=== PATIENT | female | born 1965 | race Caucasian/White ===

== ENCOUNTER 2016-09-30 00:15 | Emergency (ER) | payer MEDICAID ==
[2016-09-30 00:15] VITALS: BMI 32.9
[2016-09-30 00:33] VITALS: BP 134/108; PULSE 109; RESP 20; TEMP 99.2; O2SAT 98
--- NOTE | 2016-09-30 00:39 | C.PDOC ---
History Of Present Illness Patient presents to the emergency room requesting narcotics for abdominal pain. Patient also notes vomiting. Patient has a long history of Narcotic abuse. Patient does not want any blood work and only wants something for pain. Patient denies any headaches, dizziness, chest pain, or shortness of breath. Time Seen by Provider: 09/30/16 00:39 Chief Complaint (Nursing): Abdominal Pain History Per: Patient History/Exam Limitations: no limitations Onset/Duration Of Symptoms: Hrs Current Symptoms Are (Timing): Still Present Severity: Mild Pain Scale Rating Of: 4 Location Of Pain/Discomfort: Diffuse Radiation Of Pain To:: None Quality Of Discomfort: "Pain" Associated Symptoms: Vomiting Exacerbating Factors: None Alleviating Factors: None Recent travel outside of the [place]: No Past Medical History Reviewed: Historical Data, Nursing Documentation, Vital Signs Vital Signs: Last Vital Signs Temp 99.2 F 09/30/16 00:29 Pulse 109 H 09/30/16 00:29 Resp 20 09/30/16 00:29 BP 134/108 H 09/30/16 00:29 Pulse Ox 98 09/30/16 01:32 - Medical History PMH: Anemia, Anxiety, Arthritis, Asthma, Back Problems (herniated discs), Bronchitis, Depression, Diverticulitis, Gastritis, Gastrointestinal Ulcer, HTN, Hypercholesterolemia, Pancreatitis Denies: Dementia, Hyperthyroidism, Hypothyroidism, Kidney Stones, Chronic Kidney Disease, Sexually Transmitted Disease, TIA Surgical History: Appendectomy, Cholecystectomy, Endoscopy, Hernia Repair ( ventral x3, last 10/27/15) - [facility] Procedures CENTRAL VENOUS CATHETER PLACEMENT WITH GUIDANCE (06/13/14) CLOSED ENDOSCOPIC BIOPSY OF LARGE INTESTINE (05/19/14) DILATION OF RIGHT AXILLARY ARTERY, PERCUTANEOUS APPROACH (11/03/15) ESOPHAGOGASTRODUODENOSCOPY [EGD] W/CLOSED BIOPSY (10/22/14) EXCISION OF DESCENDING COLON, ENDO, DIAGN (05/31/16) EXCISION OF SIGMOID COLON, ENDO, DIAGN (12/05/15) EXCISION OF SMALL INTESTINE, ENDO, DIAGN (06/10/16) EXCISION OF STOMACH, ENDO, DIAGN (10/21/15) FLUOROSCOPY OF SUPERIOR VENA CAVA, GUIDANCE (12/05/15) INFLUENZA VACCINATION (05/08/14) INJECT/INFUSE NEC (06/25/14) INSERTION OF INFUSION DEV INTO L BRACH VEIN, PERC APPROACH (11/08/15) INSERTION OF INFUSION DEV INTO SUP VENA CAVA, PERC APPROACH (05/31/16) INSPECTION OF GASTROINTESTINAL TRACT, PERC ENDO APPROACH (10/26/15) MRI OF OTHER AND UNSPECIFIED SITES (04/25/14) RELEASE CECUM, OPEN APPROACH (10/26/15) ULTRASONOGRAPHY OF LEFT UPPER EXTREMITY VEINS, GUIDANCE (11/08/15) ULTRASONOGRAPHY OF SUPERIOR VENA CAVA, GUIDANCE (10/26/15) VENOUS CATHETERIZATION NEC (02/14/14) Family History: States: Unknown Family Hx - Social History Hx Tobacco Use: No Hx Alcohol Use: No Hx Substance Use: No - Immunization History Hx Tetanus Toxoid Vaccination: Yes Hx Influenza Vaccination: Yes (2015) Hx Pneumococcal Vaccination: Yes (2014) Review Of Systems Cardiovascular: Negative for: Chest Pain Respiratory: Negative for: Shortness of Breath Gastrointestinal: Positive for: Vomiting, Abdominal Pain Skin: Negative for: Rash Neurological: Negative for: Dizziness Psych: Negative for: Anxiety Physical Exam - Physical Exam Appears: Non-toxic (pt refuses to be fully examined, other than abdomen) Gastrointestinal/Abdominal: Soft, No Tenderness, Distention, No Guarding, No Rebound, Other (Tympanic to percussion) Extremity: Normal ROM, No Tenderness Neurological/Psych: Oriented x3 Gait: Steady ED Course And Treatment O2 Sat by Pulse Oximetry: 98 Pulse Ox Interpretation: Normal Progress Note: [place] per [place], patient has had 47 prescriptions from 37 different prescribers filled for numerous narcotics over the last year. spoke with the pt at length about the need for pain menagement , and that I will try to control her discomfort without narcotics. pt wanted im zofran. went to reexamine the pt , but had eloped Disposition Counseled Patient/Family Regarding: Studies Performed, Diagnosis, Need For Followup - Disposition Disposition: ELOPEMENT - ER ONLY Disposition Time: 00:39 Condition: FAIR - Clinical Impression Clinical Impression: Nausea - Scribe Statement The provider has reviewed the documentation as recorded by the Scribe Camron Adler All medical record entries made by the Justinaibe were at my direction and personally dictated by me. I have reviewed the chart and agree that the record accurately reflects my personal performance of the history, physical exam, medical decision making, and the department course for this patient. I have also personally directed, reviewed, and agree with the discharge instructions and disposition.
== END 2016-09-30 01:29 | disposition left against medical advice (07) ==
LOC: C.ER 00:15
DX: R11.2 Nausea with vomiting, unspecified (principal)

== ENCOUNTER 2017-04-04 18:59 | Inpatient (IN) | payer MEDICAID ==
[2017-04-04 19:02] VITALS: BMI 38.7
--- NOTE | 2017-04-04 19:56 | C.PDOC ---
History Of Present Illness The patient presents to the ED for evaluation of severe abdominal pain which began a couple days ago. Patient has history of multiple abdominal surgeries in the past. Patient denies fever, chills, back pain, nausea, vomiting. Time Seen by Provider: 04/04/17 19:56 Chief Complaint (Nursing): Abdominal Pain History Per: Patient History/Exam Limitations: no limitations Onset/Duration Of Symptoms: Days Current Symptoms Are (Timing): Still Present Severity: Severe Pain Scale Rating Of: 8 Location Of Pain/Discomfort: Diffuse Radiation Of Pain To:: None Quality Of Discomfort: "Pain" Associated Symptoms: denies: Fever, Chills, Nausea, Vomiting Exacerbating Factors: None Alleviating Factors: None Last Bowel Movement: Today Recent travel outside of the [place]: No Additional History Per: Patient Abnormal Vaginal Bleeding: No Past Medical History Reviewed: Historical Data, Nursing Documentation, Vital Signs Vital Signs: Last Vital Signs Temp 99.3 F 04/04/17 19:02 Pulse 102 H 04/04/17 19:02 Resp 18 04/04/17 19:02 BP 188/118 H 04/04/17 19:02 Pulse Ox 100 04/04/17 21:31 - Medical History PMH: Anemia, Anxiety, Arthritis, Asthma, Back Problems (herniated discs), Bronchitis, Depression, Diverticulitis, Gastritis, Gastrointestinal Ulcer, HTN, Hypercholesterolemia, Pancreatitis Surgical History: Appendectomy, Cholecystectomy, Endoscopy, Hernia Repair ( ventral x3, last 10/27/15) - [facility] Procedures CENTRAL VENOUS CATHETER PLACEMENT WITH GUIDANCE (06/13/14) CLOSED ENDOSCOPIC BIOPSY OF LARGE INTESTINE (05/19/14) DILATION OF RIGHT AXILLARY ARTERY, PERCUTANEOUS APPROACH (11/03/15) ESOPHAGOGASTRODUODENOSCOPY [EGD] W/CLOSED BIOPSY (10/22/14) EXCISION OF DESCENDING COLON, ENDO, DIAGN (05/31/16) EXCISION OF SIGMOID COLON, ENDO, DIAGN (12/05/15) EXCISION OF SMALL INTESTINE, ENDO, DIAGN (06/10/16) EXCISION OF STOMACH, ENDO, DIAGN (10/21/15) FLUOROSCOPY OF SUPERIOR VENA CAVA, GUIDANCE (12/05/15) INFLUENZA VACCINATION (05/08/14) INJECT/INFUSE NEC (06/25/14) INSERTION OF INFUSION DEV INTO L BRACH VEIN, PERC APPROACH (11/08/15) INSERTION OF INFUSION DEV INTO SUP VENA CAVA, PERC APPROACH (05/31/16) INSPECTION OF GASTROINTESTINAL TRACT, PERC ENDO APPROACH (10/26/15) MRI OF OTHER AND UNSPECIFIED SITES (04/25/14) RELEASE CECUM, OPEN APPROACH (10/26/15) ULTRASONOGRAPHY OF LEFT UPPER EXTREMITY VEINS, GUIDANCE (11/08/15) ULTRASONOGRAPHY OF SUPERIOR VENA CAVA, GUIDANCE (10/26/15) VENOUS CATHETERIZATION NEC (02/14/14) Family History: States: No Known Family Hx - Social History Hx Tobacco Use: No Hx Alcohol Use: No Hx Substance Use: No - Immunization History Hx Tetanus Toxoid Vaccination: Yes Hx Influenza Vaccination: Yes (2015) Hx Pneumococcal Vaccination: Yes (2014) Review Of Systems Constitutional: Negative for: Fever, Chills Cardiovascular: Negative for: Chest Pain Respiratory: Negative for: Shortness of Breath Gastrointestinal: Positive for: Abdominal Pain (diffuse ). Negative for: Nausea , Vomiting, Diarrhea, Constipation Genitourinary: Negative for: Dysuria, Hematuria Musculoskeletal: Negative for: Back Pain Skin: Negative for: Rash Neurological: Negative for: Weakness, Numbness Psych: Positive for: Anxiety Physical Exam - Physical Exam Appears: Non-toxic, No Acute Distress, Other (patient is screaming and demanding pain medication ) Skin: Warm, Dry Head: Normacephalic Eye(s): bilateral: Normal Inspection Oral Mucosa: Moist Neck: Supple Chest: Symmetrical, No Deformity, No Tenderness Cardiovascular: Rhythm Regular, No Murmur Respiratory: No Rales, No Rhonchi, No Wheezing Gastrointestinal/Abdominal: Bowel Sounds (hypoactive ), Soft, Tenderness ( diffuse), Distention, No Guarding, No Rebound Back: No CVA Tenderness Extremity: Normal ROM, Capillary Refill (less than 2 seconds ) Extremity: Bilateral: Atraumatic Pulses: Left Dorsalis Pedis: Normal, Right Dorsalis Pedis: Normal Neurological/Psych: Oriented x3, Normal Speech, Normal Cognition Gait: Steady ED Course And Treatment - Laboratory Results Result Diagrams: 04/04/17 20:57 04/04/17 20:57 O2 Sat by Pulse Oximetry: 100 (on RA) Pulse Ox Interpretation: Normal Progress Note: [place]. Patient has around 50 prescriptions for narcotic pain medications from multiple prescribers. Attempted to perform external jugular vein IV access unsuccessfully. Patient has scarring from numerous previous attempts at IV access. Right Femoral venous puncture performed successfully. labs ordered and reviewed. Patient received Dulaudid IM, and zofran odt Disposition Discussed With .: Oleg Ellison Comment: accepted the pt on his service and took over the care at 9:28 PM Counseled Patient/Family Regarding: Studies Performed, Diagnosis - Disposition Disposition: HOSPITALIZED Disposition Time: 19:56 Condition: GUARDED - Clinical Impression Clinical Impression: Abdominal pain, chronic, generalized, Nausea, Vomiting - Scribe Statement The provider has reviewed the documentation as recorded by the Scribe (Lilliana Ley) Provider Attestation: All medical record entries made by the Scribe were at my direction and personally dictated by me. I have reviewed the chart and agree that the record accurately reflects my personal performance of the history, physical exam, medical decision making, and the department course for this patient. I have also personally directed, reviewed, and agree with the discharge instructions and disposition. Decision To Admit - Pt Status Changed To: Hospital Disposition Of: Inpatient - Admit Certification Admit to Inpatient:: After my assessment, the patient will require hospitalization for at least two midnights. This is because of the severity of symptoms shown, intensity of services needed, and/or the medical risk in this patient being treated as an outpatient. - InPatient: Physician Admission Certification:: After my assessment, the patient will require hospitalization for at least two midnights. This is because of the severity of symptoms shown, intensity of services needed, and/or the medical risk in this patient being treated as an outpatient. - . Bed Request Type: Regular Admitting Physician: Oleg Ellison Patient Diagnosis: Abdominal pain, chronic, generalized, Nausea, Vomiting
[2017-04-04] MEDS ORDERED: Sodium Chloride 0.9% 1,000 ML IV ONE (19:59)
[2017-04-04 21:04] LABS: BASO % 0.3 % (0.0-2.0); EOS # 0.2 K/uL (0.0-0.7); EOS % 1.3 % (0.0-4.0); LYMPH % 7.2 % (20.0-40.0); MEAN CELL VOLUME 89.4 fL (81.0-99.0); MEAN CORPUSCULAR HEMOGLOBIN 29.3 pg (27.0-31.0); MEAN CORPUSCULAR HGB CONC 32.8 g/dL (33.0-37.0); MEAN PLATELET VOLUME 8.1 fL (7.2-11.7); MONO # 0.5 K/uL (0.0-0.8); MONO % 3.4 % (0.0-10.0); NRBC % 0.1 % (0.0-2.0); PLATELET COUNT 336 K/uL (130-400); RED CELL DISTRIBUTION WIDTH 12.6 % (11.5-14.5); WHITE BLOOD COUNT 14.2 K/uL (4.8-10.8)
[2017-04-04 21:09] LABS: CHLORIDE 101 mmol/L (98-107)
[2017-04-04 21:10] LABS: SODIUM 140 mmol/L (132-148)
[2017-04-04 21:11] LABS: GFR AFRICAN-AMERICAN > 60
[2017-04-04 21:12] LABS: ALB/GLOB RATIO 1.2 (1.0-2.1); ALKALINE PHOSPHATASE 139 U/L (38-126); ALT/SGPT 38 U/L (9-52); AST/SGOT 25 U/L (14-36); BILIRUBIN,TOTAL 0.5 mg/dL (0.2-1.3); BLOOD UREA NITROGEN 15 mg/dL (7-17); CALCIUM 9.3 mg/dl (8.6-10.4); CARBON DIOXIDE 29 mmol/L (22-30); GLUCOSE,RANDOM 126 mg/dL (65-105); TOTAL PROTEIN 7.9 g/dL (6.3-8.3)
[2017-04-04 21:35] LABS: INR 1.1
[2017-04-04 22:14] LABS: RBC URINE 30 /hpf (0-3); URINE BACTERIA RARE (<OCC); URINE BILIRUBIN NEGATIVE (NEGATIVE); URINE BLOOD 2+ (NEGATIVE); URINE COLOR Yellow (YELLOW); URINE GLUCOSE (UA) NORMAL (Normal); URINE KETONE NEGATIVE (NEGATIVE); URINE LEUKOCYTE ESTERASE NEG Leu/uL (Negative); URINE PROTEIN NEGATIVE (NEGATIVE); URINE UROBILINOGEN NORMAL mg/dL (0.2-1.0); WBC URINE 1 /hpf (0-5)
--- NOTE | 2017-04-04 22:40 | CT ---
EXAM: CT Abdomen and Pelvis Without Intravenous Contrast CLINICAL HISTORY: 52 years old, female; Pain; Abdominal pain; Generalized; Additional info: Abd pain, numerous abd surgeries TECHNIQUE: Axial computed tomography images of the abdomen and pelvis without intravenous contrast. All CT scans at this facility use one or more dose reduction techniques, viz.: automated exposure control; ma/kV adjustment per patient size (including targeted exams where dose is matched to indication; i.e. head); or iterative reconstruction technique. The Coronal and sagittal reformatted images were created and reviewed. COMPARISON: CT - ABD PELVIS PO CONTRAST ONLY 05/28/2016 8:53:29 AM FINDINGS: Lower thorax: The bilateral lung bases are clear. ABDOMEN: Liver: No acute findings Gallbladder and bile ducts: The gallbladder is surgically absent. No intra-extrahepatic biliary ductal dilation. Pancreas: Limited evaluation secondary to the lack of intravenous contrast. Spleen: No acute findings. Adrenals: No acute findings. Kidneys and ureters: No obstructing stones. No hydronephrosis. PELVIS: Bladder: Decompressed, limiting its evaluation. Reproductive: No acute findings. Appendix: The appendix is not definitively visualized, however no pericecal inflammatory change is identified to suggest the presence of acute appendicitis. ABDOMEN and PELVIS: Stomach and bowel: Hazy infiltration of the small bowel mesentery, increased from 05/28/2016. Trace free fluid within the pelvis, an interval change from previous examination. Diverticulosis of the sigmoid colon, without adjacent inflammation. Post ventral hernia repair. Peritoneum: As above. Lymph nodes: Limited evaluation without intravenous contrast. Vasculature: No aortic aneurysm. Bones: No acute fracture. IMPRESSION: Hazy infiltration of the small bowel mesentery, increased from previous examination with trace free fluid in the pelvis - findings are suggestive of a small bowel enteritis, for which clinical correlation is needed.
--- NOTE | 2017-04-04 22:48 | CP.PCM.CON ---
History of Present Illness - History of Present Illness History of Present Illness: General Surgery Dr. Cagle 52 y/o F w/ PMHx of HTN, HLD, ventral wall hernia repair x2, SBO, and narcotic abuse presents to the ED c/o abd pain x1day. Pt reports feeling mild pain associated w/ nausea and vomiting yesterday. Pain has worsened prompting pt to come in for evaluation. Pain is diffuse and constant w/ waves of worsened intensity. Pt reports bilious, green vomitus but denies hematemesis. Pt reports last BM yesterday and admits to daily BM normally. Pt denies F/C, CP, SOB, D/C. Pt was recently discharged from [facility] after admission for mechanical SBO requiring laparoscopic CHINMAY. PHMx: HLD, HTN, Asthma, anemia, herniated discs, PUD, diverticulitis, pancreatitis, anxiety, depression, substance abuse Meds: reviewed in chart Allergies: Iodine, toradol, morphine, PCN PSHx: ventral hernia repair w/ mesh, ex-lap w/ CHINMAY, laparoscopic CHINMAY, appy, darshan, EGD, colonoscopy SHx: denies tobacco, EtOH, drug use FHx: noncontributory Review of Systems - Review of Systems All systems: reviewed and no additional remarkable complaints except (see HPI) Past Patient History - Infectious Disease Hx of Infectious Diseases: None - Tetanus Immunizations Tetanus Immunization: Unknown - Past Medical History & Family History Past Medical History?: Yes - Past Social History Smoking Status: Never Smoked - CARDIAC Hx Hypercholesterolemia: Yes Hx Hypertension: Yes - PULMONARY Hx Asthma: Yes Hx Bronchitis: Yes - NEUROLOGICAL Hx Dementia: No Hx Transient Ischemic Attacks (TIA): No - HEENT Hx HEENT Problems: No - RENAL Hx Chronic Kidney Disease: No - ENDOCRINE/METABOLIC Hx Hyperthyroidism: No Hx Hypothyroidism: No - HEMATOLOGICAL/ONCOLOGICAL Hx Anemia: Yes - INTEGUMENTARY Hx Dermatological Problems: No Hx Basil Cell: No Hx Sahu: No Hx Cellulitis: No Hx Eczema: No Hx Melanoma: No Hx Psoriasis: No Hx Squamous Cell: No - MUSCULOSKELETAL/RHEUMATOLOGICAL Hx Arthritis: Yes - GASTROINTESTINAL Hx Diverticulitis: Yes Hx Gastritis: Yes Hx Pancreatitis: Yes - GENITOURINARY/GYNECOLOGICAL Hx Sexually Transmitted Disorders: No - PSYCHIATRIC Hx Anxiety: Yes Hx Depression: Yes Hx Substance Use: No - SURGICAL HISTORY Hx Appendectomy: Yes Hx Cholecystectomy: Yes - ANESTHESIA Hx Anesthesia: Yes Hx Anesthesia Reactions: No Hx Malignant Hyperthermia: No Meds Allergies/Adverse Reactions: Allergies Allergy/AdvReac Type Severity Reaction Status Date / Time iodine Allergy Severe ANAPHYLAXIS Verified 04/04/17 19:01 Iodine and Iodide Containing Allergy Severe ANAPHYLAXIS Verified 04/04/17 19:01 Produc ketorolac tromethamine Allergy Intermediate NAUSEA Verified 04/04/17 19:01 [From Toradol] morphine Allergy Intermediate URTICARIA Verified 04/04/17 19:01 Penicillins Allergy ITCHING Verified 04/04/17 19:01 seafood Allergy Severe ANAPHYLAXIS Uncoded 07/04/16 09:20 iv contrast Allergy ITCHING Uncoded 07/04/16 09:20 - Medications Medications: Current Medications Amlodipine Besylate (Norvasc) 10 mg PO DAILY [facility] Hydromorphone HCl (Dilaudid) 2 mg IM Q4 PRN PRN Reason: Pain, severe (8-10) Last Admin: 04/04/17 21:33 Dose: 2 mg Ondansetron HCl (Zofran Odt) 8 mg PO Q6 PRN PRN Reason: Nausea/Vomiting Pantoprazole Sodium (Protonix Ec Tab) 40 mg PO DAILY [facility] Fluticasone/Salmeterol (Advair Diskus 250/50) 2 puff IH BID G[facility] Physical Exam - Constitutional Appears: Non-toxic, No Acute Distress - Head Exam Head Exam: NORMAL INSPECTION - Eye Exam Eye Exam: Normal appearance - ENT Exam ENT Exam: Mucous Membranes Moist - Respiratory Exam Respiratory Exam: NORMAL BREATHING PATTERN. absent: Accessory Muscle Use, Respiratory Distress - Cardiovascular Exam Cardiovascular Exam: absent: Bradycardia, Tachycardia - GI/Abdominal Exam GI & Abdominal Exam: Soft, Tenderness (diffuse TTP). absent: Distended, Guarding (voluntary), Rebound Additional comments: multiple surgical scars present - Extremities Exam Extremities exam: Negative for: pedal edema, tenderness Additional comments: R elbow surgical scar - Neurological Exam Neurological exam: Alert, Oriented x3 - Psychiatric Exam Psychiatric exam: Normal Affect, Normal Mood - Skin Skin Exam: Dry, Intact, Normal Color, Warm Results - Vital Signs Recent Vital Signs: Last Vital Signs Temp 99.3 F 04/04/17 19:02 Pulse 102 H 04/04/17 19:02 Resp 18 04/04/17 19:02 BP 188/118 H 04/04/17 19:02 Pulse Ox 100 04/04/17 21:52 - Labs Result Diagrams: 04/04/17 20:57 04/04/17 20:57 Labs: Laboratory Results - last 24 hr 04/04/17 04/04/17 04/04/17 20:57 20:57 20:57 WBC 14.2 H D RBC 3.81 Hgb 11.2 Hct 34.0 MCV 89.4 MCH 29.3 MCHC 32.8 L RDW 12.6 Plt Count 336 MPV 8.1 Neut % (Auto) 87.8 H Lymph % (Auto) 7.2 L [place] % (Auto) 3.4 Eos % (Auto) 1.3 Baso % (Auto) 0.3 Neut # 12.4 H Lymph # 1.0 [place] # 0.5 Eos # 0.2 Baso # 0.0 PT 11.9 INR 1.1 APTT 28 Sodium 140 Potassium 4.0 Chloride 101 Carbon Dioxide 29 Anion Gap 15 BUN 15 Creatinine 0.7 Est GFR ( Amer) > 60 Est GFR (Non-Af Amer) > 60 Random Glucose 126 H Calcium 9.3 Total Bilirubin 0.5 AST 25 ALT 38 Alkaline Phosphatase 139 H Total Protein 7.9 Albumin 4.4 Globulin 3.5 Albumin/Globulin Ratio 1.2 Lipase 180 Urine Color Urine Clarity Urine pH Ur Specific [place] Urine Protein Urine Glucose (UA) Urine Ketones Urine Blood Urine Nitrate Urine Bilirubin Urine Urobilinogen Ur Leukocyte Esterase Urine WBC (Auto) Urine RBC (Auto) Ur Squamous Epith Cells Urine Bacteria Urine HCG, Qual 04/04/17 21:50 WBC RBC Hgb Hct MCV MCH MCHC RDW Plt Count MPV Neut % (Auto) Lymph % (Auto) [place] % (Auto) Eos % (Auto) Baso % (Auto) Neut # Lymph # [place] # Eos # Baso # PT INR APTT Sodium Potassium Chloride Carbon Dioxide Anion Gap BUN Creatinine Est GFR ( Amer) Est GFR (Non-Af Amer) Random Glucose Calcium Total Bilirubin AST ALT Alkaline Phosphatase Total Protein Albumin Globulin Albumin/Globulin Ratio Lipase Urine Color Yellow Urine Clarity Clear Urine pH 7.0 Ur Specific [place] 1.018 Urine Protein Negative Urine Glucose (UA) Normal Urine Ketones Negative Urine Blood 2+ H Urine Nitrate Negative Urine Bilirubin Negative Urine Urobilinogen Normal Ur Leukocyte Esterase Neg Urine WBC (Auto) 1 Urine RBC (Auto) 30 H Ur Squamous Epith Cells 2 Urine Bacteria Rare Urine HCG, Qual Negative - Imaging and Cardiology CT scan - abdomen Status: Image reviewed by me, Report reviewed by me Assessment & Plan - Assessment and Plan (Free Text) Assessment: 52 y/o F w/ abd pain s/p multiple abd surgeries CT w/ no signs of obstruction, though possible enteritis - NPO, IVF - pain management - anti-emetics PRN - NGT if vomiting - serial abd exams - continue medical management Further recs per Dr. Gurjit Sandoval DO PGY2
[2017-04-04 23:02] LABS: EOSINOPHIL 2 % (0-4); NEUTROPHIL 85 % (50-75); SMUDGE CELLS PRESENT; TOTAL CELLS COUNTED 100
[2017-04-04 23:03] LABS: LARGE PLATELETS PRESENT
[2017-04-05] MEDS ORDERED: HYDROmorphone 1 mg/ml ISec IM STA (00:46)
--- NOTE | 2017-04-05 07:29 | CP.PCM.PN ---
Subjective - Date & Time of Evaluation Date of Evaluation: 04/05/17 Time of Evaluation: 07:29 - Subjective Subjective: General Surgery Progress Note for Dr. Cagle Patient seen and examined at bedside. No acute event overnight. Patient complaining of some abd pain still. Patient denies n/v/d and constipation. Patient states that she had a BM yesterday. Patient ambulating and moving without difficulty. Patient has no other complaints at this time. Objective - Vital Signs/Intake and Output Vital Signs (last 24 hours): Temp Pulse Resp BP Pulse Ox 98.7 F 97 H 16 105/67 99 04/05/17 04:01 04/05/17 04:01 04/05/17 04:01 04/05/17 04:01 04/05/17 04:01 - Medications Medications: Current Medications Amlodipine Besylate (Norvasc) 10 mg PO DAILY [facility] Hydromorphone HCl (Dilaudid) 2 mg IM Q4 PRN PRN Reason: Pain, severe (8-10) Last Admin: 04/05/17 05:34 Dose: 2 mg Ondansetron HCl (Zofran Odt) 8 mg PO Q6 PRN PRN Reason: Nausea/Vomiting Last Admin: 04/05/17 03:05 Dose: 8 mg Pantoprazole Sodium (Protonix Ec Tab) 40 mg PO DAILY [facility] Fluticasone/Salmeterol (Advair Diskus 250/50) 2 puff IH BID G[facility] - Labs Labs: 04/04/17 20:57 04/04/17 20:57 PT 11.9 SECONDS (9.7-12.2) 04/04/17 20:57 INR 1.1 04/04/17 20:57 APTT 28 SECONDS (21-34) 04/04/17 20:57 - Constitutional Appears: No Acute Distress - Head Exam Head Exam: ATRAUMATIC, NORMOCEPHALIC - Eye Exam Eye Exam: Normal appearance - ENT Exam ENT Exam: Mucous Membranes Moist - Respiratory Exam Respiratory Exam: NORMAL BREATHING PATTERN - Cardiovascular Exam Cardiovascular Exam: REGULAR RHYTHM - GI/Abdominal Exam GI & Abdominal Exam: Soft, Tenderness (mild to palpation in umbilical region). absent: Distended, Firm, Guarding, Rigid, Rebound - Extremities Exam Extremities Exam: Normal Capillary Refill - Neurological Exam Neurological Exam: Alert, Awake, CN II-XII Intact, Normal Gait, Oriented x3 - Psychiatric Exam Psychiatric exam: Normal Affect, Normal Mood - Skin Skin Exam: Dry, Intact, Normal Color, Warm Assessment and Plan - Assessment and Plan (Free Text) Plan: 52 F with abd pain, history of multiple abd surgeries -CT shows no signs of obstruction, possible enteritis -anti-emetics/analgesics PRN -continue medical management -No surgical intervention at this time -Will PJ Harrison PGY1
--- NOTE | 2017-04-05 09:23 | CP.PCM.PN ---
Subjective - Date & Time of Evaluation Date of Evaluation: 04/05/17 Time of Evaluation: 09:18 - Subjective Subjective: PGY2 medical progress note for Dr. Ellison: Patient is a 52 year old female with history of HLD, HTN, ventral hernia repair , SBO with recent hospitalization at [facility] for laparoscopic surgery with lysis of adhesions. Patient presents to the hospital with complaint of sharp abdominal pain that she states is periumbilical and denies radiation. Patient states the pain has been going on for the past few days but has worsened. Patient admits to multiple episodes of bilious non- bloody emesis. Patient reports small bowel movement yesterday and today. Patient reports frequent belching but denies flatus. Patient reports elevated temperature of 100.2 at home but denies chills. PMHx: Gastritis, Prepyloric clean-based ulcer 12/04/15, [place] Grade B esophagitis 2015, hiatal hernia, chronic abdominal pain, Diverticulosis, normocytic anemia, SBO s/p lysis of adhesions 10/2015 PSHx: ventral hernia repair x2, lysis of adhesions 10/2015, appendectomy, cholecystectomy Objective - Vital Signs/Intake and Output Vital Signs (last 24 hours): Temp Pulse Resp BP Pulse Ox 98.5 F 90 18 145/96 H 95 04/05/17 07:38 04/05/17 07:38 04/05/17 07:38 04/05/17 07:38 04/05/17 07:38 - Medications Medications: Current Medications Amlodipine Besylate (Norvasc) 10 mg PO DAILY [facility] Hydromorphone HCl (Dilaudid) 2 mg IM Q4 PRN PRN Reason: Pain, severe (8-10) Last Admin: 04/05/17 05:34 Dose: 2 mg Ondansetron HCl (Zofran Odt) 8 mg PO Q6 PRN PRN Reason: Nausea/Vomiting Last Admin: 04/05/17 09:02 Dose: 8 mg Pantoprazole Sodium (Protonix Ec Tab) 40 mg PO DAILY [facility] Fluticasone/Salmeterol (Advair Diskus 250/50) 1 puff INH RQ12 [facility] - Labs Labs: 04/04/17 20:57 04/04/17 20:57 PT 11.9 SECONDS (9.7-12.2) 04/04/17 20:57 INR 1.1 04/04/17 20:57 APTT 28 SECONDS (21-34) 04/04/17 20:57 - Constitutional Appears: Non-toxic, No Acute Distress - Head Exam Head Exam: ATRAUMATIC, NORMOCEPHALIC - Eye Exam Eye Exam: EOMI - ENT Exam ENT Exam: Mucous Membranes Moist - Respiratory Exam Respiratory Exam: Clear to Ausculation Bilateral, NORMAL BREATHING PATTERN. absent: Respiratory Distress - Cardiovascular Exam Cardiovascular Exam: +S1, +S2 - GI/Abdominal Exam GI & Abdominal Exam: Distended, Soft, Tenderness (diffuse), Hypoactive Bowel Sounds. absent: Firm, Guarding - Extremities Exam Extremities Exam: Normal Inspection. absent: Pedal Edema - Neurological Exam Neurological Exam: Alert, Awake - Psychiatric Exam Psychiatric exam: Normal Affect - Skin Skin Exam: Dry, Warm Assessment and Plan - Assessment and Plan (Free Text) Assessment: Abdominal Pain CT abdomen/ pelvis: hazy infiltration small bowl mesentery, increased from prior , trace free fluid in pelvis suggestive for enteritis of the small bowel zofran 8mg PO q6prn protonix 40mg PO daily dilaudid 2mg IM q4prn GI, Dr. Walls, consulted- help appreciated General Surgery, Dr. Cagle, consulted- help appreciated keep pt NPO, IVF, pain management if patient still vomiting, place NGT no obstruction IV access difficult to obtain. Patient currently receiving PO and IM medications as cannot give IV. Will give patient trial of CLD. If patient cannot tolerate, patient will need PICC line for vascular access. If patient can tolerate some PO intake- PICC order to be canceled. If patient continues to vomit, may place NGT. HTN Norvasc 10mg PO daily Asthma advair 250/50 2 puff BID Prophylactic measure SCDs All medical management as per Dr. Ellison
[2017-04-05] MEDS ORDERED: Fluticasone-Salmeterol 250-50mcg Diskus IH SCH (10:00)
[2017-04-05] MEDS: Pantoprazole 40 mg EC Tab PO SCH (10:12)
[2017-04-05] MEDS: Fluticasone-Salmeterol 250-50mcg Diskus INH SCH ×2 (10:25→20:33)
[2017-04-05] MEDS: metroNIDAZOLE IV 500 mg/100 ml 500 MG/100 ML BAG IVPB SCH ×2 (14:42→22:48)
[2017-04-05] MEDS: Sucralfate 1 gm/10 ml Oral Susp UD PO SCH ×2 (15:13→17:52)
[2017-04-05] MEDS: Sodium Chloride 0.9% 1,000 ML IV SCH ×2 (16:00→20:00)
--- NOTE | 2017-04-05 16:12 | PN ---
DATE: LOCATION: Room 657, bed B. SUBJECTIVE: This is a 52-year-old female seen and examined for GI consultation on 04/04/2017, reexamined again today in the emergency room with the nursing staff in the emergency room, with persistent abdominal pain with nausea and intermittent vomiting again with dyspepsia. No bowel movement. LABORATORY DATA: The latest blood work up showed white blood cells of 14.2, with elevated glucose 126, alkaline phosphatase is 139. Entire chart is reviewed including but not limited to the most recent lab and radiology study results, current and previous medication list, current and previous medical events. CAT scan of the abdomen and pelvis reviewed again. PHYSICAL EXAMINATION GENERAL: A 52-year-old female awake, alert and oriented. VITAL SIGNS: Afebrile with pulse of 92, respiratory 20-22 and blood pressure 130/66. HEENT: Dry oral mucous membrane. Nonicteric sclerae. LUNGS: Clear, Breathing sounds are present bilaterally. HEART: Positive S1 and S2. ABDOMEN: Soft with slight generalized tenderness and slight distension. No mass or organomegaly. No rebound tenderness or guarding. RECTAL: The patient refused. EXTREMITIES: With slight lower extremity edematous changes. No clubbing or cyanosis. NEUROLOGIC: No reported new neurological deficit, sensory, focal or motor. IMPRESSION: 1. Re-exacerbation of peptic ulcer disease, rule out gastric versus duodenal ulcer. 2. Multiple past medical history including multiple abdominal surgery including status post cholecystectomy, appendectomy, ventral abdominal hernia repair x3 last surgery was one week ago. 3. Known history of but not limited to bronchial asthma, bronchitis, depression, hypertension, hyperlipidemia, severe anxiety syndrome with diverticulosis and periods of diverticulitis in the past with gastric ulcer. SUGGESTION: 1. Continue current management. 2. Add Flagyl IV. 3. Reglan IV. 4. The patient for upper endoscopy at a.m. Hector Belcher MD cc: Office and The Patient's Chart.
[2017-04-05] MEDS: DiphenhydrAMINE 50 mg/ml Inj IVP PRN (19:02)
--- NOTE | 2017-04-05 21:27 | CON ---
DATE: 04/04/2017 LOCATION: The patient is seen in the ER. This is from Dr. Hector Belcher to Dr. Oleg Ellison. I was called for GI consultation by the admitting medical team. The patient is seen and fully examined on 04/04/2017 as requested by the admitting medical staff. The entire chart is reviewed including but not limited to most recent lab and radiology study results, current and previous medication list, current and previous medical events, allergy to medication list as well as also available current and previous medical records. Case was discussed with the ER staff at length. HISTORY OF PRESENT ILLNESS: This is a 52- year-old female with multiple abdominal surgeries before and was admitted through the emergency room due to complaint of severe abdominal pain, postprandial abdominal distension, constipation, and nausea with dyspepsia. No reported chest pain, active bleeding, shortness of breath or palpitation. No chills or fever reported, but dyspepsia. PAST MEDICAL HISTORY: Including, but not limited to: 1. Severe anxiety syndrome. 2. Bronchial asthma with bronchitis. 3. Depression. 4. Diverticulosis with periods of diverticulitis. 5. Gastric ulcer with recurrent gastritis. 6. History of hypertension with hyperlipidemia. 7. Reported history of pancreatitis, believed to be secondary to drug abuse. 8. History of status post cholecystectomy, appendectomy, and ventral hernia repair x3, the last done on 10/26/2016. 9. Upper and lower endoscopy done last year as per the record. ALLERGIES TO MEDICATIONS: UNCLEAR. CURRENT MEDICATIONS: Medication list was reviewed. FAMILY HISTORY: Unknown. RECENT SOCIAL HISTORY: The patient denied any recent history of cigarette smoking or alcohol intake; however, it was reported that the patient might have substance abuse. The patient's pain is diffuse with greenish vomitus, but now reported hematemesis or hemoptysis and the last bowel movement was reported a day before her admission. The patient had also history of mechanically small bowel obstruction, required laparoscopic surgery, recently. CAT scan post admission through the emergency room is seen. The report and the films were evaluated and indicative of possible small bowel enteritis. Lab results at the time of admission showed white blood cells of 14.2 with normal hemoglobin and hematocrit. The blood glucose level was 126 and alkaline phosphatase 139 with red blood cells in the urine. PHYSICAL EXAMINATION: GENERAL: A 52 years old female, awake, alert, complaining of severe abdominal pain. VITAL SIGNS: Afebrile with pulse of 84, respiratory 20-22, blood pressure is 120/64. HEENT: Showed pale and dry oral mucous membrane. Non-icteric sclerae. LUNGS: Few scattered mild crepitation. Breathing sounds are present bilaterally. HEART: Positive S1 and S2. ABDOMEN: Soft with slight distention and diffuse tenderness. No mass or organomegaly. No rebound tenderness or guarding. RECTAL: The patient refused. EXTREMITIES: Significant clubbing, cyanosis or edema. IMPRESSION: 1. Acute enteritis diagnosed by radiology study results. 2. Re-exacerbation of peptic ulcer disease with nausea and vomiting. 3. Multiple abdominal surgeries with possible recent adhesion. 4. Past medical history including, but not limited to gastric ulcer, to rule out recurrent gastric ulceration. 5. Severe anxiety syndrome. 6. Bronchial asthma, bronchitis as well as depression with recurrent pancreatitis. 7. Known history of hypertension with hyperlipidemia as well as status post cholecystectomy and appendectomy. SUGGESTIONS: 1. Continue current management. 2. Flagyl IV. 3. Rehydration. 4. Proton pump inhibitors. 5. Reglan IV. 6. Endoscopic evaluation of the upper GI tract if the patient's symptom still persists. 7. Further recommendation to follow. Hector Belcher MD
[2017-04-05 21:33] LABS: BASO % 0.6 % (0.0-2.0); EOS # 0.4 K/uL (0.0-0.7); EOS % 4.7 % (0.0-4.0); HEMATOCRIT 28.5 % (34.0-47.0); LYMPH # 1.3 K/uL (1.0-4.3); LYMPH % 16.5 % (20.0-40.0); MEAN CELL VOLUME 89.4 fL (81.0-99.0); MEAN CORPUSCULAR HEMOGLOBIN 29.4 pg (27.0-31.0); MEAN CORPUSCULAR HGB CONC 32.8 g/dL (33.0-37.0); MEAN PLATELET VOLUME 7.7 fL (7.2-11.7); MONO # 0.7 K/uL (0.0-0.8); RED CELL DISTRIBUTION WIDTH 13.1 % (11.5-14.5); WHITE BLOOD COUNT 7.7 K/uL (4.8-10.8)
[2017-04-05 21:40] LABS: CHLORIDE 101 mmol/L (98-107); SODIUM 138 mmol/L (132-148)
[2017-04-05 21:41] LABS: POTASSIUM 3.9 mmol/L (3.6-5.2)
[2017-04-05 21:42] LABS: INR 1.1
[2017-04-05 21:43] LABS: ALB/GLOB RATIO 1.2 (1.0-2.1); ALKALINE PHOSPHATASE 223 U/L (38-126); ALT/SGPT 215 U/L (9-52); AST/SGOT 293 U/L (14-36); BILIRUBIN,TOTAL 0.4 mg/dL (0.2-1.3); BLOOD UREA NITROGEN 16 mg/dL (7-17); CARBON DIOXIDE 28 mmol/L (22-30); GFR AFRICAN-AMERICAN > 60; TOTAL PROTEIN 6.8 g/dL (6.3-8.3)
[2017-04-05 21:44] LABS: CALCIUM 8.5 mg/dl (8.6-10.4); GLUCOSE,RANDOM 100 mg/dL (65-105)
[2017-04-05 22:15] LABS: CARCINOEMBRYONIC ANTIGEN 1.9 ng/mL (0-3.0)
[2017-04-05 22:19] LABS: CA 19-9 < 1.4 U/mL (0-37)
[2017-04-06] MEDS: DiphenhydrAMINE 50 mg/ml Inj IVP PRN ×4 (01:09→19:03)
[2017-04-06] MEDS: Sodium Chloride 0.9% 1,000 ML IV SCH ×3 (03:09→16:15)
[2017-04-06] MEDS: metroNIDAZOLE IV 500 mg/100 ml 500 MG/100 ML BAG IVPB SCH ×3 (05:15→22:07)
[2017-04-06 07:23] LABS: BASO % 0.5 % (0.0-2.0); EOS # 0.3 K/uL (0.0-0.7); EOS % 4.8 % (0.0-4.0); HEMATOCRIT 27.9 % (34.0-47.0); LYMPH # 1.1 K/uL (1.0-4.3); LYMPH % 15.7 % (20.0-40.0); MEAN CELL VOLUME 90.2 fL (81.0-99.0); MEAN CORPUSCULAR HGB CONC 33.3 g/dL (33.0-37.0); MEAN PLATELET VOLUME 8.2 fL (7.2-11.7); MONO # 0.5 K/uL (0.0-0.8); RED CELL DISTRIBUTION WIDTH 13.1 % (11.5-14.5); WHITE BLOOD COUNT 6.7 K/uL (4.8-10.8)
[2017-04-06 07:31] LABS: CHLORIDE 103 mmol/L (98-107)
[2017-04-06 07:32] LABS: POTASSIUM 3.7 mmol/L (3.6-5.2); SODIUM 141 mmol/L (132-148)
[2017-04-06 07:34] LABS: AST/SGOT 157 U/L (14-36); BILIRUBIN,TOTAL 0.5 mg/dL (0.2-1.3); GFR AFRICAN-AMERICAN > 60
[2017-04-06 07:35] LABS: ALB/GLOB RATIO 1.3 (1.0-2.1); ALKALINE PHOSPHATASE 213 U/L (38-126); ALT/SGPT 185 U/L (9-52); BLOOD UREA NITROGEN 11 mg/dL (7-17); CALCIUM 8.4 mg/dl (8.6-10.4); CARBON DIOXIDE 26 mmol/L (22-30); GLUCOSE,RANDOM 93 mg/dL (65-105); TOTAL PROTEIN 6.4 g/dL (6.3-8.3)
[2017-04-06] MEDS: Fluticasone-Salmeterol 250-50mcg Diskus INH SCH ×2 (07:56→19:28)
--- NOTE | 2017-04-06 08:58 | RAD ---
PROCEDURE: Intraoperative Fluoroscopy. HISTORY: FOR IV ACCESS FINDINGS: Fluoroscopic assistance was provided for right PICC line placement.
--- NOTE | 2017-04-06 09:17 | CP.PCM.PN ---
Subjective - Date & Time of Evaluation Date of Evaluation: 04/06/17 Time of Evaluation: 09:15 - Subjective Subjective: PGY2 medicine note for Dr. Ellison Patient seen and examined. Patient NPO for EGD today with Dr. Walls. Patient still with complaint of periumbilical abdominal pain. Patient denies vomiting but admits to nausea. Patient reports small bowel movement yesterday, denies flatus. Patient tried small sip of juice yesterday but had nausea afterward and states no desire for food at this time. Objective - Vital Signs/Intake and Output Vital Signs (last 24 hours): Temp Pulse Resp BP Pulse Ox 98.5 F 82 20 126/81 95 04/06/17 07:00 04/06/17 07:00 04/06/17 07:00 04/06/17 07:00 04/06/17 07:00 Intake and Output: 04/06/17 04/06/17 06:59 18:59 Intake Total 1650 Balance 1650 - Medications Medications: Current Medications Amlodipine Besylate (Norvasc) 10 mg PO DAILY [facility] Last Admin: 04/05/17 10:12 Dose: 10 mg Diphenhydramine HCl (Benadryl) 25 mg IVP Q6 PRN PRN Reason: Itching / Pruritus Last Admin: 04/06/17 06:59 Dose: 25 mg Docusate Sodium (Colace) 100 mg PO DAILY [facility] Last Admin: 04/05/17 11:38 Dose: 100 mg Heparin Sodium (Porcine) (Heparin) 5,000 units SC Q8 [facility] Last Admin: 04/06/17 05:14 Dose: Not Given Hydromorphone HCl (Dilaudid) 2 mg IVP Q4H PRN PRN Reason: Pain, severe (8-10) Last Admin: 04/06/17 07:01 Dose: 2 mg Sodium Chloride (Sodium Chloride 0.9%) 1,000 mls @ 100 mls/hr IV .Q10H [facility] Last Admin: 04/06/17 05:30 Dose: Not Given Metronidazole (Flagyl) 500 mg in 100 mls @ 100 mls/hr IVPB Q8 [facility] Last Admin: 04/06/17 05:15 Dose: 100 mls/hr Metoclopramide HCl (Reglan) 5 mg IVP Q6 [facility] Last Admin: 04/06/17 05:17 Dose: 5 mg Ondansetron HCl (Zofran Odt) 8 mg PO Q6 PRN PRN Reason: Nausea/Vomiting Last Admin: 04/05/17 09:02 Dose: 8 mg Pantoprazole Sodium (Protonix Ec Tab) 40 mg PO DAILY [facility] Last Admin: 04/05/17 10:12 Dose: 40 mg Fluticasone/Salmeterol (Advair Diskus 250/50) 1 puff INH RQ12 [facility] Last Admin: 04/06/17 07:56 Dose: 1 puff Sucralfate (Carafate Oral Susp) 1 gm PO TID [facility] Last Admin: 04/05/17 17:52 Dose: 1 gm - Labs Labs: 04/06/17 07:10 04/06/17 07:10 PT 12.3 SECONDS (9.7-12.2) H 04/05/17 21:28 INR 1.1 04/05/17 21:28 APTT 27 SECONDS (21-34) 04/05/17 21:28 - Constitutional Appears: Non-toxic, No Acute Distress - Head Exam Head Exam: ATRAUMATIC, NORMOCEPHALIC - Eye Exam Eye Exam: EOMI - ENT Exam ENT Exam: Mucous Membranes Moist - Respiratory Exam Respiratory Exam: Clear to Ausculation Bilateral, NORMAL BREATHING PATTERN. absent: Respiratory Distress - Cardiovascular Exam Cardiovascular Exam: +S1, +S2 - GI/Abdominal Exam GI & Abdominal Exam: Soft, Tenderness, Hernia (ventral hernia palpable upon patient standing, reduces with patient laying down), Hypoactive Bowel Sounds. absent: Distended, Firm, Guarding, Rigid - Extremities Exam Extremities Exam: Normal Inspection. absent: Pedal Edema Additional comments: right arm PICC line - Neurological Exam Neurological Exam: Alert, Awake - Skin Skin Exam: Warm Assessment and Plan - Assessment and Plan (Free Text) Assessment: Abdominal Pain/ Enteritis WBC count trending down CT abdomen/ pelvis: hazy infiltration small bowl mesentery, increased from prior , trace free fluid in pelvis suggestive for enteritis of the small bowel continue: zofran 8mg PO q6prn dilaudid 2mg IVP q4h prn GI, Dr. Walls, consulted- help appreciated Added Flagyl IV q8 Reglan IV started carafate 1gm PO TID for EGD today General Surgery, Dr. Cagle, consulted- help appreciated keep pt NPO, IVF, pain management if patient still vomiting, place NGT no obstruction Hx Peptic ulcer disease Patient to have EGD with Dr. Walls today Elevated LFTs downtrending today will stop protonix and start pepcid in case of medication side effect will continue to monitor Constipation added colace 100mg PO daily HTN Norvasc 10mg PO daily Asthma advair 250/50 2 puff BID Prophylactic measure SCDs heparin sc q8h pepcid 20mg PO BID All medical management as per Dr. Ellison
[2017-04-06] MEDS: Sucralfate 1 gm/10 ml Oral Susp UD PO SCH ×4 (10:38→18:14)
[2017-04-06] MEDS: Pantoprazole 40 mg EC Tab PO SCH (10:38)
[2017-04-06] MEDS ORDERED: Lactated Ringer's 1,000 ML IV ONE (11:40)
[2017-04-06] MEDS ORDERED: Propofol 10 mg/ml Inj (20 ML) ONE (11:44)
[2017-04-06] MEDS ORDERED: Lidocaine Hydrochloride 5 ML INJ ONE (11:44)
[2017-04-06 15:50] VITALS: RESP 20
[2017-04-06] MEDS: Vancomycin 125 MG/5 ML SOLN (ORAL/RECTAL) PO SCH ×2 (18:11→22:09)
[2017-04-07] MEDS: DiphenhydrAMINE 50 mg/ml Inj IVP PRN ×3 (01:14→14:31)
[2017-04-07] MEDS: metroNIDAZOLE IV 500 mg/100 ml 500 MG/100 ML BAG IVPB SCH ×2 (05:14→13:11)
[2017-04-07] MEDS: Sodium Chloride 0.9% 1,000 ML IV SCH (05:25)
[2017-04-07] MEDS: Fluticasone-Salmeterol 250-50mcg Diskus INH SCH (07:20)
[2017-04-07 08:14] LABS: BASO % 0.5 % (0.0-2.0); EOS # 0.4 K/uL (0.0-0.7); EOS % 7.3 % (0.0-4.0); HEMATOCRIT 28.7 % (34.0-47.0); LYMPH # 1.3 K/uL (1.0-4.3); LYMPH % 22.7 % (20.0-40.0); MEAN CELL VOLUME 90.2 fL (81.0-99.0); MEAN CORPUSCULAR HEMOGLOBIN 29.4 pg (27.0-31.0); MEAN CORPUSCULAR HGB CONC 32.6 g/dL (33.0-37.0); MEAN PLATELET VOLUME 8.6 fL (7.2-11.7); MONO # 0.5 K/uL (0.0-0.8); MONO % 9.7 % (0.0-10.0); WHITE BLOOD COUNT 5.7 K/uL (4.8-10.8)
[2017-04-07 08:24] LABS: CHLORIDE 104 mmol/L (98-107); POTASSIUM 3.9 mmol/L (3.6-5.2); SODIUM 140 mmol/L (132-148)
[2017-04-07 08:26] LABS: ALB/GLOB RATIO 1.2 (1.0-2.1); AST/SGOT 69 U/L (14-36); BILIRUBIN,TOTAL 0.4 mg/dL (0.2-1.3); CARBON DIOXIDE 26 mmol/L (22-30); GFR AFRICAN-AMERICAN > 60; TOTAL PROTEIN 6.7 g/dL (6.3-8.3)
[2017-04-07 08:27] LABS: ALKALINE PHOSPHATASE 189 U/L (38-126); ALT/SGPT 136 U/L (9-52); BLOOD UREA NITROGEN 7 mg/dL (7-17); CALCIUM 8.8 mg/dl (8.6-10.4); GLUCOSE,RANDOM 75 mg/dL (65-105); MAGNESIUM 1.7 mg/dL (1.6-2.3); PHOSPHOROUS 4.2 mg/dL (2.5-4.5)
[2017-04-07 08:32] VITALS: BP 100/57; PULSE 79; TEMP 97.6; O2SAT 98
[2017-04-07] MEDS: Sucralfate 1 gm/10 ml Oral Susp UD PO SCH ×2 (09:21→13:12)
--- NOTE | 2017-04-07 13:47 | CP.PCM.PN ---
Subjective - Date & Time of Evaluation Date of Evaluation: 04/07/17 Time of Evaluation: 07:35 - Subjective Subjective: PGY2 medicine progress note for Dr. Ellison Patient seen and examined. Patient states she is feeling better. Patient tolerated oatmeal and jello but states she does not want to try more food than that. Patient denies vomiting. Objective - Vital Signs/Intake and Output Vital Signs (last 24 hours): Temp Pulse Resp BP Pulse Ox 97.6 F 79 20 100/57 L 98 04/07/17 07:15 04/07/17 07:15 04/07/17 07:15 04/07/17 07:15 04/07/17 07:15 Intake and Output: 04/07/17 04/07/17 06:59 18:59 Intake Total 2580 Balance 2580 - Medications Medications: Current Medications Amlodipine Besylate (Norvasc) 10 mg PO DAILY [facility] Last Admin: 04/07/17 09:22 Dose: Not Given Diphenhydramine HCl (Benadryl) 25 mg IVP Q6 PRN PRN Reason: Itching / Pruritus Last Admin: 04/07/17 09:18 Dose: 25 mg Docusate Sodium (Colace) 100 mg PO DAILY [facility] Last Admin: 04/07/17 09:21 Dose: 100 mg Famotidine (Pepcid) 20 mg PO BID [facility] Last Admin: 04/07/17 09:21 Dose: 20 mg Heparin Sodium (Porcine) (Heparin) 5,000 units SC Q8 [facility] Last Admin: 04/07/17 13:12 Dose: 5,000 units Hydromorphone HCl (Dilaudid) 2 mg IVP Q4H PRN PRN Reason: Pain, severe (8-10) Last Admin: 04/07/17 13:17 Dose: 2 mg Sodium Chloride (Sodium Chloride 0.9%) 1,000 mls @ 100 mls/hr IV .Q10H [facility] Last Admin: 04/07/17 05:25 Dose: 100 mls/hr Metronidazole (Flagyl) 500 mg in 100 mls @ 100 mls/hr IVPB Q8 [facility] Last Admin: 04/07/17 13:11 Dose: 100 mls/hr Metoclopramide HCl (Reglan) 5 mg IVP Q6 [facility] Last Admin: 09/22/17 12:49 Dose: 5 mg Ondansetron HCl (Zofran Odt) 8 mg PO Q6 PRN PRN Reason: Nausea/Vomiting Last Admin: 04/05/17 09:02 Dose: 8 mg Fluticasone/Salmeterol (Advair Diskus 250/50) 1 puff INH RQ12 [facility] Last Admin: 04/07/17 07:20 Dose: 1 puff Sucralfate (Carafate Oral Susp) 1 gm PO TID [facility] Last Admin: 04/07/17 13:12 Dose: 1 gm Vancomycin HCl (Vancocin (Oral Or Rectal Use)) 500 mg PO QID [facility] Last Admin: 04/06/17 22:09 Dose: 500 mg - Labs Labs: 04/07/17 08:00 04/07/17 08:00 PT 12.3 SECONDS (9.7-12.2) H 04/05/17 21:28 INR 1.1 04/05/17 21:28 APTT 27 SECONDS (21-34) 04/05/17 21:28 - Constitutional Appears: Non-toxic, No Acute Distress - Head Exam Head Exam: ATRAUMATIC, NORMOCEPHALIC - Eye Exam Eye Exam: EOMI - ENT Exam ENT Exam: Mucous Membranes Moist - Respiratory Exam Respiratory Exam: Clear to Ausculation Bilateral, NORMAL BREATHING PATTERN - Cardiovascular Exam Cardiovascular Exam: +S1, +S2 - GI/Abdominal Exam GI & Abdominal Exam: Soft, Tenderness (mild diffuse), Normal Bowel Sounds. absent: Distended, Firm, Guarding, Rigid - Extremities Exam Extremities Exam: Normal Inspection. absent: Pedal Edema - Neurological Exam Neurological Exam: Alert, Awake - Psychiatric Exam Psychiatric exam: Normal Affect - Skin Skin Exam: Dry, Warm Assessment and Plan - Assessment and Plan (Free Text) Assessment: Abdominal Pain/ Enteritis WBC count trending down CT abdomen/ pelvis: hazy infiltration small bowl mesentery, increased from prior , trace free fluid in pelvis suggestive for enteritis of the small bowel GI, Dr. Walls, consulted- help appreciated Added Flagyl IV q8 Reglan IV started carafate 1gm PO TID s/p EGD 04/06 General Surgery, Dr. Cagle, consulted- help appreciated keep pt NPO, IVF, pain management if patient still vomiting, place NGT no obstruction Hx Peptic ulcer disease Pt had EGD with Dr. Walls on 04/06 that showed reflux esophagitis Elevated LFTs downtrending today pt to discontinue protonix on discharge and continue pepcid in its place Constipation added colace 100mg PO daily HTN Norvasc 10mg PO daily Asthma advair 250/50 2 puff BID Prophylactic measure SCDs heparin sc q8h pepcid 20mg PO BID All medical management as per Dr. Ellison Patient is stable for discharge home per Dr. Ellison. Patient is to follow up with Dr. Ellison within the next week. Patient will need to follow up with Dr. Ellison for results of endoscopy biopsy. Patient is being given the following new medications on discharge: carafate 1g by mouth three times daily, flagyl 500mg by mouth every 8 hours for seven days, pepcid 20mg by mouth twice a day, and miralax one capful daily dissolved into 4-8 ounces water. Patient should stop taking protonix. Patient should start a bland diet at home, including oatmeal and jello. Patient should advance diet slowly, as tolerated. Patient should return to ED if symptoms worsen or reoccur. This was explained to the patient who understands and agrees.
--- NOTE | 2017-04-07 14:07 | PN ---
DATE: LOCATION: [facility], bed B SUBJECTIVE: This is a 52-year-old female seen and examined in the rounds with intermittent period of abdominal pain, less than before during oral intake. The entire chart is reviewed including but not limited to the most recent labs and radiology study result, current and the previous medication list, current and previous medical events. Case discussed with the staff at length. The most recent lab results showed hemoglobin low at 9.4 with hematocrit 28.7, but normal white blood cells and normal platelet count with elevated AST of 69 less than before, elevated ALT to 186, less than before with decreased alkaline phosphatase to 189. Hepatitis profile was reported to be negative. PHYSICAL EXAMINATION GENERAL: A 52-year-old female, awake, alert, oriented with a complaint of abdominal pain on and off, but no reported active bleeding. VITAL SIGNS: The patient is afebrile with a pulse of 76, respiratory 20/22, blood pressure 110/60. HEENT: Showed pale dry oral mucous membranes. Nonicteric sclerae. LUNGS: Scattered crepitation with decrease air entry at bases. HEART: Positive S1 and S2. ABDOMEN: Soft, bowel sounds are present. No masses or organomegaly. No rebound tenderness or guarding. RECTAL: The patient refused. EXTREMITIES: Without significant clubbing, cyanosis, or edema. NEUROLOGIC: No neurological deficits, sensory or motor. The patient apparently having period of severe anxiety syndrome. IMPRESSION: 1. Exacerbation of peptic ulcer disease. 2. Multiple past medical history including mainly, but not limited to abdominal surgery, status post cholecystectomy, appendectomy, and ventral hernia. 3. Known history of bronchial asthma with bronchitis, depression, hypertension, hyperlipidemia. 4. Known history of severe anxiety syndrome and diverticulosis period of diverticulitis. 5. Anemia most likely secondary to above. SUGGESTION: 1. Continue current management. 2. Guaiac of the stool x3. 3. If there is abnormal liver function test, abdominal ultrasound . 4. Continue current IV antibiotic. 5. Further recommendation to follow. Hector Belcher MD cc: Hector Belcher MD
== END 2017-04-07 15:15 | disposition home or self-care (01) | DRG 183 ==
LOC: C.ER 18:59 → C.9E 21:15 → C.6T 04-05 12:07
PROVIDERS: ADMIT Internal Medicine Pulmonary Disease; ATTEND Internal Medicine Pulmonary Disease
PROC: 02HV33Z Insertion of Infusion Device into Superior Vena Cava, Percutaneous Approach (ICD-10-PCS; 2017-04-05)
PROC: B5181ZA Fluoroscopy of Superior Vena Cava using Low Osmolar Contrast, Guidance (ICD-10-PCS; 2017-04-05)
PROC: 0DB68ZX Excision of Stomach, Via Natural or Artificial Opening Endoscopic, Diagnostic (ICD-10-PCS; principal; 2017-04-06 11:40)
DX: K29.00 Acute gastritis without bleeding (principal); K86.1 Other chronic pancreatitis; K27.9 Peptic ulcer, site unspecified, unspecified as acute or chronic, without hemorrhage or perforation; K52.9 Noninfective gastroenteritis and colitis, unspecified; I10 Essential (primary) hypertension; G89.29 Other chronic pain; F32.9 Major depressive disorder, single episode, unspecified; F41.9 Anxiety disorder, unspecified; J45.909 Unspecified asthma, uncomplicated; K57.90 Diverticulosis of intestine, part unspecified, without perforation or abscess without bleeding; Z87.11 Personal history of peptic ulcer disease; E78.5 Hyperlipidemia, unspecified; K66.0 Peritoneal adhesions (postprocedural) (postinfection); J40 Bronchitis, not specified as acute or chronic; K21.0 Gastro-esophageal reflux disease with esophagitis; K44.9 Diaphragmatic hernia without obstruction or gangrene

== ENCOUNTER 2017-04-09 20:59 | Inpatient (IN) | payer MEDICAID ==
[2017-04-09 20:59] VITALS: BMI 38.7
--- NOTE | 2017-04-09 21:56 | C.PDOC ---
History Of Present Illness Aicha is a 52 y/o female who was recently evaluated in hospital and discharged 2 days ago for enteritis. She was discharged home on Flagyl, Pepcid, Carafate, and Miralax. She reports since coming home, shes had multiple episodes of vomiting, called her PMD Dr. Ellison and came in to the ED. Reports constipation but is passing flatus. Of note, patient has had multiple visits for chronic abdominal pain PMD: Oleg Ellison Time Seen by Provider: 04/09/17 21:34 Chief Complaint (Nursing): Abdominal Pain History Per: Patient History/Exam Limitations: no limitations Onset/Duration Of Symptoms: Days (x 2) Current Symptoms Are (Timing): Better Associated Symptoms: Vomiting, Constipation Past Medical History Reviewed: Historical Data, Nursing Documentation, Vital Signs Vital Signs: Last Vital Signs Temp 98.3 F 04/09/17 21:03 Pulse 101 H 04/09/17 21:03 Resp 20 04/09/17 21:03 BP 133/74 04/09/17 21:03 Pulse Ox 99 04/09/17 22:49 - Medical History PMH: Anemia, Anxiety, Arthritis, Asthma, Back Problems (herniated discs), Bronchitis, Depression, Diverticulitis, Gastritis, Gastrointestinal Ulcer, HTN, Hypercholesterolemia, Pancreatitis Denies: Dementia, Hyperthyroidism, Hypothyroidism, Kidney Stones, Chronic Kidney Disease, Sexually Transmitted Disease, TIA Other PMH: Enteritis Surgical History: Appendectomy, Cholecystectomy, Endoscopy, Hernia Repair ( ventral x3, last 10/27/15) - [facility] Procedures CENTRAL VENOUS CATHETER PLACEMENT WITH GUIDANCE (06/13/14) CLOSED ENDOSCOPIC BIOPSY OF LARGE INTESTINE (05/19/14) DILATION OF RIGHT AXILLARY ARTERY, PERCUTANEOUS APPROACH (11/03/15) ESOPHAGOGASTRODUODENOSCOPY [EGD] W/CLOSED BIOPSY (10/22/14) EXCISION OF DESCENDING COLON, ENDO, DIAGN (05/31/16) EXCISION OF SIGMOID COLON, ENDO, DIAGN (12/05/15) EXCISION OF SMALL INTESTINE, ENDO, DIAGN (06/10/16) EXCISION OF STOMACH, ENDO, DIAGN (10/21/15) FLUOROSCOPY OF SUPERIOR VENA CAVA, GUIDANCE (12/05/15) INFLUENZA VACCINATION (05/08/14) INJECT/INFUSE NEC (06/25/14) INSERTION OF INFUSION DEV INTO L BRACH VEIN, PERC APPROACH (11/08/15) INSERTION OF INFUSION DEV INTO SUP VENA CAVA, PERC APPROACH (05/31/16) INSPECTION OF GASTROINTESTINAL TRACT, PERC ENDO APPROACH (10/26/15) MRI OF OTHER AND UNSPECIFIED SITES (04/25/14) RELEASE CECUM, OPEN APPROACH (10/26/15) ULTRASONOGRAPHY OF LEFT UPPER EXTREMITY VEINS, GUIDANCE (11/08/15) ULTRASONOGRAPHY OF SUPERIOR VENA CAVA, GUIDANCE (10/26/15) VENOUS CATHETERIZATION NEC (02/14/14) Family History: States: Unknown Family Hx - Social History Hx Tobacco Use: No Hx Alcohol Use: No Hx Substance Use: No - Immunization History Hx Tetanus Toxoid Vaccination: Yes Hx Influenza Vaccination: Yes (2015) Hx Pneumococcal Vaccination: Yes (2014) Review Of Systems Except As Marked, All Systems Reviewed And Found Negative. Constitutional: Negative for: Fever Cardiovascular: Negative for: Chest Pain Respiratory: Negative for: Shortness of Breath Gastrointestinal: Positive for: Vomiting, Abdominal Pain, Constipation Genitourinary: Negative for: Dysuria, Frequency Skin: Negative for: Rash Neurological: Negative for: Weakness, Numbness Physical Exam - Physical Exam Appears: Well (Not actively vomiting, requesting IM pain medication), Non-toxic , No Acute Distress Skin: Normal Color, Warm, Dry Head: Atraumatic, Normacephalic Eye(s): bilateral: Normal Inspection, PERRL, EOMI Nose: Normal Oral Mucosa: Moist (mucus membranes) Throat: Normal Neck: Normal, Supple Chest: Symmetrical Cardiovascular: Rhythm Regular, No Murmur Respiratory: Normal Breath Sounds, No Accessory Muscle Use Gastrointestinal/Abdominal: Normal Exam, Soft, Tenderness (mild generalized) Back: Normal Inspection, No CVA Tenderness, No Vertebral Tenderness Extremity: Normal ROM, No Pedal Edema, No Deformity Neurological/Psych: Oriented x3, Normal Speech, Normal Cranial Nerves Gait: Steady ED Course And Treatment O2 Sat by Pulse Oximetry: 99 (RA) Pulse Ox Interpretation: Normal Medical Decision Making Medical Decision Making: Patient requesting IM injection for pain. I discussed non-narcotic alternatives , and explained that I believe more narcotics will worsen her constipation and overall presentation. Time: 21:44 Initial Plan: --Ordered labs --Patient will be offered IV Zofran and non-narcotic medications initially --CT Abd/Pelvis w/o contrast to r/o obstruction --Pending reevaluation Patient called MIL Paredes, who spoke to nurse. Patient to be transferred to [facility] Dr. Ellison to place further orders. Dr. Ellison aware that we have no IV access or labs results. CT shows "No definitive signs of obstruction. Only a small segment of small bowel in the jejunum shows mild fluid distention of 2.7 cm. This is nonspecific but could be associated with physiologic fluid or gastroenteritis. Nonspecific fluid-filled large bowel loops without a clear transition, possibly related to physiologic changes versus diarrheal-type illness. Please correlate clinically. Previous surgeries as described. Diverticulosis of the sigmoid. No obstructive uropathy. " Disposition - Disposition Disposition: HOSPITALIZED Disposition Time: 22:16 Condition: FAIR - Clinical Impression Clinical Impression: Intractable abdominal pain - Scribe Statement The provider has reviewed the documentation as recorded by the Isabella Michele All medical record entries made by the Justinaibtiarra were at my direction and personally dictated by me. I have reviewed the chart and agree that the record accurately reflects my personal performance of the history, physical exam, medical decision making, and the department course for this patient. I have also personally directed, reviewed, and agree with the discharge instructions and disposition.
[2017-04-10 00:45] LABS: RBC URINE 75 /hpf (0-3); URINE BILIRUBIN NEGATIVE (NEGATIVE); URINE BLOOD 2+ (NEGATIVE); URINE COLOR Yellow (YELLOW); URINE GLUCOSE (UA) NORMAL (Normal); URINE KETONE TRACE mg/dL (NEGATIVE); URINE LEUKOCYTE ESTERASE TRACE Leu/uL (Negative); URINE PROTEIN 2+ mg/dL (NEGATIVE); URINE UROBILINOGEN NORMAL mg/dL (0.2-1.0); WBC URINE 9 /hpf (0-5)
--- NOTE | 2017-04-10 08:39 | CT ---
PROCEDURE: CT Abdomen and Pelvis without intravenous contrast HISTORY: abdominal pain, vomiting COMPARISON: 04/04/2017 TECHNIQUE: Without contrast.. Contrast Dose: 0 Radiation dose: Total exam DLP = 1137.67 mGy-cm. This CT exam was performed using one or more of the following dose reduction techniques: Automated exposure control, adjustment of the mA and/or kV according to patient size, and/or use of iterative reconstruction technique. FINDINGS: LOWER THORAX: Unremarkable. LIVER: Unremarkable. No gross lesion or ductal dilatation. GALLBLADDER AND BILE DUCTS: Status post cholecystectomy. Mild dilatation of the common bile duct consistent with prior cholecystectomy. PANCREAS: Unremarkable. No gross lesion or ductal dilatation. SPLEEN: Unremarkable. ADRENALS: Unremarkable. No mass. KIDNEYS AND URETERS: Unremarkable. No hydronephrosis. No solid mass. VASCULATURE: Unremarkable. No aortic aneurysm. BOWEL: Mild diverticulosis of the distal descending and sigmoid colon without evidence of diverticulitis. Previously identified hazy infiltration of the small bowel mesenteric is entirely unchanged in its appearance in extent suggesting that this may represent a chronic process. No associated mural thickening or evidence of bowel obstruction. APPENDIX: Status post appendectomy. PERITONEUM: Ventral mesh hernia repair. No change from prior examination. LYMPH NODES: Unremarkable. No enlarged lymph nodes. BLADDER: Unremarkable. REPRODUCTIVE: Unremarkable postmenopausal uterus. BONES: No acute fracture. OTHER FINDINGS: None. IMPRESSION: Hazy infiltration of a portion of the small bowel mesenteric unchanged in appearance from prior CT examination. Significance uncertain. No associated mural thickening or evidence of bowel obstruction. Otherwise unremarkable examination. Preliminary interpretation of this examination was reported by [employer] at 10:56 p.m. on 04/09/2017. There is concurrence of this report with the preliminary interpretation.
--- NOTE | 2017-04-10 09:38 | CP.PCM.PN ---
Subjective - Date & Time of Evaluation Date of Evaluation: 04/10/17 Time of Evaluation: 09:35 - Subjective Subjective: patient seen and examined at bedside this AM; denies any new problems; still states she is nauseus and cannot keep any real food down and she feels very frustrated over this and just wants to feel better. Denies Fevers/chills, CHEW, CP , SOb, diarrhea, lower extremity swelling/pain. Objective - Vital Signs/Intake and Output Vital Signs (last 24 hours): Temp Pulse Resp BP Pulse Ox 97.4 F L 77 18 138/85 99 04/10/17 07:05 04/10/17 07:05 04/10/17 07:05 04/10/17 07:05 04/10/17 07:05 - Medications Medications: Current Medications Enoxaparin Sodium (Lovenox) 40 mg SC DAILY GERRY Hydromorphone HCl (Dilaudid) 2 mg IM Q4H PRN PRN Reason: severe pain Last Admin: 04/10/17 08:04 Dose: 2 mg Ondansetron HCl (Zofran Odt) 8 mg PO Q6H PRN PRN Reason: Nausea/Vomiting - Constitutional Appears: Non-toxic - Head Exam Head Exam: NORMAL INSPECTION Additional comments: tearful and frusttrated - ENT Exam ENT Exam: Mucous Membranes Moist - Neck Exam Neck Exam: Full ROM - Respiratory Exam Respiratory Exam: Clear to Ausculation Bilateral, NORMAL BREATHING PATTERN. absent: Rales, Rhonchi, Wheezes - Cardiovascular Exam Cardiovascular Exam: REGULAR RHYTHM, +S1 - GI/Abdominal Exam GI & Abdominal Exam: Soft, Normal Bowel Sounds. absent: Organomegaly - Extremities Exam Extremities Exam: absent: Calf Tenderness, Full ROM - Back Exam Back Exam: absent: CVA tenderness (L), CVA tenderness (R) - Neurological Exam Neurological Exam: Alert, Awake, Oriented x3 - Psychiatric Exam Psychiatric exam: Normal Affect - Skin Skin Exam: Warm Assessment and Plan - Assessment and Plan (Free Text) Assessment: 52yo F admitted for intractable abdominal pain and vomiting Intractable abdominal pain/vomiting CT abdomen/ pelvis: hazy infiltration small bowl mesentery, same from prior, trace free fluid in pelvis suggestive for enteritis of the small bowel PICC line placed GI, Dr. Walls, consulted- help appreciated from last admission had added: Flagyl IV q8 Reglan IV started carafate 1gm PO TID s/p EGD 04/06 which showed LA Grade B mucosal breaks, diffuse gastritis and a large hiatal hernia -patient is for colonoscopy tomorrow 04/11 as per GI Hx Peptic ulcer disease Pt had EGD with Dr. Walls on 04/06 that showed reflux esophagitis Elevated LFTs downtrending today pt to discontinue protonix on discharge and continue pepcid in its place Difficult IV acesss Picc line order placed; awaiting placement Constipation dulcolax CT HTN Norvasc 10mg PO daily Asthma advair 250/50 2 puff BID Prophylactic measure SCDs Lovenox SC pepcid 20mg PO BID Protonix 40mg IV BID Zolpidem HS sleep All medical management as per Dr. Ellison
[2017-04-10] MEDS: Fluticasone-Salmeterol 500-50mcg Diskus IH SCH ×2 (10:24→19:02)
[2017-04-10] MEDS: Sucralfate 1 gm/10 ml Oral Susp UD PO SCH ×2 (11:55→18:18)
[2017-04-10] MEDS: Enoxaparin 40 mg Syringe SC SCH (11:56)
--- NOTE | 2017-04-10 11:58 | RAD ---
Chest x-ray single frontal view History: PICC line placement. Comparison: 06/10/2016 Findings: Right PICC line with tip extending to the cavoatrial junction. No evidence of pneumothorax. Moderate venous congestion. Heart size within normal limits. Degenerative changes in the spine with paravertebral osteophytes. Surgical clips in the right upper abdomen. Impression: Right PICC line with tip extending to the cavoatrial junction. No evidence of pneumothorax. Moderate venous congestion.
[2017-04-10] MEDS ORDERED: Peg-Electrolyte Oral Soln 4L (Golytely) PO ONE (13:00)
[2017-04-10 14:15] LABS: BASO # 0.1 K/uL (0.0-0.2); BASO % 0.8 % (0.0-2.0); EOS # 0.1 K/uL (0.0-0.7); EOS % 0.9 % (0.0-4.0); HEMATOCRIT 34.6 % (34.0-47.0); LYMPH # 1.9 K/uL (1.0-4.3); LYMPH % 16.9 % (20.0-40.0); MEAN CELL VOLUME 89.3 fL (81.0-99.0); MEAN CORPUSCULAR HEMOGLOBIN 29.4 pg (27.0-31.0); MEAN CORPUSCULAR HGB CONC 32.9 g/dL (33.0-37.0); MEAN PLATELET VOLUME 8.2 fL (7.2-11.7); MONO # 1.3 K/uL (0.0-0.8); MONO % 11.2 % (0.0-10.0); NRBC % 0.1 % (0.0-2.0)
[2017-04-10 14:18] LABS: WHITE BLOOD COUNT 11.2 K/uL (4.8-10.8)
[2017-04-10 14:20] LABS: INR 1.1
[2017-04-10 14:24] LABS: POTASSIUM 3.3 mmol/L (3.6-5.2)
[2017-04-10 14:26] LABS: ALB/GLOB RATIO 1.2 (1.0-2.1); BILIRUBIN,TOTAL 0.7 mg/dL (0.2-1.3); TOTAL PROTEIN 7.9 g/dL (6.3-8.3)
[2017-04-10 14:27] LABS: CALCIUM 9.4 mg/dl (8.6-10.4)
[2017-04-10 15:01] LABS: CARCINOEMBRYONIC ANTIGEN 2.2 ng/mL (0-3.0)
[2017-04-10 15:05] LABS: CA 19-9 < 1.4 U/mL (0-37)
--- NOTE | 2017-04-10 15:18 | PN ---
DATE: LOCATION: [facility] bed B. SUBJECTIVE: This is a 52 years old female, seen for GI consultation on 04/09/2017, reexamined again today with main complaint of severe crampy abdominal pain. Recent change in bowel movement. Having recurrent episodes again of nausea and vomiting with dyspepsia, generalized weakness and malaise. Patient still has episodes of change of bowel movement of unclear etiology. The entire chart is reviewed including but not limited to the most recent lab and radiology study results, current and the previous medication lists, current and the previous medical events, allergy to medication list. Case discussed at length with the admitting MD, Dr. Ellison. CAT scan of the abdomen and pelvis at the time of the admission report and are seen. PHYSICAL EXAMINATION: GENERAL: A 52 years old female. VITAL SIGNS: Afebrile with pulse of 72, respiratory of 20-22 with blood pressure of 120/82. HEENT: Pale, dry oral mucous membrane. Nonicteric sclerae. LUNGS: Few scattered crepitation. Decreased air entry at bases HEART: Positive S1 and S2. ABDOMEN: Soft. Bowel sounds are present but hypoactive with generalized tenderness and mild distension. No mass or organomegaly. No rebound tenderness or guarding. EXTREMITIES: Slight lower extremity edematous changes. No clubbing or cyanosis. NEUROLOGICAL: No neurological deficits, sensory or motor. LABORATORY DATA: Most recent lab results done on 04/07/2017 showed low hemoglobin of 9.4 with hematocrit 28.7, but normal platelet count. Patient also had mildly elevated PT but normal SMA-18 except increased blood glucose level of 126 with low iron saturation done on 04/07/2017. AST and ALT mildly elevated as well as elevated lipids profile. IMPRESSION: 1. Re-exacerbation of peptic ulcer disease with recurrent episodes of nausea and vomiting 2. Change of bowel movement habit of unclear etiology. 3. Anemia by history. 4. Multiple past medical history including but not limited to osteoarthritis, bronchial asthma, depression, hypertension. 5. Hyperlipidemia with recurrent pancreatitis in the past. 6. Status post appendectomy and cholecystectomy 7. Status post ventral hernia repair x3. SUGGESTION: 1. Agree with your plan. 2. Cancer markers 3. Colonoscopy to be scheduled for a.m. due to the patient's persistent abdominal pain and the recent change of bowel movement as well as her persistent anemia with subsequent drop of hemoglobin and hematocrit. Hector Belcher MD cc: Hector Belcher MD [facility] # [id number]
[2017-04-10] MEDS: HYDROmorphone 0.5 mg/0.5 ml ISec IM PRN ×2 (16:34→21:18)
[2017-04-10] MEDS: DiphenhydrAMINE 50 mg/ml Inj IVP PRN ×2 (16:34→21:17)
[2017-04-10] MEDS ORDERED: Bisacodyl 5mg EC Tab PO ONE (17:00)
[2017-04-10] MEDS ORDERED: POTASSIUM CH IV SCH (17:30)
[2017-04-10] MEDS ORDERED: D5W IV SCH (17:30)
[2017-04-10] MEDS ORDERED: Potassium Chloride 20 mEq ER Tab PO ONE (17:30)
--- NOTE | 2017-04-10 20:08 | CON ---
DATE OF CONSULTATION: 04/09/2017 LOCATION: Room #651, bed B, from Dr. Belcher to Dr. Ellison. REASON FOR CONSULTATION: I was called for GI consultation by her private M.D. as well as admitting medical staff. The patient is seen and fully examined on 04/09/2017 as requested by the admitting medical team. The entire chart is reviewed including but not limited to most recent lab and radiology study results, current and previous medication list, current and previous medical events, allergy to medication list as well as all the available current and previous medical records. Case was discussed at length with the admitting MD, Dr. Ellison. HISTORY OF PRESENT ILLNESS: This is a 52-year-old female, admitted to the hospital through the emergency room with main complaints of severe crampy abdominal pain, recurrent nausea and vomiting, dyspepsia, very poor oral intake with recent change of bowel movement habit including mainly constipation with some mucoid bowel movement. The patient had been in the hospital recently and upper endoscopy was done indicative of gastritis mainly. After being admitted to the hospital, the patient had a CAT scan of the abdomen and pelvis, reports and films are seen, discussed with the radiologist. PAST MEDICAL HISTORY: Including but not limited to: 1. Severe anxiety syndrome. 2. Bronchitis. 3. Depression. 4. Peptic ulcer disease with reported gastric ulcer in the past. 5. Known history of hypertension and hyperlipidemia. 6. Recurrent pancreatitis. 7. Status post abdominal ventral hernia repair x3. 8. Status post appendectomy with cholecystectomy. CURRENT MEDICATIONS: Medication list was reviewed. FAMILY HISTORY: Unknown. SOCIAL HISTORY: The patient denies any known history of cigarette smoking or alcohol intake. ALLERGIES TO MEDICATIONS: INCLUDING MAINLY IODINE AND CONTRAST. PHYSICAL EXAMINATION: GENERAL: A 52-year-old female, appears to be awake, alert, oriented, complaining of severe crampy abdominal pain with mucoid bowel movement and constipation recently. VITAL SIGNS: Afebrile with heart rate of 98, respiratory rate 20 to 22, blood pressure 136/68. HEENT: Showed pale dry oral mucoid membranes, anicteric sclerae. LUNGS: Scattered crepitation, decreased air entry at bases. HEART: Positive S1 and S2 with increased rate. ABDOMEN: Soft with [id number] distention and diffuse severe tenderness. Bowel sounds are hypoactive. No masses or organomegaly. No rebound tenderness or guarding. RECTAL: The patient refused. EXTREMITIES: Without significant clubbing, cyanosis, or edema. NEUROLOGIC: No reported new neurological deficits, sensory or motor. LABORATORY DATA: As we mentioned that no blood test done recently; however, 2 days ago prior to admission, blood workup showed low hemoglobin and hematocrit was increased, lipid profile. IMPRESSION: 1. Re-exacerbation of peptic ulcer disease. 2. Change of bowel movement of unclear etiology with mucoid exudate, acute phase of diverticulosis and diverticulitis versus colitis. 3. Anemia, rule occult lower gastrointestinal malignancy. 4. Multiple past medical history including but not limited to bronchial asthma, hypertension, hyperlipidemia, chronic lower back pain syndrome, depression as well as pancreatitis. 5. Known history of but not limited to status post appendectomy, abdominal ventral hernia repair x3 as well as status post cholecystectomy. SUGGESTIONS: 1. Agree with your plan. 2. Reglan IV. Proton pump inhibitors. 3. Repeat cancer markers including CA19-9 and CEA. 4. The patient may need endoscopic evaluation of lower GI tract after adequate preparation and when she is more stable clinically. 5. Further recommendations to follow. Thank you for letting me to participate in your patient's case management. Hector Belcher MD
[2017-04-11] MEDS: DiphenhydrAMINE 50 mg/ml Inj IVP PRN ×5 (01:16→21:09)
[2017-04-11] MEDS: HYDROmorphone 0.5 mg/0.5 ml ISec IM PRN ×3 (01:16→11:54)
[2017-04-11] MEDS: Sucralfate 1 gm/10 ml Oral Susp UD PO SCH ×3 (02:22→17:51)
--- NOTE | 2017-04-11 07:24 | HP ---
HISTORY OF PRESENT ILLNESS: Ms. Aicha Modi is a 52-year-old female, admitted to the hospital with nausea, vomiting, abdominal pain. The patient has a history of obstruction status post multiple procedures for such complaint. The patient continued to have intractable vomiting and was admitted to the hospital. PHYSICAL EXAMINATION: GENERAL: The patient is awake, alert and oriented. VITAL SIGNS: Temperature 98, pulse 90. HEENT: Within normal limits. NECK: Supple. CHEST: Symmetrical. HEART: Regular. ABDOMEN: Soft. EXTREMITIES: No edema. IMPRESSION: The patient has intractable vomiting , bedrest, supportive care. Oleg Ellison MD
[2017-04-11] MEDS: Fluticasone-Salmeterol 500-50mcg Diskus IH SCH ×2 (07:33→19:25)
[2017-04-11] MEDS ORDERED: Propofol 10 mg/ml Inj (20 ML) ONE ×2 (10:27→10:34)
[2017-04-11] MEDS: Enoxaparin 40 mg Syringe SC SCH (10:43)
--- NOTE | 2017-04-11 15:21 | CP.PCM.PN ---
Subjective - Date & Time of Evaluation Date of Evaluation: 04/11/17 Time of Evaluation: 10:00 - Subjective Subjective: Dr. Ellison progress note: Patient is seen in room. She says the reason she came to the hospital was due to abdominal pain which she says was severe 04/25 and also because of diarrhea. She denies fever, chills, nausea, vomiting, or difficulty breathing. Objective - Vital Signs/Intake and Output Vital Signs (last 24 hours): Temp Pulse Resp BP Pulse Ox 98.2 F 88 20 112/76 95 04/11/17 11:50 04/11/17 11:50 04/11/17 11:50 04/11/17 11:50 04/11/17 11:50 Intake and Output: 04/11/17 04/11/17 06:59 18:59 Intake Total 240 300 Balance 240 300 - Medications Medications: Current Medications Amlodipine Besylate (Norvasc) 10 mg PO DAILY [facility] Last Admin: 04/11/17 11:54 Dose: 10 mg Diphenhydramine HCl (Benadryl) 25 mg IVP Q4H PRN PRN Reason: itchiness Last Admin: 04/11/17 11:54 Dose: 25 mg Enoxaparin Sodium (Lovenox) 40 mg SC DAILY [facility] Last Admin: 04/11/17 10:43 Dose: Not Given Famotidine (Pepcid) 20 mg IVP Q12 [facility] Last Admin: 04/11/17 10:43 Dose: Not Given Hydromorphone HCl (Dilaudid) 2 mg IVP Q6H GERRY Metoclopramide HCl (Reglan) 10 mg IVP Q6 [facility] Last Admin: 04/11/17 14:01 Dose: Not Given Ondansetron HCl (Zofran Odt) 8 mg PO Q6H PRN PRN Reason: Nausea/Vomiting Fluticasone/Salmeterol (Advair Diskus 500/50) 1 puff IH RQ12 [facility] Last Admin: 04/11/17 07:33 Dose: 1 puff Sucralfate (Carafate Oral Susp) 1 gm PO Q8H [facility] Last Admin: 04/11/17 10:42 Dose: Not Given Zolpidem Tartrate (Ambien) 5 mg PO HS [facility] Last Admin: 04/10/17 21:17 Dose: 5 mg - Labs Labs: 04/10/17 13:51 04/10/17 13:51 PT 12.6 SECONDS (9.7-12.2) H 04/10/17 13:51 INR 1.1 04/10/17 13:51 APTT 27 SECONDS (21-34) 04/10/17 13:51 - Constitutional Appears: Non-toxic, No Acute Distress - Eye Exam Eye Exam: Normal appearance - Respiratory Exam Respiratory Exam: Clear to Ausculation Bilateral. absent: Rales, Rhonchi, Wheezes - Cardiovascular Exam Cardiovascular Exam: REGULAR RHYTHM, RRR - GI/Abdominal Exam GI & Abdominal Exam: Soft, Tenderness, Normal Bowel Sounds. absent: Firm, Guarding - Back Exam Back Exam: NORMAL INSPECTION - Psychiatric Exam Psychiatric exam: Normal Affect, Normal Mood - Skin Skin Exam: Normal Color Assessment and Plan - Assessment and Plan (Free Text) Assessment: Abdominal Pain 04/11: Colonoscopy today follow up on results, patient is on full liquid diet. Follow up on reccs by Dr. Walls GI consult Diluaded 2mg q6H prn for pain. Hx Peptic ulcer disease 04/11 pepcid 20mg bid Elevated LFTs 04/11: hepatitis panel Difficult IV acesss 04/11: picc line in place Constipation dulcolax PRN HTN Norvasc 10mg PO daily Asthma advair 250/50 2 puff BID Prophylactic measure SCDs Lovenox SC pepcid 20mg PO BID Protonix 40mg IV BID Zolpidem HS sleep
[2017-04-11] MEDS ORDERED: HYDROmorphone 0.5 mg/0.5 ml ISec IVP PRN (16:15)
[2017-04-11] MEDS: HYDROmorphone 0.5 mg/0.5 ml ISec IVP PRN (21:10)
[2017-04-12] MEDS: DiphenhydrAMINE 50 mg/ml Inj IVP PRN ×4 (01:26→14:08)
[2017-04-12] MEDS: HYDROmorphone 0.5 mg/0.5 ml ISec IVP PRN ×4 (01:28→14:08)
[2017-04-12] MEDS: Sucralfate 1 gm/10 ml Oral Susp UD PO SCH ×3 (01:32→17:56)
[2017-04-12 06:43] LABS: ALB/GLOB RATIO 1.4 (1.0-2.1); ALKALINE PHOSPHATASE 153 U/L (38-126); ALT/SGPT 58 U/L (9-52); AST/SGOT 26 U/L (14-36); BILIRUBIN,TOTAL 0.4 mg/dL (0.2-1.3); BLOOD UREA NITROGEN 14 mg/dL (7-17); CALCIUM 8.9 mg/dl (8.6-10.4); CARBON DIOXIDE 29 mmol/L (22-30); CHLORIDE 95 mmol/L (98-107); GFR AFRICAN-AMERICAN > 60; GLUCOSE,RANDOM 90 mg/dL (65-105); POTASSIUM 3.4 mmol/L (3.6-5.2); SODIUM 135 mmol/L (132-148); TOTAL PROTEIN 6.4 g/dL (6.3-8.3)
[2017-04-12] MEDS: Fluticasone-Salmeterol 500-50mcg Diskus IH SCH (08:52)
[2017-04-12] MEDS ORDERED: Potassium Chloride 20 mEq ER Tab PO ONE (09:30)
[2017-04-12] MEDS: Enoxaparin 40 mg Syringe SC SCH (09:49)
[2017-04-12 14:20] LABS: BASO % 0.4 % (0.0-2.0); EOS # 1.2 K/uL (0.0-0.7); EOS % 13.1 % (0.0-4.0); HEMATOCRIT 31.2 % (34.0-47.0); LYMPH # 1.3 K/uL (1.0-4.3); MEAN CELL VOLUME 89.5 fL (81.0-99.0); MEAN CORPUSCULAR HEMOGLOBIN 29.6 pg (27.0-31.0); MEAN CORPUSCULAR HGB CONC 33.1 g/dL (33.0-37.0); MEAN PLATELET VOLUME 8.5 fL (7.2-11.7); MONO # 0.6 K/uL (0.0-0.8); MONO % 6.9 % (0.0-10.0); NRBC % 0.1 % (0.0-2.0); RED CELL DISTRIBUTION WIDTH 13.1 % (11.5-14.5); WHITE BLOOD COUNT 9.3 K/uL (4.8-10.8)
[2017-04-12 15:54] VITALS: BP 128/81; PULSE 83; RESP 18; TEMP 98.2; O2SAT 95
--- NOTE | 2017-04-12 18:12 | CP.PCM.PN ---
Subjective - Date & Time of Evaluation Date of Evaluation: 04/12/17 Time of Evaluation: 09:00 - Subjective Subjective: Dr. Ellison progress note: Patient is seen and examined in room. She is still complaining of some abdominal pain with nausea however she is still able to tolerate liquid and soft diet meals. She is asking for pain medication before discharge. She denies fever, chills, chest pain, shortness of breath, or cough. Objective - Vital Signs/Intake and Output Vital Signs (last 24 hours): Temp Pulse Resp BP Pulse Ox 98.2 F 83 18 128/81 95 04/12/17 15:50 04/12/17 15:50 04/12/17 15:50 04/12/17 15:50 04/12/17 15:50 Intake and Output: 04/12/17 04/12/17 06:59 18:59 Intake Total 500 800 Balance 500 800 - Medications Medications: Current Medications Amlodipine Besylate (Norvasc) 10 mg PO DAILY [facility] Last Admin: 04/12/17 09:49 Dose: 10 mg Diphenhydramine HCl (Benadryl) 25 mg IVP Q4H PRN PRN Reason: itchiness Last Admin: 04/12/17 14:08 Dose: 25 mg Enoxaparin Sodium (Lovenox) 40 mg SC DAILY [facility] Last Admin: 04/12/17 09:49 Dose: 40 mg Famotidine (Pepcid) 20 mg IVP Q12 [facility] Last Admin: 04/12/17 09:49 Dose: 20 mg Hydromorphone HCl (Dilaudid) 2 mg IVP Q4H PRN PRN Reason: Pain, severe (8-10) Last Admin: 04/12/17 14:08 Dose: 2 mg Metoclopramide HCl (Reglan) 10 mg IVP Q6 [facility] Last Admin: 04/12/17 12:00 Dose: 10 mg Ondansetron HCl (Zofran Odt) 8 mg PO Q6H PRN PRN Reason: Nausea/Vomiting Fluticasone/Salmeterol (Advair Diskus 500/50) 1 puff IH RQ12 [facility] Last Admin: 04/12/17 08:52 Dose: 1 puff Sucralfate (Carafate Oral Susp) 1 gm PO Q8H [facility] Last Admin: 04/12/17 17:56 Dose: 1 gm Zolpidem Tartrate (Ambien) 5 mg PO HS [facility] Last Admin: 04/11/17 22:09 Dose: 5 mg - Labs Labs: 04/12/17 14:02 04/12/17 06:12 PT 12.6 SECONDS (9.7-12.2) H 04/10/17 13:51 INR 1.1 04/10/17 13:51 APTT 27 SECONDS (21-34) 04/10/17 13:51 - Constitutional Appears: Non-toxic, No Acute Distress - Eye Exam Eye Exam: Normal appearance - ENT Exam ENT Exam: Normal Exam - Respiratory Exam Respiratory Exam: Clear to Ausculation Bilateral. absent: Rales, Rhonchi, Wheezes - Cardiovascular Exam Cardiovascular Exam: REGULAR RHYTHM, RRR, +S1, +S2. absent: Gallop, Rubs - GI/Abdominal Exam GI & Abdominal Exam: Soft, Normal Bowel Sounds. absent: Tenderness - Extremities Exam Extremities Exam: Normal Inspection. absent: Pedal Edema - Back Exam Back Exam: NORMAL INSPECTION - Psychiatric Exam Psychiatric exam: Normal Affect, Normal Mood - Skin Skin Exam: Normal Color Assessment and Plan - Assessment and Plan (Free Text) Assessment: Abdominal Pain 04/12: patient was discharged home today per Dr. Ellison medical attending. Colonoscopy showed mucosal congestion and internal and external hemorrhoids. Patient to follow up with Dr. Ellison in his office next week. 04/11: Colonoscopy today follow up on results, patient is on full liquid diet. Follow up on reccs by Dr. Walls GI consult Diluaded 2mg q6H prn for pain. Hx Peptic ulcer disease 04/11 pepcid 20mg bid Elevated LFTs 04/12: hepatits panel negative 04/11: hepatitis panel Difficult IV acesss 04/11: picc line in place Constipation dulcolax PRN HTN Norvasc 10mg PO daily Asthma advair 250/50 2 puff BID Prophylactic measure SCDs Lovenox SC pepcid 20mg PO BID Protonix 40mg IV BID Zolpidem HS sleep
--- NOTE | 2017-04-13 07:57 | PN ---
DATE: LOCATION: [address] [place] [address] B. SUBJECTIVE: This is a 52 years old female post upper endoscopy seen and examined, colonoscopy seen and examined in rounds without significant clinical changes or reported active bleeding, but intermittent period of abdominal pain. The entire chart is reviewed including, but not limited to the most recent lab and radiology study results, current and previous medication list, and current and previous medical records. The most recent lab results showed leukocytosis with normal hemoglobin and hematocrit, but low potassium and low chloride with increased ALT 58 and alkaline phosphatase 153, but normal cancer markers with normal hepatitis profile. PHYSICAL EXAMINATION: GENERAL: A 52 year old female. VITAL SIGNS: Afebrile with pulse of 76, respiratory rate 20 to 22, and blood pressure 118/72. HEENT: Showed pale, dry oral mucous membrane. Nonicteric sclerae. LUNGS: Few scattered crepitation. Decreased air entry at bases. HEART: Positive S1 and S2. ABDOMEN: Soft. Bowel sounds are present with mild generalized tenderness. No mass or organomegaly. No rebound tenderness or guarding. Abdominal distention noted. EXTREMITIES: Without edema, clubbing, or cyanosis. NEUROLOGICAL: No reported new neurological deficits, sensory or motor. IMPRESSION: 1. Peptic ulcer disease. 2. Known history of bronchial asthma, depression, hypertension with osteoarthritis and hyperlipidemia. 3. Pancreatitis by history. 4. Status post cholecystectomy and appendectomy. 5. Status post ventral hernia repair x3. 6. left-sided colitis by history, by recent colonoscopy. SUGGESTIONS: 1. Continue current management. 2. Adjust oral intake. 3. Bentyl. 4. Further recommendation to follow. Hector Belcher MD cc: Hector Belcher MD
== END 2017-04-12 18:25 | disposition home or self-care (01) | DRG 189 ==
LOC: C.ER 20:59 → C.9E 22:16 → OBSVTOIN 22:32 → C.6T 23:54
PROVIDERS: ADMIT Internal Medicine Pulmonary Disease; ATTEND Internal Medicine Pulmonary Disease
PROC: 0DBM8ZX Excision of Descending Colon, Via Natural or Artificial Opening Endoscopic, Diagnostic (ICD-10-PCS; principal; 2017-04-11 10:28)
DX: K63.89 Other specified diseases of intestine (principal); K27.9 Peptic ulcer, site unspecified, unspecified as acute or chronic, without hemorrhage or perforation; K58.9 Irritable bowel syndrome, unspecified; K64.8 Other hemorrhoids; K86.1 Other chronic pancreatitis; K64.4 Residual hemorrhoidal skin tags; D64.9 Anemia, unspecified; K51.50 Left sided colitis without complications; I10 Essential (primary) hypertension; E78.5 Hyperlipidemia, unspecified; E78.00 Pure hypercholesterolemia, unspecified; J45.909 Unspecified asthma, uncomplicated; K21.0 Gastro-esophageal reflux disease with esophagitis; K29.70 Gastritis, unspecified, without bleeding; K44.9 Diaphragmatic hernia without obstruction or gangrene; K59.00 Constipation, unspecified; Z87.11 Personal history of peptic ulcer disease; Z90.49 Acquired absence of other specified parts of digestive tract

== ENCOUNTER 2017-05-22 15:32 | Inpatient (IN) | payer MEDICAID ==
[2017-05-22 15:32] VITALS: BMI 38.7
--- NOTE | 2017-05-22 15:50 | C.PDOC ---
History Of Present Illness 52 year old female presents to the ER with complaints of diffuse abdominal pain , nausea, and approximately 10 episodes of bilious vomiting since last night. Patient has a Hx of prior bowel obstruction, s/p surgery done by Dr. Cagle. Patient was seen several times in March for the same complaints, had two CT scans done with showed enteritis and no evidence for bowel obstruction. Patient denies fever, chest pain, SOB, diarrhea, dysuria. Time Seen by Provider: 05/22/17 15:37 Chief Complaint (Nursing): Abdominal Pain History Per: Patient History/Exam Limitations: no limitations Onset/Duration Of Symptoms: Hrs Current Symptoms Are (Timing): Still Present Severity: Moderate Location Of Pain/Discomfort: Epigastric, LUQ Radiation Of Pain To:: None Quality Of Discomfort: "Pain" Associated Symptoms: Nausea, Vomiting. denies: Fever, Chills, Diarrhea Exacerbating Factors: None Alleviating Factors: None Past Medical History Reviewed: Historical Data, Nursing Documentation, Vital Signs Vital Signs: Last Vital Signs Temp 97.5 F L 05/26/17 07:42 Pulse 77 05/26/17 07:42 Resp 20 05/26/17 07:42 BP 136/84 05/26/17 07:42 Pulse Ox 100 05/26/17 07:42 - Medical History PMH: Anemia, Anxiety, Arthritis, Asthma, Back Problems (herniated discs), Bronchitis, Depression, Diverticulitis, Gastritis, Gastrointestinal Ulcer, HTN, Hypercholesterolemia, Pancreatitis Surgical History: Appendectomy, Cholecystectomy, Endoscopy, Hernia Repair ( ventral x3, last 10/27/15) - [facility] Procedures CENTRAL VENOUS CATHETER PLACEMENT WITH GUIDANCE (06/13/14) CLOSED ENDOSCOPIC BIOPSY OF LARGE INTESTINE (05/19/14) DILATION OF RIGHT AXILLARY ARTERY, PERCUTANEOUS APPROACH (11/03/15) ESOPHAGOGASTRODUODENOSCOPY [EGD] W/CLOSED BIOPSY (10/22/14) EXCISION OF DESCENDING COLON, ENDO, DIAGN (04/09/17) EXCISION OF SIGMOID COLON, ENDO, DIAGN (12/05/15) EXCISION OF SMALL INTESTINE, ENDO, DIAGN (06/10/16) EXCISION OF STOMACH, ENDO, DIAGN (04/04/17) FLUOROSCOPY OF SUP VENA CAVA USING L OSM CONTRAST, GUIDANCE (04/04/17) FLUOROSCOPY OF SUPERIOR VENA CAVA, GUIDANCE (12/05/15) INFLUENZA VACCINATION (05/08/14) INJECT/INFUSE NEC (06/25/14) INSERTION OF INFUSION DEV INTO L BRACH VEIN, PERC APPROACH (11/08/15) INSERTION OF INFUSION DEV INTO SUP VENA CAVA, PERC APPROACH (04/04/17) INSPECTION OF GASTROINTESTINAL TRACT, PERC ENDO APPROACH (10/26/15) MRI OF OTHER AND UNSPECIFIED SITES (04/25/14) RELEASE CECUM, OPEN APPROACH (10/26/15) ULTRASONOGRAPHY OF LEFT UPPER EXTREMITY VEINS, GUIDANCE (11/08/15) ULTRASONOGRAPHY OF SUPERIOR VENA CAVA, GUIDANCE (10/26/15) VENOUS CATHETERIZATION NEC (02/14/14) Family History: States: No Known Family Hx - Social History Hx Tobacco Use: No Hx Alcohol Use: No Hx Substance Use: No - Immunization History Hx Tetanus Toxoid Vaccination: Yes Hx Influenza Vaccination: Yes (2015) Hx Pneumococcal Vaccination: Yes (2014) Review Of Systems Except As Marked, All Systems Reviewed And Found Negative. Constitutional: Negative for: Fever, Chills Cardiovascular: Negative for: Chest Pain, Palpitations Respiratory: Negative for: Cough, Shortness of Breath Gastrointestinal: Positive for: Nausea, Vomiting, Abdominal Pain. Negative for : Diarrhea Genitourinary: Negative for: Dysuria, Hematuria Skin: Negative for: Rash Physical Exam - Physical Exam Appears: Well, Non-toxic, Other (in moderate pain, moaning, vomiting (bilious)) Skin: Normal Color, Warm, Dry Head: Normacephalic Eye(s): bilateral: Normal Inspection Oral Mucosa: Moist Cardiovascular: Rhythm Regular (Tachycardic) Respiratory: Normal Breath Sounds, No Rales, No Rhonchi, No Wheezing Gastrointestinal/Abdominal: Bowel Sounds, Soft, Tenderness (Diffuse TTP greatest at epigastric and LUQ areas), No Guarding, No Rebound, Other (Large midline surgical scar) Extremity: Normal ROM DTR: Ankle (R): 0 Neurological/Psych: Oriented x3 ED Course And Treatment - Laboratory Results Result Diagrams: 05/26/17 06:31 05/26/17 06:31 O2 Sat by Pulse Oximetry: 100 (RA) Pulse Ox Interpretation: Normal Progress Note: Blood work and obstructive series x-ray ordered and reviewed. Will not repeat CT scan of abdomen in light of multiple recent scans that were done. Patient given PO zofran ODT and IM dilaudid. Nurse unable to get peripheral access, patient states she is a tough stick and that she typically gets PICC once admitted. - Physician Consult Information Physician Contacted: Oleg Ellison Outcome Of Conversation: Discussed patient with Dr. Ellison, who agrees with admission for intractable andominal pain, bilious vomiting - with Dr. Cagle for surgery consult. Medical Decision Making Medical Decision Making: differential diagnoses considered: SBO, gastroenteritis, pancreatitis, colitis , appendicitis, cholecystitis, ischemic bowel, pyelonephritis, malingerin/drug seeking, opiate dependence/withdrawal [place] RX REVIEWED: CARLO GARCIATIZ 1965 [address] [facility] [id number] RENE CELESTE 1965 [address] [facility] [id number] CARLO CELESTE 1965 [address] [facility] [id number] Report Criteria First Name: carlo, Last Name: chidi, : 1965, ZIP Code: , City: , State: , Phone: , SSN: , DL: Summary Prescriptions:47 Prescribers:14 Pharmacies:8 Private Pay:0 Active Daily MME:60.0 Prescriptions Filled ID Written Drug QTY Days Prescriber Rx # Pharmacy* Refills MME/D Pymt Type [employer] 05/09/2017 3 05/08/2017 OXYCODONE-ACETAMINOPHEN 10-325 60.0 15 [facility] [id number] [facility] (8068) 0 60.0 Comm Ins MD 05/01/2017 3 05/01/2017 ZOLPIDEM TARTRATE 10 MG TABLET 30.0 30 [facility] [id number] [facility] (8068) 0 Comm Ins MD 04/26/2017 3 04/24/2017 OXYCODONE-ACETAMINOPHEN 10-325 60.0 15 MA SAE [id number] [facility] (8068) 0 60.0 Comm Ins MD 04/13/2017 3 04/13/2017 OXYCODONE-ACETAMINOPHEN 10-325 60.0 15 MA [facility] [id number] [facility] (8068) 0 60.0 Comm Ins MD 03/31/2017 3 03/31/2017 OXYCODONE-ACETAMINOPHEN 5-325 20.0 4 EM [facility] [id number] [facility] (5974) 0 37.5 Comm Ins MD 03/28/2017 3 03/23/2017 OXYCODONE-ACETAMINOPHEN 10-325 60.0 15 MA SAE [id number] [facility] (8068) 0 60.0 Comm Ins MD 03/15/2017 3 03/13/2017 OXYCODONE-ACETAMINOPHEN 10-325 60.0 15 MA [facility]E [id number] [facility] (8068) 0 60.0 Comm Ins MD 03/14/2017 3 12/09/2016 ZOLPIDEM TARTRATE 10 MG TABLET 30.0 30 MA SAE [id number] [facility] (8068) 3 Comm Ins MD 03/06/2017 3 02/28/2017 ALPRAZOLAM 0.5 MG TABLET 30.0 30 [facility] [id number] [facility] ( 8068) 0 Comm Ins MD 03/02/2017 3 02/28/2017 ENDOCET 10-325 MG TABLET 60.0 15 MA SAE [id number] [facility] ( 8068) 0 60.0 Comm Ins MD 02/17/2017 3 02/17/2017 OXYCODONE-ACETAMINOPHEN 10-325 60.0 15 MA SAE [id number] [facility] (8068) 0 60.0 Comm Ins MD 02/16/2017 3 12/09/2016 ZOLPIDEM TARTRATE 10 MG TABLET 30.0 30 MA SAE [id number] [facility] (8068) 2 Comm Ins MD 02/14/2017 3 02/07/2017 OXYCODONE-ACETAMINOPHEN 10-325 60.0 15 MA SAE [id number] [facility] (8068) 0 60.0 Comm Ins MD 02/08/2017 3 02/08/2017 ALPRAZOLAM 0.5 MG TABLET 60.0 30 MA SAE [id number] [facility] ( 8068) 0 Comm Ins MD 02/01/2017 3 01/27/2017 OXYCODONE-ACETAMINOPHEN 10-325 60.0 15 MA SAE [id number] [facility] (8068) 0 60.0 Comm Ins MD 01/21/2017 3 12/09/2016 ZOLPIDEM TARTRATE 10 MG TABLET 30.0 30 MA SAE [id number] [facility] (8068) 1 Comm Ins MD 01/19/2017 3 01/16/2017 OXYCODONE-ACETAMINOPHEN 10-325 60.0 15 AI MEC [id number] [facility] (8068) 0 60.0 Comm Ins MD 01/06/2017 3 01/02/2017 OXYCODONE-ACETAMINOPHEN 10-325 60.0 15 MA SAE [id number] [facility] (8068) 0 60.0 Comm Ins MD 12/09/2016 3 12/09/2016 ALPRAZOLAM 0.25 MG TABLET 30.0 30 MA SAE [id number] [facility] ( 8068) 0 Comm Ins MD 11/28/2016 3 11/28/2016 ZOLPIDEM TARTRATE 10 MG TABLET 30.0 30 MA SAE [id number] [facility] (8068) 0 Comm Ins MD 11/28/2016 3 11/27/2016 OXYCODONE-ACETAMINOPHEN 10-325 60.0 30 MA SAE [id number] [facility] (8068) 0 30.0 Comm Ins MD 11/15/2016 3 11/15/2016 OXYCODONE-ACETAMINOPHEN 10-325 60.0 15 MA SAE [id number] [facility] (5699) 0 60.0 Comm Ins MD 11/01/2016 3 11/01/2016 OXYCODONE-ACETAMINOPHEN 10-325 60.0 15 MA SAE [id number] [facility] (5699) 0 60.0 Comm Ins MD 11/01/2016 3 11/01/2016 ZOLPIDEM TARTRATE 10 MG TABLET 30.0 30 MA SAE [id number] [facility] (5699) 0 Comm Ins MD 10/19/2016 3 10/19/2016 OXYCODONE-ACETAMINOPHEN 10-325 60.0 15 MA SAE [id number] [facility] (5699) 0 60.0 Comm Ins MD 10/06/2016 3 10/06/2016 OXYCODONE-ACETAMINOPHEN 10-325 60.0 15 MA SAE [id number] [facility] (5699) 0 60.0 Comm Ins MD 09/25/2016 3 08/24/2016 ZOLPIDEM TARTRATE 10 MG TABLET 30.0 30 MA SAE [id number] [facility] (5699) 1 Comm Ins MD 09/25/2016 3 09/20/2016 OXYCODONE-ACETAMINOPHEN 10-325 30.0 3 TI IRWIN [id number] [facility] (5699) 0 150.0 Comm Ins MD 09/12/2016 3 09/12/2016 OXYCODONE-ACETAMINOPHEN 10-325 60.0 15 MA SAE [id number] [facility] (5699) 0 60.0 Comm Ins MD 09/06/2016 3 09/06/2016 OXYCODONE-ACETAMINOPHEN 5-325 20.0 4 MA FUC [id number] [facility] (8068) 0 37.5 Comm Ins MD 08/30/2016 3 08/30/2016 OXYCODONE-ACETAMINOPHEN 5-325 40.0 4 IG KOF [id number] [facility] (2676) 0 75.0 Comm Ins MD 08/24/2016 3 08/24/2016 ZOLPIDEM TARTRATE 10 MG TABLET 30.0 30 MA SAE [id number] [facility] (5699) 0 Comm Ins MD 08/17/2016 3 08/17/2016 OXYCODONE-ACETAMINOPHEN 10-325 60.0 15 MA SAE [id number] [facility] (5699) 0 60.0 Comm Ins MD 08/05/2016 3 08/05/2016 OXYCODONE-ACETAMINOPHEN 5-325 60.0 10 MA SAE [id number] [facility] (8068) 0 45.0 Comm Ins MD 07/28/2016 3 06/23/2016 ZOLPIDEM TARTRATE 10 MG TABLET 30.0 30 MA SAE [id number] [facility] (5699) 1 Comm Ins MD 07/23/2016 3 07/21/2016 OXYCODONE-ACETAMINOPHEN 5-325 60.0 15 MA SAE [id number] [facility] (8068) 0 30.0 Comm Ins MD 07/21/2016 3 07/21/2016 OXYCODONE-ACETAMINOPHEN 5-325 12.0 3 BE TAP [id number] [facility] (8068) 0 30.0 Comm [facility] Disposition - Disposition Disposition: HOSPITALIZED Disposition Time: 17:43 Condition: STABLE - Clinical Impression Clinical Impression: Bilious vomiting, Intractable abdominal pain - Scribe Statement The provider has reviewed the documentation as recorded by the Scribe Deniz Cha All medical record entries made by the Scribe were at my direction and personally dictated by me. I have reviewed the chart and agree that the record accurately reflects my personal performance of the history, physical exam, medical decision making, and the department course for this patient. I have also personally directed, reviewed, and agree with the discharge instructions and disposition. Decision To Admit - Pt Status Changed To: Hospital Disposition Of: Inpatient - Admit Certification Admit to Inpatient:: After my assessment, the patient will require hospitalization for at least two midnights. This is because of the severity of symptoms shown, intensity of services needed, and/or the medical risk in this patient being treated as an outpatient. - InPatient: Physician Admission Certification:: see notes - . Bed Request Type: Regular Admitting Physician: Oleg Ellison Patient Diagnosis: Bilious vomiting, Intractable abdominal pain
[2017-05-22] MEDS ORDERED: HYDROmorphone 1 mg/ml ISec IM STA ×2 (15:58→17:44)
[2017-05-22 17:49] LABS: BASO % 0.4 % (0.0-2.0); EOS % 0.2 % (0.0-4.0); HEMATOCRIT 38.2 % (34.0-47.0); LYMPH % 8.1 % (20.0-40.0); MEAN CELL VOLUME 89.2 fL (81.0-99.0); MEAN CORPUSCULAR HEMOGLOBIN 28.7 pg (27.0-31.0); MEAN CORPUSCULAR HGB CONC 32.1 g/dL (33.0-37.0); MEAN PLATELET VOLUME 7.9 fL (7.2-11.7); MONO # 0.3 K/uL (0.0-0.8); MONO % 2.3 % (0.0-10.0); PLATELET COUNT 299 K/uL (130-400); RED CELL DISTRIBUTION WIDTH 13.9 % (11.5-14.5); WHITE BLOOD COUNT 11.8 K/uL (4.8-10.8)
[2017-05-22 17:56] LABS: CHLORIDE 101 mmol/L (98-107); POTASSIUM 4.2 mmol/L (3.6-5.2); SODIUM 135 mmol/L (132-148)
[2017-05-22 17:58] LABS: BILIRUBIN,TOTAL 0.8 mg/dL (0.2-1.3); GFR AFRICAN-AMERICAN > 60
[2017-05-22 17:59] LABS: ALB/GLOB RATIO 1.4 (1.0-2.1); ALKALINE PHOSPHATASE 161 U/L (38-126); ALT/SGPT 32 U/L (9-52); AST/SGOT 21 U/L (14-36); BLOOD UREA NITROGEN 21 mg/dL (7-17); CALCIUM 8.8 mg/dl (8.6-10.4); CARBON DIOXIDE 23 mmol/L (22-30); GLUCOSE,RANDOM 102 mg/dL (65-105); TOTAL PROTEIN 8.3 g/dL (6.3-8.3)
[2017-05-22] MEDS ORDERED: HYDROmorphone 1 mg/ml ISec ONE (18:31)
[2017-05-22 19:33] LABS: NEUTROPHIL 88 % (50-75); TOTAL CELLS COUNTED 100
--- NOTE | 2017-05-22 20:06 | CP.PCM.CON ---
History of Present Illness - History of Present Illness History of Present Illness: General Surgery: Dr Cagle Pt is a 52F, well known to surgical service as she has an extensive history if intra-abdominal procedures complicated by multiple admissions for N/V type symptoms. Most recent surgery was a ventral hernia repair at [facility] with Dr Ar Ghotra. Pt now presents to ED with ~24 hours of diffuse abdominal pain accompanied by what she states has been 8-10 episodes of bilious vomiting. This emesis persisted in the ED and was witnessed by ED physician. Pt states pain was a 10/10, mainly in the midline near her recurrent ventral hernia, but it radiates "everywhere". She states she has been unable to tolerate any PO intake, but at the time of examination pt is currently drinking liquids. Currently, her pain has resolved, and she is only tender during physical exam. She no longer feels nauseous and has not vomited for a few hours. Abd X-ray in ED shows no evidence of SBO. Pt reports associated fevers and chills. Last BM was yesterday and normal in nature. Review of Systems - Review of Systems All systems: reviewed and no additional remarkable complaints except (as per hpi ) Past Patient History - Infectious Disease Hx of Infectious Diseases: None - Tetanus Immunizations Tetanus Immunization: Unknown - Past Medical History & Family History Past Medical History?: Yes - Past Social History Smoking Status: Never Smoked - CARDIAC Hx Hypercholesterolemia: Yes Hx Hypertension: Yes - PULMONARY Hx Asthma: Yes Hx Bronchitis: Yes - HEENT Hx HEENT Problems: No - RENAL Hx Chronic Kidney Disease: No Hx Kidney Stones: No - ENDOCRINE/METABOLIC Hx Hyperthyroidism: No Hx Hypothyroidism: No - HEMATOLOGICAL/ONCOLOGICAL Hx Anemia: Yes - INTEGUMENTARY Hx Dermatological Problems: No Hx Basil Cell: No Hx Sahu: No Hx Cellulitis: No Hx Eczema: No Hx Melanoma: No Hx Psoriasis: No Hx Squamous Cell: No - MUSCULOSKELETAL/RHEUMATOLOGICAL Hx Arthritis: Yes - GASTROINTESTINAL Hx Diverticulitis: Yes Hx Gastritis: Yes Hx Pancreatitis: Yes - GENITOURINARY/GYNECOLOGICAL Hx Sexually Transmitted Disorders: No - PSYCHIATRIC Hx Anxiety: Yes Hx Depression: Yes Hx Substance Use: No - SURGICAL HISTORY Hx Appendectomy: Yes Hx Cholecystectomy: Yes - ANESTHESIA Hx Anesthesia: Yes Hx Anesthesia Reactions: No Hx Malignant Hyperthermia: No Meds Allergies/Adverse Reactions: Allergies Allergy/AdvReac Type Severity Reaction Status Date / Time iodine Allergy Severe ANAPHYLAXIS Verified 11/06/17 15:50 Iodine and Iodide Containing Allergy Severe ANAPHYLAXIS Verified 05/22/17 15:50 Produc ketorolac tromethamine Allergy Intermediate NAUSEA Verified 05/22/17 15:50 [From Toradol] morphine Allergy Intermediate URTICARIA Verified 05/22/17 15:50 Penicillins Allergy ITCHING Verified 05/22/17 15:50 seafood Allergy Severe ANAPHYLAXIS Uncoded 05/22/17 15:50 iv contrast Allergy ITCHING Uncoded 05/22/17 15:50 Physical Exam - Constitutional Appears: Non-toxic, No Acute Distress - Head Exam Head Exam: NORMOCEPHALIC - Eye Exam Eye Exam: absent: Scleral icterus - ENT Exam ENT Exam: Mucous Membranes Moist - Respiratory Exam Respiratory Exam: absent: Accessory Muscle Use, Respiratory Distress - Cardiovascular Exam Cardiovascular Exam: REGULAR RHYTHM. absent: Tachycardia - GI/Abdominal Exam GI & Abdominal Exam: Hernia (ventral, slightly left of midline), Normal Bowel Sounds, Soft, Tenderness (minimal on deep palpation). absent: Distended, Firm, Guarding, Rebound, Rigid - Extremities Exam Extremities exam: Negative for: pedal edema - Neurological Exam Neurological exam: Alert, Oriented x3 - Psychiatric Exam Psychiatric exam: Normal Affect, Normal Mood Results - Vital Signs Recent Vital Signs: Last Vital Signs Temp 98.2 F 05/22/17 18:11 Pulse 104 H 05/22/17 18:11 Resp 20 05/22/17 18:11 BP 159/35 H 05/22/17 18:11 Pulse Ox 94 L 05/22/17 18:11 - Labs Result Diagrams: 05/22/17 17:45 05/22/17 17:45 Labs: Laboratory Results - last 24 hr 05/22/17 05/22/17 17:45 17:45 WBC 11.8 H RBC 4.28 Hgb 12.3 D Hct 38.2 MCV 89.2 MCH 28.7 MCHC 32.1 L RDW 13.9 Plt Count 299 MPV 7.9 Neut % (Auto) 89.0 H Lymph % (Auto) 8.1 L [place] % (Auto) 2.3 Eos % (Auto) 0.2 Baso % (Auto) 0.4 Neut # 10.5 H Lymph # 1.0 Redwood # 0.3 Eos # 0.0 Baso # 0.0 Neutrophils % (Manual) 88 H Lymphocytes % (Manual) 11 L Monocytes % (Manual) 1 Platelet Estimate Normal Sodium 135 Potassium 4.2 Chloride 101 Carbon Dioxide 23 Anion Gap 16 BUN 21 H Creatinine 0.6 L Est GFR ( Amer) > 60 Est GFR (Non-Af Amer) > 60 Random Glucose 102 Calcium 8.8 Total Bilirubin 0.8 AST 21 ALT 32 Alkaline Phosphatase 161 H Total Protein 8.3 Albumin 4.8 Globulin 3.5 Albumin/Globulin Ratio 1.4 Lipase 227 Assessment & Plan - Assessment and Plan (Free Text) Assessment: 52F with abdominal pain accompanied by N/V Plan: symptoms likely 2/2 to enteritis, similar to previous presentation no evidence of bowel obstruction pt hernia is reducible and not the cause of her symptoms OK to adv diet as tolerated will continue IVF at this time pain management per primary d/w Dr Gurjit Lorenz, PGY3
[2017-05-22 20:29] VITALS: RESP 20
[2017-05-22] MEDS: Sodium Chloride 0.9% 1,000 ML IV SCH (22:24)
[2017-05-23] MEDS ORDERED: DiphenhydrAMINE 50 mg/ml Inj IVP STA ×2 (00:39→09:01)
[2017-05-23] MEDS: Sodium Chloride 0.9% 1,000 ML IV SCH ×2 (06:27→18:32)
--- NOTE | 2017-05-23 09:10 | CP.PCM.PN ---
Subjective - Date & Time of Evaluation Date of Evaluation: 05/23/17 Time of Evaluation: 09:08 - Subjective Subjective: Surgery: Dr. Cagle Pt seen and examined. Resting comfortably in bed. Pain is improved. She had one episode of emesis this morning. No flatus/BM since monday. Objective - Vital Signs/Intake and Output Vital Signs (last 24 hours): Temp Pulse Resp BP Pulse Ox 98.1 F 85 20 115/82 98 05/23/17 08:30 05/23/17 08:30 05/23/17 08:30 05/23/17 08:30 05/23/17 08:30 Intake and Output: 05/23/17 05/23/17 06:59 18:59 Intake Total 800 Balance 800 - Medications Medications: Current Medications Hydromorphone HCl (Dilaudid) 2 mg IVP Q4H PRN PRN Reason: Pain, moderate (4-7) Last Admin: 05/23/17 06:19 Dose: 2 mg Sodium Chloride (Sodium Chloride 0.9%) 1,000 mls @ 100 mls/hr IV .Q10H G[facility] Last Admin: 05/23/17 06:27 Dose: 100 mls/hr Ondansetron HCl (Zofran Inj) 4 mg IVP Q6H PRN PRN Reason: Nausea/Vomiting Last Admin: 05/23/17 08:40 Dose: 4 mg Pantoprazole Sodium (Protonix Inj) 40 mg IVP DAILY GERR[facility] Fluticasone/Salmeterol (Advair Diskus 250/50) 1 puff INH RQ12 [facility] Zolpidem Tartrate (Ambien) 5 mg PO HS PRN PRN Reason: Insomnia - Labs Labs: 05/22/17 17:45 05/22/17 17:45 - Constitutional Appears: Non-toxic, No Acute Distress - Head Exam Head Exam: ATRAUMATIC, NORMOCEPHALIC - Eye Exam Eye Exam: EOMI - ENT Exam ENT Exam: Mucous Membranes Moist - Neck Exam Neck Exam: Full ROM - Respiratory Exam Respiratory Exam: NORMAL BREATHING PATTERN. absent: Accessory Muscle Use, Respiratory Distress - GI/Abdominal Exam GI & Abdominal Exam: Soft, Tenderness (mild), Hernia (ventral). absent: Distended, Firm, Guarding, Rigid, Rebound - Extremities Exam Extremities Exam: absent: Calf Tenderness, Pedal Edema - Neurological Exam Neurological Exam: Alert, Awake, Oriented x3 - Psychiatric Exam Psychiatric exam: Normal Affect, Normal Mood Assessment and Plan - Assessment and Plan (Free Text) Assessment: 52F w. recurrent ventral hernia presenting w. abd pain N/V -Obstructive series: no evidence of SBO -c/w pain management -IVF -serial abd exams -monitor bowel fxn -advance diet as tolerated -d/w attending Zeihsanitis PGY3
--- NOTE | 2017-05-23 10:13 | CP.PCM.PN ---
Subjective - Date & Time of Evaluation Date of Evaluation: 05/23/17 Time of Evaluation: 10:00 - Subjective Subjective: Medicine Progress Note- Dr Ellison's service Patient seen and examined. The patient is complaining of abdominal pain in her upper abdomen associated with one episode of vomiting this morning. The patient states that she has not had a bowel movement in 2 days. Patient is tearful and states that she is frustrated that she is having these episodes. She is tolerating liquid diet at this time. Denies fever, chills, chest pain, and palpitations. Objective - Vital Signs/Intake and Output Vital Signs (last 24 hours): Temp Pulse Resp BP Pulse Ox 98.1 F 85 20 115/82 98 05/23/17 08:30 05/23/17 08:30 05/23/17 08:30 05/23/17 08:30 05/23/17 08:30 Intake and Output: 05/23/17 05/23/17 06:59 18:59 Intake Total 800 Balance 800 - Medications Medications: Current Medications Hydromorphone HCl (Dilaudid) 2 mg IVP Q4H PRN PRN Reason: Pain, moderate (4-7) Last Admin: 05/23/17 06:19 Dose: 2 mg Sodium Chloride (Sodium Chloride 0.9%) 1,000 mls @ 100 mls/hr IV .Q10H [facility] Last Admin: 05/23/17 06:27 Dose: 100 mls/hr Ondansetron HCl (Zofran Inj) 4 mg IVP Q6H PRN PRN Reason: Nausea/Vomiting Last Admin: 05/23/17 08:40 Dose: 4 mg Pantoprazole Sodium (Protonix Inj) 40 mg IVP DAILY [facility] Last Admin: 05/23/17 09:27 Dose: 40 mg Fluticasone/Salmeterol (Advair Diskus 250/50) 1 puff INH RQ12 [facility] Zolpidem Tartrate (Ambien) 5 mg PO HS PRN PRN Reason: Insomnia - Labs Labs: 05/22/17 17:45 05/22/17 17:45 - Constitutional Appears: Non-toxic, No Acute Distress - Head Exam Head Exam: ATRAUMATIC, NORMOCEPHALIC - Eye Exam Eye Exam: EOMI, Normal appearance Pupil Exam: NORMAL ACCOMODATION - ENT Exam ENT Exam: Mucous Membranes Moist, Normal Exam - Neck Exam Neck Exam: Normal Inspection - Respiratory Exam Respiratory Exam: Clear to Ausculation Bilateral, NORMAL BREATHING PATTERN. absent: Rales, Rhonchi, Wheezes, Respiratory Distress - Cardiovascular Exam Cardiovascular Exam: REGULAR RHYTHM, +S1, +S2 - GI/Abdominal Exam GI & Abdominal Exam: Soft, Tenderness (tenderness over entire abdomen ), Normal Bowel Sounds. absent: Firm, Guarding, Mass Additional comments: central obesity Midline incision scar from previous surgery - Extremities Exam Extremities Exam: Normal Inspection. absent: Pedal Edema - Neurological Exam Neurological Exam: Alert, Awake, CN II-XII Intact, Normal Gait, Oriented x3 - Psychiatric Exam Psychiatric exam: Anxious, Normal Mood - Skin Skin Exam: Dry, Intact, Normal Color, Warm Assessment and Plan - Assessment and Plan (Free Text) Assessment: 1. Abdominal pain Patient with recurrent abdominal pain and vomiting, likely secondary to enteritis Consulted surgery Dr Cagle- help appreciated Per surgery, no acute intervention at this time Abdominal series shows no SBO Patient had colonoscopy/EGD 03/2017: Colonoscopy shows non-bleeding hemorrhoids , moderate colonic spasm, repeat colonoscopy in 10 years. EGD showed reflux esophagitis. Zofran 4mg IV q6h prn nausea Protonix 40mg IV daily IVF NS @100cc/hr Advanced to liquid diet, advance as tolerated Dilaudid 2mg IV q4h prn pain 2. Prophylactic measures Protonix 40mg IV daily SCDs ambulatory Management per Dr Ellison
[2017-05-23] MEDS: Fluticasone-Salmeterol 250-50mcg Diskus INH SCH ×2 (11:12→19:59)
[2017-05-23 11:53] LABS: BASO % 0.3 % (0.0-2.0); EOS # 0.2 K/uL (0.0-0.7); EOS % 2.2 % (0.0-4.0); HEMATOCRIT 32.6 % (34.0-47.0); LYMPH # 1.4 K/uL (1.0-4.3); LYMPH % 16.5 % (20.0-40.0); MEAN CELL VOLUME 90.3 fL (81.0-99.0); MEAN CORPUSCULAR HEMOGLOBIN 29.4 pg (27.0-31.0); MEAN CORPUSCULAR HGB CONC 32.6 g/dL (33.0-37.0); MEAN PLATELET VOLUME 9.1 fL (7.2-11.7); MONO # 0.7 K/uL (0.0-0.8); WHITE BLOOD COUNT 8.5 K/uL (4.8-10.8)
[2017-05-23 12:13] LABS: CHLORIDE 102 mmol/L (98-107); SODIUM 134 mmol/L (132-148)
[2017-05-23 12:14] LABS: POTASSIUM 3.8 mmol/L (3.6-5.2)
[2017-05-23 12:16] LABS: GFR AFRICAN-AMERICAN > 60
[2017-05-23 12:17] LABS: ALB/GLOB RATIO 1.5 (1.0-2.1); ALKALINE PHOSPHATASE 126 U/L (38-126); ALT/SGPT 36 U/L (9-52); AST/SGOT 23 U/L (14-36); BILIRUBIN,TOTAL 0.7 mg/dL (0.2-1.3); BLOOD UREA NITROGEN 24 mg/dL (7-17); CALCIUM 8.3 mg/dl (8.6-10.4); CARBON DIOXIDE 23 mmol/L (22-30); GLUCOSE,RANDOM 90 mg/dL (65-105); TOTAL PROTEIN 6.8 g/dL (6.3-8.3)
--- NOTE | 2017-05-23 12:49 | RAD ---
PROCEDURE: Radiographs of the chest and abdomen (obstructive series) HISTORY: nausea/vomiting, r/o air fluid level COMPARISON: Chest x-ray performed 04/10/17 CT abdomen and pelvis without contrast performed 04/09/17 TECHNIQUE: AP radiograph of the chest, with upright and supine radiographs of the abdomen. FINDINGS: Examination limited by habitus. CHEST: Heart size appears within normal limits. No focal consolidation, significant pleural effusion, or definite pneumothorax identified.Please note that chest x-ray has limited sensitivity for the detection of pulmonary masses. ABDOMEN AND PELVIS: Nonspecific bowel gas pattern. No definite free air. Right upper quadrant surgical clips. Mild constipation. Evidence of prior hernia repair the right abdomen with evidence of mesh. No acute osseous abnormality is detected. IMPRESSION: No acute findings identified. See above.
[2017-05-23] MEDS: DiphenhydrAMINE 50 mg/ml Inj IVP PRN (21:37)
[2017-05-24] MEDS: Sodium Chloride 0.9% 1,000 ML IV SCH ×3 (02:30→18:31)
[2017-05-24 06:56] LABS: BASO % 0.6 % (0.0-2.0); EOS # 0.3 K/uL (0.0-0.7); EOS % 4.9 % (0.0-4.0); HEMATOCRIT 32.8 % (34.0-47.0); LYMPH # 1.5 K/uL (1.0-4.3); LYMPH % 27.4 % (20.0-40.0); MEAN CELL VOLUME 90.3 fL (81.0-99.0); MEAN CORPUSCULAR HEMOGLOBIN 29.5 pg (27.0-31.0); MEAN CORPUSCULAR HGB CONC 32.6 g/dL (33.0-37.0); MEAN PLATELET VOLUME 9.5 fL (7.2-11.7); MONO # 0.5 K/uL (0.0-0.8); NRBC % 0.1 % (0.0-2.0); RED CELL DISTRIBUTION WIDTH 13.9 % (11.5-14.5); WHITE BLOOD COUNT 5.5 K/uL (4.8-10.8)
[2017-05-24 07:27] LABS: CHLORIDE 103 mmol/L (98-107)
[2017-05-24 07:28] LABS: POTASSIUM 3.9 mmol/L (3.6-5.2); SODIUM 135 mmol/L (132-148)
[2017-05-24 07:30] LABS: ALB/GLOB RATIO 1.5 (1.0-2.1); ALKALINE PHOSPHATASE 139 U/L (38-126); ALT/SGPT 33 U/L (9-52); AST/SGOT 20 U/L (14-36); BILIRUBIN,TOTAL 0.5 mg/dL (0.2-1.3); BLOOD UREA NITROGEN 18 mg/dL (7-17); CALCIUM 8.3 mg/dl (8.6-10.4); CARBON DIOXIDE 22 mmol/L (22-30); GFR AFRICAN-AMERICAN > 60; GLUCOSE,RANDOM 88 mg/dL (65-105); TOTAL PROTEIN 6.7 g/dL (6.3-8.3)
--- NOTE | 2017-05-24 08:10 | HP ---
HISTORY OF PRESENT ILLNESS: A 52-year-old female chief complaint abdominal pain, weakness, fatigue. The patient came to the ER, advised admission. The patient has a history of adhesions, abdominal hernia, intestinal obstruction. PHYSICAL EXAMINATION: GENERAL: The patient is awake, alert and oriented. VITAL SIGNS: Temperature 98, pulse 90. HEENT: Within normal limits. NECK: Supple. CHEST: Symmetrical. HEART: Regular. ABDOMEN: Soft. EXTREMITIES: No edema. The patient has intestinal obstruction. The patient needs bed rest, IV fluid. Surgical consult. Oleg Ellison MD
[2017-05-24] MEDS: DiphenhydrAMINE 50 mg/ml Inj IVP PRN ×2 (10:07→22:35)
[2017-05-24] MEDS: Fluticasone-Salmeterol 250-50mcg Diskus INH SCH ×2 (11:00→20:14)
--- NOTE | 2017-05-24 11:40 | CP.PCM.PN ---
Subjective - Date & Time of Evaluation Date of Evaluation: 05/24/17 Time of Evaluation: 11:39 - Subjective Subjective: Surgery: Dr. Cagle Pt seen and examined. She states that her abd pain has slightly improved. Nausea persists. She had 3 episodes of emesis this morning. Still no BM since monday. Objective - Vital Signs/Intake and Output Vital Signs (last 24 hours): Temp Pulse Resp BP Pulse Ox 98.1 F 72 20 127/85 99 05/24/17 08:08 05/24/17 08:08 05/24/17 08:08 05/24/17 08:08 05/24/17 08:08 Intake and Output: 05/24/17 05/24/17 06:59 18:59 Intake Total 2400 Balance 2400 - Medications Medications: Current Medications Bisacodyl (Dulcolax) 10 mg SC ONCE ONE Stop: 05/24/17 11:39 Diphenhydramine HCl (Benadryl) 25 mg IVP Q12H PRN PRN Reason: Itching / Pruritus Last Admin: 05/24/17 10:07 Dose: 25 mg Docusate Sodium (Colace) 100 mg PO BID [facility] Hydromorphone HCl (Dilaudid) 2 mg IVP Q4H PRN PRN Reason: Pain, moderate (4-7) Last Admin: 05/24/17 10:35 Dose: 2 mg Sodium Chloride (Sodium Chloride 0.9%) 1,000 mls @ 100 mls/hr IV .Q10H [facility] Last Admin: 05/24/17 02:30 Dose: 100 mls/hr Ondansetron HCl (Zofran Inj) 4 mg IVP Q6H PRN PRN Reason: Nausea/Vomiting Last Admin: 05/24/17 10:35 Dose: 4 mg Pantoprazole Sodium (Protonix Inj) 40 mg IVP DAILY [facility] Last Admin: 05/24/17 10:36 Dose: 40 mg Fluticasone/Salmeterol (Advair Diskus 250/50) 1 puff INH RQ12 [facility] Last Admin: 05/24/17 11:00 Dose: Not Given Zolpidem Tartrate (Ambien) 5 mg PO HS PRN PRN Reason: Insomnia - Labs Labs: 05/24/17 06:48 05/24/17 06:48 - Constitutional Appears: Non-toxic, No Acute Distress - Head Exam Head Exam: ATRAUMATIC, NORMOCEPHALIC - Eye Exam Eye Exam: EOMI - ENT Exam ENT Exam: Mucous Membranes Moist - Neck Exam Neck Exam: Full ROM - Respiratory Exam Respiratory Exam: NORMAL BREATHING PATTERN. absent: Accessory Muscle Use, Respiratory Distress - GI/Abdominal Exam GI & Abdominal Exam: Soft, Tenderness (mild at hernia), Hernia (ventral). absent: Distended, Firm, Guarding, Rigid - Extremities Exam Extremities Exam: absent: Calf Tenderness, Pedal Edema - Neurological Exam Neurological Exam: Alert, Awake, Oriented x3 - Psychiatric Exam Psychiatric exam: Normal Affect, Normal Mood - Skin Skin Exam: Dry, Warm Assessment and Plan - Assessment and Plan (Free Text) Assessment: 52F w. recurrent ventral hernia presenting w. abd pain N/V -Obstructive series from 05/22: No signs of obstruction -c/w IVF and anti-emetics -c/w clear liquid diet for now, advance when nausea resolves -monitor bowel fxn -will start colace and give dulcolax suppository -serial abd exams -d/w attending Balbinaitis PGY3
--- NOTE | 2017-05-24 11:51 | CP.PCM.PN ---
Subjective - Date & Time of Evaluation Date of Evaluation: 05/24/17 Time of Evaluation: 11:49 - Subjective Subjective: Medicine Progress Note- Dr Ellison's service Patient seen and examined. Patient states that her abdominal pain has improved but that she still has not had a bowel movement in 3 days. The patient ate her liquid breakfast this morning and then vomited afterwards. Patient is out of bed and ambulating. Denies fever, chills, chest pain, and palpitations. Objective - Vital Signs/Intake and Output Vital Signs (last 24 hours): Temp Pulse Resp BP Pulse Ox 98.1 F 72 20 127/85 99 05/24/17 08:08 05/24/17 08:08 05/24/17 08:08 05/24/17 08:08 05/24/17 08:08 Intake and Output: 05/24/17 05/24/17 06:59 18:59 Intake Total 2400 Balance 2400 - Medications Medications: Current Medications Diphenhydramine HCl (Benadryl) 25 mg IVP Q12H PRN PRN Reason: Itching / Pruritus Last Admin: 05/24/17 10:07 Dose: 25 mg Docusate Sodium (Colace) 100 mg PO BID [facility] Hydromorphone HCl (Dilaudid) 2 mg IVP Q4H PRN PRN Reason: Pain, moderate (4-7) Last Admin: 05/24/17 10:35 Dose: 2 mg Sodium Chloride (Sodium Chloride 0.9%) 1,000 mls @ 100 mls/hr IV .Q10H [facility] Last Admin: 05/24/17 02:30 Dose: 100 mls/hr Ondansetron HCl (Zofran Inj) 4 mg IVP Q6H PRN PRN Reason: Nausea/Vomiting Last Admin: 05/24/17 10:35 Dose: 4 mg Pantoprazole Sodium (Protonix Inj) 40 mg IVP DAILY [facility] Last Admin: 05/24/17 10:36 Dose: 40 mg Fluticasone/Salmeterol (Advair Diskus 250/50) 1 puff INH RQ12 [facility] Last Admin: 05/24/17 11:00 Dose: Not Given Zolpidem Tartrate (Ambien) 5 mg PO HS PRN PRN Reason: Insomnia - Labs Labs: 05/24/17 06:48 05/24/17 06:48 - Additional Findings Additional findings: - Constitutional Appears: Non-toxic, No Acute Distress - Head Exam Head Exam: ATRAUMATIC, NORMOCEPHALIC - Eye Exam Eye Exam: EOMI, Normal appearance Pupil Exam: NORMAL ACCOMODATION - ENT Exam ENT Exam: Mucous Membranes Moist, Normal Exam - Neck Exam Neck Exam: Normal Inspection - Respiratory Exam Respiratory Exam: Clear to Ausculation Bilateral, NORMAL BREATHING PATTERN. absent: Rales, Rhonchi, Wheezes, Respiratory Distress - Cardiovascular Exam Cardiovascular Exam: REGULAR RHYTHM, +S1, +S2 - GI/Abdominal Exam GI & Abdominal Exam: Soft, Tenderness (tenderness over entire abdomen ), Decreased Bowel Sounds. absent: Firm, Guarding, Mass Additional comments: central obesity Midline incision scar from previous surgery - Extremities Exam Extremities Exam: Normal Inspection. absent: Pedal Edema - Neurological Exam Neurological Exam: Alert, Awake, CN II-XII Intact, Normal Gait, Oriented x3 - Psychiatric Exam Psychiatric exam: Anxious, Normal Mood - Skin Skin Exam: Dry, Intact, Normal Color, Warm Assessment and Plan - Assessment and Plan (Free Text) Assessment: 1. Abdominal pain Patient with recurrent abdominal pain and vomiting, likely secondary to enteritis Continue on liquid diet, advance as tolerated. Will administer colace today. Consulted surgery Dr Cagle- help appreciated Per surgery, no acute intervention at this time Abdominal series shows no SBO Patient had colonoscopy/EGD 03/2017: Colonoscopy shows non-bleeding hemorrhoids , moderate colonic spasm, repeat colonoscopy in 10 years. EGD showed reflux esophagitis. Patient had gastric emptying study done several months ago with GI Dr Walls which was normal. Zofran 4mg IV q6h prn nausea Protonix 40mg IV daily IVF NS @100cc/hr Dilaudid 2mg IV q4h prn pain 2. Prophylactic measures Protonix 40mg IV daily SCDs ambulatory Management per Dr Ellison
[2017-05-25] MEDS: Fluticasone-Salmeterol 250-50mcg Diskus INH SCH ×2 (08:00→19:45)
[2017-05-25 08:14] LABS: BASO % 0.2 % (0.0-2.0); EOS # 0.3 K/uL (0.0-0.7); EOS % 4.9 % (0.0-4.0); HEMATOCRIT 32.3 % (34.0-47.0); LYMPH # 1.6 K/uL (1.0-4.3); LYMPH % 23.4 % (20.0-40.0); MEAN CELL VOLUME 90.7 fL (81.0-99.0); MEAN CORPUSCULAR HEMOGLOBIN 29.2 pg (27.0-31.0); MEAN CORPUSCULAR HGB CONC 32.2 g/dL (33.0-37.0); MEAN PLATELET VOLUME 9.9 fL (7.2-11.7); MONO # 0.5 K/uL (0.0-0.8); MONO % 7.8 % (0.0-10.0); NRBC % 0.5 % (0.0-2.0); RED CELL DISTRIBUTION WIDTH 13.7 % (11.5-14.5); WHITE BLOOD COUNT 6.8 K/uL (4.8-10.8)
[2017-05-25 08:33] LABS: CHLORIDE 102 mmol/L (98-107); SODIUM 134 mmol/L (132-148)
[2017-05-25 08:34] LABS: POTASSIUM 4.1 mmol/L (3.6-5.2)
[2017-05-25 08:36] LABS: ALB/GLOB RATIO 1.4 (1.0-2.1); ALKALINE PHOSPHATASE 145 U/L (38-126); ALT/SGPT 32 U/L (9-52); AST/SGOT 20 U/L (14-36); BILIRUBIN,TOTAL 0.5 mg/dL (0.2-1.3); BLOOD UREA NITROGEN 15 mg/dL (7-17); CALCIUM 8.2 mg/dl (8.6-10.4); CARBON DIOXIDE 22 mmol/L (22-30); GFR AFRICAN-AMERICAN > 60; GLUCOSE,RANDOM 89 mg/dL (65-105); TOTAL PROTEIN 6.5 g/dL (6.3-8.3)
[2017-05-25] MEDS: Sodium Chloride 0.9% 1,000 ML IV SCH ×3 (09:15→18:15)
--- NOTE | 2017-05-25 09:29 | CP.PCM.PN ---
Subjective - Date & Time of Evaluation Date of Evaluation: 05/25/17 Time of Evaluation: 09:26 - Subjective Subjective: Surgery: Dr. Cagle Pt seen and examined. Resting comfortably in bed. Pain controlled. No N/V. Pt is passing flatus and BM. Objective - Vital Signs/Intake and Output Vital Signs (last 24 hours): Temp Pulse Resp BP Pulse Ox 98.4 F 69 20 125/83 97 05/25/17 07:59 05/25/17 07:59 05/25/17 07:59 05/25/17 07:59 05/25/17 07:59 Intake and Output: 05/25/17 05/25/17 06:59 18:59 Intake Total 1280 Balance 1280 - Medications Medications: Current Medications Diphenhydramine HCl (Benadryl) 25 mg IVP Q12H PRN PRN Reason: Itching / Pruritus Last Admin: 05/24/17 22:35 Dose: 25 mg Docusate Sodium (Colace) 100 mg PO BID [facility] Last Admin: 05/24/17 17:47 Dose: 100 mg Hydromorphone HCl (Dilaudid) 2 mg IVP Q4H PRN PRN Reason: Pain, moderate (4-7) Last Admin: 05/25/17 06:30 Dose: 2 mg Sodium Chloride (Sodium Chloride 0.9%) 1,000 mls @ 100 mls/hr IV .Q10H [facility] Last Admin: 05/24/17 18:31 Dose: 100 mls/hr Ondansetron HCl (Zofran Inj) 4 mg IVP Q6H PRN PRN Reason: Nausea/Vomiting Last Admin: 05/24/17 10:35 Dose: 4 mg Pantoprazole Sodium (Protonix Inj) 40 mg IVP DAILY [facility] Last Admin: 05/24/17 10:36 Dose: 40 mg Fluticasone/Salmeterol (Advair Diskus 250/50) 1 puff INH RQ12 [facility] Last Admin: 05/24/17 20:14 Dose: Not Given Zolpidem Tartrate (Ambien) 5 mg PO HS PRN PRN Reason: Insomnia - Labs Labs: 05/25/17 07:43 05/25/17 07:43 - Constitutional Appears: Non-toxic, No Acute Distress - Head Exam Head Exam: ATRAUMATIC, NORMOCEPHALIC - Eye Exam Eye Exam: EOMI - ENT Exam ENT Exam: Mucous Membranes Moist - Neck Exam Neck Exam: Full ROM - Respiratory Exam Respiratory Exam: NORMAL BREATHING PATTERN. absent: Accessory Muscle Use, Respiratory Distress - GI/Abdominal Exam GI & Abdominal Exam: Soft, Hernia (Reducible ). absent: Distended, Firm, Guarding, Rigid, Tenderness, Rebound - Extremities Exam Extremities Exam: absent: Calf Tenderness, Pedal Edema - Neurological Exam Neurological Exam: Alert, Awake, Oriented x3 - Psychiatric Exam Psychiatric exam: Normal Affect, Normal Mood - Skin Skin Exam: Dry, Warm Assessment and Plan - Assessment and Plan (Free Text) Assessment: 52F w. recurrent ventral hernia presenting w. abd pain N/V, currently resolved -will advance diet to regular -If diet is tolerated pt is clear for D/C from surgical standpoint -d/w attending Zemaitis PGY3
[2017-05-25] MEDS ORDERED: Acetaminophen-Codeine 300/30 mg Tab PO PRN (09:38)
[2017-05-25] MEDS ORDERED: Influenza Vaccine 60 mcg/0.5 mL SYR (4YR UP) IM ONE (10:00)
--- NOTE | 2017-05-25 10:34 | CP.PCM.PN ---
Subjective - Date & Time of Evaluation Date of Evaluation: 05/25/17 Time of Evaluation: 10:30 - Subjective Subjective: PROGRESS NOTE. Attending: DR. TURCIOS Pt seen and examined at bedside. Patient has been throwing up, non bloody. Diet was advanced this morning to regular but will change back to clear liquid. No fevers, chills. Positive nausea and vomiting. No chest pain, shortness of breath. Objective - Vital Signs/Intake and Output Vital Signs (last 24 hours): Temp Pulse Resp BP Pulse Ox 98.4 F 69 20 125/83 97 05/25/17 07:59 05/25/17 07:59 05/25/17 07:59 05/25/17 07:59 05/25/17 07:59 Intake and Output: 05/25/17 05/25/17 06:59 18:59 Intake Total 1280 Balance 1280 - Medications Medications: Current Medications Acetaminophen/Codeine Phosphate (Tylenol/Codeine 300 Mg/30 Mg) 2 ea PO Q6 PRN PRN Reason: Pain, moderate (4-7) Diphenhydramine HCl (Benadryl) 25 mg IVP Q12H PRN PRN Reason: Itching / Pruritus Last Admin: 05/24/17 22:35 Dose: 25 mg Docusate Sodium (Colace) 100 mg PO BID [facility] Last Admin: 05/25/17 09:51 Dose: 100 mg Sodium Chloride (Sodium Chloride 0.9%) 1,000 mls @ 100 mls/hr IV .Q10H [facility] Last Admin: 05/25/17 09:15 Dose: Not Given Ondansetron HCl (Zofran Inj) 4 mg IVP Q6H PRN PRN Reason: Nausea/Vomiting Last Admin: 05/25/17 09:51 Dose: 4 mg Pantoprazole Sodium (Protonix Inj) 40 mg IVP DAILY [facility] Last Admin: 05/25/17 09:51 Dose: 40 mg Fluticasone/Salmeterol (Advair Diskus 250/50) 1 puff INH RQ12 [facility] Last Admin: 05/24/17 20:14 Dose: Not Given Zolpidem Tartrate (Ambien) 5 mg PO HS PRN PRN Reason: Insomnia - Labs Labs: 05/25/17 07:43 05/25/17 07:43 - Constitutional Appears: Non-toxic - Head Exam Head Exam: ATRAUMATIC, NORMAL INSPECTION, NORMOCEPHALIC - Eye Exam Eye Exam: EOMI - ENT Exam ENT Exam: Mucous Membranes Moist - Neck Exam Neck Exam: Full ROM, Normal Inspection - Respiratory Exam Respiratory Exam: NORMAL BREATHING PATTERN. absent: Respiratory Distress - Cardiovascular Exam Cardiovascular Exam: +S1, +S2 - GI/Abdominal Exam GI & Abdominal Exam: Soft, Hernia, Normal Bowel Sounds. absent: Tenderness - Extremities Exam Extremities Exam: Full ROM, Normal Inspection - Neurological Exam Neurological Exam: Alert, Awake, Oriented x3 - Psychiatric Exam Psychiatric exam: Anxious - Skin Skin Exam: Dry, Intact, Normal Color, Warm Assessment and Plan - Assessment and Plan (Free Text) Assessment: This is a 52 year old female with 1. Abdominal pain -Patient has recurrent abdominal pain and vomiting, likely secondary to enteritis -was switched to regular this morning. will switch back to clear liquid as patient was still vomiting -Consulted surgery Dr Cagle- help appreciated -Per surgery, no acute intervention at this time -Abdominal series shows no small bowel obstruction -Patient had colonoscopy/EGD 03/2017: Colonoscopy shows non-bleeding hemorrhoids , moderate colonic spasm, repeat colonoscopy in 10 years. EGD showed reflux esophagitis. -Patient had gastric emptying study done several months ago with GI Dr Walls which was normal. -Zofran 4mg IV q6h prn nausea -Protonix 40mg IV daily -IVF NS @100cc/hr -Dilaudid 2mg IV q4h prn pain 2. Insomnia -continue zolpidem 5 mg PO HS 3. GI/DVT ppx -Protonix 40mg IV daily -SCDs -pt is ambulatory Discussed with DR. Turcios
[2017-05-25] MEDS: DiphenhydrAMINE 50 mg/ml Inj IVP PRN (11:01)
[2017-05-26] MEDS: DiphenhydrAMINE 50 mg/ml Inj IVP PRN ×2 (00:03→12:07)
[2017-05-26 06:59] LABS: ALKALINE PHOSPHATASE 137 U/L (38-126); ALT/SGPT 38 U/L (9-52); AST/SGOT 24 U/L (14-36); BILIRUBIN,TOTAL 0.3 mg/dL (0.2-1.3); BLOOD UREA NITROGEN 13 mg/dL (7-17); CALCIUM 8.3 mg/dl (8.6-10.4); CARBON DIOXIDE 27 mmol/L (22-30); CHLORIDE 101 mmol/L (98-107); GFR AFRICAN-AMERICAN > 60; GLUCOSE,RANDOM 85 mg/dL (65-105); MAGNESIUM 1.7 mg/dL (1.6-2.3); PHOSPHOROUS 4.2 mg/dL (2.5-4.5); SODIUM 139 mmol/L (132-148); TOTAL PROTEIN 7.3 g/dL (6.3-8.3)
[2017-05-26 07:26] LABS: BASO % 0.3 % (0.0-2.0); EOS # 0.3 K/uL (0.0-0.7); EOS % 4.4 % (0.0-4.0); HEMATOCRIT 30.8 % (34.0-47.0); LYMPH # 1.2 K/uL (1.0-4.3); LYMPH % 20.9 % (20.0-40.0); MEAN CELL VOLUME 89.8 fL (81.0-99.0); MEAN CORPUSCULAR HEMOGLOBIN 29.6 pg (27.0-31.0); MEAN CORPUSCULAR HGB CONC 32.9 g/dL (33.0-37.0); MEAN PLATELET VOLUME 8.5 fL (7.2-11.7); MONO # 0.5 K/uL (0.0-0.8); MONO % 8.4 % (0.0-10.0); NRBC % 0.1 % (0.0-2.0); RED CELL DISTRIBUTION WIDTH 13.9 % (11.5-14.5); WHITE BLOOD COUNT 5.7 K/uL (4.8-10.8)
[2017-05-26] MEDS: Fluticasone-Salmeterol 250-50mcg Diskus INH SCH ×2 (08:47→19:23)
[2017-05-26] MEDS: Pantoprazole 40 mg EC Tab PO SCH (09:48)
--- NOTE | 2017-05-26 10:30 | CP.PCM.PN ---
Subjective - Date & Time of Evaluation Date of Evaluation: 05/26/17 Time of Evaluation: 10:27 - Subjective Subjective: Surgery: Dr. Cagle Pt seen and examined. Pt states that she had nausea and vomiting after diet was advanced to regular yesterday. Nursing was unable to confirm that vomiting occurred. Pt states she has worse abd pain and that it is tender to palpation. However, when Listening to bowel sounds with stethoscope, very firm palpation can be applied to abd without any complaints from the pt. Objective - Vital Signs/Intake and Output Vital Signs (last 24 hours): Temp Pulse Resp BP Pulse Ox 97.5 F L 77 20 136/84 100 05/26/17 07:42 05/26/17 07:42 05/26/17 07:42 05/26/17 07:42 05/26/17 09:48 Intake and Output: 05/26/17 05/26/17 06:59 18:59 Intake Total 2150 Balance 2150 - Medications Medications: Current Medications Diphenhydramine HCl (Benadryl) 25 mg IVP Q12H PRN PRN Reason: Itching / Pruritus Last Admin: 05/26/17 00:03 Dose: 25 mg Docusate Sodium (Colace) 100 mg PO BID [facility] Last Admin: 05/26/17 09:48 Dose: 100 mg Hydromorphone HCl (Dilaudid) 2 mg IVP Q6 PRN PRN Reason: Pain, severe (8-10) Ondansetron HCl (Zofran Inj) 4 mg IVP Q6H PRN PRN Reason: Nausea/Vomiting Last Admin: 05/25/17 09:51 Dose: 4 mg Pantoprazole Sodium (Protonix Ec Tab) 40 mg PO DAILY [facility] Last Admin: 05/26/17 09:48 Dose: 40 mg Fluticasone/Salmeterol (Advair Diskus 250/50) 1 puff INH RQ12 [facility] Last Admin: 05/26/17 08:47 Dose: 1 puff Zolpidem Tartrate (Ambien) 5 mg PO HS PRN PRN Reason: Insomnia - Labs Labs: 05/26/17 06:31 05/26/17 06:31 - Constitutional Appears: Non-toxic, No Acute Distress - Head Exam Head Exam: ATRAUMATIC, NORMOCEPHALIC - Eye Exam Eye Exam: EOMI - ENT Exam ENT Exam: Mucous Membranes Moist - Neck Exam Neck Exam: Full ROM - Respiratory Exam Respiratory Exam: NORMAL BREATHING PATTERN. absent: Accessory Muscle Use, Respiratory Distress - GI/Abdominal Exam GI & Abdominal Exam: Soft, Hernia (reducible). absent: Distended, Firm, Guarding, Rigid, Tenderness, Rebound Additional comments: Normal bowel sounds - Extremities Exam Extremities Exam: absent: Calf Tenderness, Pedal Edema Assessment and Plan - Assessment and Plan (Free Text) Assessment: 52F w. recurrent ventral hernia presenting w. abd pain N/V -continue w. regular diet -pt clear for d/c from surgical standpoint if diet is tolerated -no plans for surgery at this time -will continue to follow -d/w attending Myra PGY3
--- NOTE | 2017-05-26 13:12 | CP.PCM.PN ---
Subjective - Date & Time of Evaluation Date of Evaluation: 05/26/17 Time of Evaluation: 13:10 - Subjective Subjective: Medicine Progress Note- Dr Ellison's service Patient seen and examined. Patient is still complaining of generalized abdominal pain. She was unable to tolerate a regular diet yesterday. She wishes to try again today. Denies vomiting today. Patient is requesting suppository. Denies chest pain, palpitations, and shortness of breath. Objective - Vital Signs/Intake and Output Vital Signs (last 24 hours): Temp Pulse Resp BP Pulse Ox 97.5 F L 77 20 136/84 100 05/26/17 07:42 05/26/17 07:42 05/26/17 07:42 05/26/17 07:42 05/26/17 09:48 Intake and Output: 05/26/17 05/26/17 06:59 18:59 Intake Total 2150 Balance 2150 - Medications Medications: Current Medications Diphenhydramine HCl (Benadryl) 25 mg IVP Q12H PRN PRN Reason: Itching / Pruritus Last Admin: 05/26/17 12:07 Dose: 25 mg Docusate Sodium (Colace) 100 mg PO BID [facility] Last Admin: 05/26/17 09:48 Dose: 100 mg Hydromorphone HCl (Dilaudid) 2 mg IVP Q6 PRN PRN Reason: Pain, severe (8-10) Last Admin: 05/26/17 10:33 Dose: 2 mg Ondansetron HCl (Zofran Inj) 4 mg IVP Q6H PRN PRN Reason: Nausea/Vomiting Last Admin: 05/26/17 12:07 Dose: 4 mg Pantoprazole Sodium (Protonix Ec Tab) 40 mg PO DAILY [facility] Last Admin: 05/26/17 09:48 Dose: 40 mg Fluticasone/Salmeterol (Advair Diskus 250/50) 1 puff INH RQ12 [facility] Last Admin: 05/26/17 08:47 Dose: 1 puff Zolpidem Tartrate (Ambien) 5 mg PO HS PRN PRN Reason: Insomnia - Labs Labs: 05/26/17 06:31 05/26/17 06:31 - Additional Findings Additional findings: - Constitutional Appears: Non-toxic, No Acute Distress - Head Exam Head Exam: ATRAUMATIC, NORMOCEPHALIC - Eye Exam Eye Exam: EOMI, Normal appearance Pupil Exam: NORMAL ACCOMODATION - ENT Exam ENT Exam: Mucous Membranes Moist, Normal Exam - Neck Exam Neck Exam: Normal Inspection - Respiratory Exam Respiratory Exam: Clear to Ausculation Bilateral, NORMAL BREATHING PATTERN. absent: Rales, Rhonchi, Wheezes, Respiratory Distress - Cardiovascular Exam Cardiovascular Exam: REGULAR RHYTHM, +S1, +S2 - GI/Abdominal Exam GI & Abdominal Exam: Soft, Tenderness (tenderness over entire abdomen ), Decreased Bowel Sounds. absent: Firm, Guarding, Mass Additional comments: central obesity Midline incision scar from previous surgery - Extremities Exam Extremities Exam: Normal Inspection. absent: Pedal Edema - Neurological Exam Neurological Exam: Alert, Awake, CN II-XII Intact, Normal Gait, Oriented x3 - Psychiatric Exam Psychiatric exam: Anxious, Normal Mood - Skin Skin Exam: Dry, Intact, Normal Color, Warm Assessment and Plan - Assessment and Plan (Free Text) Assessment: 1. Abdominal pain -Patient has recurrent abdominal pain and vomiting -Advance to regular diet today to see if patient can tolerate it. Ordered dulcolax suppository per patient request. -Consulted surgery Dr Cagle- help appreciated -Per surgery, no acute intervention at this time -Abdominal series shows no small bowel obstruction -Patient had colonoscopy/EGD 03/2017: Colonoscopy shows non-bleeding hemorrhoids , moderate colonic spasm, repeat colonoscopy in 10 years. EGD showed reflux esophagitis. -Patient had gastric emptying study done several months ago with GI Dr Walls which was normal. -Zofran 4mg IV q6h prn nausea -Protonix 40mg IV daily -IVF NS @100cc/hr -Dilaudid 2mg IV q6h prn pain 2. Insomnia -continue zolpidem 5 mg PO HS 3. GI/DVT ppx -Protonix 40mg IV daily -SCDs -pt is ambulatory Discussed with DR. Ellison. Plan for DC tomorrow if symptoms improve.
[2017-05-27] MEDS: DiphenhydrAMINE 50 mg/ml Inj IVP PRN ×2 (00:28→12:09)
[2017-05-27 08:00] VITALS: BP 134/82; PULSE 64; TEMP 97.9; O2SAT 99
[2017-05-27 08:30] LABS: CHLORIDE 100 mmol/L (98-107); POTASSIUM 3.9 mmol/L (3.6-5.2); SODIUM 137 mmol/L (132-148)
[2017-05-27 08:32] LABS: BILIRUBIN,TOTAL 0.3 mg/dL (0.2-1.3); CARBON DIOXIDE 27 mmol/L (22-30); GFR AFRICAN-AMERICAN > 60
[2017-05-27 08:33] LABS: ALKALINE PHOSPHATASE 134 U/L (38-126); ALT/SGPT 52 U/L (9-52); AST/SGOT 32 U/L (14-36); BLOOD UREA NITROGEN 18 mg/dL (7-17); CALCIUM 8.7 mg/dl (8.6-10.4); GLUCOSE,RANDOM 87 mg/dL (65-105); TOTAL PROTEIN 7.6 g/dL (6.3-8.3)
--- NOTE | 2017-05-27 08:37 | CP.PCM.PN ---
Subjective - Date & Time of Evaluation Date of Evaluation: 05/27/17 Time of Evaluation: 08:37 - Subjective Subjective: Gen Sx: Dr Cagle Pt S&E. LAURI. Pt resting comfortably and sleeping at time of examination. Reports abdominal pain is better but still present. Having intermittent nausea , and states she has vomited but this has not been witnessed. Pt claims difficulty tolerating PO intake but has been eating food brought from home. Having regular bowel movements. Objective - Vital Signs/Intake and Output Vital Signs (last 24 hours): Temp Pulse Resp BP Pulse Ox 97.9 F 64 20 134/82 99 05/27/17 07:59 05/27/17 07:59 05/27/17 07:59 05/27/17 07:59 05/27/17 07:59 Intake and Output: 05/27/17 05/27/17 06:59 18:59 Intake Total 800 Balance 800 - Medications Medications: Current Medications Diphenhydramine HCl (Benadryl) 25 mg IVP Q12H PRN PRN Reason: Itching / Pruritus Last Admin: 05/27/17 00:28 Dose: 25 mg Docusate Sodium (Colace) 100 mg PO BID [facility] Last Admin: 05/26/17 17:23 Dose: 100 mg Hydromorphone HCl (Dilaudid) 2 mg IVP Q6 PRN PRN Reason: Pain, severe (8-10) Last Admin: 05/27/17 04:28 Dose: 2 mg Ondansetron HCl (Zofran Inj) 4 mg IVP Q6H PRN PRN Reason: Nausea/Vomiting Last Admin: 05/26/17 12:07 Dose: 4 mg Pantoprazole Sodium (Protonix Ec Tab) 40 mg PO DAILY [facility] Last Admin: 05/26/17 09:48 Dose: 40 mg Fluticasone/Salmeterol (Advair Diskus 250/50) 1 puff INH RQ12 [facility] Last Admin: 05/26/17 19:23 Dose: 1 puff Zolpidem Tartrate (Ambien) 5 mg PO HS PRN PRN Reason: Insomnia Last Admin: 05/26/17 22:26 Dose: 5 mg - Labs Labs: 05/26/17 06:31 05/27/17 08:07 - Constitutional Appears: Non-toxic, No Acute Distress - Respiratory Exam Respiratory Exam: absent: Accessory Muscle Use, Respiratory Distress - Cardiovascular Exam Cardiovascular Exam: REGULAR RHYTHM. absent: Tachycardia - GI/Abdominal Exam GI & Abdominal Exam: Soft, Hernia (ventral). absent: Distended, Firm, Guarding , Tenderness Assessment and Plan - Assessment and Plan (Free Text) Assessment: 52F with recurrent abdominal pain, no identifiable source with extensive work-up Plan: recommend pain mgmt opiod dependence counseling pt should follow up with Dr Ghotra - surgeon of record for ventral hernia tolerating PO intake, having BMs, no surgical intervention needed pt can be discharged from a surgical perspective will d/w Dr Gurjit Lorenz, PGY3
[2017-05-27] MEDS ORDERED: HYDROmorphone 1 mg/ml ISec IVP PRN (08:39)
[2017-05-27] MEDS: Fluticasone-Salmeterol 250-50mcg Diskus INH SCH ×2 (10:13→19:29)
--- NOTE | 2017-05-27 10:41 | CP.PCM.PN ---
Subjective - Date & Time of Evaluation Date of Evaluation: 05/27/17 Time of Evaluation: 10:41 - Subjective Subjective: Alert, oriented, out of bed, no distress. Objective - Vital Signs/Intake and Output Vital Signs (last 24 hours): Temp Pulse Resp BP Pulse Ox 97.9 F 64 20 134/82 99 05/27/17 07:59 05/27/17 07:59 05/27/17 07:59 05/27/17 07:59 05/27/17 07:59 Intake and Output: 05/27/17 05/27/17 06:59 18:59 Intake Total 800 Balance 800 - Medications Medications: Current Medications Diphenhydramine HCl (Benadryl) 25 mg IVP Q12H PRN PRN Reason: Itching / Pruritus Last Admin: 05/27/17 00:28 Dose: 25 mg Docusate Sodium (Colace) 100 mg PO BID [facility] Last Admin: 05/26/17 17:23 Dose: 100 mg Hydromorphone HCl (Dilaudid) 1 mg IVP Q6 PRN PRN Reason: Pain, severe (8-10) Ondansetron HCl (Zofran Inj) 4 mg IVP Q6H PRN PRN Reason: Nausea/Vomiting Last Admin: 05/26/17 12:07 Dose: 4 mg Pantoprazole Sodium (Protonix Ec Tab) 40 mg PO DAILY [facility] Last Admin: 05/26/17 09:48 Dose: 40 mg Fluticasone/Salmeterol (Advair Diskus 250/50) 1 puff INH RQ12 [facility] Last Admin: 05/27/17 10:13 Dose: 1 puff Zolpidem Tartrate (Ambien) 5 mg PO HS PRN PRN Reason: Insomnia Last Admin: 05/26/17 22:26 Dose: 5 mg - Labs Labs: 05/26/17 06:31 05/27/17 08:07 Assessment and Plan - Assessment and Plan (Free Text) Assessment: Patient is seen and examined. Alert and orientedx3, denies sob or chest pains or abdominal pain. Tolerating diet, no vomiting today. D/W DR Ellison, plan to discharge home and advance diet slowly. Advised to follow up in the office in 1 week.
[2017-05-27] MEDS: Pantoprazole 40 mg EC Tab PO SCH (10:42)
--- NOTE | 2017-05-31 10:21 | DS ---
HOSPITAL COURSE: The patient was admitted to the hospital with abdominal pain, weakness, tiredness. The patient came to the hospital and advised admission. The patient has a history of intestinal obstruction, abdominal hernia, multiple admissions for the same. PHYSICAL EXAMINATION: GENERAL: The patient is awake, alert and oriented. VITAL SIGNS: Temperature 98, pulse 90. HEENT: Within normal limits. NECK: Supple. CHEST: Symmetrical. HEART: Regular. ABDOMEN: Distended. EXTREMITIES: No edema. IMPRESSION AND PLAN: The patient has history of intestinal obstruction. The patient was put on bed rest, IV fluid, GI consult . The patient noted improvement with diet and the patient discharged to be followed as an outpatient. Oleg Ellison MD
== END 2017-05-27 15:00 | disposition home or self-care (01) | DRG 814 ==
LOC: C.ER 15:32 → C.9E 17:43 → C.3T 19:06
PROVIDERS: ADMIT Internal Medicine Pulmonary Disease; ATTEND Internal Medicine Pulmonary Disease
DX: R10.84 Generalized abdominal pain (principal); I10 Essential (primary) hypertension; K43.2 Incisional hernia without obstruction or gangrene; K52.9 Noninfective gastroenteritis and colitis, unspecified; K21.0 Gastro-esophageal reflux disease with esophagitis; J45.909 Unspecified asthma, uncomplicated; E78.00 Pure hypercholesterolemia, unspecified; G47.00 Insomnia, unspecified; Z87.11 Personal history of peptic ulcer disease; Z90.49 Acquired absence of other specified parts of digestive tract

== ENCOUNTER 2017-07-02 12:10 | Emergency (ER) | payer MEDICAID ==
[2017-07-02 12:10] VITALS: BMI 38.7
[2017-07-02 13:50] VITALS: O2SAT 100
--- NOTE | 2017-07-02 14:15 | CT ---
PROCEDURE: CT HEAD WITHOUT CONTRAST. HISTORY: HEAD INJURY COMPARISON: None available. TECHNIQUE: Axial computed tomography images were obtained through the head/brain without intravenous contrast. Radiation dose: Total exam DLP = 868 mGy-cm. This CT exam was performed using one or more of the following dose reduction techniques: Automated exposure control, adjustment of the mA and/or kV according to patient size, and/or use of iterative reconstruction technique. FINDINGS: HEMORRHAGE: No intracranial hemorrhage. BRAIN: No mass effect or edema. No atrophy or chronic microvascular ischemic changes. Small calcified focus measuring 2-3 millimeters seen within the high posterior left frontal region on series 2, image 19. Mild bifrontal extra-axial prominence. Punctate left basal ganglia lacunar infarct. VENTRICLES: Unremarkable. No hydrocephalus. CALVARIUM: Unremarkable. PARANASAL SINUSES: Unremarkable as visualized. No significant inflammatory changes. MASTOID AIR CELLS: Unremarkable as visualized. No inflammatory changes. OTHER FINDINGS: Soft tissue swelling overlying the posterior right parieto-occipital cranium. IMPRESSION: No acute intracranial abnormality. Soft tissue swelling overlying the posterior right parieto-occipital cranium. Additional findings as above. If symptoms persists, consider MRI.
[2017-07-02] MEDS ORDERED: HYDROmorphone 1 mg/ml ISec IM STA (14:25)
--- NOTE | 2017-07-02 14:44 | C.PDOC ---
History Of Present Illness 52-year-old female, presents to the emergency department with complaints of fall. Patient states on 06/26 she fell outside and hit the back of her head on ground, and since then she had felt light headed with associated nausea and non- bloody/non-bilious vomiting. Patient denies numbness/weakness, visual changes, facial droop, sensory changes, facial droop, abdominal pain. - HPI Time Seen by Provider: 07/02/17 12:32 Chief Complaint (Nursing): Trauma History Per: Patient History/Exam Limitations: no limitations Onset/Duration Of Symptoms: Days Severity: Moderate Past Medical History Reviewed: Historical Data, Nursing Documentation, Vital Signs Vital Signs: Last Vital Signs Temp 98.2 F 07/02/17 14:49 Pulse 78 07/02/17 14:49 Resp 20 07/02/17 14:49 BP 125/75 07/02/17 14:49 Pulse Ox 100 07/02/17 14:53 - Medical History PMH: Anemia, Anxiety, Arthritis, Asthma, Back Problems (herniated discs), Bronchitis, Depression, Diverticulitis, Gastritis, Gastrointestinal Ulcer, HTN, Hypercholesterolemia, Pancreatitis Surgical History: Appendectomy, Cholecystectomy, Endoscopy, Hernia Repair ( ventral x3, last 10/27/15) - [facility] Procedures CENTRAL VENOUS CATHETER PLACEMENT WITH GUIDANCE (06/13/14) CLOSED ENDOSCOPIC BIOPSY OF LARGE INTESTINE (05/19/14) COLONOSCOPY (01/23/14) DILATION OF RIGHT AXILLARY ARTERY, PERCUTANEOUS APPROACH (11/03/15) ESOPHAGOGASTRODUODENOSCOPY [EGD] W/CLOSED BIOPSY (10/22/14) EXCISION OF DESCENDING COLON, ENDO, DIAGN (04/09/17) EXCISION OF SIGMOID COLON, ENDO, DIAGN (12/05/15) EXCISION OF SMALL INTESTINE, ENDO, DIAGN (06/10/16) EXCISION OF STOMACH, ENDO, DIAGN (04/04/17) FLUOROSCOPY OF SUP VENA CAVA USING L OSM CONTRAST, GUIDANCE (04/04/17) FLUOROSCOPY OF SUPERIOR VENA CAVA, GUIDANCE (12/05/15) INFLUENZA VACCINATION (05/08/14) INJECT/INFUSE NEC (08/22/14) INSERTION OF INFUSION DEV INTO L BRACH VEIN, PERC APPROACH (05/22/17) INSERTION OF INFUSION DEV INTO SUP VENA CAVA, PERC APPROACH (04/04/17) INSPECTION OF GASTROINTESTINAL TRACT, PERC ENDO APPROACH (10/26/15) MRI OF OTHER AND UNSPECIFIED SITES (04/25/14) NEBULIZER THERAPY (11/30/13) RELEASE CECUM, OPEN APPROACH (10/26/15) ULTRASONOGRAPHY OF LEFT UPPER EXTREMITY VEINS, GUIDANCE (05/22/17) ULTRASONOGRAPHY OF SUPERIOR VENA CAVA, GUIDANCE (10/26/15) VENOUS CATHETERIZATION NEC (02/14/14) Family History: States: No Known Family Hx - Social History Hx Tobacco Use: No Hx Alcohol Use: No Hx Substance Use: No - Immunization History Hx Tetanus Toxoid Vaccination: Yes Hx Influenza Vaccination: Yes (2016) Hx Pneumococcal Vaccination: Yes (2014) Review Of Systems Except As Marked, All Systems Reviewed And Found Negative. Constitutional: Negative for: Fever Cardiovascular: Negative for: Chest Pain, Palpitations Respiratory: Negative for: Cough, Shortness of Breath Gastrointestinal: Positive for: Nausea, Vomiting. Negative for: Abdominal Pain , Diarrhea Musculoskeletal: Negative for: Neck Pain, Back Pain Skin: Negative for: Rash Neurological: Positive for: Headache, Dizziness. Negative for: Weakness, Numbness, Incoordination, Change in Speech, Confusion, Seizures Physical Exam - Physical Exam Appears: Well, Non-toxic, In Acute Distress (in moderate discomfort) Skin: Normal Color, Warm, Dry, No Rash Head: Normacephalic, No Laceration, Other (R occipital contusion.) Eye(s): bilateral: PERRL, EOMI, left: Normal Inspection ((-) racoon eyes) Ear(s): Bilateral: Normal ((-) Butler sign) Nose: Normal, No Epistaxis, No Deformity, No Tenderness Oral Mucosa: Moist Lips: Normal Appearing Neck: Normal, Normal ROM, No Midline Cervical Tenderness, No Paracervical Tenderness, Supple Cardiovascular: Rhythm Regular Respiratory: Normal Breath Sounds, No Rales, No Rhonchi, No Wheezing Gastrointestinal/Abdominal: Normal Exam, Bowel Sounds, Soft, No Tenderness Extremity: Normal ROM, No Tenderness, No Calf Tenderness, No Deformity Extremity: Bilateral: Atraumatic, Normal Color And Temperature, Normal ROM Neurological/Psych: Oriented x3, Normal Speech, Normal Cognition, Normal Cranial Nerves, No Cerebellar Signs, Normal Motor, Normal Sensation ED Course And Treatment O2 Sat by Pulse Oximetry: 100 (on RA) Pulse Ox Interpretation: Normal Progress Note: CT head ordered and reviewed. Patient given PO tylenol and zofran. She continues to c/o headache, IM Dilaudid given. Reevaluation Time: 14:45 Reassessment Condition: Improved (Patient reassessed, is resting comfortably and states she feels better. CT head (-) for bleed or other acute intracranial findings. Patient has nausea and pain medication at home, was instructed to follow up with PMD in 1-2 days. She understands she should return to ED if symptoms worsen.) Disposition Counseled Patient/Family Regarding: Studies Performed, Diagnosis, Need For Followup - Disposition Referrals: Oleg Turcios MD [Staff Provider] - Disposition: HOME/ ROUTINE Disposition Time: 14:45 Condition: STABLE Additional Instructions: FOLLOW UP WITH DR TURCIOS ON MONDAY SCHEDULED USE YOUR PAIN AND NAUSEA MEDICATIONS NEEDED RETURN TO ER IF SYMPTOMS WORSEN Instructions: Concussion (ED), Head Injury (ED) Forms: [employer] (Namibian) Print Language: SLOVENIAN - Clinical Impression Clinical Impression: Closed head injury, Concussion - Scribe Statement The provider has reviewed the documentation as recorded by the Scribe (Timothy Mabry) All medical record entries made by the Scribe were at my direction and personally dictated by me. I have reviewed the chart and agree that the record accurately reflects my personal performance of the history, physical exam, medical decision making, and the department course for this patient. I have also personally directed, reviewed, and agree with the discharge instructions and disposition.
[2017-07-02 14:50] VITALS: BP 125/75; PULSE 78; RESP 20; TEMP 98.2
== END 2017-07-02 14:52 | disposition home or self-care (01) ==
LOC: MERGE 12:10 → C.ER 12:10
DX: S06.0X0A Concussion without loss of consciousness, initial encounter (principal); W18.30XA Fall on same level, unspecified, initial encounter
CPT/HCPCS: 70450; 96372; 99285; J1170

== ENCOUNTER 2017-07-05 09:30 | Inpatient (IN) | payer MEDICAID ==
[2017-07-05 10:03] VITALS: BMI 32.5
--- NOTE | 2017-07-05 11:33 | C.PDOC ---
History Of Present Illness 52 y/o female with PMHx of HTN presents to ED with complaints of nausea and vomiting with associated left sided abdominal pain since earlier today. Patient denies fever, chills, diarrhea, back pain or any other complaints at this time. Time Seen by Provider: 07/05/17 09:53 Chief Complaint (Nursing): GI Problem History Per: Patient History/Exam Limitations: no limitations Onset/Duration Of Symptoms: Hrs Current Symptoms Are (Timing): Still Present Location Of Pain/Discomfort: LUQ, LLQ Radiation Of Pain To:: None Past Medical History Reviewed: Historical Data, Nursing Documentation, Vital Signs Vital Signs: Last Vital Signs Temp 99.5 F 07/08/17 07:43 Pulse 90 07/08/17 07:43 Resp 20 07/08/17 07:43 BP 135/79 07/08/17 07:43 Pulse Ox 97 07/08/17 07:43 - Medical History PMH: Anemia, Anxiety, Arthritis, Asthma, Back Problems (herniated discs), Bronchitis, COPD, Diverticulitis, Gastritis, Gastrointestinal Ulcer, HTN, Hypercholesterolemia, Pancreatitis Surgical History: Appendectomy (22 years ago.), Cholecystectomy (2 years ago.), Endoscopy, Hernia Repair (ventral x3, last 10/27/15) - [facility] Procedures CENTRAL VENOUS CATHETER PLACEMENT WITH GUIDANCE (06/13/14) CLOSED ENDOSCOPIC BIOPSY OF LARGE INTESTINE (05/19/14) COLONOSCOPY (01/23/14) DILATION OF RIGHT AXILLARY ARTERY, PERCUTANEOUS APPROACH (11/03/15) ESOPHAGOGASTRODUODENOSCOPY [EGD] W/CLOSED BIOPSY (10/22/14) EXCISION OF DESCENDING COLON, ENDO, DIAGN (04/09/17) EXCISION OF SIGMOID COLON, ENDO, DIAGN (12/05/15) EXCISION OF SMALL INTESTINE, ENDO, DIAGN (06/10/16) EXCISION OF STOMACH, ENDO, DIAGN (04/04/17) FLUOROSCOPY OF SUP VENA CAVA USING L OSM CONTRAST, GUIDANCE (04/04/17) FLUOROSCOPY OF SUPERIOR VENA CAVA, GUIDANCE (12/05/15) INFLUENZA VACCINATION (05/08/14) INJECT/INFUSE NEC (08/22/14) INSERTION OF INFUSION DEV INTO L BRACH VEIN, PERC APPROACH (05/22/17) INSERTION OF INFUSION DEV INTO SUP VENA CAVA, PERC APPROACH (04/04/17) INSPECTION OF GASTROINTESTINAL TRACT, PERC ENDO APPROACH (10/26/15) MRI OF OTHER AND UNSPECIFIED SITES (04/25/14) NEBULIZER THERAPY (11/30/13) RELEASE CECUM, OPEN APPROACH (10/26/15) ULTRASONOGRAPHY OF LEFT UPPER EXTREMITY VEINS, GUIDANCE (05/22/17) ULTRASONOGRAPHY OF SUPERIOR VENA CAVA, GUIDANCE (10/26/15) VENOUS CATHETERIZATION NEC (02/14/14) Family History: States: No Known Family Hx - Social History Hx Tobacco Use: No Hx Alcohol Use: No Hx Substance Use: No - Immunization History Hx Tetanus Toxoid Vaccination: Yes Hx Influenza Vaccination: Yes (2016) Hx Pneumococcal Vaccination: Yes (2014) Review Of Systems Constitutional: Negative for: Fever, Chills Gastrointestinal: Positive for: Nausea, Vomiting, Abdominal Pain. Negative for : Diarrhea Genitourinary: Negative for: Dysuria, Hematuria Musculoskeletal: Negative for: Back Pain Skin: Negative for: Rash Physical Exam - Physical Exam Additional Physical Exam Comments: Constitutional:Uncomfortable. Overweight appearing Head: Normocephalic. Atraumatic. Eyes: PERRL. EOMI. ENT: Moist mucous membranes. Neck: Supple. Cardiovascular: Regular rate and rhythm. Chest: No tenderness. Respiratory: Clear to auscultation bilaterally. GI: Tenderness and Firmess to left side of transverse vertical scar. No rebound. No guarding Back: No CVA and no mid-line tenderness. Musculoskeletal: No tenderness or swelling of extremities. Skin: No rash. Neurologic: Alert, no focal deficit. ED Course And Treatment - Laboratory Results Result Diagrams: 07/08/17 07:15 07/08/17 07:15 O2 Sat by Pulse Oximetry: 100 (RA) Pulse Ox Interpretation: Normal Medical Decision Making Medical Decision Making: Patient initially hypertensive at Triage, repeated bp was 162/[address] Mcguire, will admit to Dr Ellison, discussed with him, Disposition Discussed With .: Oleg Ellison Doctor Will See Patient In The: Hospital - Disposition Disposition: HOSPITALIZED Disposition Time: 11:49 Condition: STABLE - Clinical Impression Clinical Impression: Incarcerated incisional hernia - PA / [employer] TEAM LEADER / Resident Statement MD/DO has reviewed & agrees with the documentation as recorded. - Scribe Statement The provider has reviewed the documentation as recorded by the Justinaibtiarra Hope All medical record entries made by the Justinaibtiarra were at my direction and personally dictated by me. I have reviewed the chart and agree that the record accurately reflects my personal performance of the history, physical exam, medical decision making, and the department course for this patient. I have also personally directed, reviewed, and agree with the discharge instructions and disposition. Decision To Admit - Pt Status Changed To: Hospital Disposition Of: Inpatient - Admit Certification Admit to Inpatient:: After my assessment, the patient will require hospitalization for at least two midnights. This is because of the severity of symptoms shown, intensity of services needed, and/or the medical risk in this patient being treated as an outpatient. - InPatient: Physician Admission Certification:: for portacath accesss and hernia - . Bed Request Type: Regular Admitting Physician: Oleg Ellison Patient Diagnosis: Incarcerated incisional hernia
[2017-07-05] MEDS ORDERED: HYDROmorphone 1 mg/ml ISec IVP STA (11:46)
[2017-07-05] MEDS ORDERED: Sodium Chloride 0.9% 1,000 ML IV ONE (12:30)
[2017-07-05] MEDS ORDERED: Sodium Chloride 0.9% 250 ML IV ONE (13:00)
[2017-07-05 13:02] LABS: BASO % 0.4 % (0.0-2.0); EOS # 0.2 K/uL (0.0-0.7); EOS % 3.4 % (0.0-4.0); HEMATOCRIT 34.7 % (34.0-47.0); LYMPH # 1.3 K/uL (1.0-4.3); LYMPH % 18.8 % (20.0-40.0); MEAN CELL VOLUME 89.8 fL (81.0-99.0); MEAN CORPUSCULAR HEMOGLOBIN 30.3 pg (27.0-31.0); MEAN CORPUSCULAR HGB CONC 33.7 g/dL (33.0-37.0); MEAN PLATELET VOLUME 8.4 fL (7.2-11.7); MONO # 0.7 K/uL (0.0-0.8); MONO % 10.9 % (0.0-10.0); NRBC % 0.1 % (0.0-2.0); RED CELL DISTRIBUTION WIDTH 14.2 % (11.5-14.5); WHITE BLOOD COUNT 6.7 K/uL (4.8-10.8)
--- NOTE | 2017-07-05 13:06 | CP.PCM.PN ---
Subjective - Date & Time of Evaluation Date of Evaluation: 07/05/17 Time of Evaluation: 13:02 - Subjective Subjective: PGY2 medical progress note for Dr. Ellison: Patient is a 52 year old female with history of HLD, HTN, ventral hernia repair , SBO, who presents to the hospital with complaint of abdominal pain, nausea, and vomiting. She states the pain is periumbilical and denies radiation. Patient admits to multiple episodes of bilious non- bloody emesis. Patient reports bowel movement yesterday and today. Patient states she saw Dr. Mcguire in his office yesterday for evaluation of her ventral hernia and was sent to the ER today for admission. Patient is due to have port placed today for vascular access and ventral hernia repair 07/06/17. Patient also reports mild headache following fall on 06/26/17. She was evaluated in the ER on 07/02/[address] which showed soft tissue swelling overlying posterior right parieto-occipital cranium. Patient followed up with Dr. Ellison in the office on 07/03/17. PMHx: Gastritis, Prepyloric clean-based ulcer 12/04/15, LA Grade B esophagitis 2015, hiatal hernia, chronic abdominal pain, Diverticulosis, normocytic anemia, SBO s/p lysis of adhesions 10/2015 PSHx: ventral hernia repair, lysis of adhesions 10/2015, appendectomy, cholecystectomy Objective - Vital Signs/Intake and Output Vital Signs (last 24 hours): Temp Pulse Resp BP Pulse Ox 98.5 F 87 20 128/85 99 07/05/17 12:26 07/05/17 12:26 07/05/17 12:26 07/05/17 12:26 07/05/17 12:26 - Medications Medications: Current Medications Home Med (Zolpidem Tartrate [Ambien]) 1 tab PO HS [facility] Hydromorphone HCl (Dilaudid) 1 mg IVP Q6 PRN PRN Reason: Pain, severe (8-10) Sodium Chloride (Sodium Chloride 0.9%) 1,000 mls @ 100 mls/hr IV .Q10H ONE Stop: 07/05/17 22:29 Last Admin: 07/05/17 12:52 Dose: 100 mls/hr Ondansetron HCl (Zofran Inj) 4 mg IVP Q6 PRN PRN Reason: Nausea/Vomiting Pantoprazole Sodium (Protonix Inj) 40 mg IVP DAILY [facility] - Constitutional Appears: No Acute Distress - Head Exam Head Exam: ATRAUMATIC, NORMOCEPHALIC - Eye Exam Eye Exam: EOMI - ENT Exam ENT Exam: Mucous Membranes Moist - Respiratory Exam Respiratory Exam: Clear to Ausculation Bilateral, NORMAL BREATHING PATTERN - Cardiovascular Exam Cardiovascular Exam: +S1, +S2 - GI/Abdominal Exam GI & Abdominal Exam: Soft, Tenderness, Normal Bowel Sounds Additional comments: ventral hernia present left side of mid-line scar -when patient coughs - Extremities Exam Extremities Exam: Normal Inspection - Neurological Exam Neurological Exam: Alert, Awake - Psychiatric Exam Psychiatric exam: Normal Affect - Skin Skin Exam: Warm Assessment and Plan - Assessment and Plan (Free Text) Assessment: 52 year old female with multiple abdominal surgeries, admitted for nausea/ vomiting, ventral hernia repair planned for 07/06/17 Ventral hernia Patient to go to OR tomorrow 07/06/[address] Mcguire pre-op labs, CXR, EKG ordered dilaudid prn for pain control zofran prn for nausea pt NPO for port placement today Poor vascular access Patient to have port placed today, 07/05/[address] Mcguire Prophylaxis SCDs heparin held for surgery protonix 40mg IV daily Management as per Dr. Ellison
[2017-07-05 13:14] LABS: RBC URINE 8 /hpf (0-3); URINE BILIRUBIN NEGATIVE (NEGATIVE); URINE BLOOD 2+ (NEGATIVE); URINE COLOR Straw (YELLOW); URINE GLUCOSE (UA) NORMAL (Normal); URINE KETONE NEGATIVE (NEGATIVE); URINE LEUKOCYTE ESTERASE NEG Leu/uL (Negative); URINE PROTEIN NEGATIVE (NEGATIVE); URINE UROBILINOGEN NORMAL mg/dL (0.2-1.0); WBC URINE < 1 /hpf (0-5)
[2017-07-05 13:25] LABS: ALKALINE PHOSPHATASE 197 U/L (38-126); ALT/SGPT 82 U/L (9-52); AST/SGOT 47 U/L (14-36); BILIRUBIN,TOTAL 0.4 mg/dL (0.2-1.3); BLOOD UREA NITROGEN 23 mg/dL (7-17); CALCIUM 8.7 mg/dl (8.6-10.4); CARBON DIOXIDE 27 mmol/L (22-30); CHLORIDE 100 mmol/L (98-107); GFR AFRICAN-AMERICAN > 60; GLUCOSE,RANDOM 91 mg/dL (65-105); POTASSIUM 4.2 mmol/L (3.6-5.2); SODIUM 135 mmol/L (132-148)
[2017-07-05] MEDS ORDERED: Propofol 10 mg/ml Inj (20 ML) ONE (15:14)
[2017-07-05] MEDS ORDERED: Midazolam 2 MG/2 ML VIAL ONE (15:19)
--- NOTE | 2017-07-05 15:52 | RAD ---
HISTORY: pre-op COMPARISON: Chest x-ray performed 04/10/17 TECHNIQUE: Chest, one view. FINDINGS: Examination limited by habitus. LUNGS: Subtle linear atelectasis, right lung base. Please note that chest x-ray has limited sensitivity for the detection of pulmonary masses. PLEURA: No significant pleural effusion identified. No definite pneumothorax . CARDIOVASCULAR: Heart size appears within normal limits. OSSEOUS STRUCTURES: Degenerative changes of the spine. VISUALIZED UPPER ABDOMEN: Unremarkable. OTHER FINDINGS: None. IMPRESSION: Subtle linear atelectasis, right lung base.
[2017-07-05] MEDS ORDERED: Bupivacaine HCl 0.5% PF (10 ml) Inj ONE ×2 (16:05→16:06)
[2017-07-05] MEDS ORDERED: HEPARIN-NS 5,000 UNITS/500 ML 5,000 UNIT/500 ML BAG IV ONE (16:06)
[2017-07-05] MEDS ORDERED: Lactated Ringer's 1,000 ML IV ONE ×2 (16:34)
[2017-07-05] MEDS: ceFAZolin IV 2 gm in Dextrose 2 GM/50 ML BAG IVPB ONE ×2 (16:34→17:20)
[2017-07-05] MEDS: Lidocaine 1% Inj (20ml) ONE ×2 (16:53→17:03)
[2017-07-05] MEDS ORDERED: HYDROmorphone 0.5 mg/0.5 ml ISec IVP PRN (17:31)
[2017-07-05] MEDS ORDERED: Labetalol 5 mg/ml Inj 20ML IV STA (17:40)
[2017-07-05] MEDS ORDERED: DiphenhydrAMINE 50 mg/ml Inj IVP PRN (17:59)
--- NOTE | 2017-07-05 18:08 | RAD ---
HISTORY: Confirmation of Port Placement COMPARISON: Chest x-ray performed 07/05/17 TECHNIQUE: Chest, one view. FINDINGS: Right-sided MediPort extends to the SVC. LUNGS: No focal consolidation. Please note that chest x-ray has limited sensitivity for the detection of pulmonary masses. PLEURA: No significant pleural effusion identified. No definite pneumothorax . CARDIOVASCULAR: Heart size appears within normal limits. OSSEOUS STRUCTURES: Degenerative changes of the spine. VISUALIZED UPPER ABDOMEN: Unremarkable. OTHER FINDINGS: None. IMPRESSION: Right-sided MediPort extends expected location of the SVC.
[2017-07-05] MEDS ORDERED: Pneumococcal 23-Valent Vaccine IM ONE (21:12)
[2017-07-05] MEDS ORDERED: Influenza Vaccine 60 mcg/0.5 mL SYR (4YR UP) IM ONE (21:16)
[2017-07-05] MEDS: Potassium Chl 10 mEq in D5-1/2 1,000 ML IV SCH (22:29)
[2017-07-06] MEDS: DiphenhydrAMINE 50 mg/ml Inj IVP PRN ×3 (02:46→21:25)
--- NOTE | 2017-07-06 04:07 | OP ---
PROCEDURE DATE: 07/05/2017 PREOPERATIVE DIAGNOSIS: Poor intravenous access. POSTOPERATIVE DIAGNOSIS: Poor intravenous access. PROCEDURE: Port-A-Cath insertion. SURGEON: Adelso Mcguire MD TYPE OF ANESTHESIA: General. ESTIMATED BLOOD LOSS: 20 mL POSTOPERATIVE CONDITION: Stable. INDICATION FOR SURGERY: This is a 52-year-old female, admitted to the emergency room today with a diagnosis of incarcerated hernia. She had planned to have a Port-A-Cath placed today and will be placed followed by a bowel prep and then repair of a hernia in a day or two. DESCRIPTION OF PROCEDURE: The patient was taken to the operating room. IV sedation was administered and the right neck and chest wall were prepped and draped. Local anesthesia was infiltrated and the right internal jugular vein was easily cannulated and guidewire was inserted. Subcutaneous pocket was created on the chest wall by raising tissue flaps superiorly and inferiorly and catheter into the neck. The catheter was then inserted over an introducer. Bleeding from the tissue flaps was noted and the intercostal blood vessel was repaired. The wound was irrigated with saline. The catheter was connected after which withdrawn to the level of vena cava. This was confirmed fluoroscopically. Catheter was placed beneath the tissue flaps and tissue flap closure was performed using Monocryl and glue. The patient tolerated the procedure well, returned to the recovery room in stable condition. Adelso Mcguire MD
[2017-07-06] MEDS: Potassium Chl 10 mEq in D5-1/2 1,000 ML IV SCH ×5 (05:34→22:44)
[2017-07-06 08:03] LABS: BASO % 0.4 % (0.0-2.0); EOS # 0.2 K/uL (0.0-0.7); EOS % 3.4 % (0.0-4.0); HEMATOCRIT 31.4 % (34.0-47.0); LYMPH # 1.1 K/uL (1.0-4.3); LYMPH % 18.2 % (20.0-40.0); MEAN CELL VOLUME 89.3 fL (81.0-99.0); MEAN CORPUSCULAR HEMOGLOBIN 30.6 pg (27.0-31.0); MEAN CORPUSCULAR HGB CONC 34.3 g/dL (33.0-37.0); MEAN PLATELET VOLUME 8.2 fL (7.2-11.7); MONO # 0.6 K/uL (0.0-0.8); NRBC % 0.1 % (0.0-2.0); RED CELL DISTRIBUTION WIDTH 14.2 % (11.5-14.5); WHITE BLOOD COUNT 6.1 K/uL (4.8-10.8)
[2017-07-06 08:24] LABS: ALKALINE PHOSPHATASE 171 U/L (38-126); ALT/SGPT 133 U/L (9-52); AST/SGOT 122 U/L (14-36); BILIRUBIN,TOTAL 0.4 mg/dL (0.2-1.3); BLOOD UREA NITROGEN 14 mg/dL (7-17); CALCIUM 8.7 mg/dl (8.6-10.4); CARBON DIOXIDE 31 mmol/L (22-30); CHLORIDE 99 mmol/L (98-107); GFR AFRICAN-AMERICAN > 60; GLUCOSE,RANDOM 103 mg/dL (65-105); MAGNESIUM 1.9 mg/dL (1.6-2.3); PHOSPHOROUS 4.4 mg/dL (2.5-4.5); POTASSIUM 4.2 mmol/L (3.6-5.2); SODIUM 134 mmol/L (132-148); TOTAL PROTEIN 7.7 g/dL (6.3-8.3)
[2017-07-06] MEDS: Peg-Electrolyte Oral Soln 4L (Golytely) PO ONE ×2 (10:00→11:00)
--- NOTE | 2017-07-06 13:53 | RAD ---
PROCEDURE: HISTORY: Fluoroscopy for Port-A-Cath insertion COMPARISON: None TECHNIQUE: Total fluoroscopic time utilized during the procedure: 3 point seconds. Total dose 0.06440 mGy cm squared FINDINGS: Submitted images from the current procedure: 1 Please refer to the physician's notes performing the procedure. IMPRESSION: Less than 1 hour fluoroscopic time utilized during performance of the procedure
--- NOTE | 2017-07-06 16:31 | CP.PCM.PN ---
Subjective - Date & Time of Evaluation Date of Evaluation: 07/06/17 Time of Evaluation: 10:10 - Subjective Subjective: PGY-[address] Ellison Patient seen and examined at bedside. Overnight patient complained of severe abdominal pain, requesting for more pain medication. Patient is aware of her procedure with Dr. Mcguire tomorrow. Objective - Vital Signs/Intake and Output Vital Signs (last 24 hours): Temp Pulse Resp BP Pulse Ox 98.5 F 82 20 135/82 95 07/06/17 16:00 07/06/17 16:00 07/06/17 16:00 07/06/17 16:00 07/06/17 16:00 Intake and Output: 07/06/17 07/06/17 06:59 18:59 Intake Total 400 3050 Output Total 400 Balance 0 3050 - Medications Medications: Current Medications Diphenhydramine HCl (Benadryl) 25 mg IVP Q6H PRN PRN Reason: itchiness Last Admin: 07/06/17 08:50 Dose: 25 mg Hydromorphone HCl (Dilaudid) 2 mg IVP Q4H PRN PRN Reason: pain Last Admin: 07/06/17 13:09 Dose: 2 mg Potassium Chloride/Dextrose/Sod Cl (Potassium Chl 10 Meq In D5-1/2ns) 1,000 mls @ 125 mls/hr IV .Q8H [facility] Last Admin: 07/06/17 14:29 Dose: 125 mls/hr Metronidazole (Flagyl) 500 mg PO TID [facility] Last Admin: 07/06/17 14:29 Dose: 500 mg Neomycin Sulfate (Neomycin Tab) 500 mg PO Q8 [facility] Last Admin: 07/06/17 14:29 Dose: 500 mg Ondansetron HCl (Zofran Inj) 4 mg IVP Q6 PRN PRN Reason: Nausea/Vomiting Pantoprazole Sodium (Protonix Inj) 40 mg IVP DAILY [facility] Last Admin: 07/06/17 09:00 Dose: 40 mg Zolpidem Tartrate (Ambien) 5 mg PO HS [facility] Last Admin: 07/05/17 22:09 Dose: 5 mg - Labs Labs: 07/06/17 07:53 07/06/17 07:53 PT 11.2 SECONDS (9.7-12.2) 07/06/17 07:53 INR 1.0 07/06/17 07:53 APTT 29 SECONDS (21-34) 07/06/17 07:53 - Constitutional Appears: Non-toxic, No Acute Distress - Head Exam Head Exam: ATRAUMATIC, NORMOCEPHALIC - Eye Exam Eye Exam: Normal appearance - ENT Exam ENT Exam: Mucous Membranes Moist - Neck Exam Neck Exam: Full ROM, Normal Inspection. absent: Lymphadenopathy - Respiratory Exam Respiratory Exam: Clear to Ausculation Bilateral, NORMAL BREATHING PATTERN. absent: Respiratory Distress - Cardiovascular Exam Cardiovascular Exam: REGULAR RHYTHM, +S1, +S2 - GI/Abdominal Exam GI & Abdominal Exam: Soft, Tenderness, Normal Bowel Sounds Additional comments: ventral hernia present left side of mid-line scar - Extremities Exam Extremities Exam: Normal Inspection - Neurological Exam Neurological Exam: Alert, Awake, Oriented x3 - Psychiatric Exam Psychiatric exam: Normal Affect, Normal Mood - Skin Skin Exam: Normal Color, Warm Assessment and Plan - Assessment and Plan (Free Text) Assessment: Ventral hernia Schedule for OR on 07/07/[address] Mcguire NPO after midnight pre-op labs, CXR, EKG done Increased dilaudid to Q4H prn for pain control zofran prn for nausea Poor vascular access S/p port-A-cath placement POD#1 Prophylaxis SCDs heparin held for surgery protonix 40mg IV daily Management as per Dr. Ellison
[2017-07-07] MEDS: Potassium Chl 10 mEq in D5-1/2 1,000 ML IV SCH ×3 (05:25→20:00)
[2017-07-07] MEDS: DiphenhydrAMINE 50 mg/ml Inj IVP PRN ×3 (05:25→19:58)
[2017-07-07 07:25] LABS: BASO % 0.3 % (0.0-2.0); EOS # 0.3 K/uL (0.0-0.7); EOS % 5.7 % (0.0-4.0); HEMATOCRIT 29.1 % (34.0-47.0); LYMPH # 1.1 K/uL (1.0-4.3); LYMPH % 19.2 % (20.0-40.0); MEAN CELL VOLUME 89.3 fL (81.0-99.0); MEAN CORPUSCULAR HEMOGLOBIN 30.5 pg (27.0-31.0); MEAN CORPUSCULAR HGB CONC 34.1 g/dL (33.0-37.0); MEAN PLATELET VOLUME 8.4 fL (7.2-11.7); MONO # 0.6 K/uL (0.0-0.8); MONO % 10.5 % (0.0-10.0); RED CELL DISTRIBUTION WIDTH 14.3 % (11.5-14.5); WHITE BLOOD COUNT 5.6 K/uL (4.8-10.8)
[2017-07-07 08:56] LABS: ALB/GLOB RATIO 0.9 (1.0-2.1); ALKALINE PHOSPHATASE 199 U/L (38-126); ALT/SGPT 105 U/L (9-52); AST/SGOT 64 U/L (14-36); BILIRUBIN,TOTAL 0.3 mg/dL (0.2-1.3); BLOOD UREA NITROGEN 17 mg/dL (7-17); CALCIUM 8.4 mg/dl (8.6-10.4); CARBON DIOXIDE 29 mmol/L (22-30); CHLORIDE 99 mmol/L (98-107); GFR AFRICAN-AMERICAN > 60; GLUCOSE,RANDOM 114 mg/dL (65-105); POTASSIUM 3.8 mmol/L (3.6-5.2); SODIUM 133 mmol/L (132-148); TOTAL PROTEIN 7.1 g/dL (6.3-8.3)
--- NOTE | 2017-07-07 10:07 | CP.PCM.PN ---
Subjective - Date & Time of Evaluation Date of Evaluation: 07/07/17 Time of Evaluation: 09:20 - Subjective Subjective: PGY-[address] Ellison Patient seen and examined at bedside. Patient still complains of abdominal pain but is controlled with pain medication. Patient is anxious about the surgery because she does not know the surgeon well. Emotional support provided. Objective - Vital Signs/Intake and Output Vital Signs (last 24 hours): Temp Pulse Resp BP Pulse Ox 98.1 F 69 20 119/83 99 07/07/17 07:59 07/07/17 07:59 07/07/17 07:59 07/07/17 07:59 07/07/17 07:59 Intake and Output: 07/07/17 07/07/17 06:59 18:59 Intake Total 1000 1000 Balance 1000 1000 - Medications Medications: Current Medications Diphenhydramine HCl (Benadryl) 25 mg IVP Q6H PRN PRN Reason: itchiness Last Admin: 07/07/17 05:25 Dose: 25 mg Hydromorphone HCl (Dilaudid) 2 mg IVP Q4H PRN PRN Reason: pain Last Admin: 07/07/17 09:29 Dose: 2 mg Potassium Chloride/Dextrose/Sod Cl (Potassium Chl 10 Meq In D5-1/2ns) 1,000 mls @ 125 mls/hr IV .Q8H [facility] Last Admin: 07/07/17 05:25 Dose: 125 mls/hr Metronidazole (Flagyl) 500 mg PO TID [facility] Last Admin: 07/07/17 09:30 Dose: 500 mg Neomycin Sulfate (Neomycin Tab) 500 mg PO Q8 [facility] Last Admin: 07/07/17 05:31 Dose: 500 mg Ondansetron HCl (Zofran Inj) 4 mg IVP Q6 PRN PRN Reason: Nausea/Vomiting Pantoprazole Sodium (Protonix Inj) 40 mg IVP DAILY [facility] Last Admin: 07/06/17 09:00 Dose: 40 mg Zolpidem Tartrate (Ambien) 5 mg PO HS [facility] Last Admin: 07/06/17 21:18 Dose: 5 mg - Labs Labs: 07/07/17 07:05 07/07/17 07:05 PT 11.2 SECONDS (9.7-12.2) 07/06/17 07:53 INR 1.0 07/06/17 07:53 APTT 29 SECONDS (21-34) 07/06/17 07:53 - Constitutional Appears: Non-toxic, No Acute Distress - Head Exam Head Exam: ATRAUMATIC, NORMOCEPHALIC - Eye Exam Eye Exam: Normal appearance - ENT Exam ENT Exam: Mucous Membranes Moist - Neck Exam Neck Exam: Normal Inspection - Respiratory Exam Respiratory Exam: Clear to Ausculation Bilateral, NORMAL BREATHING PATTERN. absent: Respiratory Distress Additional comments: Right chest port-a-cath in place - Cardiovascular Exam Cardiovascular Exam: REGULAR RHYTHM, +S1, +S2 - GI/Abdominal Exam GI & Abdominal Exam: Soft, Tenderness Additional comments: ventral hernia present left side of mid-line scar - Extremities Exam Extremities Exam: Normal Inspection - Neurological Exam Neurological Exam: Alert, Awake, Oriented x3 - Psychiatric Exam Psychiatric exam: Normal Affect, Normal Mood - Skin Skin Exam: Normal Color, Warm Assessment and Plan - Assessment and Plan (Free Text) Assessment: Ventral hernia Schedule for OR this afternoon for ventral hernia repair with mesh Golitely and NPO last night pre-op labs, CXR, EKG done Dilaudid to Q4H prn for pain control zofran prn for nausea Poor vascular access S/p port-A-cath placement POD#2 Prophylaxis SCDs heparin held for surgery protonix 40mg IV daily Management as per Dr. Ellison
[2017-07-07] MEDS ORDERED: metroNIDAZOLE IV 500 mg/100 ml 500 MG/100 ML BAG ONE (14:30)
[2017-07-07] MEDS ORDERED: ceFAZolin IV 1 gm in Dextrose 0 GM/0 ML BAG IVPB ONE (14:30)
[2017-07-07] MEDS ORDERED: Ciprofloxacin 400mg/200ml D5W 400 MG/200 ML BAG IVPB ONE (14:37)
[2017-07-07] MEDS ORDERED: Midazolam 2 MG/2 ML VIAL ONE (14:39)
[2017-07-07] MEDS ORDERED: Propofol 10 mg/ml Inj (20 ML) ONE (14:39)
[2017-07-07] MEDS ORDERED: Oxycodone/Acetaminophen 5/325 mg Tab PO PRN (15:59)
[2017-07-07] MEDS: HYDROmorphone 0.5 mg/0.5 ml ISec IVP PRN ×2 (16:22→16:45)
--- NOTE | 2017-07-07 23:25 | OP ---
PROCEDURE DATE: PREOPERATIVE DIAGNOSIS: Ventral hernia. POSTOPERATIVE DIAGNOSIS: Ventral hernia. PROCEDURE PERFORMED: Ventral hernia repair with lysis of adhesions. SURGEON: Adelso Mcguire MD. ANESTHESIA: General. ESTIMATED BLOOD LOSS: 30 mL. POSTOPERATIVE CONDITION: Stable. INDICATIONS FOR SURGERY: This 52-year-old female who has had multiple abdominal surgeries including 2 incisional hernia repairs and a laparotomy for small bowel obstruction. She presents with a tender mass and suspected hernia in her abdomen and is taken to the OR now for repair. GROSS FINDINGS: The mass in the abdomen turned out to be mesh, which was somewhat dilated; however, there was only a small ventral hernia noted lateral to this. So, the larger mass, which had been causing her pain, was actually just a dilated mesh. The smaller hernia repair was repaired primarily. The mesh was opened just to be on the safe side and very dense small bowel adhesions were found and some serosal tears had to be repaired. For this reason, along with the ventral hernia repair, the mesh was just imbricated in order to alleviate the patient's symptoms somewhat. DESCRIPTION OF PROCEDURE: The patient was taken to the operating room. The abdomen was prepped and draped . A left paramedian incision was made over the mass and carried down. What appeared to be a hernia sac was found. However, later, it was found to be just a dilated mesh. A small hernia lateral to this was found, dissected free and repaired primarily with Prolene. The mesh was opened in order to try and imbricate it was not so dilated; however, dense small bowel adhesions were encountered along with colonic adhesions. Some serosal tears were repaired with silk. Mesenteric blood vessel was also repaired. The mesh was then closed with Prolene. The wound was irrigated with saline. It was closed in layers with subcuticular Vicryl and skin clips. The patient tolerated the procedure well, returned to recovery room in stable condition. Adelso Mcguire MD
[2017-07-08 00:47] VITALS: RESP 20
[2017-07-08] MEDS: Potassium Chl 10 mEq in D5-1/2 1,000 ML IV SCH ×4 (02:54→19:03)
[2017-07-08] MEDS: DiphenhydrAMINE 50 mg/ml Inj IVP PRN ×4 (02:57→23:00)
[2017-07-08 07:36] LABS: BASO % 0.2 % (0.0-2.0); EOS # 0.3 K/uL (0.0-0.7); EOS % 3.5 % (0.0-4.0); LYMPH # 0.9 K/uL (1.0-4.3); LYMPH % 11.3 % (20.0-40.0); MEAN CELL VOLUME 88.3 fL (81.0-99.0); MEAN PLATELET VOLUME 8.2 fL (7.2-11.7); MONO # 0.6 K/uL (0.0-0.8); MONO % 7.8 % (0.0-10.0); RED CELL DISTRIBUTION WIDTH 13.8 % (11.5-14.5)
[2017-07-08 08:34] LABS: ALB/GLOB RATIO 1.3 (1.0-2.1); ALKALINE PHOSPHATASE 152 U/L (38-126); ALT/SGPT 142 U/L (9-52); AST/SGOT 114 U/L (14-36); BILIRUBIN,TOTAL 0.5 mg/dL (0.2-1.3); BLOOD UREA NITROGEN 11 mg/dL (7-17); CALCIUM 8.5 mg/dl (8.6-10.4); CARBON DIOXIDE 28 mmol/L (22-30); CHLORIDE 99 mmol/L (98-107); GFR AFRICAN-AMERICAN > 60; GLUCOSE,RANDOM 102 mg/dL (65-105); SODIUM 132 mmol/L (132-148); TOTAL PROTEIN 6.2 g/dL (6.3-8.3)
[2017-07-09] MEDS: DiphenhydrAMINE 50 mg/ml Inj IVP PRN ×3 (07:00→22:59)
[2017-07-09] MEDS: Benzocaine/Menthol (Cepacol) Lozenge MT PRN ×2 (15:01→21:28)
[2017-07-10] MEDS: DiphenhydrAMINE 50 mg/ml Inj IVP PRN (07:00)
[2017-07-10 08:45] VITALS: BP 115/73; PULSE 79; TEMP 98.1; O2SAT 97
--- NOTE | 2017-07-10 09:22 | CP.PCM.PN ---
Subjective - Date & Time of Evaluation Date of Evaluation: 07/10/17 Time of Evaluation: 09:00 - Subjective Subjective: Hospitalist Progress Note Covering for Dr. Loren Ellison Patient was seen and examined at 9 AM 07/10/17 368 B She is S/P Ventral Hernia Repair and Port-A-Cath Right Chest Placement (this was placed due to lack of/difficulty of venous access). Currently upon FULL ROS: She had a small bowel movement last night She is passing Flatus Midabdominal pain is controlled and is a more of a soreness Some nausea but NO vomiting She is tolerating her diet NO chest pain NO SOB/Coughing/Wheezing NO burning/pain with urination NO new changes in vision/eye pain NO new changes in hearing/ear pain NO CHEW NO edema NO paresthesias Exam: HEENT: NCA, EOMI, PERRLA, NO cervical lympadenopathy, NO thyromegaly, NO pharyngeal erythema/exudate, Moist mucous membranes Cardio: NS1 and NS2, NO M/R/G Resp: CTA B/L, NO R/R/W GI: BSx4, Soft, Central Obesity, Liver and Spleen palpation not attempted, Soreness to palpation around central surgical site that reveals intact davon/ NO wound dehiscence/NO signs of cellulitis Ext: Pulses are strong and equal, Capillary Refill is 2 seconds, NO edema Neuro: CN II through XII are grossly intact I spoke with Dr. Mcguire via Text and patient stable for discharge from his standpoint and he would like for her to follow up in 2 weeks. I confirmed with patient that she had enough of her home medications. She also understands to follow up with her PMD Dr. Ellison in 7 days. The following instructions were explained to patient and a copy will be provided to her upon discharge: 1). Follow up with Dr. Mcguire in 2 weeks at his office. 2). Follow up with Dr. Loren Ellison in 7 days. 3). Please continue your home medications of Protonix, Advair, Norvasc, Carafate , Pravastatin, Miralax, Percocet, and Ambien all of which you stated you had enough of. 4). The following prescription will need to be filled at your pharmacy: Zofran 4 mg, 1 tablet by mouth every 6 hours ONLY as needed for Nausea, Dispense #30, NO refills 5). Please keep the abdominal surgical site clean and dry. 6). Please advance your diet as tolerated and remain well hydrated. 7). Please take care and be well. Alejo Ley D.O. Objective - Vital Signs/Intake and Output Vital Signs (last 24 hours): Temp Pulse Resp BP Pulse Ox 98.1 F 79 20 115/73 97 07/10/17 08:44 07/10/17 08:44 07/10/17 08:44 07/10/17 08:44 07/10/17 08:44 Intake and Output: 07/10/17 07/10/17 06:59 18:59 Intake Total 240 Balance 240 - Medications Medications: Current Medications Benzocaine/Menthol (Cepacol Sore Throat) 1 jay MT Q4 PRN PRN Reason: Sore Throat Last Admin: 07/09/17 21:28 Dose: 1 jay Diphenhydramine HCl (Benadryl) 25 mg IVP Q6H PRN PRN Reason: itchiness Last Admin: 07/10/17 07:00 Dose: 25 mg Hydromorphone HCl (Dilaudid) 2 mg IVP Q4H PRN PRN Reason: pain Last Admin: 07/09/17 11:00 Dose: 2 mg Hydromorphone HCl (Dilaudid) 2 mg IVP Q4H PRN PRN Reason: Pain, moderate (4-7) Last Admin: 07/10/17 07:00 Dose: 2 mg Metronidazole (Flagyl) 500 mg PO TID [facility] Last Admin: 07/09/17 17:10 Dose: 500 mg Neomycin Sulfate (Neomycin Tab) 500 mg PO Q8 [facility] Last Admin: 07/10/17 06:03 Dose: 500 mg Ondansetron HCl (Zofran Inj) 4 mg IVP Q6 PRN PRN Reason: Nausea/Vomiting Last Admin: 07/09/17 12:39 Dose: 4 mg Pantoprazole Sodium (Protonix Inj) 40 mg IVP DAILY [facility] Last Admin: 07/09/17 09:14 Dose: 40 mg Zolpidem Tartrate (Ambien) 5 mg PO HS [facility] Last Admin: 07/09/17 21:24 Dose: 5 mg - Labs Labs: 07/08/17 07:15 07/08/17 07:15 PT 11.2 SECONDS (9.7-12.2) 07/06/17 07:53 INR 1.0 07/06/17 07:53 APTT 29 SECONDS (21-34) 07/06/17 07:53
--- NOTE | 2017-07-10 17:48 | CP.PCM.DIS ---
<Keenan Keita - Last Filed: 07/10/17 17:31> Provider - Provider Date of Admission: 07/05/17 11:50 Attending physician: Oleg Ellison MD Primary care physician: Jose Alejandro Ghotra MD Consults: General Surgery - [facility] Time Spent in preparation of Discharge (in minutes): 45 Hospital Course - Lab Results Lab Results: Most Recent Lab Values WBC 8.0 K/uL (4.8-10.8) 07/08/17 07:15 RBC 3.40 Mil/uL (3.80-5.20) L 07/08/17 07:15 Hgb 10.2 g/dL (11.0-16.0) L 07/08/17 07:15 Hct 30.0 % (34.0-47.0) L 07/08/17 07:15 MCV 88.3 fL (81.0-99.0) 07/08/17 07:15 MCH 30.0 pg (27.0-31.0) 07/08/17 07:15 MCHC 34.0 g/dL (33.0-37.0) 07/08/17 07:15 RDW 13.8 % (11.5-14.5) 07/08/17 07:15 Plt Count 222 K/uL (130-400) 07/08/17 07:15 MPV 8.2 fL (7.2-11.7) 07/08/17 07:15 Neut % (Auto) 77.2 % (50.0-75.0) H 07/08/17 07:15 Lymph % (Auto) 11.3 % (20.0-40.0) L 07/08/17 07:15 [place] % (Auto) 7.8 % (0.0-10.0) 07/08/17 07:15 Eos % (Auto) 3.5 % (0.0-4.0) 07/08/17 07:15 Baso % (Auto) 0.2 % (0.0-2.0) 07/08/17 07:15 Neut # 6.1 K/uL (1.8-7.0) 07/08/17 07:15 Lymph # 0.9 K/uL (1.0-4.3) L 07/08/17 07:15 [place] # 0.6 K/uL (0.0-0.8) 07/08/17 07:15 Eos # 0.3 K/uL (0.0-0.7) 07/08/17 07:15 Baso # 0.0 K/uL (0.0-0.2) 07/08/17 07:15 PT 11.2 SECONDS (9.7-12.2) 07/06/17 07:53 INR 1.0 07/06/17 07:53 APTT 29 SECONDS (21-34) 07/06/17 07:53 Sodium 132 mmol/L (132-148) 07/08/17 07:15 Potassium 4.0 mmol/L (3.6-5.2) 07/08/17 07:15 Chloride 99 mmol/L (98-107) 07/08/17 07:15 Carbon Dioxide 28 mmol/L (22-30) 07/08/17 07:15 Anion Gap 9 (10-20) L 07/08/17 07:15 BUN 11 mg/dL (7-17) 07/08/17 07:15 Creatinine 0.7 mg/dL (0.7-1.2) 07/08/17 07:15 Est GFR ( Amer) > 60 07/08/17 07:15 Est GFR (Non-Af Amer) > 60 07/08/17 07:15 Random Glucose 102 mg/dL (65-105) 07/08/17 07:15 Calcium 8.5 mg/dl (8.6-10.4) L 07/08/17 07:15 Phosphorus 4.4 mg/dL (2.5-4.5) 07/06/17 07:53 Magnesium 1.9 mg/dL (1.6-2.3) 07/06/17 07:53 Total Bilirubin 0.5 mg/dL (0.2-1.3) 07/08/17 07:15 AST 114 U/L (14-36) H D 07/08/17 07:15 ALT 142 U/L (9-52) H D 07/08/17 07:15 Alkaline Phosphatase 152 U/L (38-126) H D 07/08/17 07:15 Total Protein 6.2 g/dL (6.3-8.3) L 07/08/17 07:15 Albumin 3.5 g/dL (3.5-5.0) 07/08/17 07:15 Globulin 2.7 gm/dL (2.2-3.9) 07/08/17 07:15 Albumin/Globulin Ratio 1.3 (1.0-2.1) 07/08/17 07:15 Urine Color Straw (YELLOW) 07/05/17 12:56 Urine Clarity Clear (Clear) 07/05/17 12:56 Urine pH 7.0 (5.0-8.0) 07/05/17 12:56 Ur Specific [place] 1.015 (1.003-1.030) 07/05/17 12:56 Urine Protein Negative mg/dL (NEGATIVE) 07/05/17 12:56 Urine Glucose (UA) Normal mg/dL (Normal) 07/05/17 12:56 Urine Ketones Negative mg/dL (NEGATIVE) 07/05/17 12:56 Urine Blood 2+ (NEGATIVE) H 07/05/17 12:56 Urine Nitrate Negative (NEGATIVE) 07/05/17 12:56 Urine Bilirubin Negative (NEGATIVE) 07/05/17 12:56 Urine Urobilinogen Normal mg/dL (0.2-1.0) 07/05/17 12:56 Ur Leukocyte Esterase Neg Christine/uL (Negative) 07/05/17 12:56 Urine WBC (Auto) < 1 /hpf (0-5) 07/05/17 12:56 Urine RBC (Auto) 8 /hpf (0-3) H 07/05/17 12:56 Ur Squamous Epith Cells < 1 /hpf (0-5) 07/05/17 12:56 Blood Type B POSITIVE 07/07/17 07:05 Antibody Screen Negative 07/07/17 07:05 - Hospital Course Hospital Course: As per admission documentation Patient is a 52 year old female with history of HLD, HTN, ventral hernia repair , SBO, who presents to the hospital with complaint of abdominal pain, nausea, and vomiting. She states the pain is periumbilical and denies radiation. Patient admits to multiple episodes of bilious non- bloody emesis. Patient reports bowel movement yesterday and today. Patient states she saw Dr. Mcguire in his office yesterday for evaluation of her ventral hernia and was sent to the ER today for admission. Patient is due to have port placed today for vascular access and ventral hernia repair 07/06/17. Patient also reports mild headache following fall on 06/26/17. She was evaluated in the ER on 07/02/[address] which showed soft tissue swelling overlying posterior right parieto-occipital cranium. Patient followed up with Dr. Ellison in the office on 07/03/17. Hospital Course: Patient admitted for ventral hernia repair with Dr. Mcguire which took place on 07/07/17. Patient had Right Port-A-Cath placed due to lack of/difficulty of venous access. Patient did experience any complications throughout her hospital course. Patient was to be discharged on 07/09 but refused to leave. She attempted to stay on 07/10 while requesting more pain medications. Once she was informed that she was not going to receive any more pain medications, patient stated that she wanted to be discharged immediately and left promptly. Patient requested a script for more pain medications, which was denied due to patient recently filling a pain medication script. Discharge instructions. Patient is to be discharged home per Dr. Bernardo Ley. Patient is to follow up with Dr. Loren Ellison within 7 days of being discharged. Patient is to follow up with Dr. Mcguire in 2 weeks at his office after being discharged. Please continue your home medications of Protonix, Advair, Norvasc, Carafate, Pravastatin, Miralax, Percocet, and Ambien all of which you stated you had enough of. The following prescription will need to be filled at your pharmacy. Please keep the abdominal surgical site clean and dry. Please advance your diet as tolerated and remain well hydrated. Please take care and be well. Prescriptions given Zofran 4 mg, 1 tablet by mouth every 6 hours ONLY as needed for Nausea, Dispense #30, NO refills. Discharge Exam - Head Exam Head Exam: ATRAUMATIC, NORMOCEPHALIC - Eye Exam Eye Exam: EOMI, Normal appearance - ENT Exam ENT Exam: Mucous Membranes Moist - Neck Exam Neck exam: Full Rom, Normal Inspection - Respiratory Exam Respiratory Exam: Clear to PA & Lateral, NORMAL BREATHING PATTERN, UNREMARKABLE. absent: Accessory Muscle Use, Rales, Rhonchi, Wheezes, Respiratory Distress - Cardiovascular Exam Cardiovascular Exam: REGULAR RHYTHM, +S1, +S2 - GI/Abdominal Exam GI & Abdominal Exam: Normal Bowel Sounds, Soft, Tenderness (soreness 2/2 to recent surgery). absent: Distended, Firm, Guarding, Hernia Additional comments: davon intact. no wound dehiscence. no signs of cellulitis - Extremities Exam Extremities exam: normal inspection - Neurological Exam Neurological exam: Alert, CN II-XII Intact, Oriented x3 - Psychiatric Exam Psychiatric exam: Agitated (upset when denied pain medications. Patient attempted to bargain by asking for lower dose.) - Skin Skin Exam: Dry, Warm Discharge Plan - Follow Up Plan Condition: STABLE Disposition: HOME/ ROUTINE Instructions: Oxycodone/Acetaminophen (By mouth), Ondansetron (By mouth), Incisional Hernia (DC) Additional Instructions: Patient is to be discharged home per Dr. Bernardo Ley. Patient is to follow up with Dr. Loren Ellison within 7 days of being discharged. Patient is to follow up with Dr. Mcguire in 2 weeks at his office after being discharged. 3). Please continue your home medications of Protonix, Advair, Norvasc, Carafate, Pravastatin, Miralax, Percocet, and Ambien all of which you stated you had enough of. The following prescription will need to be filled at your pharmacy. Please keep the abdominal surgical site clean and dry. Please advance your diet as tolerated and remain well hydrated. Please take care and be well. Referrals: Oleg Ellison MD [Staff Provider] - Adelso Mcguire MD [Staff Provider] - <Alejo Ley - Last Filed: 07/10/17 19:23> Provider - Provider Date of Admission: 07/05/17 11:50 Attending physician: Oleg Ellison MD Primary care physician: Jose Alejandro Ghotra MD Hospital Course - Lab Results Lab Results: Most Recent Lab Values WBC 8.0 K/uL (4.8-10.8) 07/08/17 07:15 RBC 3.40 Mil/uL (3.80-5.20) L 07/08/17 07:15 Hgb 10.2 g/dL (11.0-16.0) L 07/08/17 07:15 Hct 30.0 % (34.0-47.0) L 07/08/17 07:15 MCV 88.3 fL (81.0-99.0) 07/08/17 07:15 MCH 30.0 pg (27.0-31.0) 07/08/17 07:15 MCHC 34.0 g/dL (33.0-37.0) 07/08/17 07:15 RDW 13.8 % (11.5-14.5) 07/08/17 07:15 Plt Count 222 K/uL (130-400) 07/08/17 07:15 MPV 8.2 fL (7.2-11.7) 07/08/17 07:15 Neut % (Auto) 77.2 % (50.0-75.0) H 07/08/17 07:15 Lymph % (Auto) 11.3 % (20.0-40.0) L 07/08/17 07:15 [place] % (Auto) 7.8 % (0.0-10.0) 07/08/17 07:15 Eos % (Auto) 3.5 % (0.0-4.0) 07/08/17 07:15 Baso % (Auto) 0.2 % (0.0-2.0) 07/08/17 07:15 Neut # 6.1 K/uL (1.8-7.0) 07/08/17 07:15 Lymph # 0.9 K/uL (1.0-4.3) L 07/08/17 07:15 [place] # 0.6 K/uL (0.0-0.8) 07/08/17 07:15 Eos # 0.3 K/uL (0.0-0.7) 07/08/17 07:15 Baso # 0.0 K/uL (0.0-0.2) 07/08/17 07:15 PT 11.2 SECONDS (9.7-12.2) 07/06/17 07:53 INR 1.0 07/06/17 07:53 APTT 29 SECONDS (21-34) 07/06/17 07:53 Sodium 132 mmol/L (132-148) 07/08/17 07:15 Potassium 4.0 mmol/L (3.6-5.2) 07/08/17 07:15 Chloride 99 mmol/L (98-107) 07/08/17 07:15 Carbon Dioxide 28 mmol/L (22-30) 07/08/17 07:15 Anion Gap 9 (10-20) L 07/08/17 07:15 BUN 11 mg/dL (7-17) 07/08/17 07:15 Creatinine 0.7 mg/dL (0.7-1.2) 07/08/17 07:15 Est GFR ( Amer) > 60 07/08/17 07:15 Est GFR (Non-Af Amer) > 60 07/08/17 07:15 Random Glucose 102 mg/dL (65-105) 07/08/17 07:15 Calcium 8.5 mg/dl (8.6-10.4) L 07/08/17 07:15 Phosphorus 4.4 mg/dL (2.5-4.5) 07/06/17 07:53 Magnesium 1.9 mg/dL (1.6-2.3) 07/06/17 07:53 Total Bilirubin 0.5 mg/dL (0.2-1.3) 07/08/17 07:15 AST 114 U/L (14-36) H D 07/08/17 07:15 ALT 142 U/L (9-52) H D 07/08/17 07:15 Alkaline Phosphatase 152 U/L (38-126) H D 07/08/17 07:15 Total Protein 6.2 g/dL (6.3-8.3) L 07/08/17 07:15 Albumin 3.5 g/dL (3.5-5.0) 07/08/17 07:15 Globulin 2.7 gm/dL (2.2-3.9) 07/08/17 07:15 Albumin/Globulin Ratio 1.3 (1.0-2.1) 07/08/17 07:15 Urine Color Straw (YELLOW) 07/05/17 12:56 Urine Clarity Clear (Clear) 07/05/17 12:56 Urine pH 7.0 (5.0-8.0) 07/05/17 12:56 Ur Specific [place] 1.015 (1.003-1.030) 07/05/17 12:56 Urine Protein Negative mg/dL (NEGATIVE) 07/05/17 12:56 Urine Glucose (UA) Normal mg/dL (Normal) 07/05/17 12:56 Urine Ketones Negative mg/dL (NEGATIVE) 07/05/17 12:56 Urine Blood 2+ (NEGATIVE) H 07/05/17 12:56 Urine Nitrate Negative (NEGATIVE) 07/05/17 12:56 Urine Bilirubin Negative (NEGATIVE) 07/05/17 12:56 Urine Urobilinogen Normal mg/dL (0.2-1.0) 07/05/17 12:56 Ur Leukocyte Esterase Neg [place]/uL (Negative) 07/05/17 12:56 Urine WBC (Auto) < 1 /hpf (0-5) 07/05/17 12:56 Urine RBC (Auto) 8 /hpf (0-3) H 07/05/17 12:56 Ur Squamous Epith Cells < 1 /hpf (0-5) 07/05/17 12:56 Blood Type B POSITIVE 07/07/17 07:05 Antibody Screen Negative 07/07/17 07:05 Attending/Attestation - Attestation I have personally seen and examined this patient.: Yes I have fully participated in the care of the patient.: Yes I have reviewed all pertinent clinical information, including history, physical exam and plan: Yes Notes (Text): 07/10/17 19:22 Discharge instructions were thoroughly gone over with the resident. Please also see my note 07/10/17. Alejo Ley D.O.
--- NOTE | 2017-07-11 22:23 | CARD ---
APPROVED REPORT EKG Measurement Heart [id number] <Conclusion> Normal sinus rhythm Nonspecific ST abnormality Abnormal ECG
== END 2017-07-10 13:15 | disposition home or self-care (01) | DRG 159 ==
LOC: MERGE 09:30 → C.ER 09:30 → C.9E 11:50 → C.3T 19:50
PROVIDERS: ADMIT Internal Medicine Pulmonary Disease; ATTEND Internal Medicine Pulmonary Disease
PROC: 0JH60XZ Insertion of Tunneled Vascular Access Device into Chest Subcutaneous Tissue and Fascia, Open Approach (ICD-10-PCS; 2017-07-05)
PROC: 02HV33Z Insertion of Infusion Device into Superior Vena Cava, Percutaneous Approach (ICD-10-PCS; 2017-07-05)
PROC: B5181ZA Fluoroscopy of Superior Vena Cava using Low Osmolar Contrast, Guidance (ICD-10-PCS; 2017-07-05)
PROC: 0WQF0ZZ Repair Abdominal Wall, Open Approach (ICD-10-PCS; principal; 2017-07-07 14:00)
DX: K43.0 Incisional hernia with obstruction, without gangrene (principal); J44.9 Chronic obstructive pulmonary disease, unspecified; D64.9 Anemia, unspecified; E78.00 Pure hypercholesterolemia, unspecified; K66.0 Peritoneal adhesions (postprocedural) (postinfection); I10 Essential (primary) hypertension; F41.9 Anxiety disorder, unspecified; M19.90 Unspecified osteoarthritis, unspecified site

== ENCOUNTER 2017-07-13 11:01 | Emergency (ER) | payer MEDICAID ==
[2017-07-13 11:02] VITALS: BMI 32.5
[2017-07-13 11:12] VITALS: BP 145/86; PULSE 102; RESP 20; TEMP 97.5; O2SAT 100
[2017-07-13] MEDS ORDERED: Lactated Ringer's 1,000 ML IV STA (11:54)
[2017-07-13] MEDS ORDERED: Iohexol 240 (50 ml) PO STA (11:54)
[2017-07-13] MEDS ORDERED: HYDROmorphone 1 mg/ml ISec IVP STA ×2 (11:55→14:37)
[2017-07-13] MEDS ORDERED: Iohexol 240 (50 ml) ONE (12:08)
[2017-07-13] MEDS ORDERED: Lactated Ringer's 1,000 ML ONE (12:09)
[2017-07-13 12:38] LABS: BASO % 0.6 % (0.0-2.0); EOS # 0.8 K/uL (0.0-0.7); HEMATOCRIT 34.2 % (34.0-47.0); LYMPH # 1.3 K/uL (1.0-4.3); LYMPH % 16.6 % (20.0-40.0); MEAN CELL VOLUME 88.3 fL (81.0-99.0); MEAN CORPUSCULAR HEMOGLOBIN 29.8 pg (27.0-31.0); MEAN CORPUSCULAR HGB CONC 33.7 g/dL (33.0-37.0); MEAN PLATELET VOLUME 8.2 fL (7.2-11.7); MONO # 0.7 K/uL (0.0-0.8); MONO % 9.1 % (0.0-10.0); RED CELL DISTRIBUTION WIDTH 13.9 % (11.5-14.5); WHITE BLOOD COUNT 7.6 K/uL (4.8-10.8)
--- NOTE | 2017-07-13 12:58 | C.PDOC ---
History Of Present Illness 52 y/o female s/p hernia repair one week by Dr. Mcguire and discharged 07-10-17 , presents to the ED c/o abdominal pain and multiple episodes of vomiting which started this morning. The patient states that the vomit has not been bloody or bilious. The patient notes having her last meal last night at 5pm. The patient denies fever, dizziness, headaches, and dizziness, and diarrhea . Time Seen by Provider: 07/13/17 11:30 Chief Complaint (Nursing): Abdominal Pain History Per: Patient History/Exam Limitations: no limitations Onset/Duration Of Symptoms: Days Current Symptoms Are (Timing): Still Present Associated Symptoms: Vomiting. denies: Fever, Chills, Diarrhea Exacerbating Factors: Food (last meal last night at 5pm) Past Medical History Reviewed: Historical Data, Nursing Documentation, Vital Signs Vital Signs: Last Vital Signs Temp 97.5 F L 07/13/17 11:09 Pulse 102 H 07/13/17 11:09 Resp 20 07/13/17 11:09 BP 145/86 07/13/17 11:09 Pulse Ox 100 07/13/17 14:04 - Medical History PMH: Anemia, Anxiety, Arthritis, Asthma, Back Problems (herniated discs), Bronchitis, COPD, Diverticulitis, Gastritis, Gastrointestinal Ulcer, HTN, Hypercholesterolemia, Pancreatitis Denies: Dementia, Depression, Hyperthyroidism, Hypothyroidism, Kidney Stones , Chronic Kidney Disease, Sexually Transmitted Disease, TIA Surgical History: Appendectomy, Cholecystectomy, Endoscopy, Hernia Repair ( ventral x3, last 10/27/15) - [facility] Procedures CENTRAL VENOUS CATHETER PLACEMENT WITH GUIDANCE (06/13/14) CLOSED ENDOSCOPIC BIOPSY OF LARGE INTESTINE (05/19/14) COLONOSCOPY (01/23/14) DILATION OF RIGHT AXILLARY ARTERY, PERCUTANEOUS APPROACH (11/03/15) ESOPHAGOGASTRODUODENOSCOPY [EGD] W/CLOSED BIOPSY (10/22/14) EXCISION OF DESCENDING COLON, ENDO, DIAGN (04/09/17) EXCISION OF SIGMOID COLON, ENDO, DIAGN (12/05/15) EXCISION OF SMALL INTESTINE, ENDO, DIAGN (06/10/16) EXCISION OF STOMACH, ENDO, DIAGN (04/04/17) FLUOROSCOPY OF SUP VENA CAVA USING L OSM CONTRAST, GUIDANCE (07/05/17) FLUOROSCOPY OF SUPERIOR VENA CAVA, GUIDANCE (12/05/15) INFLUENZA VACCINATION (05/08/14) INJECT/INFUSE NEC (08/22/14) INSERTION OF INFUSION DEV INTO L BRACH VEIN, PERC APPROACH (05/22/17) INSERTION OF INFUSION DEV INTO SUP VENA CAVA, PERC APPROACH (07/05/17) INSERTION OF VAD INTO CHEST SUBCU/FASCIA, OPEN APPROACH (07/05/17) INSPECTION OF GASTROINTESTINAL TRACT, PERC ENDO APPROACH (10/26/15) MRI OF OTHER AND UNSPECIFIED SITES (04/25/14) NEBULIZER THERAPY (11/30/13) RELEASE CECUM, OPEN APPROACH (10/26/15) REPAIR ABDOMINAL WALL, OPEN APPROACH (07/05/17) ULTRASONOGRAPHY OF LEFT UPPER EXTREMITY VEINS, GUIDANCE (05/22/17) ULTRASONOGRAPHY OF SUPERIOR VENA CAVA, GUIDANCE (10/26/15) VENOUS CATHETERIZATION NEC (02/14/14) Family History: States: No Known Family Hx - Social History Hx Tobacco Use: No Hx Alcohol Use: No Hx Substance Use: No - Immunization History Hx Tetanus Toxoid Vaccination: Yes Hx Influenza Vaccination: Yes (2016) Hx Pneumococcal Vaccination: Yes (2014) Review Of Systems Except As Marked, All Systems Reviewed And Found Negative. Constitutional: Negative for: Fever, Chills Cardiovascular: Negative for: Chest Pain Respiratory: Negative for: Cough, Shortness of Breath Gastrointestinal: Positive for: Vomiting, Abdominal Pain. Negative for: Diarrhea Physical Exam - Physical Exam Appears: Non-toxic, No Acute Distress Skin: Dry Head: Atraumatic Eye(s): bilateral: PERRL Oral Mucosa: Moist Neck: Supple Chest: Symmetrical Cardiovascular: Rhythm Regular Respiratory: Normal Breath Sounds, No Rales, No Rhonchi, No Wheezing Gastrointestinal/Abdominal: Soft, Tenderness (diffused ), No Guarding, No Rebound, Other (davon in the middle of the abdomen with no signs of discharge or erythema) Extremity: Capillary Refill (2<sec. ) Neurological/Psych: Oriented x3, Normal Speech, Normal Cognition Gait: Steady ED Course And Treatment - Laboratory Results Result Diagrams: 07/13/17 12:19 07/13/17 12:19 O2 Sat by Pulse Oximetry: 100 (RA) Progress Note: Plan - Abd/pelvic ct scan and blood work Disposition - Disposition Referrals: Oleg Ellison MD [Staff Provider] - Adelso Mcguire MD [Staff Provider] - Disposition: HOME/ ROUTINE Disposition Time: 15:40 Condition: IMPROVED Additional Instructions: Thank you for letting us take care of you today. The emergency medical care you received today was directed at your acute symptoms. If you were prescribed any medication, please fill it and take as directed. It may take several days for your symptoms to resolve. Return to the Emergency Department if your symptoms worsen, do not improve, or if you have any other problems. Please contact your doctor or call one of the physicians/clinics you have been referred to that are listed on the Patient Visit Information form that is included in your discharge packet. Bring any paperwork you were given at discharge with you along with any medications you are taking to your follow up visit. Our treatment cannot replace ongoing medical care by a primary care provider (PCP) outside of the emergency department. Thank you for allowing the [facility] team to be part of your care today. Stay hydrated throughout the day. Continue taking the colace as directed. Follow up with your surgeon and primary doctor in 2-3 days for outpatient management and further evaluation. Instructions: Constipation (ED), High Fiber Diet (ED) Forms: [facility] (Swedish) - Clinical Impression Clinical Impression: Constipation, Abdominal pain - Scribe Statement The provider has reviewed the documentation as recorded by the Scribe Stacia Wang
[2017-07-13] MEDS ORDERED: DiphenhydrAMINE 50 mg/ml Inj ONE (13:16)
[2017-07-13 13:18] LABS: RBC URINE 16 /hpf (0-3); URINE BACTERIA RARE (<OCC); URINE BILIRUBIN NEGATIVE (NEGATIVE); URINE BLOOD 2+ (NEGATIVE); URINE COLOR Straw (YELLOW); URINE GLUCOSE (UA) NORMAL (Normal); URINE KETONE NEGATIVE (NEGATIVE); URINE LEUKOCYTE ESTERASE NEG Leu/uL (Negative); URINE PROTEIN NEGATIVE (NEGATIVE); URINE UROBILINOGEN NORMAL mg/dL (0.2-1.0); WBC URINE 1 /hpf (0-5)
[2017-07-13] MEDS ORDERED: DiphenhydrAMINE 50 mg/ml Inj IVP STA (13:24)
[2017-07-13 13:37] LABS: ALB/GLOB RATIO 1.2 (1.0-2.1); ALKALINE PHOSPHATASE 241 U/L (38-126); ALT/SGPT 127 U/L (9-52); AST/SGOT 67 U/L (14-36); BILIRUBIN,TOTAL 0.4 mg/dL (0.2-1.3); BLOOD UREA NITROGEN 17 mg/dL (7-17); CALCIUM 8.7 mg/dl (8.6-10.4); CARBON DIOXIDE 30 mmol/L (22-30); CHLORIDE 97 mmol/L (98-107); GFR AFRICAN-AMERICAN > 60; GLUCOSE,RANDOM 121 mg/dL (65-105); POTASSIUM 3.9 mmol/L (3.6-5.2); SODIUM 134 mmol/L (132-148); TOTAL PROTEIN 7.2 g/dL (6.3-8.3)
--- NOTE | 2017-07-13 15:45 | CT ---
PROCEDURE: CT Abdomen and Pelvis without IV contrast. HISTORY: abd pain- s/p ventral hernia repair COMPARISON: CT abdomen pelvis without oral or IV contrast performed 04/09/17 TECHNIQUE: Contiguous axial images of the abdomen and pelvis. Oral contrast was administered. No IV contrast given. Coronal and Sagittal reformats generated and reviewed. Radiation dose: Total exam DLP = 1137.60 mGy-cm. This CT exam was performed using one or more of the following dose reduction techniques: Automated exposure control, adjustment of the mA and/or kV according to patient size, and/or use of iterative reconstruction technique. FINDINGS: There is limited evaluation of the solid organs without the administration of IV contrast. LOWER THORAX: No visible consolidation, pleural effusion, or pneumothorax. LIVER: Unremarkable unenhanced appearance. GALLBLADDER AND BILE DUCTS: Cholecystectomy. PANCREAS: Unremarkable unenhanced appearance. SPLEEN: Unremarkable unenhanced appearance. ADRENALS: Unremarkable unenhanced appearance. KIDNEYS AND URETERS: No hydronephrosis or obstructing renal calculus. BLADDER: The urinary bladder appears unremarkable. REPRODUCTIVE: Uterus is present. APPENDIX: The appendix is not identified. No secondary signs of acute appendicitis. BOWEL: The stomach is nondistended. The bowel loops appear within normal limits of caliber without evidence of intestinal obstruction. Moderate constipation. Diverticulosis without CT evidence of acute diverticulitis PERITONEUM: No significant free fluid. No definite free air. LYMPH NODES: No bulky lymphadenopathy identified. VASCULATURE: No aortic aneurysm. BONES: No acute osseous abnormality is detected. OTHER FINDINGS: Midline surgical skin davon. Soft tissue edema/stranding likely related to recent surgical status. Small focal fluid collection measuring approximately 2.8 x 2.2 cm with focus of air also due to recent surgery. Small abscess cannot be excluded. Abdominal wall mesh is noted within the right anterior abdomen. IMPRESSION: Midline surgical skin davon. Soft tissue edema/stranding likely related to recent surgical status. Small focal fluid collection measuring approximately 2.8 x 2.2 cm with focus of air also due to recent surgery ; small abscess cannot be excluded. Abdominal wall mesh is noted within the right anterior abdomen. Diverticulosis without CT evidence of acute diverticulitis. Moderate constipation.
[2017-07-13] MEDS ORDERED: Oxycodone/Acetaminophen 5/325 mg Tab PO STA (15:55)
[2017-07-13] MEDS ORDERED: Oxycodone/Acetaminophen 5/325 mg Tab ONE (16:05)
== END 2017-07-13 16:13 | disposition home or self-care (01) ==
LOC: C.ER 11:01
DX: K59.00 Constipation, unspecified (principal); R10.9 Unspecified abdominal pain; E78.00 Pure hypercholesterolemia, unspecified; I10 Essential (primary) hypertension; J44.9 Chronic obstructive pulmonary disease, unspecified
CPT/HCPCS: 74176; 80053; 81001; 83690; 85025; 87086; 96374; 96375; 96376; 99284; J1170; J1200; J2405; J7120; Q9966

== ENCOUNTER 2017-07-19 19:59 | Emergency (ER) | payer MEDICAID ==
[2017-07-19 19:59] VITALS: BMI 32.5
[2017-07-19 21:31] VITALS: BP 135/85; PULSE 91; RESP 20; TEMP 98.7; O2SAT 99
== END 2017-07-19 21:28 | disposition left against medical advice (07) ==
LOC: C.ER 19:59
DX: Z02.89 Encounter for other administrative examinations (principal); R10.9 Unspecified abdominal pain

== ENCOUNTER 2017-07-20 08:57 | Inpatient (IN) | payer MEDICAID ==
[2017-07-20 08:58] VITALS: BMI 32.5
[2017-07-20] MEDS ORDERED: HYDROmorphone 1 mg/ml ISec IVP STA ×2 (09:53→11:34)
[2017-07-20] MEDS ORDERED: Sodium Chloride 0.9% 500 ML IV ONE (09:53)
[2017-07-20] MEDS ORDERED: DiphenhydrAMINE 50 mg/ml Inj IVP STA ×2 (09:53→11:35)
--- NOTE | 2017-07-20 09:55 | C.PDOC ---
History Of Present Illness 53-year-old female, s/p hernia repair 07/07/17, presents to the emergency department with complaints of nausea, several episodes of non-bloody/non- bilious vomiting and abdominal pain for the past few days. Patient is unable to tolerate any PO. Last normal bowel movement was yesterday. Patient states she was seen by her PMD, who told her that "everything was good." Patient notes that she has a f/u appointment with her surgeon in four days. Denies fever, shortness of breath, dizziness, bloody stool/diarrhea, back pain, or any other associated symptoms. No other complaints at this time. Time Seen by Provider: 07/20/17 09:08 Chief Complaint (Nursing): Abdominal Pain History Per: Patient History/Exam Limitations: no limitations Onset/Duration Of Symptoms: Days Current Symptoms Are (Timing): Still Present Severity: Moderate Pain Scale Rating Of: 9 Location Of Pain/Discomfort: Diffuse Radiation Of Pain To:: None Quality Of Discomfort: "Pain" Associated Symptoms: Nausea, Vomiting. denies: Fever, Chills Recent travel outside of the [place]: No Past Medical History Reviewed: Historical Data, Nursing Documentation, Vital Signs Vital Signs: Last Vital Signs Temp 98.6 F 07/20/17 09:00 Pulse 77 07/20/17 12:24 Resp 18 07/20/17 12:24 BP 136/82 07/20/17 12:24 Pulse Ox 98 07/20/17 13:20 - Medical History PMH: Anemia, Anxiety, Arthritis, Asthma, Back Problems (herniated discs), Bronchitis, COPD, Diverticulitis, Gastritis, Gastrointestinal Ulcer, HTN, Hypercholesterolemia, Hypothyroidism, Pancreatitis Surgical History: Appendectomy, Cholecystectomy, Endoscopy, Hernia Repair ( ventral x3, last 10/27/15) - [facility] Procedures CENTRAL VENOUS CATHETER PLACEMENT WITH GUIDANCE (06/13/14) CLOSED ENDOSCOPIC BIOPSY OF LARGE INTESTINE (05/19/14) COLONOSCOPY (01/23/14) DILATION OF RIGHT AXILLARY ARTERY, PERCUTANEOUS APPROACH (11/03/15) ESOPHAGOGASTRODUODENOSCOPY [EGD] W/CLOSED BIOPSY (10/22/14) EXCISION OF DESCENDING COLON, ENDO, DIAGN (04/09/17) EXCISION OF SIGMOID COLON, ENDO, DIAGN (12/05/15) EXCISION OF SMALL INTESTINE, ENDO, DIAGN (06/10/16) EXCISION OF STOMACH, ENDO, DIAGN (04/04/17) FLUOROSCOPY OF SUP VENA CAVA USING L OSM CONTRAST, GUIDANCE (07/05/17) FLUOROSCOPY OF SUPERIOR VENA CAVA, GUIDANCE (12/05/15) INFLUENZA VACCINATION (05/08/14) INJECT/INFUSE NEC (08/22/14) INSERTION OF INFUSION DEV INTO L BRACH VEIN, PERC APPROACH (05/22/17) INSERTION OF INFUSION DEV INTO SUP VENA CAVA, PERC APPROACH (07/05/17) INSERTION OF VAD INTO CHEST SUBCU/FASCIA, OPEN APPROACH (07/05/17) INSPECTION OF GASTROINTESTINAL TRACT, PERC ENDO APPROACH (10/26/15) MRI OF OTHER AND UNSPECIFIED SITES (04/25/14) NEBULIZER THERAPY (11/30/13) RELEASE CECUM, OPEN APPROACH (10/26/15) REPAIR ABDOMINAL WALL, OPEN APPROACH (07/05/17) ULTRASONOGRAPHY OF LEFT UPPER EXTREMITY VEINS, GUIDANCE (05/22/17) ULTRASONOGRAPHY OF SUPERIOR VENA CAVA, GUIDANCE (10/26/15) VENOUS CATHETERIZATION NEC (02/14/14) Family History: States: No Known Family Hx - Social History Hx Tobacco Use: No Hx Alcohol Use: No Hx Substance Use: No - Immunization History Hx Tetanus Toxoid Vaccination: Yes Hx Influenza Vaccination: Yes (2016) Hx Pneumococcal Vaccination: Yes (2014) Review Of Systems Except As Marked, All Systems Reviewed And Found Negative. Constitutional: Negative for: Fever, Chills Respiratory: Negative for: Shortness of Breath Gastrointestinal: Positive for: Nausea, Vomiting, Abdominal Pain. Negative for : Diarrhea, Constipation, Melena, Hematochezia, Hematemesis Musculoskeletal: Negative for: Back Pain Neurological: Negative for: Weakness, Numbness, Headache, Dizziness Physical Exam - Physical Exam Appears: Non-toxic, Other (moderate painful distress) Skin: Warm, Dry, No Rash Head: Atraumatic, Normacephalic Eye(s): bilateral: Normal Inspection, PERRL, EOMI Nose: Normal Oral Mucosa: Dry (slightly dry) Lips: Normal Appearing Throat: No Erythema, No Exudate Neck: Normal ROM, Supple Chest: Symmetrical, No Tenderness, Other ((+) Power-port right upper chest) Cardiovascular: Rhythm Regular, No Friction Rub, No Murmur Respiratory: Normal Breath Sounds, No Accessory Muscle Use Gastrointestinal/Abdominal: Bowel Sounds (active), Soft, Tenderness (diffuse), No Guarding, No Rebound, Other (midline sutures in place, no erythema, warmth, discharge, or sign of infection. ) Back: Normal Inspection, No CVA Tenderness Extremity: Normal ROM, No Swelling Neurological/Psych: Oriented x3, Normal Speech, Normal Motor Gait: Steady ED Course And Treatment - Laboratory Results Result Diagrams: 07/20/17 10:06 07/20/17 10:06 O2 Sat by Pulse Oximetry: 98 (on RA) Pulse Ox Interpretation: Normal - Radiology CXR: Viewed By Me, Read By Radiologist CXR Interpretation: Yes: No Acute Disease. No: Infiltrates, Cardiomegaly, Pnemothorax Medical Decision Making Medical Decision Making: Plan: * CMP, Lipase * CBC * Chest X-Ray * Benadryl, Dilaudid, Reglan, IVF * UA/HCG * Reassess and Disposition On first re-exam, the patient reports that the pain is the same. Dilaudid IV given and NS IVF continued. Call placed to Dr. Mcguire at 1130 Old records reviewed, the patient was last seen in the ED yesterday for the abdominal pain but left without being seen. Also seen on 07/13/17 for similar symptoms had a CT scan which showed constipation and is otherwise negative. Call placed to Mikey at 1230. On second re-exam, the patient reports that the pain medications did not help and had another episode of vomiting in the ED. Reglan IV ordered and NS IVF continued. Third call placed to Maynor at 1330. Call placed to Dr. Ellison (PMD ) who agrees to admit the patient for observation for intractable vomiting and abdominal pain. Disposition - Disposition Disposition: HOSPITALIZED Disposition Time: 13:07 Condition: STABLE Forms: [facility] (Slovenian) - POA Present On Arrival: None - Clinical Impression Clinical Impression: Intractable abdominal pain, Intractable vomiting - Scribe Statement The provider has reviewed the documentation as recorded by the Scribe (Timothy Mabry) All medical record entries made by the Scribe were at my direction and personally dictated by me. I have reviewed the chart and agree that the record accurately reflects my personal performance of the history, physical exam, medical decision making, and the department course for this patient. I have also personally directed, reviewed, and agree with the discharge instructions and disposition.
[2017-07-20] MEDS ORDERED: DiphenhydrAMINE 50 mg/ml Inj ONE ×2 (10:10→11:44)
[2017-07-20 10:11] LABS: BASO # 0.1 K/uL (0.0-0.2); EOS # 0.8 K/uL (0.0-0.7); MEAN CORPUSCULAR HEMOGLOBIN 29.4 pg (27.0-31.0); RED CELL DISTRIBUTION WIDTH 14.3 % (11.5-14.5)
[2017-07-20] MEDS ORDERED: Sodium Chloride 0.9% 1,000 ML ONE (10:11)
[2017-07-20 10:16] LABS: BASO % 0.9 % (0.0-2.0); EOS % 11.4 % (0.0-4.0); HEMOGLOBIN 11.9 g/dL (11.0-16.0); LYMPH # 1.7 K/uL (1.0-4.3); LYMPH % 24.9 % (20.0-40.0); MEAN CELL VOLUME 87.9 fL (81.0-99.0); MEAN CORPUSCULAR HGB CONC 33.5 g/dL (33.0-37.0); MEAN PLATELET VOLUME 8.6 fL (7.2-11.7); MONO # 0.6 K/uL (0.0-0.8); NEUT # 3.8 K/uL (1.8-7.0); NEUT % 54.8 % (50.0-75.0); NRBC % 0.6 % (0.0-2.0); RBC 4.04 Mil/uL (3.80-5.20); WHITE BLOOD COUNT 6.9 K/uL (4.8-10.8)
--- NOTE | 2017-07-20 10:40 | RAD ---
PROCEDURE: CHEST RADIOGRAPH, 1 VIEW HISTORY: abd pain COMPARISON: 07/05/2017 FINDINGS: LUNGS: Clear. PLEURA: No pneumothorax or pleural fluid seen. CARDIOVASCULAR: Normal heart size. Bronchovascular markings within normal limits OSSEOUS STRUCTURES: Thoracic spondylosis VISUALIZED UPPER ABDOMEN: Normal. OTHER FINDINGS: Right Port-A-Cath insertion tip probably cavoatrial junction -as before IMPRESSION: No interval pathology
[2017-07-20 10:42] LABS: ALB/GLOB RATIO 1.2 (1.0-2.1); ALBUMIN 3.9 g/dL (3.5-5.0); ALT/SGPT 417 U/L (9-52); AST/SGOT 258 U/L (14-36); BLOOD UREA NITROGEN 18 mg/dL (7-17); GFR AFRICAN-AMERICAN > 60; GFR NON-AFRICAN AMERICAN > 60; LIPASE 252 U/L (23-300)
[2017-07-20 10:59] LABS: HCG,QUALITATIVE URINE NEGATIVE (NEGATIVE)
[2017-07-20 11:17] LABS: SQUAMOUS EPITHIAL 1 /hpf (0-5); URINE BACTERIA RARE (<OCC); URINE BILIRUBIN NEGATIVE (NEGATIVE); URINE BLOOD 2+ (NEGATIVE); URINE CLARITY Clear (Clear); URINE COLOR Straw (YELLOW); URINE GLUCOSE (UA) NORMAL (Normal); URINE LEUKOCYTE ESTERASE NEG Leu/uL (Negative); URINE NITRATE NEGATIVE (NEGATIVE); URINE PROTEIN NEGATIVE (NEGATIVE); URINE UROBILINOGEN NORMAL mg/dL (0.2-1.0)
[2017-07-20] MEDS ORDERED: Sodium Chloride 0.9% 1,000 ML IV ONE (13:37)
--- NOTE | 2017-07-20 13:39 | CP.PCM.PN ---
Subjective - Date & Time of Evaluation Date of Evaluation: 07/20/17 Time of Evaluation: 04:30 - Subjective Subjective: Medicine Progress Note- Dr. Ellison's service 52 year old female with past medical history significant for Hypertension, hyperlipidemia, diverticulosis, anemia, asthma, Prepyloric clean-based ulcer , LA Grade B esophagitis 10/2015, hiatal hernia, herniated disks, gastritis and small bowel obstruction presents s/p ventral hernia repair which occurred on 07/07/17. Patient has complaints of continuous vomiting and abdominal pain which she has been experiencing for the past couple of days. Patient states that she had non bloody emesis since last week . She visited the ER at the time. While there, she was administered IV Zofran which improved her symptoms. Patient states that she did not wait until care was completed though. Patient states that symptoms returned later in the week though without much relief. Yesterday the vomiting and abdominal pain started again. She was prescribed sublingual zofran which was not helping her symptoms and thus she came to the ER. Patient followed up at her primary doctor's office last Monday; however her symptoms were not as pronounced. At the moment, she denies, subjective fevers or chills, headaches, chest pain or palpitations at this time. She is having bowel movements and adhering to recommendations as provided by her primary doctor and surgeon. PMHx: Refer to above PSHx: ventral hernia repair 07/07/17, (3 other ventral hernia repairs) lysis of adhesions 10/2015, appendectomy, cholecystectomy, surgery of the colon ( unclear) Fam Hx: Father of an UT at the age of 51; Mother of lung cancer at the age of 63; both of whom were smokers; HTN and asthma also runsin the family Social Hx: Denies smoking, illicit drug use or alcohol use Allergies: IV iodine (anaphylaxis), NSAIDS, Morphine (hives and swelling) Medications: Norvasc 10 mg PO daily, Ambien 10 mg HS, Zofran sublingual tabs, Xanax mg PO PRN, Percocet 10- 325 PRN, Avdair daily, and Pravastatin 40 mg HS PMD: Dr. Ellison In the ER, patient was administered dilaudid and benadryl, reglan, zofran and a fluid bolus. A CT of the abdomen and pelvis as well as a chest XRAY was taken. Labs were additionally drawn. Objective - Vital Signs/Intake and Output Vital Signs (last 24 hours): Temp Pulse Resp BP Pulse Ox 98.6 F 77 18 136/82 98 07/20/17 09:00 07/20/17 12:24 07/20/17 12:24 07/20/17 12:24 07/20/17 13:28 - Medications Medications: Current Medications Sodium Chloride (Sodium Chloride 0.9%) 1,000 mls @ 1,000 mls/hr IV .Q1H ONE Stop: 07/20/17 14:36 - Labs Labs: 07/20/17 10:06 07/20/17 10:06 - Constitutional Appears: Non-toxic, No Acute Distress - Head Exam Head Exam: ATRAUMATIC, NORMAL INSPECTION, NORMOCEPHALIC - Eye Exam Eye Exam: EOMI, Normal appearance, PERRL Pupil Exam: NORMAL ACCOMODATION - ENT Exam ENT Exam: Mucous Membranes Moist - Neck Exam Neck Exam: Full ROM - Respiratory Exam Respiratory Exam: NORMAL BREATHING PATTERN. absent: Wheezes - Cardiovascular Exam Cardiovascular Exam: +S1, +S2 - GI/Abdominal Exam GI & Abdominal Exam: Soft, Tenderness (diffuse in the right upper quadrant; left sided midline incisional scar noted with davon in place; prior healed scars noted to the right in parallel formation.), Normal Bowel Sounds - Extremities Exam Extremities Exam: Full ROM - Back Exam Back Exam: Full ROM - Neurological Exam Neurological Exam: Alert, Awake, Oriented x3 - Psychiatric Exam Psychiatric exam: Normal Affect, Normal Mood - Skin Skin Exam: Dry, Normal Color, Warm Assessment and Plan (1) Abdominal pain Assessment & Plan: S/P Ventral hernia repair on 07/07/17 Abdominal pain despite medication administration at home Patient given Dilaudid in the ER Continue Dilaudid administration PRN - Patient has morphine and NSAID allergies. CT Abd/Pelvis imaging performed 07/13: small focal fluid collection measuring 2.8 x2.2 cm; diverticulosis and constipation also noted. Refer to complete report. Hemodynamically stable at this time. Colace daily Increase water intake F/U CT abdomen and pelvis Status: Acute (2) Transaminitis Assessment & Plan: Elevated LFTS Hepatitis panel Status: Chronic (3) Intractable vomiting Assessment & Plan: Zofran PRN Status: Acute (4) Hypertension Assessment & Plan: Norvasc 10 mg PO daily Status: Chronic (5) Hypercholesteremia Assessment & Plan: Crestor 10 mg HS Status: Chronic (6) Asthma Assessment & Plan: Advair daily Duonebs PRN Status: Chronic (7) Anxiety Assessment & Plan: Xanax 5 mg PO PRN Ambien 10 mg HS Status: Chronic (8) Prophylactic measure Assessment & Plan: Zofran Pepcid BID SCDs Discussed with attending. Management and planning per Dr. Ellison. Status: Acute
--- NOTE | 2017-07-20 14:12 | CT ---
PROCEDURE: CT Abdomen and Pelvis without intravenous contrast HISTORY: abd pain, vomiting, s/p hernia repair COMPARISON: None. TECHNIQUE: Technique. Contrast Dose: Radiation dose: Total exam DLP = mGy-cm. This CT exam was performed using one or more of the following dose reduction techniques: Automated exposure control, adjustment of the mA and/or kV according to patient size, and/or use of iterative reconstruction technique. FINDINGS: LOWER THORAX: Unremarkable. LIVER: Unremarkable. No gross lesion or ductal dilatation. GALLBLADDER AND BILE DUCTS: Unremarkable. PANCREAS: Unremarkable. No gross lesion or ductal dilatation. SPLEEN: Unremarkable. ADRENALS: Unremarkable. No mass. KIDNEYS AND URETERS: Unremarkable. No hydronephrosis. No solid mass. VASCULATURE: Unremarkable. No aortic aneurysm. BOWEL: Patient status post ventral abdominal wall hernia repair with postsurgical multiple seromas inferred - detailed below the "other finding section". . A knuckle of small bowel protrudes into the residual small prior ventral hernia site. No complete bowel containing hernia noted. . Current appearance suggests only a knuckle of small bowel protruding towards this residual ventral hernia contour. No bowel obstruction. No gross mural thickening. Some contiguous fluid filled nondilated small bowel loops deep to the hernia site are also suggested. Rectosigmoid and fewer right colonic diverticulosis without complicating diverticulitis. Moderate stool retention APPENDIX: Portion of the appendix bleed identified and unremarkable. PERITONEUM: Unremarkable. No free fluid. No free air. LYMPH NODES: Unremarkable. No enlarged lymph nodes. BLADDER: Unremarkable. REPRODUCTIVE: Unremarkable. BONES: No acute fracture. OTHER FINDINGS: At and just above the umbilicus, post hernia repair surgical changes are noted. Changes involve subcutaneous edema reticulation and multiple focal fluid-like collections - seromas or liquified hematoma are inferred. The most cephalad focal collection-seroma is approximately 4.5 by 3.6 cm left lateral to the incision line. Another is approximately 1.6 cm limited at the and the umblicus level and another is a prox 1.6 cm by 2.5 cm -the most inferior fluid like collection - left paracentral to the incision noted. These inferred seromas postsurgical changes are noted on sagittal series 602 image 100 and coronal series 601, image 18. No gas within the fluid collections noted. No thick wall abscess suggested. Continued clinical follow-up with or without ultrasound ensure resolution. The sterility of these collections is unknown. No gas forming abscess suggested. IMPRESSION: Periumbilical recent postsurgical hernia changes- multiple seromas and anterior abdominal subcutaneous fat inferred. Small small-bowel knuckle only protruding slightly towards the residual hernia site. No significant appearing small bowel containing hernia or obstruction suggested Incidentally noted are a few left and right colonic diverticuli- without complicating diverticulitis. No appendicitis. No mechanical obstruction . Stool retention suggested
[2017-07-20] MEDS ORDERED: DiphenhydrAMINE 50 mg/ml Inj IVP SCH (17:00)
[2017-07-20] MEDS ORDERED: Albuterol-Ipratrop 3 mg / 0.5 (3 ml) UD INH PRN (18:00)
[2017-07-20 18:34] VITALS: RESP 20
[2017-07-20] MEDS: DiphenhydrAMINE 50 mg/ml Inj IVP PRN (19:22)
[2017-07-21] MEDS: DiphenhydrAMINE 50 mg/ml Inj IVP PRN ×5 (00:17→21:11)
[2017-07-21 07:15] LABS: BASO # 0.1 K/uL (0.0-0.2); BASO % 0.8 % (0.0-2.0); EOS # 0.8 K/uL (0.0-0.7); EOS % 12.3 % (0.0-4.0); HEMOGLOBIN 10.6 g/dL (11.0-16.0); LYMPH # 1.6 K/uL (1.0-4.3); LYMPH % 24.8 % (20.0-40.0); MEAN CELL VOLUME 89.4 fL (81.0-99.0); MEAN CORPUSCULAR HEMOGLOBIN 29.1 pg (27.0-31.0); MEAN CORPUSCULAR HGB CONC 32.6 g/dL (33.0-37.0); MEAN PLATELET VOLUME 8.7 fL (7.2-11.7); MONO # 0.6 K/uL (0.0-0.8); MONO % 8.5 % (0.0-10.0); NEUT # 3.5 K/uL (1.8-7.0); NEUT % 53.6 % (50.0-75.0); RBC 3.64 Mil/uL (3.80-5.20); RED CELL DISTRIBUTION WIDTH 14.4 % (11.5-14.5); WHITE BLOOD COUNT 6.6 K/uL (4.8-10.8)
[2017-07-21] MEDS ORDERED: Fluticasone-Salmeterol 250-50mcg Diskus INH SCH (08:00)
[2017-07-21 08:33] LABS: ALB/GLOB RATIO 1.2 (1.0-2.1); ALBUMIN 3.6 g/dL (3.5-5.0); ALT/SGPT 293 U/L (9-52); AST/SGOT 118 U/L (14-36); BLOOD UREA NITROGEN 22 mg/dL (7-17); CALCIUM 7.9 mg/dl (8.6-10.4); GFR AFRICAN-AMERICAN > 60; GFR NON-AFRICAN AMERICAN > 60; MAGNESIUM 1.6 mg/dL (1.6-2.3)
[2017-07-21 09:00] LABS: HEPATITIS B SURFACE AG NEGATIVE (NEGATIVE)
--- NOTE | 2017-07-21 09:03 | CP.PCM.PN ---
Subjective - Date & Time of Evaluation Date of Evaluation: 07/21/17 Time of Evaluation: 09:30 - Subjective Subjective: Dr. Ellison note: Patient has had multiple surgeries in the past with Dr. Duron, the most recent one was 07/07. She is complaining of nausea and vomiting and abdominal pain associated with vomiting. She says she is having a squeezing pain associated with vomiting and is asking for a binder. Objective - Vital Signs/Intake and Output Vital Signs (last 24 hours): Temp Pulse Resp BP Pulse Ox 98.4 F 81 20 109/69 100 07/21/17 00:00 07/21/17 00:00 07/21/17 00:00 07/20/17 18:33 07/21/17 00:00 - Medications Medications: Current Medications Albuterol/Ipratropium (Duoneb 3 Mg/0.5 Mg (3 Ml) Ud) 3 ml INH RQ6 PRN PRN Reason: Wheezing Alprazolam (Xanax) 0.5 mg PO BID PRN PRN Reason: Anxiety Amlodipine Besylate (Norvasc) 10 mg PO DAILY [facility] Last Admin: 07/20/17 18:00 Dose: 10 mg Diphenhydramine HCl (Benadryl) 25 mg IVP Q4H PRN PRN Reason: Allergy symptoms Last Admin: 07/21/17 05:22 Dose: 25 mg Docusate Sodium (Colace) 100 mg PO DAILY [facility] Last Admin: 07/20/17 18:00 Dose: 100 mg Famotidine (Pepcid) 20 mg IVP Q12 [facility] Last Admin: 07/20/17 21:43 Dose: 20 mg Heparin Sodium (Porcine) (Heparin) 5,000 units SC Q12 [facility] Hydromorphone HCl (Dilaudid) 2 mg IVP Q4H PRN PRN Reason: Pain, severe (8-10) Last Admin: 07/21/17 08:33 Dose: 2 mg Ondansetron HCl (Zofran Inj) 4 mg IVP Q6 PRN PRN Reason: Nausea/Vomiting Last Admin: 07/20/17 15:19 Dose: 4 mg Fluticasone/Salmeterol (Advair Diskus 250/50) 2 puff INH RQ24 [facility] Zolpidem Tartrate (Ambien) 5 mg PO HS PRN PRN Reason: Insomnia Last Admin: 07/20/17 21:43 Dose: 5 mg - Labs Labs: 07/21/17 06:15 07/21/17 06:15 PT 11.0 SECONDS (9.7-12.2) 07/21/17 06:15 INR 1.0 07/21/17 06:15 APTT 29 SECONDS (21-34) 07/21/17 06:15 - Constitutional Appears: Non-toxic, No Acute Distress - Eye Exam Eye Exam: Normal appearance Pupil Exam: NORMAL ACCOMODATION - Respiratory Exam Respiratory Exam: Clear to Ausculation Bilateral. absent: Rales, Rhonchi, Wheezes - Cardiovascular Exam Cardiovascular Exam: REGULAR RHYTHM, RRR, +S1, +S2. absent: Gallop, Rubs - GI/Abdominal Exam GI & Abdominal Exam: Soft, Tenderness, Normal Bowel Sounds Additional comments: stables from surgery still in place. - Extremities Exam Extremities Exam: Normal Inspection. absent: Pedal Edema - Back Exam Back Exam: NORMAL INSPECTION - Psychiatric Exam Psychiatric exam: Normal Affect, Normal Mood - Skin Skin Exam: Normal Color Assessment and Plan - Assessment and Plan (Free Text) Assessment: (1) Abdominal pain Assessment & Plan: 07/21/2017, continue with pain medication, colace, follow up Dr. Domi ulloa. Patient will most likely need her stables removed. S/P Ventral hernia repair on 07/07/17 Abdominal pain despite medication administration at home Patient given Dilaudid in the ER Continue Dilaudid administration PRN - Patient has morphine and NSAID allergies. CT Abd/Pelvis imaging performed 07/13: small focal fluid collection measuring 2.8 x2.2 cm; diverticulosis and constipation also noted. Refer to complete report. Hemodynamically stable at this time. Colace daily Increase water intake F/U CT abdomen and pelvis Status: Acute (2) Transaminitis Assessment & Plan: 07/21: Hepatits panel negative. Elevated LFTS Hepatitis panel Status: Chronic (3) Intractable vomiting Assessment & Plan: 07/24: liquid diet for now, advance as tolerated. Zofran PRN Status: Acute (4) Hypertension Assessment & Plan: Norvasc 10 mg PO daily Status: Chronic (5) Hypercholesteremia Assessment & Plan: Crestor 10 mg HS Status: Chronic (6) Asthma Assessment & Plan: Advair daily Duonebs PRN Status: Chronic (7) Anxiety Assessment & Plan: Xanax 5 mg PO PRN Ambien 10 mg HS Status: Chronic (8) Prophylactic measure Assessment & Plan: Zofran Pepcid BID SCDs Management and planning per Dr. Ellison.
[2017-07-21 09:05] LABS: HEPATITIS A IGM NEGATIVE (NEGATIVE); HEPATITIS B CORE AB Negative (NEGATIVE)
[2017-07-21 09:18] LABS: HEPATITIS C ANTIBODY Negative (NEGATIVE)
[2017-07-22] MEDS: DiphenhydrAMINE 50 mg/ml Inj IVP PRN ×6 (02:11→22:33)
[2017-07-22 07:18] LABS: BASO % 0.7 % (0.0-2.0); EOS # 0.9 K/uL (0.0-0.7); EOS % 16.1 % (0.0-4.0); HEMOGLOBIN 10.3 g/dL (11.0-16.0); LYMPH # 1.4 K/uL (1.0-4.3); MEAN CELL VOLUME 89.1 fL (81.0-99.0); MEAN CORPUSCULAR HGB CONC 33.7 g/dL (33.0-37.0); MONO # 0.5 K/uL (0.0-0.8); MONO % 9.4 % (0.0-10.0); NEUT # 2.9 K/uL (1.8-7.0); NEUT % 49.8 % (50.0-75.0); RBC 3.44 Mil/uL (3.80-5.20); RED CELL DISTRIBUTION WIDTH 14.2 % (11.5-14.5); WHITE BLOOD COUNT 5.8 K/uL (4.8-10.8)
[2017-07-22 07:38] LABS: ALB/GLOB RATIO 1.3 (1.0-2.1); ALBUMIN 3.7 g/dL (3.5-5.0); ALT/SGPT 216 U/L (9-52); AST/SGOT 56 U/L (14-36); BLOOD UREA NITROGEN 19 mg/dL (7-17); CALCIUM 8.7 mg/dl (8.6-10.4); GFR AFRICAN-AMERICAN > 60; GFR NON-AFRICAN AMERICAN > 60; MAGNESIUM 1.8 mg/dL (1.6-2.3)
[2017-07-22] MEDS ORDERED: Pneumococcal 23-Valent Vaccine IM ONE (20:07)
[2017-07-23] MEDS: DiphenhydrAMINE 50 mg/ml Inj IVP PRN ×6 (02:10→22:10)
[2017-07-23] MEDS ORDERED: Fluticasone-Salmeterol 250-50mcg Diskus INH SCH (20:00)
[2017-07-24] MEDS: DiphenhydrAMINE 50 mg/ml Inj IVP PRN ×6 (02:10→23:00)
--- NOTE | 2017-07-24 08:54 | CP.PCM.PN ---
Subjective - Date & Time of Evaluation Date of Evaluation: 07/24/17 Time of Evaluation: 09:20 - Subjective Subjective: PGY 2 Medicine Note- Dr. Ellison's service Patient seen and examined. She states that she vomited once last night. She was able to have a bowel movement this morning. Patient concerned and worried because she saw a small amount of blood after having a formed bowel movement. Patient denies pain at the time. She stated that she had been trying to go for several days and finally was able to with the suppository. She otherwise is tolerating a liquid diet. Objective - Vital Signs/Intake and Output Vital Signs (last 24 hours): Temp Pulse Resp BP Pulse Ox 98.4 F 79 20 103/73 98 07/24/17 00:00 07/24/17 00:00 07/24/17 00:00 07/24/17 00:00 07/24/17 00:00 Intake and Output: 07/24/17 07/24/17 06:59 18:59 Intake Total 460 Balance 460 - Medications Medications: Current Medications Albuterol/Ipratropium (Duoneb 3 Mg/0.5 Mg (3 Ml) Ud) 3 ml INH RQ6 PRN PRN Reason: Wheezing Alprazolam (Xanax) 0.5 mg PO BID PRN PRN Reason: Anxiety Last Admin: 07/22/17 14:38 Dose: 0.5 mg Amlodipine Besylate (Norvasc) 10 mg PO DAILY [facility] Last Admin: 07/23/17 09:52 Dose: 10 mg Bisacodyl (Dulcolax) 10 mg [place] DAILY PRN PRN Reason: Constipation Last Admin: 07/23/17 14:03 Dose: 10 mg Diphenhydramine HCl (Benadryl) 25 mg IVP Q4H PRN PRN Reason: Allergy symptoms Last Admin: 07/24/17 06:55 Dose: 25 mg Docusate Sodium (Colace) 100 mg PO DAILY [facility] Last Admin: 07/23/17 09:52 Dose: 100 mg Famotidine (Pepcid) 20 mg IVP Q12 [facility] Last Admin: 07/23/17 21:51 Dose: 20 mg Heparin Sodium (Porcine) (Heparin) 5,000 units SC Q12 [facility] Last Admin: 07/23/17 21:51 Dose: 5,000 units Hydromorphone HCl (Dilaudid) 2 mg IVP Q4H PRN PRN Reason: Pain, severe (8-10) Last Admin: 07/24/17 06:55 Dose: 2 mg Ondansetron HCl (Zofran Inj) 4 mg IVP Q6 PRN PRN Reason: Nausea/Vomiting Last Admin: 07/23/17 09:53 Dose: 4 mg Fluticasone/Salmeterol (Advair Diskus 250/50) 1 puff INH RQ12 [facility] Zolpidem Tartrate (Ambien) 5 mg PO HS PRN PRN Reason: Insomnia Last Admin: 07/23/17 21:47 Dose: 5 mg - Labs Labs: 07/22/17 07:13 07/22/17 07:13 PT 11.0 SECONDS (9.7-12.2) 07/21/17 06:15 INR 1.0 07/21/17 06:15 APTT 29 SECONDS (21-34) 07/21/17 06:15 - Constitutional Appears: Non-toxic, No Acute Distress - Head Exam Head Exam: ATRAUMATIC, NORMAL INSPECTION - Eye Exam Eye Exam: EOMI, Normal appearance - ENT Exam ENT Exam: Mucous Membranes Moist - Neck Exam Neck Exam: Full ROM - Respiratory Exam Respiratory Exam: NORMAL BREATHING PATTERN. absent: Wheezes - Cardiovascular Exam Cardiovascular Exam: +S1, +S2 - GI/Abdominal Exam GI & Abdominal Exam: Soft, Tenderness (appropriate to palpation; mild in nature) Additional comments: midline abdominal incision healed- davon noted - Rectal Exam Rectal Exam: Deferred Additional comments: Patient declined at this time - Extremities Exam Extremities Exam: Full ROM, Normal Capillary Refill - Neurological Exam Neurological Exam: Alert, Awake, Oriented x3 - Psychiatric Exam Psychiatric exam: Normal Affect, Normal Mood - Skin Skin Exam: Dry, Normal Color, Warm Assessment and Plan (1) Abdominal pain Status: Acute (2) Transaminitis Status: Chronic (3) Intractable vomiting Status: Acute (4) Hypertension Status: Chronic (5) Hypercholesteremia Status: Chronic (6) Asthma Status: Chronic (7) Anxiety Status: Chronic (8) Prophylactic measure Status: Acute - Assessment and Plan (Free Text) Plan: (1) Abdominal pain Assessment & Plan: 07/21/2017, continue with pain medication, Colace, follow up Dr. Mcguire [facility]. Patient will most likely need her davon removed. S/P Ventral hernia repair on 07/07/17 Continue Dilaudid administration PRN - Patient has morphine and NSAID allergies. CT Abd/Pelvis 07/20/17: Periumbilical recent postsurgical hernia- multiple seromas and anterior abdominal subcutaneous fat inferred; A few left and right colonic diverticuli without complicating diverticulitis. Stool retention suggested but no apparent mechanical obstruction. Refer to complete report. CT Abd/Pelvis imaging performed 07/13: small focal fluid collection measuring 2.8 x2.2 cm; diverticulosis and constipation also noted. Refer to complete report. Hemodynamically stable at this time. Colace and Dulcolax daily Increase water intake Status: Acute (2) Transaminitis Assessment & Plan: 07/21: Hepatitis panel negative. Status: Chronic (3) Intractable vomiting Assessment & Plan: Liquid diet , advance as tolerated. Zofran PRN Status: Acute (4) Hypertension Assessment & Plan: Norvasc 10 mg PO daily Status: Chronic (5) Hypercholesteremia Assessment & Plan: Crestor 10 mg HS Status: Chronic (6) Asthma Assessment & Plan: Advair daily Duonebs PRN Status: Chronic (7) Anxiety Assessment & Plan: Xanax 5 mg PO PRN Ambien 10 mg HS Status: Chronic (8) Prophylactic measure Assessment & Plan: Zofran Pepcid BID SCDs Discharge Plan Patient is medically stable for discharge home after removal of davon by Dr. Mcguire. Patient should follow up with Dr. Ellison within the next week for follow up care. Patient should follow up with Dr. Mcguire within the next two week as indicated for follow up post-op management. Patient may resume home medications Patient is encouraged to continue to drink approx 64 oz of water daily. She is encouraged to live an active lifestyle as well- exercising as tolerated. If symptoms return, go to the emergency room. Instructions explained to patient who is aware.
[2017-07-24] MEDS: Hydrocortisone 2.5% Rectal Cream(30 gm) PR SCH ×2 (12:34→17:09)
[2017-07-25] MEDS: DiphenhydrAMINE 50 mg/ml Inj IVP PRN ×4 (03:01→15:07)
--- NOTE | 2017-07-25 07:57 | HP ---
HISTORY OF PRESENT ILLNESS: This is a 52-year-old female chief complaint abdominal pain, nausea and vomiting. The patient has history of intestinal obstruction, abdominal hernia. PHYSICAL EXAMINATION: GENERAL: The patient is awake, alert, oriented. VITAL SIGNS: Temperature 98, pulse 90. HEENT: Within normal limits. NECK: Supple. CHEST: Symmetrical. HEART: Regular. ABDOMEN: Soft. EXTREMITIES: No edema. IMPRESSION AND PLAN: The patient suffers from vomiting. The patient on bedrest, supportive care. Oleg Ellison MD
--- NOTE | 2017-07-25 08:08 | PN ---
DATE: 07/23/2017 Patient has weakness, fatigue. Patient Dorys suppository. Oleg Ellison MD
--- NOTE | 2017-07-25 09:55 | CP.PCM.PN ---
Subjective - Date & Time of Evaluation Date of Evaluation: 07/25/17 Time of Evaluation: 09:55 - Subjective Subjective: PGY2 medicine progress note for Dr. Ellison's service Patient seen and examined. Patient states she is tolerating small amounts of food. Patient was able to eat oatmeal this morning without significant nausea and denies vomiting. Patient reports bowel movement yesterday. Patient states pain is well-controlled and is currently waiting for staple removal from her hernia repair site. Objective - Vital Signs/Intake and Output Vital Signs (last 24 hours): Temp Pulse Resp BP Pulse Ox 97.5 F L 72 20 103/65 95 07/25/17 07:50 07/25/17 07:50 07/25/17 07:50 07/25/17 07:50 07/25/17 07:50 Intake and Output: 07/25/17 07/25/17 06:59 18:59 Intake Total 240 Balance 240 - Medications Medications: Current Medications Albuterol/Ipratropium (Duoneb 3 Mg/0.5 Mg (3 Ml) Ud) 3 ml INH RQ6 PRN PRN Reason: Wheezing Alprazolam (Xanax) 0.5 mg PO BID PRN PRN Reason: Anxiety Last Admin: 07/22/17 14:38 Dose: 0.5 mg Amlodipine Besylate (Norvasc) 10 mg PO DAILY [facility] Last Admin: 07/24/17 11:04 Dose: 10 mg Bisacodyl (Dulcolax) 10 mg [place] DAILY PRN PRN Reason: Constipation Last Admin: 07/24/17 11:05 Dose: 10 mg Diphenhydramine HCl (Benadryl) 25 mg IVP Q4H PRN PRN Reason: Allergy symptoms Last Admin: 07/25/17 07:01 Dose: 25 mg Docusate Sodium (Colace) 100 mg PO DAILY [facility] Last Admin: 07/24/17 11:05 Dose: 100 mg Famotidine (Pepcid) 20 mg IVP Q12 [facility] Last Admin: 07/24/17 21:16 Dose: 20 mg Hydrocortisone (Anusol-Hc) 0 gm [place] BID [facility] Last Admin: 07/24/17 17:09 Dose: 1 applic Hydromorphone HCl (Dilaudid) 2 mg IVP Q4H PRN PRN Reason: Pain, severe (8-10) Last Admin: 07/25/17 07:01 Dose: 2 mg Ondansetron HCl (Zofran Inj) 4 mg IVP Q6 PRN PRN Reason: Nausea/Vomiting Last Admin: 07/23/17 09:53 Dose: 4 mg Fluticasone/Salmeterol (Advair Diskus 250/50) 1 puff INH RQ12 [facility] Last Admin: 07/25/17 08:33 Dose: 1 puff Zolpidem Tartrate (Ambien) 5 mg PO HS PRN PRN Reason: Insomnia Last Admin: 07/23/17 21:47 Dose: 5 mg - Labs Labs: 07/22/17 07:13 07/22/17 07:13 PT 11.0 SECONDS (9.7-12.2) 07/21/17 06:15 INR 1.0 07/21/17 06:15 APTT 29 SECONDS (21-34) 07/21/17 06:15 - Constitutional Appears: No Acute Distress - Head Exam Head Exam: ATRAUMATIC, NORMOCEPHALIC - Eye Exam Eye Exam: EOMI - ENT Exam ENT Exam: Mucous Membranes Moist - Respiratory Exam Respiratory Exam: Clear to Ausculation Bilateral, NORMAL BREATHING PATTERN - Cardiovascular Exam Cardiovascular Exam: +S1, +S2 - GI/Abdominal Exam GI & Abdominal Exam: Soft, Tenderness (mild diffuse), Normal Bowel Sounds Additional comments: davon present in well-healed ventral incision, no discharge from incision noted multiple abdominal scars from prior surgeries - Extremities Exam Extremities Exam: Normal Inspection - Neurological Exam Neurological Exam: Alert, Awake - Psychiatric Exam Psychiatric exam: Normal Affect - Skin Skin Exam: Warm Assessment and Plan - Assessment and Plan (Free Text) Assessment: (1) Abdominal pain Assessment & Plan: s/p ventral hernia repair with Dr. Mcguire 07/07/17 Patient admitted 07/20/17 with nausea, vomiting, and abdominal pain Pain currently well-controlled with regimen: dilaudid 2mg IV q4h prn, benadryl 25mg IV q4prn Patient has morphine and NSAID allergies. CT Abd/Pelvis 07/20/17: Periumbilical recent postsurgical hernia- multiple seromas and anterior abdominal subcutaneous fat inferred; A few left and right colonic diverticuli without complicating diverticulitis. Stool retention suggested but no apparent mechanical obstruction. Refer to complete report. CT Abd/Pelvis imaging performed 07/13: small focal fluid collection measuring 2.8 x2.2 cm; diverticulosis and constipation also noted. Refer to complete report. Hemodynamically stable at this time. Colace 100mg PO daily Dulcolax [place] daily prn Increase water intake Status: Acute (2) Transaminitis Assessment & Plan: 07/21: Hepatitis panel negative. Status: Chronic (3) Intractable vomiting Assessment & Plan: patient tolerating solid food heart healthy diet Zofran PRN Status: Acute (4) Hypertension Assessment & Plan: Norvasc 10 mg PO daily Status: Chronic (5) Hypercholesteremia Assessment & Plan: Crestor 10 mg HS Status: Chronic (6) Asthma Assessment & Plan: Advair daily Duonebs PRN Status: Chronic (7) Anxiety Assessment & Plan: Xanax 5 mg PO PRN Ambien 10 mg HS Status: Chronic (8) Prophylactic measure Assessment & Plan: Zofran Pepcid BID SCDs All medical management as per Dr. Ellison Discharge Plan Patient is medically stable for discharge home after removal of davon by Dr. Mcguire. Patient should follow up with Dr. Ellison within the next week for follow up care. Patient should follow up with Dr. Mcguire within the next two weeks as indicated for follow up post-op management. Patient may resume home medications Patient is encouraged to continue to drink approx 64 oz of water daily. She is encouraged to live an active lifestyle as well- exercising as tolerated. If symptoms return, go to the emergency room. Instructions explained to patient who is aware.
[2017-07-25] MEDS: Hydrocortisone 2.5% Rectal Cream(30 gm) PR SCH ×2 (10:16→17:27)
[2017-07-25 16:50] VITALS: BP 114/79; PULSE 89; TEMP 98.4; O2SAT 96
== END 2017-07-25 18:13 | disposition home or self-care (01) | DRG 182 ==
LOC: C.ER 08:57 → C.9E 13:08 → C.3T 14:37 → OBSVTOIN 07-22 19:11
PROVIDERS: ADMIT Internal Medicine Pulmonary Disease; ATTEND Internal Medicine Pulmonary Disease
DX: K59.00 Constipation, unspecified (principal); J44.9 Chronic obstructive pulmonary disease, unspecified; E03.9 Hypothyroidism, unspecified; R10.9 Unspecified abdominal pain; E78.00 Pure hypercholesterolemia, unspecified; I10 Essential (primary) hypertension; K57.30 Diverticulosis of large intestine without perforation or abscess without bleeding; R74.0 Nonspecific elevation of levels of transaminase and lactic acid dehydrogenase [LDH]; F41.9 Anxiety disorder, unspecified; R11.2 Nausea with vomiting, unspecified; Z87.11 Personal history of peptic ulcer disease; Z80.1 Family history of malignant neoplasm of trachea, bronchus and lung; Z82.49 Family history of ischemic heart disease and other diseases of the circulatory system; Z82.5 Family history of asthma and other chronic lower respiratory diseases

== ENCOUNTER 2017-07-26 23:19 | Emergency (ER) | payer MEDICAID ==
[2017-07-26 23:19] VITALS: BMI 32.5
--- NOTE | 2017-07-27 00:04 | C.PDOC ---
History Of Present Illness pt s/p hernia repair presents with abdominal pain. feels very bloated. sharp, cramping pain. has had a hard time moving her bowels Time Seen by Provider: 07/27/17 00:00 Chief Complaint (Nursing): Abdominal Pain Onset/Duration Of Symptoms: Days Current Symptoms Are (Timing): Still Present Context: Other Severity: Moderate Pain Scale Rating Of: 5 Location Of Pain/Discomfort: Diffuse Radiation Of Pain To:: None Quality Of Discomfort: Sharp, Aching, Cramping Associated Symptoms: denies: Fever, Chills Exacerbating Factors: Other Alleviating Factors: None Last Bowel Movement: Yesterday Recent travel outside of the [place] States: No Additional History Per: Patient Abnormal Vaginal Bleeding: No Past Medical History Reviewed: Historical Data, Nursing Documentation, Vital Signs Vital Signs: Last Vital Signs Temp 98.7 F 07/27/17 05:08 Pulse 88 07/27/17 05:08 Resp 18 07/27/17 05:08 BP 117/71 07/27/17 05:08 Pulse Ox 96 07/27/17 05:14 - Medical History PMH: Anemia, Anxiety, Arthritis, Asthma, Back Problems (herniated discs), Bronchitis, COPD, Diverticulitis, Gastritis, Gastrointestinal Ulcer, HTN, Hypercholesterolemia, Hypothyroidism, Pancreatitis Surgical History: Appendectomy, Cholecystectomy, Endoscopy, Hernia Repair ( ventral x3, last 10/27/15) - [facility] Procedures CENTRAL VENOUS CATHETER PLACEMENT WITH GUIDANCE (06/13/14) CLOSED ENDOSCOPIC BIOPSY OF LARGE INTESTINE (05/19/14) COLONOSCOPY (01/23/14) DILATION OF RIGHT AXILLARY ARTERY, PERCUTANEOUS APPROACH (11/03/15) ESOPHAGOGASTRODUODENOSCOPY [EGD] W/CLOSED BIOPSY (10/22/14) EXCISION OF DESCENDING COLON, ENDO, DIAGN (04/09/17) EXCISION OF SIGMOID COLON, ENDO, DIAGN (12/05/15) EXCISION OF SMALL INTESTINE, ENDO, DIAGN (06/10/16) EXCISION OF STOMACH, ENDO, DIAGN (04/04/17) FLUOROSCOPY OF SUP VENA CAVA USING L OSM CONTRAST, GUIDANCE (07/05/17) FLUOROSCOPY OF SUPERIOR VENA CAVA, GUIDANCE (12/05/15) INFLUENZA VACCINATION (05/08/14) INJECT/INFUSE NEC (08/22/14) INSERTION OF INFUSION DEV INTO L BRACH VEIN, PERC APPROACH (05/22/17) INSERTION OF INFUSION DEV INTO SUP VENA CAVA, PERC APPROACH (07/05/17) INSERTION OF VAD INTO CHEST SUBCU/FASCIA, OPEN APPROACH (07/05/17) INSPECTION OF GASTROINTESTINAL TRACT, PERC ENDO APPROACH (10/26/15) MRI OF OTHER AND UNSPECIFIED SITES (04/25/14) NEBULIZER THERAPY (11/30/13) RELEASE CECUM, OPEN APPROACH (10/26/15) REPAIR ABDOMINAL WALL, OPEN APPROACH (07/05/17) ULTRASONOGRAPHY OF LEFT UPPER EXTREMITY VEINS, GUIDANCE (05/22/17) ULTRASONOGRAPHY OF SUPERIOR VENA CAVA, GUIDANCE (10/26/15) VENOUS CATHETERIZATION NEC (02/14/14) Family History: States: No Known Family Hx - Social History Hx Tobacco Use: No Hx Alcohol Use: No Hx Substance Use: No - Immunization History Hx Tetanus Toxoid Vaccination: Yes Hx Influenza Vaccination: Yes (2016) Hx Pneumococcal Vaccination: Yes (2014) Review Of Systems Constitutional: Negative for: Fever, Chills Eyes: Negative for: Redness ENT: Negative for: Throat Pain Cardiovascular: Negative for: Chest Pain Respiratory: Negative for: Shortness of Breath Gastrointestinal: Positive for: Nausea, Abdominal Pain. Negative for: Vomiting Genitourinary: Negative for: Dysuria Musculoskeletal: Negative for: Back Pain Skin: Negative for: Rash Neurological: Negative for: Weakness Psych: Negative for: Anxiety Physical Exam - Physical Exam Appears: Non-toxic Skin: Warm, Dry Head: Normacephalic Eye(s): bilateral: Normal Inspection Oral Mucosa: Moist Neck: Supple Chest: Symmetrical, Other (port in place) Cardiovascular: Rhythm Regular Respiratory: No Rales, No Rhonchi, No Wheezing Gastrointestinal/Abdominal: Soft, Tenderness (diffuse, mild), No Distention, No Guarding, No Rebound, Other (incision clean and dry, well healed) Back: Normal Inspection Extremity: Normal ROM Extremity: Bilateral: Atraumatic Pulses: Left Dorsalis Pedis: Normal, Right Dorsalis Pedis: Normal Neurological/Psych: Oriented x3, Normal Speech Gait: Steady ED Course And Treatment - Laboratory Results Result Diagrams: 07/27/17 01:34 07/27/17 01:34 O2 Sat by Pulse Oximetry: 96 Pulse Ox Interpretation: Normal Reevaluation Time: 05:38 Reassessment Condition: Improved Disposition Counseled Patient/Family Regarding: Studies Performed, Diagnosis, Need For Followup, Rx Given - Disposition Referrals: Adelso Mcguire MD [Staff Provider] - Disposition: HOME/ ROUTINE Disposition Time: 00:02 Condition: FAIR Additional Instructions: Please return if symptoms recur Prescriptions: Doxycycline Hyclate 100 mg PO BID #14 capsule Polyethylene Glycol 3350 [Miralax] 17 gm PO DAILY #270 ml traMADol [Ultram] 50 mg PO TID PRN #15 tab PRN Reason: Pain, Severe (8-10) Instructions: Abdominal Pain (ED), Gas and Bloating (ED), Cellulitis (DC) Forms: [employer] (Armenian) - Clinical Impression Clinical Impression: Abdominal pain, Cellulitis
[2017-07-27] MEDS ORDERED: Sodium Chloride 0.9% 1,000 ML IV ONE (01:18)
[2017-07-27 01:37] LABS: BASO % 0.3 % (0.0-2.0); EOS % 0.2 % (0.0-4.0); HEMOGLOBIN 11.8 g/dL (11.0-16.0); LYMPH # 1.3 K/uL (1.0-4.3); LYMPH % 10.3 % (20.0-40.0); MEAN CELL VOLUME 87.7 fL (81.0-99.0); MEAN CORPUSCULAR HEMOGLOBIN 28.8 pg (27.0-31.0); MEAN CORPUSCULAR HGB CONC 32.8 g/dL (33.0-37.0); MEAN PLATELET VOLUME 8.3 fL (7.2-11.7); MONO # 0.7 K/uL (0.0-0.8); MONO % 5.8 % (0.0-10.0); NEUT # 10.5 K/uL (1.8-7.0); NEUT % 83.4 % (50.0-75.0); RBC 4.1 Mil/uL (3.80-5.20); RED CELL DISTRIBUTION WIDTH 14.3 % (11.5-14.5); WHITE BLOOD COUNT 12.5 K/uL (4.8-10.8)
[2017-07-27] MEDS ORDERED: DiphenhydrAMINE 50 mg/ml Inj ONE (01:38)
[2017-07-27 01:45] LABS: INR 1.1; PROTHROMBIN TIME 12.5 SECONDS (9.7-12.2)
[2017-07-27 01:55] LABS: ALBUMIN 4.2 g/dL (3.5-5.0); ALT/SGPT 86 U/L (9-52); AST/SGOT 27 U/L (14-36); BLOOD UREA NITROGEN 17 mg/dL (7-17); CALCIUM 8.9 mg/dl (8.6-10.4); GFR AFRICAN-AMERICAN > 60; GFR NON-AFRICAN AMERICAN > 60; LIPASE 157 U/L (23-300)
[2017-07-27] MEDS ORDERED: HYDROmorphone 1 mg/ml ISec IVP STA (02:35)
[2017-07-27 02:38] VITALS: RESP 18
[2017-07-27 03:38] LABS: SQUAMOUS EPITHIAL 1 /hpf (0-5); URINE BACTERIA RARE (<OCC); URINE BILIRUBIN NEGATIVE (NEGATIVE); URINE BLOOD 3+ (NEGATIVE); URINE CLARITY Clear (Clear); URINE COLOR Yellow (YELLOW); URINE GLUCOSE (UA) NORMAL (Normal); URINE LEUKOCYTE ESTERASE NEG Leu/uL (Negative); URINE NITRATE NEGATIVE (NEGATIVE); URINE PROTEIN NEGATIVE (NEGATIVE); URINE UROBILINOGEN NORMAL mg/dL (0.2-1.0)
--- NOTE | 2017-07-27 04:44 | CT ---
EXAM: CT Abdomen and Pelvis Without Intravenous Contrast CLINICAL HISTORY: 52 years old, female; Pain; Abdominal pain; Patient HX: 07-20-17; Additional info: Abd pain, S/P hernia repair TECHNIQUE: Axial computed tomography images of the abdomen and pelvis without intravenous contrast. All CT scans at this facility use one or more dose reduction techniques, viz.: automated exposure control; ma/kV adjustment per patient size (including targeted exams where dose is matched to indication; i.e. head); or iterative reconstruction technique. 718 images are submitted. Axial images are submitted and lung windows. Coronal and sagittal reformatted images were created and reviewed. COMPARISON: CT - ABD PELVIS PO CONTRAST ONLY 2017-07-13 15:10 FINDINGS: Lower thorax: No acute findings. ABDOMEN: Liver: Unremarkable. Gallbladder and bile ducts: Cholecystectomy. Pancreas: Unremarkable. No ductal dilation. Spleen: Unremarkable. No splenomegaly. Adrenals: Unremarkable. No mass. Kidneys and ureters: Unremarkable. No obstructing stones. No hydronephrosis. Stomach and bowel: Diverticulosis. No obstruction. No mucosal thickening. Appendix: The appendix is not seen. PELVIS: Bladder: Partially decompressed bladder with bladder wall thickening. Correlation with urinalysis is recommended only if clinical cystitis is suspected. Reproductive: Uterus is seen. High riding normal ovaries. ABDOMEN and PELVIS: Intraperitoneal space: Unremarkable. No free air. No significant fluid collection. Bones/joints: No acute fracture. No dislocation. Soft tissues: There is subcutaneous soft tissue infiltration with subcutaneous hypodense collection measuring 5.0 x 3.0 x 4.6 cm representing seroma versus nonacute hematoma with surrounding edema versus cellulitis. There is interval resolution of previously identified gas in this collection. Correlation with clinical data is recommended if an abscess is clinically suspected. Right hemiabdomen ventral abdominal wall postoperative changes suggestive of prior hernia repair. Vasculature: Unremarkable. No abdominal aortic aneurysm. Lymph nodes: Subcentimeter mesenteric lymph nodes. IMPRESSION: 1. There is subcutaneous soft tissue infiltration with subcutaneous hypodense collection measuring 5.0 x 3.0 x 4.6 cm representing seroma versus nonacute hematoma with surrounding edema versus cellulitis. There is interval resolution of previously identified gas in this collection. Correlation with clinical data is recommended if an abscess is clinically suspected.
[2017-07-27 05:09] VITALS: BP 117/71; PULSE 88; TEMP 98.7
[2017-07-27 05:13] VITALS: O2SAT 96
== END 2017-07-27 05:58 | disposition home or self-care (01) ==
LOC: C.ER 23:19
DX: R10.9 Unspecified abdominal pain (principal); L03.319 Cellulitis of trunk, unspecified; I10 Essential (primary) hypertension; Z98.890 Other specified postprocedural states
CPT/HCPCS: 74176; 80053; 81001; 83690; 85025; 85610; 85730; 96374; 96375; 99285; J1170; J2270; J2405; J7040

== ENCOUNTER 2017-07-27 14:35 | Inpatient (IN) | payer MEDICAID ==
[2017-07-27 14:35] VITALS: BMI 32.5
[2017-07-27] MEDS ORDERED: Sodium Chloride 0.9% 1,000 ML IV ONE (15:54)
[2017-07-27] MEDS ORDERED: DiphenhydrAMINE 50 mg/ml Inj IVP STA (15:54)
[2017-07-27] MEDS ORDERED: HYDROmorphone 1 mg/ml ISec IVP STA ×2 (15:54→17:13)
--- NOTE | 2017-07-27 15:57 | C.PDOC ---
History Of Present Illness 52 yr old female presents to the ER with complaints of vomiting and abdominal pain for the past 3 days. Patient states she was here last night and was told she has constipation, took Colace and other laxatives but states she is unable to have a bowel movement and keeps vomiting, last bowel movement was 3 days ago. Patient states she is s/p hernia repair on July 07. Denies fever, chest pain, SOB, dysuria, incontinence, weakness or numbness. Time Seen by Provider: 07/27/17 15:50 Chief Complaint (Nursing): Abdominal Pain History Per: Patient History/Exam Limitations: no limitations Onset/Duration Of Symptoms: Days (3) Past Medical History Reviewed: Historical Data, Nursing Documentation, Vital Signs Vital Signs: Last Vital Signs Temp 98.8 F 07/27/17 22:53 Pulse 96 H 07/27/17 22:53 Resp 20 07/27/17 22:53 BP 191/120 H 07/27/17 22:53 Pulse Ox 96 07/27/17 22:53 - Medical History PMH: Anemia, Anxiety, Arthritis, Asthma, Back Problems (herniated discs), Bronchitis, COPD, Diverticulitis, Gastritis, Gastrointestinal Ulcer, HTN, Hypercholesterolemia, Hypothyroidism, Pancreatitis Surgical History: Appendectomy, Cholecystectomy, Endoscopy, Hernia Repair ( ventral x3, last 10/27/15) - [facility] Procedures CENTRAL VENOUS CATHETER PLACEMENT WITH GUIDANCE (06/13/14) CLOSED ENDOSCOPIC BIOPSY OF LARGE INTESTINE (05/19/14) COLONOSCOPY (01/23/14) DILATION OF RIGHT AXILLARY ARTERY, PERCUTANEOUS APPROACH (11/03/15) ESOPHAGOGASTRODUODENOSCOPY [EGD] W/CLOSED BIOPSY (10/22/14) EXCISION OF DESCENDING COLON, ENDO, DIAGN (04/09/17) EXCISION OF SIGMOID COLON, ENDO, DIAGN (12/05/15) EXCISION OF SMALL INTESTINE, ENDO, DIAGN (06/10/16) EXCISION OF STOMACH, ENDO, DIAGN (04/04/17) FLUOROSCOPY OF SUP VENA CAVA USING L OSM CONTRAST, GUIDANCE (07/05/17) FLUOROSCOPY OF SUPERIOR VENA CAVA, GUIDANCE (12/05/15) INFLUENZA VACCINATION (05/08/14) INJECT/INFUSE NEC (08/22/14) INSERTION OF INFUSION DEV INTO L BRACH VEIN, PERC APPROACH (05/22/17) INSERTION OF INFUSION DEV INTO SUP VENA CAVA, PERC APPROACH (07/05/17) INSERTION OF VAD INTO CHEST SUBCU/FASCIA, OPEN APPROACH (07/05/17) INSPECTION OF GASTROINTESTINAL TRACT, PERC ENDO APPROACH (10/26/15) MRI OF OTHER AND UNSPECIFIED SITES (04/25/14) NEBULIZER THERAPY (11/30/13) RELEASE CECUM, OPEN APPROACH (10/26/15) REPAIR ABDOMINAL WALL, OPEN APPROACH (07/05/17) ULTRASONOGRAPHY OF LEFT UPPER EXTREMITY VEINS, GUIDANCE (05/22/17) ULTRASONOGRAPHY OF SUPERIOR VENA CAVA, GUIDANCE (10/26/15) VENOUS CATHETERIZATION NEC (02/14/14) Family History: States: No Known Family Hx - Social History Hx Tobacco Use: No Hx Alcohol Use: No Hx Substance Use: No - Immunization History Hx Tetanus Toxoid Vaccination: Yes Hx Influenza Vaccination: Yes (2016) Hx Pneumococcal Vaccination: Yes (2014) Review Of Systems Except As Marked, All Systems Reviewed And Found Negative. Constitutional: Negative for: Fever Cardiovascular: Negative for: Chest Pain Respiratory: Negative for: Shortness of Breath Gastrointestinal: Positive for: Nausea, Vomiting, Abdominal Pain, Constipation Genitourinary: Negative for: Dysuria, Incontinence Neurological: Negative for: Weakness, Numbness Physical Exam - Physical Exam Appears: Non-toxic, In Acute Distress Skin: Warm, Dry, No Rash Head: Atraumatic, Normacephalic Oral Mucosa: Moist Neck: Normal, Normal ROM, Supple Respiratory: Normal Breath Sounds, No Rales, No Rhonchi, No Stridor, No Wheezing Gastrointestinal/Abdominal: Soft, Tenderness (Diffuse, mostly over lower end of surgical scars ), Rebound, Hernia (palable and tender in the periumbical area, 5 -6cm across), Other ((+) vertical laparoscopic well healing scars) Back: Normal Inspection, No CVA Tenderness Extremity: Normal ROM, No Swelling Neurological/Psych: Oriented x3, Normal Speech, Normal Motor Gait: Steady ED Course And Treatment - Laboratory Results Result Diagrams: 07/27/17 16:16 07/27/17 16:16 O2 Sat by Pulse Oximetry: 96 (RA) Pulse Ox Interpretation: Normal - CT Scan/US CT - Abd & Pelvis Other Rad Studies (CT/US): Read By Radiologist, Radiology Report Reviewed CT/US Interpretation: PROCEDURE: CT Abdomen and Pelvis without Oral or IV contrast. HISTORY: abd pain. COMPARISON: CT of the abdomen and pelvis without oral or IV contrast performed 07/27/17. TECHNIQUE: Contiguous axial images of the abdomen and pelvis. No oral or IV contrast administered. Coronal and Sagittal reformats generated and reviewed. Radiation dose: Total exam DLP = 1086.00 mGy-cm. This CT exam was performed using one or more of the following dose reduction techniques: Automated exposure control, adjustment of the mA and/or kV according to patient size, and/or use of iterative reconstruction technique. FINDINGS: There is limited evaluation of the solid organs without the administration of IV contrast. LOWER THORAX: No visible consolidation, pleural effusion, or pneumothorax. LIVER: Unremarkable unenhanced appearance. GALLBLADDER AND BILE DUCTS: Cholecystectomy. PANCREAS : Unremarkable unenhanced appearance. SPLEEN: Unremarkable unenhanced appearance. ADRENALS: Unremarkable unenhanced appearance. KIDNEYS AND URETERS : No hydronephrosis or obstructing renal calculus. BLADDER: The urinary bladder appears unremarkable. REPRODUCTIVE: Uterus is present. APPENDIX: The appendix is not identified. No secondary signs of acute appendicitis. Soft. BOWEL: The stomach is nondistended. Lack of oral contrast limits evaluation for bowel pathology. The bowel loops appear within normal limits of caliber without evidence of intestinal obstruction. Diverticulosis without CT evidence acute diverticulitis. PERITONEUM: No significant free fluid. No definite free air. LYMPH NODES: No bulky lymphadenopathy identified. VASCULATURE: No aortic aneurysm. BONES: No acute osseous abnormality is detected. OTHER FINDINGS: Evidence of prior right ventral hernia repair. Ventral abdominal wall hernia contains bowel without evidence of obstruction. 2.2 x 2.2 x 4.4 cm focal collection within the anterior soft tissues with surrounding mild inflammatory changes ; abscess cannot be entirely excluded. This appears similar to prior study performed earlier the same day. IMPRESSION: 2.2 x 2.2 x 4.4 cm focal collection within the anterior soft tissues with surrounding mild inflammatory changes ; abscess cannot be entirely excluded. This appears similar to prior study performed earlier the same day. Additional findings as above. Progress Note: Lab results from yesterday were compared with today and lipase was found to higher than yesterday. Spoke to DR. Ellison regarding patient, admit to [facility] and have surgury consult. Medical Decision Making Medical Decision Making: PLAN: * CT - Abd & Pelvis * CBC * CMP * Benadryl IVP * Dilaudid IVP * Sodium Chloride IV Disposition - Disposition Disposition: HOSPITALIZED Disposition Time: 17:09 Condition: FAIR - Clinical Impression Clinical Impression: Pancreatitis, Post-operative complication, Persistent vomiting - Scribe Statement The provider has reviewed the documentation as recorded by the Justinaibe Katya Flores Provider Attestation: All medical record entries made by the Justinaibe were at my direction and personally dictated by me. I have reviewed the chart and agree that the record accurately reflects my personal performance of the history, physical exam, medical decision making, and the department course for this patient. I have also personally directed, reviewed, and agree with the discharge instructions and disposition.
[2017-07-27] MEDS ORDERED: DiphenhydrAMINE 50 mg/ml Inj ONE (16:01)
[2017-07-27 16:21] LABS: BASO % 0.2 % (0.0-2.0); EOS # 0.1 K/uL (0.0-0.7); EOS % 0.6 % (0.0-4.0); HEMOGLOBIN 12.1 g/dL (11.0-16.0); LYMPH # 1.6 K/uL (1.0-4.3); LYMPH % 13.6 % (20.0-40.0); MEAN CELL VOLUME 87.9 fL (81.0-99.0); MEAN CORPUSCULAR HEMOGLOBIN 28.4 pg (27.0-31.0); MEAN CORPUSCULAR HGB CONC 32.3 g/dL (33.0-37.0); MEAN PLATELET VOLUME 7.8 fL (7.2-11.7); MONO # 0.7 K/uL (0.0-0.8); MONO % 5.8 % (0.0-10.0); NEUT # 9.2 K/uL (1.8-7.0); NEUT % 79.8 % (50.0-75.0); RBC 4.27 Mil/uL (3.80-5.20); RED CELL DISTRIBUTION WIDTH 14.7 % (11.5-14.5); WHITE BLOOD COUNT 11.6 K/uL (4.8-10.8)
[2017-07-27 16:27] LABS: INR 1.1; PROTHROMBIN TIME 12.1 SECONDS (9.7-12.2)
[2017-07-27 16:40] LABS: ALBUMIN 4.3 g/dL (3.5-5.0); ALT/SGPT 76 U/L (9-52); AST/SGOT 27 U/L (14-36); BLOOD UREA NITROGEN 14 mg/dL (7-17); CALCIUM 8.9 mg/dl (8.6-10.4); GFR AFRICAN-AMERICAN > 60; GFR NON-AFRICAN AMERICAN > 60; LIPASE 924 U/L (23-300)
--- NOTE | 2017-07-27 17:14 | CT ---
PROCEDURE: CT Abdomen and Pelvis without Oral or IV contrast. HISTORY: abd pain COMPARISON: CT of the abdomen and pelvis without oral or IV contrast performed 07/27/17 TECHNIQUE: Contiguous axial images of the abdomen and pelvis. No oral or IV contrast administered. Coronal and Sagittal reformats generated and reviewed. Radiation dose: Total exam DLP = 1086.00 mGy-cm. This CT exam was performed using one or more of the following dose reduction techniques: Automated exposure control, adjustment of the mA and/or kV according to patient size, and/or use of iterative reconstruction technique. FINDINGS: There is limited evaluation of the solid organs without the administration of IV contrast. LOWER THORAX: No visible consolidation, pleural effusion, or pneumothorax. LIVER: Unremarkable unenhanced appearance. GALLBLADDER AND BILE DUCTS: Cholecystectomy. PANCREAS: Unremarkable unenhanced appearance. SPLEEN: Unremarkable unenhanced appearance. ADRENALS: Unremarkable unenhanced appearance. KIDNEYS AND URETERS: No hydronephrosis or obstructing renal calculus. BLADDER: The urinary bladder appears unremarkable. REPRODUCTIVE: Uterus is present. APPENDIX: The appendix is not identified. No secondary signs of acute appendicitis. Soft BOWEL: The stomach is nondistended. Lack of oral contrast limits evaluation for bowel pathology. The bowel loops appear within normal limits of caliber without evidence of intestinal obstruction. Diverticulosis without CT evidence acute diverticulitis. PERITONEUM: No significant free fluid. No definite free air. LYMPH NODES: No bulky lymphadenopathy identified. VASCULATURE: No aortic aneurysm. BONES: No acute osseous abnormality is detected. OTHER FINDINGS: Evidence of prior right ventral hernia repair. Ventral abdominal wall hernia contains bowel without evidence of obstruction 2.2 x 2.2 x 4.4 cm focal collection within the anterior soft tissues with surrounding mild inflammatory changes ; abscess cannot be entirely excluded. This appears similar to prior study performed earlier the same day. IMPRESSION: 2.2 x 2.2 x 4.4 cm focal collection within the anterior soft tissues with surrounding mild inflammatory changes ; abscess cannot be entirely excluded. This appears similar to prior study performed earlier the same day. Additional findings as above.
[2017-07-27] MEDS ORDERED: HYDROmorphone 1 mg/ml ISec IVP PRN (23:16)
--- NOTE | 2017-07-28 07:24 | CP.PCM.PN ---
Subjective - Date & Time of Evaluation Date of Evaluation: 07/28/17 Time of Evaluation: 07:50 - Subjective Subjective: Medicine Progress Note- Dr. Ellison's service 52 year old female with recent admission for intractable abdominal pain and vomiting presents with complaints of continued abdominal pain since discharge. Patient states that she is unable to keep anything down at this time. She admits to diffuse abdominal discomfort exacerbated by attempting to vomit. She admits to constipation. She denies subjective fevers or chills, diarrhea, chest pain, palpitations, dyspnea or headaches at this time. Per prior initial note 07/20/17 (same display card writer): Patient with complaints of continuous vomiting and abdominal pain which she has been experiencing for the past couple of days. Patient states that she had non bloody emesis since last week . She visited the ER at the time. While there, she was administered IV Zofran which improved her symptoms. Patient states that she did not wait until care was completed though. Patient states that symptoms returned later in the week though without much relief. Yesterday the vomiting and abdominal pain started again. She was prescribed sublingual zofran which was not helping her symptoms and thus she came to the ER. Patient followed up at her primary doctor's office last Monday; however her symptoms were not as pronounced. At the moment, she denies, subjective fevers or chills, headaches, chest pain or palpitations at this time. She is having bowel movements and adhering to recommendations as provided by her primary doctor and surgeon. PMHx: Hypertension, hyperlipidemia, diverticulosis, anemia, asthma, Prepyloric clean-based ulcer 12/04/15, LA Grade B esophagitis 10/2015, hiatal hernia, herniated disks, gastritis and small bowel obstruction PSHx: ventral hernia repair 07/07/17, (3 other ventral hernia repairs) lysis of adhesions 10/2015, appendectomy, cholecystectomy, surgery of the colon ( unclear) Fam Hx: Father of an OR at the age of 51; Mother of lung cancer at the age of 63; both of whom were smokers; HTN and asthma also runsin the family Social Hx: Denies smoking, illicit drug use or alcohol use Allergies: IV iodine (anaphylaxis), NSAIDS, Morphine (hives and swelling) Medications: Norvasc 10 mg PO daily, Ambien 10 mg HS, Zofran sublingual tabs, Xanax mg PO PRN, Percocet 10- 325 PRN, Avdair daily, and Pravastatin 40 mg HS PMD: Dr. Ellison Objective - Vital Signs/Intake and Output Vital Signs (last 24 hours): Temp Pulse Resp BP Pulse Ox 98.5 F 79 18 162/94 H 96 07/28/17 00:43 07/28/17 00:43 07/28/17 00:48 07/28/17 00:43 07/28/17 00:48 - Medications Medications: Current Medications Enoxaparin Sodium (Lovenox) 40 mg SC DAILY [facility] Hydromorphone HCl (Dilaudid) 2 mg IVP Q4H PRN PRN Reason: Pain, moderate (4-7) Last Admin: 07/28/17 05:16 Dose: 2 mg Ondansetron HCl (Zofran Inj) 8 mg IVP Q6 PRN PRN Reason: Nausea/Vomiting Last Admin: 07/28/17 01:25 Dose: 8 mg Pantoprazole Sodium (Protonix Inj) 40 mg IVP DAILY [facility] - Labs Labs: 07/27/17 16:16 07/27/17 16:16 PT 12.1 SECONDS (9.7-12.2) 07/27/17 16:16 INR 1.1 07/27/17 16:16 APTT 29 SECONDS (21-34) 07/27/17 16:16 - Constitutional Appears: Non-toxic, No Acute Distress - Head Exam Head Exam: ATRAUMATIC, NORMAL INSPECTION, NORMOCEPHALIC - Eye Exam Eye Exam: EOMI, Normal appearance, PERRL Pupil Exam: NORMAL ACCOMODATION - ENT Exam ENT Exam: Mucous Membranes Moist - Neck Exam Neck Exam: Full ROM - Respiratory Exam Respiratory Exam: NORMAL BREATHING PATTERN. absent: Wheezes - Cardiovascular Exam Cardiovascular Exam: +S1, +S2 - GI/Abdominal Exam GI & Abdominal Exam: Guarding, Soft (diffuse nonspecific tendermess), Tenderness , Normal Bowel Sounds. absent: Firm - Extremities Exam Extremities Exam: Full ROM - Back Exam Back Exam: Full ROM - Neurological Exam Neurological Exam: Alert, Awake, Oriented x3 - Psychiatric Exam Psychiatric exam: Normal Affect, Normal Mood - Skin Skin Exam: Dry, Normal Color Assessment and Plan - Assessment and Plan (Free Text) Assessment: Abdominal Pain Assessment & Plan: Suspected Pancreatitis. Will treat as such. Consult to GI Dr. Walls. F/U recommendations (AFP, CA 125, CA 19-9, CEA, Pancreatic enzymes, coags and additional labs) CT imaging- Unremarkable pancreas. 2.2x2.2x4.4 cm focal collection within anterior soft tissues of bowel with surrounding mild inflamm changes. Cannot exclude abscess. Refer to complete report. Patient has had 3 CT scans within the last 8 days. The most recent results reported above. Refer to hospital record for the other reports. Elevated lipase 924 WBC 11.6 LR @ 200 mls/hr for amy 24 hrs. Can decrease rate afterwards and assess whether diet can be advanced. Pain control Initially on Zofran 8 mg Q6 PRN. Patient with continuous vomiting. One dose of Reglan Stat. Also added on compazine PRN S/P Ventral hernia repair on 07/07/17- F/U with Dr. Mcguire recommendations Intractable vomiting Assessment & Plan: NPO Antiemetics as stated above Status: Acute Transaminitis Assessment & Plan: 07/21: Hepatitis panel negative. Status: Chronic Hypertension Assessment & Plan: Norvasc 10 mg PO daily Status: Chronic Hypercholesteremia Assessment & Plan: Crestor 10 mg HS Status: Chronic Asthma Assessment & Plan: Advair daily Duonebs PRN Status: Chronic Anxiety Assessment & Plan: Xanax 5 mg PO PRN Ambien 10 mg HS Status: Chronic Prophylactic measure Assessment & Plan: Zofran Pepcid BID SCDs Discussed with attending. All management and planning per Dr. Ellison.
[2017-07-28 07:54] VITALS: RESP 20
[2017-07-28] MEDS: Enoxaparin 40 mg Syringe SC SCH (09:19)
[2017-07-28] MEDS: DiphenhydrAMINE 50 mg/ml Inj IVP PRN ×4 (09:19→21:18)
[2017-07-28] MEDS: Lactated Ringer's 1,000 ML IV SCH ×3 (09:26→19:29)
[2017-07-28] MEDS: Fluticasone-Salmeterol 250-50mcg Diskus INH SCH ×2 (11:11→20:55)
[2017-07-28 14:54] LABS: INR 1.1; PROTHROMBIN TIME 12.7 SECONDS (9.7-12.2)
[2017-07-29] MEDS: DiphenhydrAMINE 50 mg/ml Inj IVP PRN ×6 (01:19→22:12)
[2017-07-29] MEDS: Lactated Ringer's 1,000 ML IV SCH ×2 (01:26→05:41)
[2017-07-29 07:11] LABS: BASO # 0.1 K/uL (0.0-0.2); BASO % 0.4 % (0.0-2.0); HEMOGLOBIN 11.4 g/dL (11.0-16.0); LYMPH % 7.5 % (20.0-40.0); MEAN CELL VOLUME 87.7 fL (81.0-99.0); MEAN CORPUSCULAR HEMOGLOBIN 29.1 pg (27.0-31.0); MEAN CORPUSCULAR HGB CONC 33.2 g/dL (33.0-37.0); MEAN PLATELET VOLUME 8.3 fL (7.2-11.7); MONO % 7.8 % (0.0-10.0); NEUT # 10.7 K/uL (1.8-7.0); NEUT % 84.3 % (50.0-75.0); PLATELET COUNT 269 K/uL (130-400); RED CELL DISTRIBUTION WIDTH 14.2 % (11.5-14.5); WHITE BLOOD COUNT 12.7 K/uL (4.8-10.8)
[2017-07-29 07:36] LABS: LDL CHOLESTEROL 133 mg/dL (0-129)
[2017-07-29 07:57] LABS: ALB/GLOB RATIO 1.2 (1.0-2.1); ALT/SGPT 49 U/L (9-52); AMYLASE 126 U/L (30-110); AST/SGOT 22 U/L (14-36); BLOOD UREA NITROGEN 11 mg/dL (7-17); CALCIUM 8.6 mg/dl (8.6-10.4); GFR AFRICAN-AMERICAN > 60; GFR NON-AFRICAN AMERICAN > 60; HDL CHOLESTEROL 69 mg/dL (30-70); LIPASE 282 U/L (23-300); MAGNESIUM 1.5 mg/dL (1.6-2.3)
[2017-07-29] MEDS: Fluticasone-Salmeterol 250-50mcg Diskus INH SCH ×2 (08:15→20:10)
--- NOTE | 2017-07-29 09:05 | CON ---
DATE: 07/28/[address] Hector Belcher to Dr. Oleg Ellison. I was called for a GI consultation by the admitting MD. Patient is seen and examined in the presence of Dr. Ellison as well as admitting medical staff on 07/28/2017. The entire chart is reviewed including, but not limited to the most recent lab and radiology study results, current and the previous medication list, current and the previous medical events, allergies to medication list as well as all the available current and the previous medical records. HISTORY OF PRESENT ILLNESS: This is a 52-year-old female who was admitted to the hospital with severe abdominal pain, recurrent nausea and vomiting for the last 2 to 3 days prior to her admission, with reported severe constipation, without response to any laxative. Patient denied any chest pain, palpitations, significant shortness of breath or chills or fever recently. She is status post hernia repair done recently on 07/07/2017. PAST MEDICAL HISTORY: Including but not limited to; 1. Peptic ulcer disease. 2. Severe anxiety syndrome. 3. Chronic lower back pain syndrome. 4. Osteoarthritis. 5. COPD with bronchitis. 6. Known history of hypertension, hyperlipidemia, hypothyroidism. 7. Recurrent episodes of pancreatitis of unclear etiology. 8. Diverticulosis with diverticulitis. 9. Last colonoscopy done as per record reported to be in 01/2014, and upper endoscopy as per record done initially on 11/03/2015, repeat colonoscopy as per record done in 03/2017. 10. Status post abdominal hernia repair in 06/2017. FAMILY HISTORY: Unknown. SOCIAL HISTORY: Denied any recent history of cigarette smoking or alcohol intake. ALLERGY TO MEDICATION: UNCLEAR. CURRENT MEDICATIONS: Medication list were reviewed. LABORATORY DATA: After being admitted to the hospital, the patient initially was found to have elevated white blood cells of 11.6 with increased blood glucose level of 237. Radiology study results, report seen including CAT of the abdomen and the pelvis with evidence of status post cholecystectomy, with focal collection within the anterior soft abdominal tissue with possible abscess formation. PHYSICAL EXAMINATION GENERAL: A 52-year-old female complaining of severe abdominal pain. VITAL SIGNS: Afebrile with pulse of 90, respiratory rate 20 to 22, blood pressure 176/104. HEENT: Showed dry oral mucous membrane. Nonicteric sclerae. LYMPH NODES: No lymphadenitis or lymphadenopathy. LUNGS: Scattered crepitation with decreased air entry at bases. HEART: Positive S1 and S2, with increased rate. ABDOMEN: Soft with mild distention, mildly obese, with diffuse tenderness, but mainly in the mid-epigastric area. No mass or organomegaly. No rebound tenderness or guarding. RECTAL: The patient refused. EXTREMITIES: Without edema, clubbing or cyanosis. NEUROLOGIC: No reported new neurological deficits, sensory or motor. VASCULAR: Peripheral pulses are present bilaterally . It has to be mentioned that admission serum lipase level was found to be elevated above 700. IMPRESSION: 1. Acute pancreatitis, recurrent on top of chronic pancreatitis of unclear etiology, that could be however secondary to hyperlipidemia versus viral in nature or drug induced. 2. Re-exacerbation of peptic ulcer disease. 3. Multiple past medical history including but not limited to severe anxiety syndrome, chronic obstructive pulmonary disease, bronchitis, chronic lower back pain syndrome due to herniated disc with osteoarthritis, diverticulosis with diverticulitis, known history of hypothyroidism, hyperlipidemia, hypertension. 4. Status post cholecystectomy, appendectomy as well as ventral abdominal hernia repair. SUGGESTIONS: 1. Agree with your plan. 2. until serum lipase and amylase level is normal or near normal. 3. Peripheral hyperalimentation with rehydration. 4. Lipid profile. 5. Surgical consultation. 6. Patient will need magnetic resonance cholangiopancreatography with evaluation of the abnormalities of the CAT scan report. 7. No aggressive invasive gastrointestinal procedures in the meantime. 8. Further recommendations to follow. Thank you for letting me participate in your patient's case management. Hector Belcher MD
[2017-07-29] MEDS ORDERED: Lactated Ringer's 1,000 ML IV SCH (09:15)
[2017-07-29] MEDS: Enoxaparin 40 mg Syringe SC SCH (09:41)
[2017-07-29 09:45] LABS: BANDS 1 % (0-2); LYMPHOCYTE 6 % (20-40); MONOCYTE 10 % (0-10); NEUTROPHIL 83 % (50-75); TOTAL CELLS COUNTED 100
[2017-07-29 09:46] LABS: ANISOCYTOSIS SLIGHT; PLATELET ESTIMATE NORMAL (NORMAL)
[2017-07-29 09:47] LABS: TOXIC GRANULATION PRESENT
[2017-07-29] MEDS: Potassium Chloride 20 MEQ in Lactated Ringer's 1,000 ML IV SCH (19:13)
--- NOTE | 2017-07-29 21:54 | PN ---
DATE: LOCATION: [facility], bed A. SUBJECTIVE: This is a 52-year-old female, seen and examined in rounds, still has intermittent periods of abdominal pain. The entire chart is reviewed, including, but not limited to the most recent lab and radiology study results, current and the previous medication list, current and the previous medical events, and today's white blood cell is still elevated to 12.7 with normal hemoglobin, and the hematocrit was normal. Platelet count was not . Blood glucose level 115 with low magnesium of 1.5 with mildly elevated cholesterol to 240. Amylase is still elevated at 126, but normal lipase . An official report of the CAT scan, abdomen, and the pelvis again is seen. The patient appears to be awake, alert, and oriented. PHYSICAL EXAMINATION GENERAL: A 52-year-old female, afebrile. VITAL SIGNS: Pulse of 80, respiratory rate 18-20, and blood pressure of 140/84. HEENT: Showed mildly pale, dry oral mucous membrane. Nonicteric sclerae. LUNGS: A few scattered crepitation with decreased air entry at bases. HEART: Positive S1 and S2. ABDOMEN: Soft with mild distention. No mass or organomegaly. No rebound tenderness or guarding. EXTREMITIES: No significant clubbing, cyanosis, or edema. NEUROLOGIC: No reported new neurological deficits, sensory or motor. IMPRESSION: 1. Acute pancreatitis. 2. Big suspicion of peptic ulcer disease. 3. Anemia secondary to above. 4. Chronic lower back pain syndrome. 5. Known history of osteoarthritis. 6. Chronic obstructive pulmonary disease. 7. Hypertension. 8. Hyperlipidemia. 9. Hypothyroidism. 10. Diverticulosis with possible early course of diverticulitis with leukocytosis. SUGGESTIONS: 1. Agree with your plan. 2. Follow liquid diet. 3. Repeat serum lipase and amylase levels. 4. Surgical evaluation. 5. Further recommendations to follow. Hector Belcher MD
[2017-07-30] MEDS: DiphenhydrAMINE 50 mg/ml Inj IVP PRN ×6 (02:22→23:22)
[2017-07-30] MEDS: Potassium Chloride 20 MEQ in Lactated Ringer's 1,000 ML IV SCH ×3 (04:40→15:06)
[2017-07-30 08:42] LABS: BASO % 0.3 % (0.0-2.0); EOS % 0.1 % (0.0-4.0); HEMOGLOBIN 12.2 g/dL (11.0-16.0); LYMPH # 0.7 K/uL (1.0-4.3); LYMPH % 5.8 % (20.0-40.0); MEAN CELL VOLUME 87.6 fL (81.0-99.0); MEAN CORPUSCULAR HEMOGLOBIN 29.6 pg (27.0-31.0); MEAN CORPUSCULAR HGB CONC 33.8 g/dL (33.0-37.0); MEAN PLATELET VOLUME 8.8 fL (7.2-11.7); MONO # 1.2 K/uL (0.0-0.8); MONO % 10.1 % (0.0-10.0); NEUT # 9.8 K/uL (1.8-7.0); NEUT % 83.7 % (50.0-75.0); NRBC % 0.1 % (0.0-2.0); PLATELET COUNT 281 K/uL (130-400); RBC 4.13 Mil/uL (3.80-5.20); WHITE BLOOD COUNT 11.7 K/uL (4.8-10.8)
[2017-07-30 08:52] LABS: ALB/GLOB RATIO 1.1 (1.0-2.1); ALBUMIN 4.3 g/dL (3.5-5.0); ALT/SGPT 54 U/L (9-52); AST/SGOT 37 U/L (14-36); BLOOD UREA NITROGEN 11 mg/dL (7-17); CALCIUM 8.7 mg/dl (8.6-10.4); GFR AFRICAN-AMERICAN > 60; GFR NON-AFRICAN AMERICAN > 60; MAGNESIUM 1.5 mg/dL (1.6-2.3)
[2017-07-30] MEDS: Fluticasone-Salmeterol 250-50mcg Diskus INH SCH ×2 (09:17→19:22)
--- NOTE | 2017-07-30 09:59 | PN ---
DATE: LOCATION: [facility], bed A. SUBJECTIVE: This is a 52-year-old female seen and examined in rounds with reported abdominal pain on and off, but less than before. The entire chart is reviewed including but not limited to the most recent lab and radiology study results, current and the previous medication list, current and the previous medical events and today's labs showed hemoglobin of 11.7 with normal hemoglobin and hematocrit and normal platelet count with low sodium 130, low potassium 3.5 with low magnesium 1.5 and mildly elevated AST to 37, ALT 54 with increased cholesterol level. All the cancer markers reported to be normal. Amylase still elevated to 126 and lipase 282. PHYSICAL EXAMINATION: GENERAL: A 52-year-old female. Awake, alert, oriented. VITAL SIGNS: Afebrile with pulse of 84, respiratory rate 20 to 22, blood pressure of 160/100. HEENT: Showed mildly pale dry oral mucous membrane. Nonicteric sclerae. LUNGS: Few scattered crepitation. Mild decrease of air entry. HEART: Positive S1 and S2. ABDOMEN: Soft. Bowel sounds are present with mild midepigastric tenderness. No mass or organomegaly. EXTREMITIES: Without significant clubbing, cyanosis or edema. NEUROLOGIC: No reported new neurological deficits, sensory or motor. The patient still has complaint of lower back pain. IMPRESSION: 1. Acute pancreatitis, improving chemically and biochemically. 2. Reexacerbation of peptic ulcer disease. 3. Known history of osteoarthritis, chronic lower back pain syndrome, chronic obstructive pulmonary disease. 4. Known history of hyperlipidemia, hypertension. 5. Hypothyroidism by history. 6. Diverticulosis with possible early phase of diverticulitis and leukocytosis. 7. Mild anemia by history. SUGGESTION: 1. Continue current management. 2. Rehydration. 3. Correct any underlying electrolyte imbalance. 4. Further recommendation to follow. Hector Belcher MD
[2017-07-30 10:20] LABS: LYMPHOCYTE 5 % (20-40); MONOCYTE 10 % (0-10); NEUTROPHIL 85 % (50-75); TOTAL CELLS COUNTED 100
[2017-07-30 10:21] LABS: ANISOCYTOSIS SLIGHT; HYPOCHROMIC SLIGHT; PLATELET ESTIMATE NORMAL (NORMAL)
[2017-07-30 10:22] LABS: LARGE PLATELETS PRESENT
[2017-07-30] MEDS: Enoxaparin 40 mg Syringe SC SCH (10:46)
[2017-07-30] MEDS ORDERED: Potassium Chloride 20 mEq ER Tab PO ONE ×2 (14:00→14:28)
[2017-07-31] MEDS: Potassium Chloride 20 MEQ in Lactated Ringer's 1,000 ML IV SCH ×4 (01:41→21:00)
[2017-07-31] MEDS: DiphenhydrAMINE 50 mg/ml Inj IVP PRN ×5 (03:20→20:05)
--- NOTE | 2017-07-31 07:57 | PN ---
DATE: 07/29/2017 SUBJECTIVE: The patient is admitted with complaint of nausea and vomiting. supportive care. The patient to get bedrest, supportive care, and IV fluids. potassium. Blood pressure is controlled. Oleg Ellison MD
[2017-07-31 08:38] LABS: BASO % 0.4 % (0.0-2.0); EOS # 0.1 K/uL (0.0-0.7); EOS % 1.1 % (0.0-4.0); HEMOGLOBIN 11.7 g/dL (11.0-16.0); LYMPH # 0.6 K/uL (1.0-4.3); LYMPH % 8.4 % (20.0-40.0); MEAN CELL VOLUME 87.7 fL (81.0-99.0); MEAN CORPUSCULAR HGB CONC 34.3 g/dL (33.0-37.0); MEAN PLATELET VOLUME 8.5 fL (7.2-11.7); MONO # 1.3 K/uL (0.0-0.8); MONO % 16.6 % (0.0-10.0); NEUT # 5.5 K/uL (1.8-7.0); NEUT % 73.5 % (50.0-75.0); PLATELET COUNT 239 K/uL (130-400); RBC 3.91 Mil/uL (3.80-5.20); WHITE BLOOD COUNT 7.5 K/uL (4.8-10.8)
[2017-07-31 09:10] LABS: BANDS 1 % (0-2); EOSINOPHIL 2 % (0-4); LYMPHOCYTE 6 % (20-40); MONOCYTE 16 % (0-10); NEUTROPHIL 75 % (50-75); PLATELET ESTIMATE NORMAL (NORMAL); TOTAL CELLS COUNTED 100
[2017-07-31 09:11] LABS: HYPOCHROMIC SLIGHT
[2017-07-31 09:15] LABS: ALB/GLOB RATIO 1.1 (1.0-2.1); ALBUMIN 3.9 g/dL (3.5-5.0); ALT/SGPT 44 U/L (9-52); AST/SGOT 34 U/L (14-36); BLOOD UREA NITROGEN 14 mg/dL (7-17); CALCIUM 8.3 mg/dl (8.6-10.4); GFR AFRICAN-AMERICAN > 60; GFR NON-AFRICAN AMERICAN 58; MAGNESIUM 1.6 mg/dL (1.6-2.3)
[2017-07-31] MEDS: Enoxaparin 40 mg Syringe SC SCH (10:33)
[2017-07-31] MEDS: Magnesium Sulfate 1 gm in D5W 1 GM/100 ML BAG IVPB SCH ×2 (10:35→12:03)
[2017-07-31] MEDS: Fluticasone-Salmeterol 250-50mcg Diskus INH SCH ×2 (11:10→20:19)
--- NOTE | 2017-07-31 12:06 | CP.PCM.PN ---
Subjective - Date & Time of Evaluation Date of Evaluation: 07/31/17 Time of Evaluation: 08:00 - Subjective Subjective: Medicine progress note for Dr. Ellison: Patient is seen and examined at bedside this morning. She stated that she vomited once this morning. She is still NPO but has been able to swallow medications with water. She reports that she is still having pain in the epigastric area which has improved since her admission but is still very tender. She denies fever/chills but overnight the nurses reported that she had a 101 degree fever. She was given Tylenol. She denied chest pain. SOB, palpitations. She denies urinary problems. She has no had a BM for one week. Objective - Vital Signs/Intake and Output Vital Signs (last 24 hours): Temp Pulse Resp BP Pulse Ox 99 F 94 H 20 154/96 H 97 07/31/17 08:06 07/31/17 08:06 07/31/17 08:06 07/31/17 08:06 07/31/17 08:06 Intake and Output: 07/31/17 07/31/17 06:59 18:59 Intake Total 800 Balance 800 - Medications Medications: Current Medications Alprazolam (Xanax) 0.5 mg PO BID PRN PRN Reason: Anxiety Last Admin: 07/31/17 10:34 Dose: 0.5 mg Amlodipine Besylate (Norvasc) 10 mg PO DAILY [facility] Last Admin: 07/31/17 10:34 Dose: 10 mg Diphenhydramine HCl (Benadryl) 25 mg IVP Q4 PRN PRN Reason: Itching / Pruritus Last Admin: 07/31/17 07:42 Dose: 25 mg Docusate Sodium (Colace) 100 mg PO BID [facility] Last Admin: 07/31/17 10:34 Dose: 100 mg Enoxaparin Sodium (Lovenox) 40 mg SC DAILY [facility] Last Admin: 07/31/17 10:33 Dose: 40 mg Hydromorphone HCl (Dilaudid) 2 mg IVP Q4H PRN PRN Reason: Pain, moderate (4-7) Last Admin: 07/31/17 07:45 Dose: 2 mg Potassium Chloride 20 meq/ (Lactated Ringer's) 1,010 mls @ 100 mls/hr IV .Q10H6M [facility] Last Admin: 07/31/17 01:41 Dose: 100 mls/hr Pantoprazole Sodium (Protonix Inj) 40 mg IVP DAILY [facility] Last Admin: 07/31/17 10:34 Dose: 40 mg Prochlorperazine (Compazine) 10 mg IVP Q4 PRN PRN Reason: Nausea/Vomiting Last Admin: 07/31/17 08:35 Dose: 10 mg Rosuvastatin Calcium (Crestor) 5 mg PO HS GERRY Fluticasone/Salmeterol (Advair Diskus 250/50) 1 puff INH RQ12 [facility] Last Admin: 07/31/17 11:10 Dose: 1 puff Zolpidem Tartrate (Ambien) 5 mg PO HS PRN PRN Reason: Insomnia - Labs Labs: 07/31/17 08:27 07/31/17 08:27 PT 12.7 SECONDS (9.7-12.2) H 07/28/17 14:42 INR 1.1 07/28/17 14:42 APTT 31 SECONDS (21-34) 07/28/17 14:42 - Constitutional Appears: Non-toxic, No Acute Distress - Head Exam Head Exam: ATRAUMATIC, NORMAL INSPECTION - Eye Exam Eye Exam: EOMI - ENT Exam ENT Exam: Mucous Membranes Moist - Respiratory Exam Respiratory Exam: Clear to Ausculation Bilateral, NORMAL BREATHING PATTERN. absent: Respiratory Distress - Cardiovascular Exam Cardiovascular Exam: REGULAR RHYTHM, +S1, +S2 - GI/Abdominal Exam GI & Abdominal Exam: Guarding, Soft, Tenderness, Normal Bowel Sounds. absent: Distended, Firm - Extremities Exam Extremities Exam: Normal Inspection. absent: Calf Tenderness, Pedal Edema - Back Exam Back Exam: NORMAL INSPECTION. absent: CVA tenderness (L), CVA tenderness (R), paraspinal tenderness - Neurological Exam Neurological Exam: Alert, Awake, CN II-XII Intact, Normal Gait, Oriented x3 Neuro motor strength exam: Left Upper Extremity: 5, Right Upper Extremity: 5, Left Lower Extremity: 5, Right Lower Extremity: 5 - Psychiatric Exam Psychiatric exam: Normal Affect, Normal Mood - Skin Skin Exam: Dry, Intact, Normal Color, Warm Assessment and Plan - Assessment and Plan (Free Text) Assessment: Pancreatits Assessment & Plan: GI consulted Dr. Walls - F/U recommendations NPO CT imaging- Unremarkable pancreas. 2.2x2.2x4.4 cm focal collection within anterior soft tissues of bowel with surrounding mild inflamm changes. Cannot exclude abscess. Refer to complete report. Patient has had 3 CT scans within the last 8 days. The most recent results reported above. Refer to hospital record for the other reports. Elevated lipase 924 then trended to 282 WBC now normalized to 7.5 LR @ 100 mls/hr for amy 24 hrs. Can decrease rate afterwards and assess whether diet can be advanced. Pain control Initially on Zofran 8 mg Q6 PRN. Patient with continuous vomiting. One dose of Reglan Stat. Also added on compazine PRN S/P Ventral hernia repair on 07/07/17- F/U with Dr. Mcguire recommendations AFP 3.7, CEA 2.2, Ca19-9 <1.4, Ca 125 <5.5 Febrile Assessment & Plan: Tmax 101 overnight 07/30 f/u blood cultures and UA Status: Acute Intractable vomiting Assessment & Plan: NPO Antiemetics as stated above Status: Acute Transaminitis Assessment & Plan: 07/21: Hepatitis panel negative. Status: Chronic Hypertension Assessment & Plan: Norvasc 10 mg PO daily Status: Chronic Hypercholesteremia Assessment & Plan: Crestor 10 mg HS Status: Chronic Asthma Assessment & Plan: Advair daily Duonebs PRN Status: Chronic Anxiety Assessment & Plan: Xanax 5 mg PO PRN Ambien 10 mg HS Status: Chronic Prophylactic measure Assessment & Plan: Zofran Pepcid BID SCDs Lovenox 40 mg SC daily Discussed with attending. All management and planning per Dr. Ellison.
--- NOTE | 2017-07-31 14:08 | RAD ---
HISTORY: cough, with fever on, r/p pneumonia COMPARISON: 07/20/2017 TECHNIQUE: Chest PA and lateral FINDINGS: LUNGS: No active pulmonary disease. PLEURA: No significant pleural effusion identified. No pneumothorax apparent. CARDIOVASCULAR: Normal heart size. Right central venous infusion port. OSSEOUS STRUCTURES: No significant abnormalities. VISUALIZED UPPER ABDOMEN: Normal. OTHER FINDINGS: None. IMPRESSION: No active disease.
[2017-07-31 14:27] LABS: SQUAMOUS EPITHIAL 1 /hpf (0-5); URINE BACTERIA RARE (<OCC); URINE BILIRUBIN NEGATIVE (NEGATIVE); URINE BLOOD 3+ (NEGATIVE); URINE CLARITY Clear (Clear); URINE COLOR Yellow (YELLOW); URINE GLUCOSE (UA) NORMAL (Normal); URINE HYALINE CAST 0-2 /lpf (0-2); URINE LEUKOCYTE ESTERASE NEG Leu/uL (Negative); URINE NITRATE NEGATIVE (NEGATIVE); URINE PROTEIN NEGATIVE (NEGATIVE); URINE UROBILINOGEN NORMAL mg/dL (0.2-1.0)
[2017-07-31] MEDS ORDERED: Potassium Chloride 20 mEq ER Tab PO ONE (14:30)
[2017-07-31 14:56] LABS: OSMOLALITY,URINE 445 mosm/kg (300-1000)
[2017-08-01] MEDS: DiphenhydrAMINE 50 mg/ml Inj IVP PRN ×6 (00:17→22:10)
[2017-08-01] MEDS: Potassium Chloride 20 MEQ in Lactated Ringer's 1,000 ML IV SCH ×3 (00:21→10:26)
--- NOTE | 2017-08-01 07:58 | CP.PCM.PN ---
Subjective - Date & Time of Evaluation Date of Evaluation: 08/01/17 Time of Evaluation: 07:51 - Subjective Subjective: PGY-[address] Ellison's service: Patient seen and examined at bedside. Nursing reports patient has vomited twice overnight and has elevated temperature but afebrile. Patient c/o continued pain in LUQ, that she states is improved since admission but still "7/10" on the severity scale. She also complains of constipation for the last "5 days" but admits passing gas. She denies subjective fever/chills, chest pain, SOB, diarrhea. Objective - Vital Signs/Intake and Output Vital Signs (last 24 hours): Temp Pulse Resp BP Pulse Ox 99.1 F 68 20 145/93 H 96 08/01/17 06:28 08/01/17 00:09 08/01/17 00:09 08/01/17 00:09 08/01/17 00:09 Intake and Output: 08/01/17 08/01/17 06:59 18:59 Intake Total 1660 Output Total 4 Balance 1656 - Medications Medications: Current Medications Alprazolam (Xanax) 0.5 mg PO BID PRN PRN Reason: Anxiety Last Admin: 07/31/17 10:34 Dose: 0.5 mg Amlodipine Besylate (Norvasc) 10 mg PO DAILY [facility] Last Admin: 07/31/17 10:34 Dose: 10 mg Diphenhydramine HCl (Benadryl) 25 mg IVP Q4 PRN PRN Reason: Itching / Pruritus Last Admin: 08/01/17 04:20 Dose: 25 mg Docusate Sodium (Colace) 100 mg PO BID [facility] Last Admin: 07/31/17 18:12 Dose: 100 mg Enoxaparin Sodium (Lovenox) 40 mg SC DAILY [facility] Last Admin: 07/31/17 10:33 Dose: 40 mg Hydromorphone HCl (Dilaudid) 2 mg IVP Q4H PRN PRN Reason: Pain, moderate (4-7) Last Admin: 08/01/17 04:18 Dose: 2 mg Potassium Chloride 20 meq/ (Lactated Ringer's) 1,010 mls @ 100 mls/hr IV .Q10H6M [facility] Last Admin: 08/01/17 07:06 Dose: Not Given Pantoprazole Sodium (Protonix Inj) 40 mg IVP DAILY [facility] Last Admin: 07/31/17 10:34 Dose: 40 mg Prochlorperazine (Compazine) 10 mg IVP Q4 PRN PRN Reason: Nausea/Vomiting Last Admin: 08/01/17 00:30 Dose: 10 mg Rosuvastatin Calcium (Crestor) 5 mg PO HS GERRY Fluticasone/Salmeterol (Advair Diskus 250/50) 1 puff INH RQ12 [facility] Last Admin: 07/31/17 20:19 Dose: 1 puff Zolpidem Tartrate (Ambien) 5 mg PO HS PRN PRN Reason: Insomnia - Labs Labs: 07/31/17 08:27 07/31/17 08:27 PT 12.7 SECONDS (9.7-12.2) H 07/28/17 14:42 INR 1.1 07/28/17 14:42 APTT 31 SECONDS (21-34) 07/28/17 14:42 - Constitutional Appears: Non-toxic, No Acute Distress - Head Exam Head Exam: ATRAUMATIC, NORMAL INSPECTION - Eye Exam Eye Exam: EOMI - ENT Exam ENT Exam: Mucous Membranes Moist - Respiratory Exam Respiratory Exam: Clear to Ausculation Bilateral, NORMAL BREATHING PATTERN - Cardiovascular Exam Cardiovascular Exam: REGULAR RHYTHM, +S1, +S2 - GI/Abdominal Exam GI & Abdominal Exam: Guarding, Soft, Tenderness, Normal Bowel Sounds - Extremities Exam Extremities Exam: Normal Inspection. absent: Calf Tenderness - Back Exam Back Exam: absent: CVA tenderness (L), CVA tenderness (R) - Neurological Exam Neurological Exam: Alert, Awake, Oriented x3 - Psychiatric Exam Psychiatric exam: Normal Affect, Normal Mood - Skin Skin Exam: Normal Color, Warm Assessment and Plan - Assessment and Plan (Free Text) Plan: Pancreatits Assessment & Plan: Admit to med/surg NPO Lipase 924 on admission, f/u 282 on 07/29/17 CT A/P (07/27/17) Unremarkable pancreas. 2.2x2.2x4.4 cm focal collection within anterior soft tissues of bowel with surrounding mild inflamm changes. Cannot exclude abscess. Refer to complete report. Patient has had 3 CT scans within the last 8 days. The most recent results reported above. Refer to hospital record for the other reports Diluadid 2mg IV Q4H PRN Initially on Zofran 8 mg Q6 PRN. Patient with continuous vomiting - One dose of Reglan Stat. Also added on compazine PRN GI artist consultant, Dr. Walls - continue rehydration, correct electrolytes S/P Ventral hernia repair on 07/07/17 - F/U with Dr. Mcguire recommendations AFP 3.7, CEA 2.2, Ca19-9 <1.4, Ca 125 <5.5 Hyponatremia Na 125 this AM HOLD IVF f/u AM lab Febrile Assessment & Plan: 08/01: Temp elevated (Tmax 100.2) but afebrile overnight No WBC, bandemia CXR (07/31/17): NAD Tmax 101 overnight 07/30 blood cultures (07/31/17): negative x 24 hrs Status: Acute Intractable vomiting Assessment & Plan: NPO Antiemetics as stated above Status: Acute Transaminitis Assessment & Plan: 07/21: Hepatitis panel negative. Status: Chronic Hypertension Assessment & Plan: Remain elevated Norvasc increased to 10 mg PO daily on 07/31/17 Status: Chronic Hypercholesteremia Assessment & Plan: Crestor 10 mg HS Status: Chronic Asthma Assessment & Plan: Advair daily Duonebs PRN Status: Chronic Anxiety Assessment & Plan: Xanax 5 mg PO PRN Ambien 5 mg PO HS Status: Chronic Prophylactic measure Assessment & Plan: Zofran Pepcid BID SCDs Lovenox 40 mg SC daily [facility] PGY-2 Discussed with attending. All management and planning per Dr. Ellison.
[2017-08-01] MEDS: Enoxaparin 40 mg Syringe SC SCH ×2 (08:56→10:27)
[2017-08-01] MEDS: Fluticasone-Salmeterol 250-50mcg Diskus INH SCH ×2 (10:01→20:56)
[2017-08-01 11:28] LABS: BASO % 0.6 % (0.0-2.0); EOS # 0.1 K/uL (0.0-0.7); EOS % 2.4 % (0.0-4.0); HEMOGLOBIN 12.3 g/dL (11.0-16.0); LYMPH # 1.1 K/uL (1.0-4.3); LYMPH % 17.5 % (20.0-40.0); MEAN CELL VOLUME 86.8 fL (81.0-99.0); MEAN CORPUSCULAR HGB CONC 33.4 g/dL (33.0-37.0); MEAN PLATELET VOLUME 8.3 fL (7.2-11.7); MONO # 1.3 K/uL (0.0-0.8); MONO % 20.7 % (0.0-10.0); NEUT # 3.6 K/uL (1.8-7.0); NEUT % 58.8 % (50.0-75.0); NRBC % 0.1 % (0.0-2.0); PLATELET COUNT 248 K/uL (130-400); RBC 4.26 Mil/uL (3.80-5.20); RED CELL DISTRIBUTION WIDTH 14.1 % (11.5-14.5); WHITE BLOOD COUNT 6.2 K/uL (4.8-10.8)
[2017-08-01 11:55] LABS: ALBUMIN 3.9 g/dL (3.5-5.0); ALT/SGPT 36 U/L (9-52); AST/SGOT 30 U/L (14-36); BLOOD UREA NITROGEN 12 mg/dL (7-17); CALCIUM 8.3 mg/dl (8.6-10.4); GFR AFRICAN-AMERICAN > 60; GFR NON-AFRICAN AMERICAN > 60; MAGNESIUM 1.8 mg/dL (1.6-2.3)
[2017-08-01 12:48] LABS: EOSINOPHIL 3 % (0-4); LYMPHOCYTE 20 % (20-40); MONOCYTE 19 % (0-10); NEUTROPHIL 58 % (50-75); PLATELET ESTIMATE NORMAL (NORMAL); TOTAL CELLS COUNTED 100
[2017-08-02] MEDS: DiphenhydrAMINE 50 mg/ml Inj IVP PRN ×5 (04:40→22:23)
[2017-08-02 07:27] LABS: BASO % 0.4 % (0.0-2.0); EOS # 0.2 K/uL (0.0-0.7); EOS % 2.7 % (0.0-4.0); HEMOGLOBIN 12.1 g/dL (11.0-16.0); LYMPH # 0.8 K/uL (1.0-4.3); LYMPH % 11.5 % (20.0-40.0); MEAN CELL VOLUME 88.7 fL (81.0-99.0); MEAN CORPUSCULAR HEMOGLOBIN 29.3 pg (27.0-31.0); MEAN CORPUSCULAR HGB CONC 33.1 g/dL (33.0-37.0); MEAN PLATELET VOLUME 8.4 fL (7.2-11.7); MONO # 1.1 K/uL (0.0-0.8); NEUT # 4.5 K/uL (1.8-7.0); NEUT % 68.4 % (50.0-75.0); RBC 4.12 Mil/uL (3.80-5.20); RED CELL DISTRIBUTION WIDTH 14.4 % (11.5-14.5); WHITE BLOOD COUNT 6.6 K/uL (4.8-10.8)
--- NOTE | 2017-08-02 07:40 | CP.PCM.PN ---
Subjective - Date & Time of Evaluation Date of Evaluation: 08/02/17 Time of Evaluation: 07:00 - Subjective Subjective: PGY-[address] Ellison's service: Patient seen and examined at bedside. Patient said her pain is still 10/10 and is not controlled. She was crying this morning due the exam. She states the pain is in her epigastric region. She states she has vomited 2x since yesterday and has only had ice chips. She reports having a BM yesterday. She admits to fevers but denies all other complaints such as chest pain or shortness of breath. Objective - Vital Signs/Intake and Output Vital Signs (last 24 hours): Temp Pulse Resp BP Pulse Ox 98.4 F 79 20 125/79 97 08/02/17 07:24 08/02/17 07:24 08/02/17 07:24 08/02/17 07:24 08/02/17 07:24 Intake and Output: 08/02/17 08/02/17 06:59 18:59 Intake Total 1660 Balance 1660 - Medications Medications: Current Medications Alprazolam (Xanax) 0.5 mg PO BID PRN PRN Reason: Anxiety Last Admin: 07/31/17 10:34 Dose: 0.5 mg Amlodipine Besylate (Norvasc) 10 mg PO DAILY [facility] Last Admin: 08/01/17 10:44 Dose: 10 mg Diphenhydramine HCl (Benadryl) 25 mg IVP Q4 PRN PRN Reason: Itching / Pruritus Last Admin: 08/02/17 04:40 Dose: 25 mg Docusate Sodium (Colace) 100 mg PO BID [facility] Last Admin: 08/01/17 17:27 Dose: 100 mg Enoxaparin Sodium (Lovenox) 40 mg SC DAILY [facility] Last Admin: 08/01/17 10:27 Dose: Not Given Hydromorphone HCl (Dilaudid) 2 mg IVP Q4H PRN PRN Reason: Pain, moderate (4-7) Last Admin: 08/02/17 04:42 Dose: 2 mg Pantoprazole Sodium (Protonix Inj) 40 mg IVP DAILY [facility] Last Admin: 08/01/17 10:28 Dose: Not Given Prochlorperazine (Compazine) 10 mg IVP Q4 PRN PRN Reason: Nausea/Vomiting Last Admin: 08/01/17 08:45 Dose: 10 mg Rosuvastatin Calcium (Crestor) 5 mg PO HS GERRY Last Admin: 08/01/17 22:10 Dose: 5 mg Fluticasone/Salmeterol (Advair Diskus 250/50) 1 puff INH RQ12 [facility] Last Admin: 08/01/17 20:56 Dose: 1 puff Zolpidem Tartrate (Ambien) 5 mg PO HS PRN PRN Reason: Insomnia - Labs Labs: 08/02/17 07:12 08/01/17 11:21 PT 12.7 SECONDS (9.7-12.2) H 07/28/17 14:42 INR 1.1 07/28/17 14:42 APTT 31 SECONDS (21-34) 07/28/17 14:42 - Constitutional Appears: Non-toxic, No Acute Distress, Other (patient crying) - Head Exam Head Exam: ATRAUMATIC, NORMAL INSPECTION - Eye Exam Eye Exam: EOMI - ENT Exam ENT Exam: Mucous Membranes Moist - Respiratory Exam Respiratory Exam: Clear to Ausculation Bilateral, NORMAL BREATHING PATTERN. absent: Respiratory Distress - Cardiovascular Exam Cardiovascular Exam: REGULAR RHYTHM, +S1, +S2 - GI/Abdominal Exam GI & Abdominal Exam: Soft, Tenderness, Normal Bowel Sounds. absent: Distended, Guarding - Extremities Exam Extremities Exam: Normal Inspection. absent: Calf Tenderness - Back Exam Back Exam: NORMAL INSPECTION - Neurological Exam Neurological Exam: Alert, Awake, CN II-XII Intact, Oriented x3 Neuro motor strength exam: Left Upper Extremity: 5, Right Upper Extremity: 5, Left Lower Extremity: 5, Right Lower Extremity: 5 - Psychiatric Exam Psychiatric exam: Normal Affect, Normal Mood - Skin Skin Exam: Dry, Intact, Normal Color, Warm Assessment and Plan - Assessment and Plan (Free Text) Assessment: Pancreatits Assessment & Plan: Admit to med/surg NPO - patient is now on day 6 of being NPO need to consider nutrition, patient has no desire to eat Lipase 271 today, 924 on admission, 282 on 07/29/17 CT A/P (07/27/17) Unremarkable pancreas. 2.2x2.2x4.4 cm focal collection within anterior soft tissues of bowel with surrounding mild inflamm changes. Cannot exclude abscess. Refer to complete report. Patient has had 3 CT scans within the last 8 days. The most recent results reported above. Refer to hospital record for the other reports Diluadid 2mg IV Q4H PRN, required an extra dose today Initially on Zofran 8 mg Q6 PRN. Patient with continuous vomiting - One dose of Reglan Stat. Also added on compazine PRN GI data virtualization consultant, Dr. Walls - f/u MRCP today, (patient allergic to contrast) S/P Ventral hernia repair on 07/07/17 - F/U with Dr. Mcguire recommendations AFP 3.7, CEA 2.2, Ca19-9 <1.4, Ca 125 <5.5 Hyponatremia Na 127 this AM up from 125 yesterday NA at 100cc/hour possibly due to SIADH Nephrology consulted, Dr. Marin hebert - f/u recs, tolvaptan dose? Urine osmol 445 Ur na random 121 Febrile Assessment & Plan: patien has been afebrile for over 24 hours No WBC, bandemia CXR (07/31/17): NAD Tmax 101 overnight 07/30 blood cultures (07/31/17): negative x 48 hrs Status: Acute Intractable vomiting Assessment & Plan: NPO Antiemetics as stated above Status: Acute Transaminitis Assessment & Plan: Hepatitis panel negative. Status: Chronic Hypertension Assessment & Plan: Norvasc 10 mg PO daily Status: Chronic Hypercholesteremia Assessment & Plan: Crestor 10 mg HS Status: Chronic Asthma Assessment & Plan: Advair daily Duonebs PRN Status: Chronic Anxiety Assessment & Plan: Xanax 5 mg PO PRN Ambien 5 mg PO HS Status: Chronic Prophylactic measure Assessment & Plan: Zofran Pepcid BID SCDs Lovenox 40 mg SC daily Discussed with attending. All management and planning per Dr. Ellison.
[2017-08-02 07:56] LABS: ALB/GLOB RATIO 1.1 (1.0-2.1); ALT/SGPT 50 U/L (9-52); AST/SGOT 27 U/L (14-36); BLOOD UREA NITROGEN 12 mg/dL (7-17); CALCIUM 8.5 mg/dl (8.6-10.4); GFR AFRICAN-AMERICAN > 60; GFR NON-AFRICAN AMERICAN > 60; MAGNESIUM 1.8 mg/dL (1.6-2.3)
[2017-08-02] MEDS: Fluticasone-Salmeterol 250-50mcg Diskus INH SCH ×2 (08:56→20:36)
[2017-08-02] MEDS ORDERED: DiphenhydrAMINE 50 mg/ml Inj IVP ONE (10:47)
[2017-08-02] MEDS: Enoxaparin 40 mg Syringe SC SCH (11:10)
[2017-08-02] MEDS: Sodium Chloride 0.9% 1,000 ML IV SCH ×2 (14:07→23:24)
--- NOTE | 2017-08-02 14:18 | PN ---
DATE: LOCATION: [facility], bed A. SUBJECTIVE: This is a 52-year-old female seen in rounds today as requested again by Dr. Ellison. The entire chart is reviewed including, but not limited to the most recent lab and radiology study results, current and the previous medication list, current and the previous medical events. Patient is still complaining of some abdominal pain, but positive bowel movement and positive oral intake. LABORATORY DATA: Today's labs showed normal CBC with sodium still low of 127, low calcium 8.5 with recent normal lipase and amylase level as reported. PHYSICAL EXAMINATION: GENERAL: A 52-year-old female. VITAL SIGNS: Afebrile with pulse of 82 with blood pressure 130/76, respiratory rate 20 to 22. HEENT: Show dry oral mucous membrane, nonicteric sclera. LUNGS: Few scattered crepitation. Decreased air entry at bases. HEART: Positive S1 and S2. ABDOMEN: Soft, bowel sounds are present with mild generalized tenderness. No mass or organomegaly. NEUROLOGIC: No reported new neurological deficits, sensory or motor. IMPRESSION: 1. Acute pancreatitis, improving. 2. Known history of osteoarthritis, chronic lower back pain syndrome with chronic obstructive pulmonary disease. 3. Known history of hypertension, hyperlipidemia. 4. Hypothyroidism. 5. Diverticulosis with possible early state of diverticulitis. 6. Mild anemia. SUGGESTIONS: 1. Continue current management. 2. MRCP. 3. Followup cancer markers. Hector Belcher MD
[2017-08-02 14:34] LABS: AMYLASE 78 U/L (30-110); LIPASE 217 U/L (23-300)
--- NOTE | 2017-08-02 17:09 | CP.PCM.CON ---
History of Present Illness - History of Present Illness History of Present Illness: Initial Nephrology Consultation: Assessment: Stable hyponatremia likely due to hypotonic fluid given as LR, and ADH stimulation by pain/nausea/vomiting HTN, obesity pain abdomen ventral hernia repair Plan Hypertension control with meds as ordered. may add ACEI or ARB if needed Monitor Input/Output, daily weights and Na level avoid hypotonic fluids. agree with NS avoid correction in serum Na >6-8 meq/24 hrs. no need for hypertonic saline at this time supplement electrolytes as needed Glycemic control Further work up/management as per primary team Thanks for allowing me to participate in care of your patient. Will follow patient with you. Please call if any Qs. d/w fteam Dr Rocky Rizo Office: [phone] Chief Complaint; pain abdomen reason for consult: Hyponatremia HPI: Pt is a 52 F with hx of hypertensionobesity, anxiety recently underwent ventral hernia surgery had episode of pain abdomen and nausea/vomitting for last 10 days. she has been NPO and reeceived LR as IVF. renal consult for hyponatremia pt overall feels better today. pain better. no nausea/vomitting at present. non smoker not on ssRI ROS: Cardiovascular: No chest pain. Pulmonary: No shortness of breath Gastrointestinal: improved abdominal pain/nausea/vomiting. Genitourinary: No pain while urinating. Denies blood in urine. All other negative Physical Examination: General Appearance: Comfortable, in no acute respiratory distress, co-operative . obese Vitals reviewed and noted as below Head; Atraumatic, normocephalic ENT: no ulcers no thrush. Tongue is midline. Oropharynx: no rash or ulcers. EYES: Pupils are equal, round and reactive to light accommodation. Eye muscles and extraocular movement intact. Sclera is anicteric. Neck; supple no lymphadenopathy, no thyromegaly or bruit Lungs: Normal respiratory rate/effort. Breath sounds bilateral equal and clear Heart: Normal rate. s1s2 normal. No rub or gallop. Extremities: no edema. No varicose veins Neurological: Patient is alert, awake and oriented to person, place and time. No focal deficit. Strength bilateral appropriate and equal Skin: Warm and dry. Normal turgor. No rash. Palpitation: Normal elasticity for age Abdomen: Abdomen is soft. Bowel sounds +. There is mild left mid quadrant abdominal tenderness, no guarding/rigidity no organomegaly Psych: limited insight and normal affect/mood MSK: no joint tenderness or swelling. Digits and nails normal, no deformity : kidney or bladder not palpable Labs/imaging reviewed. Past medical history, past surgical history, family history, social history, allergy reviewed and noted as below Family hx: no hx of CKD. Rest non-contributory work up: TGL 100 urien Na 121 urine Osmol 415 Past Patient History - Infectious Disease Hx of Infectious Diseases: None - Tetanus Immunizations Tetanus Immunization: Unknown - Past Medical History & Family History Past Medical History?: Yes - Past Social History Smoking Status: Never Smoked - CARDIAC Hx Cardiac Disorders: Yes Hx Hypercholesterolemia: Yes Hx Hypertension: Yes - PULMONARY Hx Respiratory Disorders: Yes Hx Asthma: Yes Hx Bronchitis: Yes Hx Chronic Obstructive Pulmonary Disease (COPD): Yes - NEUROLOGICAL Hx Alzheimer's Disease: No - HEENT Hx HEENT Problems: No - RENAL Hx Chronic Kidney Disease: No Hx Dialysis: No Hx Neurogenic Bladder: No Hx Pyelonephritis: No Hx Renal (Kidney) Cancer: No Hx Renal Failure: No - ENDOCRINE/METABOLIC Hx Endocrine Disorders: Yes Hx Hypothyroidism: Yes - HEMATOLOGICAL/ONCOLOGICAL Hx Blood Disorders: Yes Hx Anemia: Yes - INTEGUMENTARY Hx Dermatological Problems: No Hx Basil Cell: No Hx Sahu: No Hx Cellulitis: No Hx Eczema: No Hx Melanoma: No Hx Psoriasis: No Hx Squamous Cell: No - MUSCULOSKELETAL/RHEUMATOLOGICAL Hx Falls: No - GASTROINTESTINAL Hx Gastrointestinal Disorders: Yes Hx Diverticulitis: Yes Hx Gastritis: Yes Hx Pancreatitis: Yes - GENITOURINARY/GYNECOLOGICAL Hx Genitourinary Disorders: Yes - PSYCHIATRIC Hx Substance Use: No - SURGICAL HISTORY Hx Surgeries: Yes Hx Appendectomy: Yes Hx Cholecystectomy: Yes Hx Herniorrhaphy: Yes (ventral hernia) - ANESTHESIA Hx Anesthesia: Yes Hx Anesthesia Reactions: No Hx Malignant Hyperthermia: No Has any member of the family had a problem w/ anesthesia?: No Meds Allergies/Adverse Reactions: Allergies Allergy/AdvReac Type Severity Reaction Status Date / Time iodine Allergy Severe ANAPHYLAXIS Verified 07/20/17 09:03 ceftriaxone Allergy RASH Verified 07/20/17 09:03 Iodine and Iodide Containing Allergy RASH Verified 07/20/17 09:03 Produc ketorolac tromethamine Allergy SHORTNESS Verified 07/20/17 09:03 [From Toradol] OF BREATH morphine Allergy RASH Verified 07/20/17 09:03 seafood Allergy Severe ANAPHYLAXIS Uncoded 07/20/17 09:03 iv contrast Allergy ITCHING Uncoded 07/20/17 09:03 - Medications Medications: Current Medications Alprazolam (Xanax) 0.5 mg PO BID PRN PRN Reason: Anxiety Last Admin: 07/31/17 10:34 Dose: 0.5 mg Amlodipine Besylate (Norvasc) 10 mg PO DAILY [facility] Last Admin: 08/02/17 11:11 Dose: Not Given Diphenhydramine HCl (Benadryl) 25 mg IVP Q4 PRN PRN Reason: Itching / Pruritus Last Admin: 08/02/17 14:03 Dose: 25 mg Docusate Sodium (Colace) 100 mg PO BID [facility] Last Admin: 08/02/17 11:09 Dose: Not Given Enoxaparin Sodium (Lovenox) 40 mg SC DAILY [facility] Last Admin: 08/02/17 11:10 Dose: 40 mg Hydromorphone HCl (Dilaudid) 2 mg IVP Q4H PRN PRN Reason: Pain, moderate (4-7) Last Admin: 08/02/17 14:03 Dose: 2 mg Sodium Chloride (Sodium Chloride 0.9%) 1,000 mls @ 100 mls/hr IV .Q10H [facility] Last Admin: 08/02/17 14:07 Dose: 100 mls/hr Pantoprazole Sodium (Protonix Inj) 40 mg IVP DAILY [facility] Last Admin: 08/02/17 11:10 Dose: Not Given Prochlorperazine (Compazine) 10 mg IVP Q4 PRN PRN Reason: Nausea/Vomiting Last Admin: 08/02/17 08:50 Dose: 10 mg Rosuvastatin Calcium (Crestor) 5 mg PO HS [facility] Last Admin: 08/01/17 22:10 Dose: 5 mg Fluticasone/Salmeterol (Advair Diskus 250/50) 1 puff INH RQ12 [facility] Last Admin: 08/02/17 08:56 Dose: 1 puff Zolpidem Tartrate (Ambien) 5 mg PO HS PRN PRN Reason: Insomnia Results - Vital Signs Recent Vital Signs: Last Vital Signs Temp 98.4 F 08/02/17 07:24 Pulse 79 08/02/17 07:24 Resp 20 08/02/17 07:24 BP 125/79 08/02/17 07:24 Pulse Ox 97 08/02/17 07:24 - Labs Result Diagrams: 08/02/17 07:12 08/02/17 07:12 Labs: Laboratory Results - last 24 hr 08/02/17 08/02/17 08/02/17 07:12 07:12 13:42 WBC 6.6 RBC 4.12 Hgb 12.1 Hct 36.5 MCV 88.7 MCH 29.3 MCHC 33.1 RDW 14.4 Plt Count 245 MPV 8.4 Neut % (Auto) 68.4 Lymph % (Auto) 11.5 L [place] % (Auto) 17.0 H Eos % (Auto) 2.7 Baso % (Auto) 0.4 Neut # 4.5 Lymph # 0.8 L [place] # 1.1 H Eos # 0.2 Baso # 0.0 Sodium 127 L Potassium 4.0 Chloride 93 L Carbon Dioxide 25 Anion Gap 14 BUN 12 Creatinine 0.7 Est GFR ( Amer) > 60 Est GFR (Non-Af Amer) > 60 Random Glucose 85 Calcium 8.5 L Phosphorus 4.2 Magnesium 1.8 Total Bilirubin 0.5 AST 27 ALT 50 Alkaline Phosphatase 112 Total Protein 7.7 Albumin 4.0 Globulin 3.6 Albumin/Globulin Ratio 1.1 Amylase 78 Lipase 217
[2017-08-03] MEDS: DiphenhydrAMINE 50 mg/ml Inj IVP PRN ×6 (02:27→22:40)
[2017-08-03 06:46] LABS: BASO % 0.6 % (0.0-2.0); EOS # 0.6 K/uL (0.0-0.7); EOS % 10.2 % (0.0-4.0); HEMOGLOBIN 10.7 g/dL (11.0-16.0); LYMPH # 1.1 K/uL (1.0-4.3); LYMPH % 18.9 % (20.0-40.0); MEAN CELL VOLUME 88.3 fL (81.0-99.0); MEAN CORPUSCULAR HEMOGLOBIN 29.3 pg (27.0-31.0); MEAN CORPUSCULAR HGB CONC 33.2 g/dL (33.0-37.0); MONO # 0.7 K/uL (0.0-0.8); MONO % 12.9 % (0.0-10.0); NEUT # 3.2 K/uL (1.8-7.0); NEUT % 57.4 % (50.0-75.0); RBC 3.65 Mil/uL (3.80-5.20); RED CELL DISTRIBUTION WIDTH 14.2 % (11.5-14.5); WHITE BLOOD COUNT 5.6 K/uL (4.8-10.8)
[2017-08-03 07:03] LABS: ALB/GLOB RATIO 1.1 (1.0-2.1); ALBUMIN 3.6 g/dL (3.5-5.0); ALT/SGPT 36 U/L (9-52); AST/SGOT 27 U/L (14-36); BLOOD UREA NITROGEN 17 mg/dL (7-17); CALCIUM 8.2 mg/dl (8.6-10.4); GFR AFRICAN-AMERICAN > 60; GFR NON-AFRICAN AMERICAN > 60; MAGNESIUM 1.7 mg/dL (1.6-2.3)
[2017-08-03] MEDS: Sodium Chloride 0.9% 1,000 ML IV SCH ×2 (09:22→18:32)
--- NOTE | 2017-08-03 09:51 | CP.PCM.PN ---
Subjective - Date & Time of Evaluation Date of Evaluation: 08/03/17 Time of Evaluation: 07:00 - Subjective Subjective: PGY-[address] Ellison's service: Patient seen and examined at bedside. Patient said her pain is still present but better controlled today. She was in better spirits today and reported only 2 episodes of N/V yesterday. She also said that she was able to walk around the floors yesterday with the help of her . She was not dizzy at that time. She denied fever/chills and all other complaints such as chest pain or shortness of breath. Her dose of Dilaudid was reduced and the patient was very insisted that this dose not be reduced. It was explained to her that we would need to taper the dose because she would not be going home with Dilaudid as a pain medication. Objective - Vital Signs/Intake and Output Vital Signs (last 24 hours): Temp Pulse Resp BP Pulse Ox 97.5 F L 74 20 98/67 L 100 08/03/17 08:03 08/03/17 08:03 08/03/17 08:03 08/03/17 08:03 08/03/17 08:03 Intake and Output: 08/03/17 08/03/17 06:59 18:59 Intake Total 1660 Balance 1660 - Medications Medications: Current Medications Alprazolam (Xanax) 0.5 mg PO BID PRN PRN Reason: Anxiety Last Admin: 07/31/17 10:34 Dose: 0.5 mg Amlodipine Besylate (Norvasc) 10 mg PO DAILY [facility] Last Admin: 08/02/17 11:11 Dose: Not Given Diphenhydramine HCl (Benadryl) 25 mg IVP Q4 PRN PRN Reason: Itching / Pruritus Last Admin: 08/03/17 06:30 Dose: 25 mg Docusate Sodium (Colace) 100 mg PO BID [facility] Last Admin: 08/02/17 17:40 Dose: Not Given Enoxaparin Sodium (Lovenox) 40 mg SC DAILY [facility] Last Admin: 08/02/17 11:10 Dose: 40 mg Hydromorphone HCl (Dilaudid) 2 mg IVP Q6 PRN PRN Reason: Pain, moderate (4-7) Sodium Chloride (Sodium Chloride 0.9%) 1,000 mls @ 100 mls/hr IV .Q10H [facility] Last Admin: 08/03/17 09:22 Dose: Not Given Pantoprazole Sodium (Protonix Inj) 40 mg IVP DAILY [facility] Last Admin: 08/02/17 11:10 Dose: Not Given Prochlorperazine (Compazine) 10 mg IVP Q4 PRN PRN Reason: Nausea/Vomiting Last Admin: 08/02/17 08:50 Dose: 10 mg Rosuvastatin Calcium (Crestor) 5 mg PO HS [facility] Last Admin: 08/02/17 21:58 Dose: 5 mg Fluticasone/Salmeterol (Advair Diskus 250/50) 1 puff INH RQ12 [facility] Last Admin: 08/02/17 20:36 Dose: 1 puff Zolpidem Tartrate (Ambien) 5 mg PO HS PRN PRN Reason: Insomnia - Labs Labs: 08/03/17 06:39 08/03/17 06:39 PT 12.7 SECONDS (9.7-12.2) H 07/28/17 14:42 INR 1.1 07/28/17 14:42 APTT 31 SECONDS (21-34) 07/28/17 14:42 - Constitutional Appears: Non-toxic, No Acute Distress - Head Exam Head Exam: NORMAL INSPECTION - Eye Exam Eye Exam: EOMI - ENT Exam ENT Exam: Mucous Membranes Moist - Respiratory Exam Respiratory Exam: Clear to Ausculation Bilateral, NORMAL BREATHING PATTERN. absent: Respiratory Distress - Cardiovascular Exam Cardiovascular Exam: REGULAR RHYTHM, +S1, +S2 - GI/Abdominal Exam GI & Abdominal Exam: Soft, Tenderness (epigastric region, not as tender with distraction), Normal Bowel Sounds. absent: Distended, Firm, Guarding - Extremities Exam Extremities Exam: Normal Inspection. absent: Calf Tenderness, Pedal Edema - Back Exam Back Exam: NORMAL INSPECTION. absent: CVA tenderness (L), CVA tenderness (R), paraspinal tenderness - Neurological Exam Neurological Exam: Alert, Awake, CN II-XII Intact, Normal Gait, Oriented x3 Neuro motor strength exam: Left Upper Extremity: 5, Right Upper Extremity: 5, Left Lower Extremity: 5, Right Lower Extremity: 5 - Psychiatric Exam Psychiatric exam: Normal Affect, Normal Mood - Skin Skin Exam: Dry, Intact, Normal Color, Warm Assessment and Plan - Assessment and Plan (Free Text) Assessment: Pancreatits Assessment & Plan: Admit to med/surg Liquid diet today, will advance as tolerated (patient has been NPO for one week now) Lipase 271 (08/02), 282 (07/29), 924 on admission, CT A/P (07/27/17) Unremarkable pancreas. 2.2x2.2x4.4 cm focal collection within anterior soft tissues of bowel with surrounding mild inflamm changes. Cannot exclude abscess. Refer to complete report. Patient has had 3 CT scans within the last 8 days. The most recent results reported above. Refer to hospital record for the other reports Diluadid 2mg IV Q4H PRN - compazine PRN GI system consultant, Dr. Walls -MRCP ordered (patient allergic to contrast) - MRCP not done because patient became claustrophobic. AFP 3.7, CEA 2.2, Ca19-9 <1.4, Ca 125 <5.5 - all negative S/P Ventral hernia repair on 07/07/17 Dr. Mcguire, surgery, consulted - no surgical intervention at this time Hyponatremia 130 today, improving NA at 100cc/hour possibly due to SIADH Nephrology consulted, Dr. Funes help appreciated - will avoid hypotonic fluids , no need for na correction Urine osmol 445 Ur na random 121 Febrile Assessment & Plan: Arebfile, No WBC or bandemia CXR (07/31/17): NAD blood cultures (07/31/17): negative x 72 hrs Status: Acute Intractable vomiting Assessment & Plan: Will abvance diet today improving Antiemetics as stated above Status: Acute Hypertension Assessment & Plan: Norvasc 10 mg PO daily Status: Chronic Hypercholesteremia Assessment & Plan: Crestor 10 mg HS Status: Chronic Asthma Assessment & Plan: Advair daily Duonebs PRN Controlled, patient denies shortness of breath Status: Chronic Anxiety Assessment & Plan: Xanax 5 mg PO PRN Ambien 5 mg PO HS Status: Chronic Transaminitis Assessment & Plan: Resolved Hepatitis panel negative. Liver enzymes have normalized and remained stavle Status: Chronic Prophylactic measure Assessment & Plan: Pepcid BID SCDs Lovenox 40 mg SC daily Discussed with attending. All management and planning per Dr. Ellison.
[2017-08-03] MEDS: Enoxaparin 40 mg Syringe SC SCH (10:33)
[2017-08-03] MEDS ORDERED: Albuterol-Ipratrop 3 mg / 0.5 (3 ml) UD INH STA (11:20)
[2017-08-03] MEDS: Fluticasone-Salmeterol 250-50mcg Diskus INH SCH ×2 (11:30→20:20)
--- NOTE | 2017-08-03 15:44 | CP.PCM.PN ---
Subjective - Date & Time of Evaluation Date of Evaluation: 08/03/17 Time of Evaluation: 15:43 - Subjective Subjective: Follow up Nephrology Consultation: Assessment: Stable hyponatremia likely due to hypotonic fluid given as LR, and ADH stimulation by pain/nausea/vomiting: IMPROVING HTN, obesity pain abdomen ventral hernia repair Plan Hypertension control with meds as ordered. may add ACEI or ARB if needed Monitor Input/Output, daily weights and Na level avoid hypotonic fluids. agree with NS. can d/c IVF once tolerates diet well avoid correction in serum Na >6-8 meq/24 hrs. no need for hypertonic saline at this time supplement electrolytes as needed Glycemic control Further work up/management as per primary team Thanks for allowing me to participate in care of your patient. Will follow patient with you. Please call if any Qs. d/w team Dr Rocky Rizo Office: [phone] reason for consult: Hyponatremia HPI: Pt is a 52 F with hx of hypertensionobesity, anxiety recently underwent ventral hernia surgery had episode of pain abdomen and nausea/vomitting for last 10 days. she has been NPO and reeceived LR as IVF. renal consult for hyponatremia pt overall feels better today. pain better. no nausea/vomitting at present. non smoker not on ssRI ROS: Cardiovascular: No chest pain. Pulmonary: No shortness of breath Gastrointestinal: improved abdominal pain/nausea/vomiting. Genitourinary: No pain while urinating. Denies blood in urine. All other negative Physical Examination: General Appearance: Comfortable, in no acute respiratory distress, co-operative . obese Vitals reviewed and noted as below Head; Atraumatic, normocephalic ENT: no ulcers no thrush. Tongue is midline. Oropharynx: no rash or ulcers. EYES: Pupils are equal, round and reactive to light accommodation. Eye muscles and extraocular movement intact. Sclera is anicteric. Neck; supple no lymphadenopathy, no thyromegaly or bruit Lungs: Normal respiratory rate/effort. Breath sounds bilateral equal and clear Heart: Normal rate. s1s2 normal. No rub or gallop. Extremities: no edema. No varicose veins Neurological: Patient is alert, awake and oriented to person, place and time. No focal deficit. Strength bilateral appropriate and equal Skin: Warm and dry. Normal turgor. No rash. Palpitation: Normal elasticity for age Abdomen: Abdomen is soft. Bowel sounds +. There is mild left mid quadrant abdominal tenderness, no guarding/rigidity no organomegaly Psych: limited insight and normal affect/mood MSK: no joint tenderness or swelling. Digits and nails normal, no deformity : kidney or bladder not palpable Labs/imaging reviewed. Past medical history, past surgical history, family history, social history, allergy reviewed and noted as below Family hx: no hx of CKD. Rest non-contributory work up: TGL 100 urien Na 121 urine Osmol 415 Objective - Vital Signs/Intake and Output Vital Signs (last 24 hours): Temp Pulse Resp BP Pulse Ox 97.5 F L 74 20 98/67 L 100 08/03/17 08:03 08/03/17 08:03 08/03/17 08:03 08/03/17 08:03 08/03/17 08:03 Intake and Output: 08/03/17 08/03/17 06:59 18:59 Intake Total 1660 1200 Balance 1660 1200 - Medications Medications: Current Medications Alprazolam (Xanax) 0.5 mg PO BID PRN PRN Reason: Anxiety Last Admin: 07/31/17 10:34 Dose: 0.5 mg Amlodipine Besylate (Norvasc) 10 mg PO DAILY [facility] Last Admin: 08/03/17 10:33 Dose: 10 mg Diphenhydramine HCl (Benadryl) 25 mg IVP Q4 PRN PRN Reason: Itching / Pruritus Last Admin: 08/03/17 14:36 Dose: 25 mg Docusate Sodium (Colace) 100 mg PO BID [facility] Last Admin: 08/03/17 10:33 Dose: 100 mg Enoxaparin Sodium (Lovenox) 40 mg SC DAILY [facility] Last Admin: 08/03/17 10:33 Dose: 40 mg Hydromorphone HCl (Dilaudid) 2 mg IVP Q4 PRN PRN Reason: Pain, severe (8-10) Last Admin: 08/03/17 14:36 Dose: 2 mg Sodium Chloride (Sodium Chloride 0.9%) 1,000 mls @ 100 mls/hr IV .Q10H [facility] Last Admin: 08/03/17 09:22 Dose: Not Given Pantoprazole Sodium (Protonix Inj) 40 mg IVP DAILY [facility] Last Admin: 08/03/17 10:33 Dose: 40 mg Prochlorperazine (Compazine) 10 mg IVP Q4 PRN PRN Reason: Nausea/Vomiting Last Admin: 08/02/17 08:50 Dose: 10 mg Rosuvastatin Calcium (Crestor) 5 mg PO HS [facility] Last Admin: 08/02/17 21:58 Dose: 5 mg Fluticasone/Salmeterol (Advair Diskus 250/50) 1 puff INH RQ12 [facility] Last Admin: 08/03/17 11:30 Dose: 1 puff Zolpidem Tartrate (Ambien) 5 mg PO HS PRN PRN Reason: Insomnia - Labs Labs: 08/03/17 06:39 08/03/17 06:39 PT 12.7 SECONDS (9.7-12.2) H 07/28/17 14:42 INR 1.1 07/28/17 14:42 APTT 31 SECONDS (21-34) 07/28/17 14:42
[2017-08-04] MEDS: DiphenhydrAMINE 50 mg/ml Inj IVP PRN ×4 (02:30→14:03)
[2017-08-04] MEDS: Sodium Chloride 0.9% 1,000 ML IV SCH (04:30)
[2017-08-04 07:27] LABS: BASO % 0.6 % (0.0-2.0); EOS # 0.8 K/uL (0.0-0.7); EOS % 14.8 % (0.0-4.0); HEMOGLOBIN 10.5 g/dL (11.0-16.0); LYMPH # 1.3 K/uL (1.0-4.3); LYMPH % 24.3 % (20.0-40.0); MEAN CELL VOLUME 88.6 fL (81.0-99.0); MEAN CORPUSCULAR HEMOGLOBIN 29.6 pg (27.0-31.0); MEAN CORPUSCULAR HGB CONC 33.4 g/dL (33.0-37.0); MEAN PLATELET VOLUME 8.1 fL (7.2-11.7); MONO # 0.6 K/uL (0.0-0.8); MONO % 12.4 % (0.0-10.0); NEUT # 2.5 K/uL (1.8-7.0); NEUT % 47.9 % (50.0-75.0); NRBC % 0.1 % (0.0-2.0); RBC 3.55 Mil/uL (3.80-5.20); RED CELL DISTRIBUTION WIDTH 14.1 % (11.5-14.5); WHITE BLOOD COUNT 5.2 K/uL (4.8-10.8)
[2017-08-04 08:28] LABS: ALB/GLOB RATIO 1.1 (1.0-2.1); ALBUMIN 3.5 g/dL (3.5-5.0); ALT/SGPT 24 U/L (9-52); AST/SGOT 18 U/L (14-36); BLOOD UREA NITROGEN 8 mg/dL (7-17); CALCIUM 8.3 mg/dl (8.6-10.4); GFR AFRICAN-AMERICAN > 60; GFR NON-AFRICAN AMERICAN > 60; MAGNESIUM 1.4 mg/dL (1.6-2.3)
[2017-08-04] MEDS: Fluticasone-Salmeterol 250-50mcg Diskus INH SCH (08:39)
[2017-08-04 09:12] VITALS: TEMP 98.3; O2SAT 98
--- NOTE | 2017-08-04 10:22 | CP.PCM.PN ---
Subjective - Date & Time of Evaluation Date of Evaluation: 08/04/17 Time of Evaluation: 10:22 - Subjective Subjective: PGY-[address] Ellison's service: Pt seen and examined at bedside. Nursing reports no acute events overnight. Patient reports LUQ abdominal pain greatly improved overnight. She states she has been tolerating clear liquid diet and is ready to try soft foods. She describes the pain as occasional "stinging sensation" in LUQ, rating 3-4 on the severity scale. She denies fever, chills, SOB, chest pain, N/V/D/C, and states she moved her bowels yesterday. She is asking when she will be able to go home. Objective - Vital Signs/Intake and Output Vital Signs (last 24 hours): Temp Pulse Resp BP Pulse Ox 98.3 F 82 20 108/76 98 08/04/17 08:00 08/04/17 08:00 08/04/17 08:00 08/04/17 08:00 08/04/17 08:00 Intake and Output: 08/04/17 08/04/17 06:59 18:59 Intake Total 450 1300 Balance 450 1300 - Medications Medications: Current Medications Alprazolam (Xanax) 0.5 mg PO BID PRN PRN Reason: Anxiety Last Admin: 07/31/17 10:34 Dose: 0.5 mg Amlodipine Besylate (Norvasc) 10 mg PO DAILY [facility] Last Admin: 08/03/17 10:33 Dose: 10 mg Diphenhydramine HCl (Benadryl) 25 mg IVP Q4 PRN PRN Reason: Itching / Pruritus Last Admin: 08/04/17 06:38 Dose: 25 mg Docusate Sodium (Colace) 100 mg PO BID [facility] Last Admin: 08/03/17 18:33 Dose: Not Given Enoxaparin Sodium (Lovenox) 40 mg SC DAILY [facility] Last Admin: 08/03/17 10:33 Dose: 40 mg Hydromorphone HCl (Dilaudid) 2 mg IVP Q4 PRN PRN Reason: Pain, severe (8-10) Last Admin: 08/04/17 06:38 Dose: 2 mg Sodium Chloride (Sodium Chloride 0.9%) 1,000 mls @ 100 mls/hr IV .Q10H [facility] Last Admin: 08/04/17 04:30 Dose: 100 mls/hr Magnesium Sulfate/Dextrose (Magnesium Sulfate 1 Gm/100 Ml D5w) 1 gm in 100 mls @ 100 mls/hr IVPB Q1H [facility] Stop: 08/04/17 11:59 Pantoprazole Sodium (Protonix Inj) 40 mg IVP DAILY [facility] Last Admin: 08/03/17 10:33 Dose: 40 mg Potassium Chloride (K-Dur 20 Meq Er Tab) 40 meq PO Q2H [facility] Stop: 08/04/17 11:46 Prochlorperazine (Compazine) 10 mg IVP Q4 PRN PRN Reason: Nausea/Vomiting Last Admin: 08/02/17 08:50 Dose: 10 mg Rosuvastatin Calcium (Crestor) 5 mg PO HS [facility] Last Admin: 08/03/17 21:51 Dose: 5 mg Fluticasone/Salmeterol (Advair Diskus 250/50) 1 puff INH RQ12 [facility] Last Admin: 08/04/17 08:39 Dose: 1 puff Zolpidem Tartrate (Ambien) 5 mg PO HS PRN PRN Reason: Insomnia Last Admin: 08/03/17 21:56 Dose: 5 mg - Labs Labs: 08/04/17 07:12 08/04/17 07:12 PT 12.7 SECONDS (9.7-12.2) H 07/28/17 14:42 INR 1.1 07/28/17 14:42 APTT 31 SECONDS (21-34) 07/28/17 14:42 - Additional Findings Additional findings: - Constitutional Appears: Non-toxic, No Acute Distress - Head Exam Head Exam: NORMAL INSPECTION - Eye Exam Eye Exam: EOMI - ENT Exam ENT Exam: Mucous Membranes Moist - Respiratory Exam Respiratory Exam: Clear to Ausculation Bilateral, NORMAL BREATHING PATTERN. absent: Respiratory Distress - Cardiovascular Exam Cardiovascular Exam: REGULAR RHYTHM, +S1, +S2 - GI/Abdominal Exam GI & Abdominal Exam: Soft, Tenderness (mild LUQ - present with manual palpation but not with stethoscope palpation to same location) Normal Bowel Sounds. absent: Distended, Firm, Guarding - Extremities Exam Extremities Exam: Normal Inspection. absent: Calf Tenderness, Pedal Edema - Back Exam Back Exam: NORMAL INSPECTION. absent: CVA tenderness (L), CVA tenderness (R), paraspinal tenderness - Neurological Exam Neurological Exam: Alert, Awake, CN II-XII Intact, Normal Gait, Oriented x3 Neuro motor strength exam: Left Upper Extremity: 5, Right Upper Extremity: 5, Left Lower Extremity: 5, Right Lower Extremity: 5 - Psychiatric Exam Psychiatric exam: Normal Affect, Normal Mood - Skin Skin Exam: Dry, Intact, Normal Color, Warm Assessment and Plan - Assessment and Plan (Free Text) Plan: Pancreatits Assessment & Plan: Admit to med/surg Trial of soft diet Lipase 271 (08/02), 282 (07/29), [address] A/P (07/27/17) Unremarkable pancreas. 2.2x2.2x4.4 cm focal collection within anterior soft tissues of bowel with surrounding mild inflamm changes. Cannot exclude abscess. Refer to complete report. Patient has had 3 CT scans within the last 8 days. The most recent results reported above. Refer to hospital record for the other reports D/C Diluadid 2mg IV Q4H PRN - compazine PRN GI senior talent management consultant, Dr. Walls -MRCP ordered (patient allergic to contrast) - MRCP not done because patient became claustrophobic. AFP 3.7, CEA 2.2, Ca19-9 <1.4, Ca 125 <5.5 - all negative S/P Ventral hernia repair on 07/07/17 Dr. Mcguire, surgery, consulted - no surgical intervention at this time Hyponatremia Resolved, 132 today NA at 100cc/hour possibly due to SIADH Nephrology consulted, Dr. Funes help appreciated - will avoid hypotonic fluids , no need for na correction Urine osmol 445 Ur na random 121 Febrile Assessment & Plan: Arebfile, No WBC or bandemia CXR (07/31/17): NAD blood cultures (07/31/17): negative x 72 hrs Status: Acute Intractable vomiting Assessment & Plan: Will advance diet today improving Antiemetics as stated above Status: Acute Hypertension Assessment & Plan: Norvasc 10 mg PO daily Status: Chronic Hypercholesteremia Assessment & Plan: Crestor 10 mg HS Status: Chronic Asthma Assessment & Plan: Advair daily Duonebs PRN Controlled, patient denies shortness of breath Status: Chronic Anxiety Assessment & Plan: Xanax 5 mg PO PRN Ambien 5 mg PO HS Status: Chronic Transaminitis Assessment & Plan: Resolved Hepatitis panel negative. Liver enzymes have normalized and remained stavbe Status: Chronic Electrolyte Abnormality Mg 1.4, repleted K 3.4, repleted Prophylactic measure Assessment & Plan: Pepcid BID SCDs Lovenox 40 mg SC daily Disposition: As pain has improved, discharge today at 6pm. Discussed with attending. All management and planning per Dr. Ellison.
[2017-08-04] MEDS: Magnesium Sulfate 1 gm in D5W 1 GM/100 ML BAG IVPB SCH ×2 (10:55→11:01)
[2017-08-04] MEDS: Potassium Chloride 20 mEq ER Tab PO SCH ×2 (10:55→12:41)
[2017-08-04] MEDS: Enoxaparin 40 mg Syringe SC SCH (11:00)
--- NOTE | 2017-08-04 11:02 | PN ---
DATE: LOCATION: [facility], bed A. SUBJECTIVE: This is a 52-year-old female, seen and examined in rounds early today without significant clinical changes. Not able to have MRCP done to the patient due to her probably anxiety syndrome. The patient is still complaining of mild intermittent abdominal pain, but no reported active bleeding with much less episode of nausea, dyspepsia. No reported vomiting. Most recent lab today showed hemoglobin of 10.5, hematocrit 31.4 with normal platelet count and normal white blood cells with sodium improved to 132, low potassium 3.4 with blood glucose level 107 with low calcium 8.3 and low magnesium 1.4. Alkaline phosphatase of 158, elevated. The patient's latest lipase and the amylase level reported within normal limit. PHYSICAL EXAMINATION: GENERAL: A 52-year-old female. Awake, alert, oriented. VITAL SIGNS: Afebrile with pulse of 80, respiratory rate 20 to 22, blood pressure 116/74. HEENT: Showed dry mildly pale oral mucous membrane. Nonicteric sclerae. LUNGS: Few scattered mild crepitation. Decreased air entry at bases. HEART: Positive S1 and S2. ABDOMEN: Soft with mild distention with some tenderness. No mass or organomegaly. No rebound tenderness or guarding. RECTAL: The patient refused. EXTREMITIES: Without significant clubbing, cyanosis or edema. NEUROLOGIC: No reported new neurological deficits, sensory or motor. IMPRESSION: 1. Acute pancreatitis, resolved. 2. Electrolyte imbalance with hyponatremia, subsequently corrected, most likely secondary to recurrent episodes of nausea and vomiting recently. 3. Known history of but not limited to hyperlipidemia, hypertension, bronchial asthma as well as severe anxiety syndrome. 4. Diverticulosis with early phase of diverticulitis previously, stable. 5. Known history of hypothyroidism. 6. Known history of chronic lower back pain syndrome with osteoarthritis. SUGGESTION: 1. Agree with your plan. 2. Subsequent decrease of pain medication. 3. Following up cancer markers. Again, the patient would need in the long run MRCP, which could be done as outpatient. Hector Belcher MD
--- NOTE | 2017-08-04 16:24 | CP.PCM.PN ---
Subjective - Date & Time of Evaluation Date of Evaluation: 08/04/17 Time of Evaluation: 16:24 - Subjective Subjective: Follow up Nephrology Consultation: Assessment: Stable hyponatremia likely due to hypotonic fluid given as LR, and ADH stimulation by pain/nausea/vomiting: IMPROVING HTN, obesity pain abdomen ventral hernia repair Plan Hypertension control with meds as ordered. may add ACEI or ARB if needed Monitor Input/Output, daily weights and Na level avoid hypotonic fluids. d/c IVF once tolerates diet well avoid correction in serum Na >6-8 meq/24 hrs. no need for hypertonic saline at this time supplement electrolytes as needed Glycemic control Further work up/management as per primary team Thanks for allowing me to participate in care of your patient. Please call if any Qs. d/w team Dr Rocky Rizo Office: [phone] reason for consult: Hyponatremia HPI: Pt is a 52 F with hx of hypertensionobesity, anxiety recently underwent ventral hernia surgery had episode of pain abdomen and nausea/vomitting for last 10 days. she has been NPO and reeceived LR as IVF. renal consult for hyponatremia pt overall feels better today. pain better. no nausea/vomitting at present. non smoker not on ssRI ROS: Cardiovascular: No chest pain. Pulmonary: No shortness of breath Gastrointestinal: improved abdominal pain/nausea/vomiting. Genitourinary: No pain while urinating. Denies blood in urine. All other negative Physical Examination: General Appearance: Comfortable, in no acute respiratory distress, co-operative . obese Vitals reviewed and noted as below Head; Atraumatic, normocephalic ENT: no ulcers no thrush. Tongue is midline. Oropharynx: no rash or ulcers. EYES: Pupils are equal, round and reactive to light accommodation. Eye muscles and extraocular movement intact. Sclera is anicteric. Neck; supple no lymphadenopathy, no thyromegaly or bruit Lungs: Normal respiratory rate/effort. Breath sounds bilateral equal and clear Heart: Normal rate. s1s2 normal. No rub or gallop. Extremities: no edema. No varicose veins Neurological: Patient is alert, awake and oriented to person, place and time. No focal deficit. Strength bilateral appropriate and equal Skin: Warm and dry. Normal turgor. No rash. Palpitation: Normal elasticity for age Abdomen: Abdomen is soft. Bowel sounds +. There is mild left mid quadrant abdominal tenderness, no guarding/rigidity no organomegaly Psych: limited insight and normal affect/mood MSK: no joint tenderness or swelling. Digits and nails normal, no deformity : kidney or bladder not palpable Labs/imaging reviewed. Past medical history, past surgical history, family history, social history, allergy reviewed and noted as below Family hx: no hx of CKD. Rest non-contributory work up: TGL 100 urien Na 121 urine Osmol 415 Objective - Vital Signs/Intake and Output Vital Signs (last 24 hours): Temp Pulse Resp BP Pulse Ox 98.3 F 82 20 108/76 98 08/04/17 08:00 08/04/17 08:00 08/04/17 08:00 08/04/17 08:00 08/04/17 08:00 Intake and Output: 08/04/17 08/04/17 06:59 18:59 Intake Total 450 1300 Balance 450 1300 - Medications Medications: Current Medications Alprazolam (Xanax) 0.5 mg PO BID PRN PRN Reason: Anxiety Last Admin: 08/04/17 11:00 Dose: 0.5 mg Amlodipine Besylate (Norvasc) 10 mg PO DAILY [facility] Last Admin: 08/04/17 11:00 Dose: 10 mg Diphenhydramine HCl (Benadryl) 25 mg IVP Q4 PRN PRN Reason: Itching / Pruritus Last Admin: 08/04/17 14:03 Dose: 25 mg Docusate Sodium (Colace) 100 mg PO BID [facility] Last Admin: 08/04/17 11:00 Dose: 100 mg Enoxaparin Sodium (Lovenox) 40 mg SC DAILY [facility] Last Admin: 08/04/17 11:00 Dose: 40 mg Sodium Chloride (Sodium Chloride 0.9%) 1,000 mls @ 100 mls/hr IV .Q10H [facility] Last Admin: 08/04/17 04:30 Dose: 100 mls/hr Pantoprazole Sodium (Protonix Ec Tab) 40 mg PO DAILY [facility] Prochlorperazine (Compazine) 10 mg IVP Q4 PRN PRN Reason: Nausea/Vomiting Last Admin: 08/02/17 08:50 Dose: 10 mg Rosuvastatin Calcium (Crestor) 5 mg PO HS [facility] Last Admin: 08/03/17 21:51 Dose: 5 mg Fluticasone/Salmeterol (Advair Diskus 250/50) 1 puff INH RQ12 [facility] Last Admin: 08/04/17 08:39 Dose: 1 puff Zolpidem Tartrate (Ambien) 5 mg PO HS PRN PRN Reason: Insomnia Last Admin: 08/03/17 21:56 Dose: 5 mg - Labs Labs: 08/04/17 07:12 08/04/17 07:12 PT 12.7 SECONDS (9.7-12.2) H 07/28/17 14:42 INR 1.1 07/28/17 14:42 APTT 31 SECONDS (21-34) 07/28/17 14:42
[2017-08-04 17:04] VITALS: BP 108/75; PULSE 98
[2017-08-05] MEDS ORDERED: Pantoprazole 40 mg EC Tab PO SCH (10:00)
== END 2017-08-04 17:29 | disposition home or self-care (01) | DRG 204 ==
LOC: C.ER 14:35 → C.9E 17:07 → C.3T 22:33
PROVIDERS: ADMIT Internal Medicine Pulmonary Disease; ATTEND Internal Medicine Pulmonary Disease
DX: K85.90 Acute pancreatitis without necrosis or infection, unspecified (principal); E22.2 Syndrome of inappropriate secretion of antidiuretic hormone; J44.9 Chronic obstructive pulmonary disease, unspecified; K27.3 Acute peptic ulcer, site unspecified, without hemorrhage or perforation; G89.18 Other acute postprocedural pain; R10.9 Unspecified abdominal pain; E03.9 Hypothyroidism, unspecified; K86.1 Other chronic pancreatitis; E78.00 Pure hypercholesterolemia, unspecified; F41.9 Anxiety disorder, unspecified; I10 Essential (primary) hypertension; M51.27 Other intervertebral disc displacement, lumbosacral region; D64.9 Anemia, unspecified; K57.92 Diverticulitis of intestine, part unspecified, without perforation or abscess without bleeding; E66.9 Obesity, unspecified; Z68.36 Body mass index [BMI] 36.0-36.9, adult; Y83.8 Other surgical procedures as the cause of abnormal reaction of the patient, or of later complication, without mention of misadventure at the time of the procedure

== ENCOUNTER 2017-08-05 10:39 | Inpatient (IN) | payer MEDICAID ==
[2017-08-05 11:20] VITALS: BMI 36.8
[2017-08-05] MEDS ORDERED: Sodium Chloride 0.9% 1,000 ML IV ONE (11:42)
[2017-08-05] MEDS ORDERED: HYDROmorphone 1 mg/ml ISec IVP STA (11:42)
[2017-08-05 11:54] LABS: BASO % 0.4 % (0.0-2.0); EOS # 0.7 K/uL (0.0-0.7); EOS % 7.5 % (0.0-4.0); HEMOGLOBIN 12.6 g/dL (11.0-16.0); LYMPH # 1.9 K/uL (1.0-4.3); LYMPH % 20.4 % (20.0-40.0); MEAN CORPUSCULAR HEMOGLOBIN 29.5 pg (27.0-31.0); MEAN CORPUSCULAR HGB CONC 33.6 g/dL (33.0-37.0); MONO # 0.8 K/uL (0.0-0.8); MONO % 9.1 % (0.0-10.0); NEUT # 5.7 K/uL (1.8-7.0); NEUT % 62.6 % (50.0-75.0); RBC 4.26 Mil/uL (3.80-5.20); RED CELL DISTRIBUTION WIDTH 13.9 % (11.5-14.5); WHITE BLOOD COUNT 9.1 K/uL (4.8-10.8)
[2017-08-05] MEDS ORDERED: Sodium Chloride 0.9% 1,000 ML ONE (12:02)
[2017-08-05 12:18] LABS: ALB/GLOB RATIO 1.1 (1.0-2.1); ALBUMIN 4.4 g/dL (3.5-5.0); ALT/SGPT 40 U/L (9-52); AST/SGOT 21 U/L (14-36); BLOOD UREA NITROGEN 10 mg/dL (7-17); CALCIUM 9.4 mg/dl (8.6-10.4); GFR AFRICAN-AMERICAN > 60; GFR NON-AFRICAN AMERICAN > 60; LIPASE 333 U/L (23-300)
--- NOTE | 2017-08-05 12:42 | C.PDOC ---
History Of Present Illness 52 y/o female with hx of pancreatitis was admitted recently for complaints of epigastric pain and vomiting, was discharged last night. Pt was discharged with Percocet but states she can not keep it down due to vomiting which reoccurred last night. Pt comes back today with same complaints of vomiting episodes and severe pain. Pt states last night the epigastric pain was severe and her fever was 100.3. Time Seen by Provider: 08/05/17 11:30 Chief Complaint (Nursing): Abdominal Pain History Per: Patient History/Exam Limitations: no limitations Onset/Duration Of Symptoms: Hrs Current Symptoms Are (Timing): Still Present Radiation Of Pain To:: None Associated Symptoms: Fever, Vomiting, Other (Epigastric pain) Exacerbating Factors: None Alleviating Factors: None Recent travel outside of the [place]: No Abnormal Vaginal Bleeding: No Past Medical History Reviewed: Historical Data, Nursing Documentation, Vital Signs - Medical History PMH: Anemia, Anxiety, Arthritis, Asthma, Back Problems (herniated discs), Bronchitis, COPD, Diverticulitis, Gastritis, Gastrointestinal Ulcer, HTN, Hypercholesterolemia, Hypothyroidism, Pancreatitis Surgical History: Appendectomy, Cholecystectomy, Endoscopy, Hernia Repair ( ventral x3, last 10/27/15) - [facility] Procedures CENTRAL VENOUS CATHETER PLACEMENT WITH GUIDANCE (06/13/14) CLOSED ENDOSCOPIC BIOPSY OF LARGE INTESTINE (05/19/14) COLONOSCOPY (01/23/14) DILATION OF RIGHT AXILLARY ARTERY, PERCUTANEOUS APPROACH (11/03/15) ESOPHAGOGASTRODUODENOSCOPY [EGD] W/CLOSED BIOPSY (10/22/14) EXCISION OF DESCENDING COLON, ENDO, DIAGN (04/09/17) EXCISION OF SIGMOID COLON, ENDO, DIAGN (12/05/15) EXCISION OF SMALL INTESTINE, ENDO, DIAGN (06/10/16) EXCISION OF STOMACH, ENDO, DIAGN (04/04/17) FLUOROSCOPY OF SUP VENA CAVA USING L OSM CONTRAST, GUIDANCE (07/05/17) FLUOROSCOPY OF SUPERIOR VENA CAVA, GUIDANCE (12/05/15) INFLUENZA VACCINATION (05/08/14) INJECT/INFUSE NEC (08/22/14) INSERTION OF INFUSION DEV INTO L BRACH VEIN, PERC APPROACH (05/22/17) INSERTION OF INFUSION DEV INTO SUP VENA CAVA, PERC APPROACH (07/05/17) INSERTION OF VAD INTO CHEST SUBCU/FASCIA, OPEN APPROACH (07/05/17) INSPECTION OF GASTROINTESTINAL TRACT, PERC ENDO APPROACH (10/26/15) MRI OF OTHER AND UNSPECIFIED SITES (04/25/14) NEBULIZER THERAPY (11/30/13) RELEASE CECUM, OPEN APPROACH (10/26/15) REPAIR ABDOMINAL WALL, OPEN APPROACH (07/05/17) ULTRASONOGRAPHY OF LEFT UPPER EXTREMITY VEINS, GUIDANCE (05/22/17) ULTRASONOGRAPHY OF SUPERIOR VENA CAVA, GUIDANCE (10/26/15) VENOUS CATHETERIZATION NEC (02/14/14) Family History: States: No Known Family Hx - Social History Hx Tobacco Use: No Hx Alcohol Use: No Hx Substance Use: No - Immunization History Hx Tetanus Toxoid Vaccination: Yes Hx Influenza Vaccination: Yes (2016) Hx Pneumococcal Vaccination: Yes (2014) Review Of Systems Constitutional: Positive for: Fever Cardiovascular: Negative for: Chest Pain, Palpitations Respiratory: Negative for: Shortness of Breath Gastrointestinal: Positive for: Nausea, Vomiting, Abdominal Pain (Epigastric). Negative for: Diarrhea Neurological: Negative for: Weakness, Numbness Physical Exam - Physical Exam Appears: Well, Non-toxic, Other (Awake and alert; obese) Skin: Warm, Dry Head: Atraumatic, Normacephalic Eye(s): bilateral: Normal Inspection Oral Mucosa: Moist Chest: Symmetrical, No Tenderness Cardiovascular: Rhythm Regular Respiratory: No Rales, No Rhonchi, No Wheezing Gastrointestinal/Abdominal: Soft, Tenderness (exquisite), Guarding, No Rebound Neurological/Psych: Oriented x3, Normal Speech, Normal Cognition ED Course And Treatment - Laboratory Results Result Diagrams: 08/05/17 11:50 08/05/17 11:50 Lab Interpretation: No Acute Changes Interpretation Of Abnormal: Lipase 333 Progress Note: Administered dilaudid, Zofran and IV fluids. Ordered blood work and urinalysis. Reevaluation Time: 13:06 Reassessment Condition: Unchanged (Patient continuing to walk the ED requesting more Dilaudid stating that her pain is severe.) - Physician Consult Information Time Consulting Physician Contacted: 13:07 Physician Contacted: Oleg Ellison Outcome Of Conversation: Patient well known to him. He will readmit for intractable pain and vomiting. Disposition - Disposition Disposition: HOSPITALIZED Disposition Time: 13:08 Condition: FAIR - POA Present On Arrival: None - Clinical Impression Clinical Impression: Abdominal pain, Persistent vomiting, Pancreatitis - Scribe Statement The provider has reviewed the documentation as recorded by the Isabella Vanegas All medical record entries made by the Justinaibtiarra were at my direction and personally dictated by me. I have reviewed the chart and agree that the record accurately reflects my personal performance of the history, physical exam, medical decision making, and the department course for this patient. I have also personally directed, reviewed, and agree with the discharge instructions and disposition.
[2017-08-05 14:36] LABS: SQUAMOUS EPITHIAL 1 /hpf (0-5); URINE BACTERIA RARE (<OCC); URINE BILIRUBIN NEGATIVE (NEGATIVE); URINE BLOOD 2+ (NEGATIVE); URINE CLARITY Clear (Clear); URINE COLOR Yellow (YELLOW); URINE GLUCOSE (UA) NORMAL (Normal); URINE LEUKOCYTE ESTERASE NEG Leu/uL (Negative); URINE NITRATE NEGATIVE (NEGATIVE); URINE PROTEIN NEGATIVE (NEGATIVE); URINE UROBILINOGEN NORMAL mg/dL (0.2-1.0)
[2017-08-05] MEDS: DiphenhydrAMINE 50 mg/ml Inj IVP PRN (18:58)
[2017-08-05] MEDS: Potassium Chloride 20 MEQ in Dextrose 5%/0.45% NS 1,000 ML IV SCH (22:19)
[2017-08-06] MEDS: DiphenhydrAMINE 50 mg/ml Inj IVP PRN ×6 (01:44→20:47)
[2017-08-06] MEDS: Potassium Chloride 20 MEQ in Dextrose 5%/0.45% NS 1,000 ML IV SCH ×3 (05:52→18:04)
[2017-08-06 07:11] LABS: HEMOGLOBIN 11.3 g/dL (11.0-16.0); MEAN CELL VOLUME 88.2 fL (81.0-99.0); MEAN CORPUSCULAR HEMOGLOBIN 29.4 pg (27.0-31.0); MEAN CORPUSCULAR HGB CONC 33.3 g/dL (33.0-37.0); MEAN PLATELET VOLUME 8.3 fL (7.2-11.7); RBC 3.85 Mil/uL (3.80-5.20); WHITE BLOOD COUNT 7.5 K/uL (4.8-10.8)
[2017-08-06 07:18] LABS: ALB/GLOB RATIO 1.1 (1.0-2.1); ALBUMIN 4.1 g/dL (3.5-5.0); ALT/SGPT 32 U/L (9-52); AMYLASE 100 U/L (30-110); AST/SGOT 18 U/L (14-36); BLOOD UREA NITROGEN 14 mg/dL (7-17); GFR AFRICAN-AMERICAN > 60; GFR NON-AFRICAN AMERICAN > 60; LIPASE 216 U/L (23-300)
[2017-08-06] MEDS: Enoxaparin 40 mg Syringe SC SCH (09:34)
--- NOTE | 2017-08-06 10:32 | RAD ---
HISTORY: ngtube COMPARISON: 07/31/2017 FINDINGS: LUNGS: No active pulmonary disease. PLEURA: No significant pleural effusion identified, no pneumothorax apparent. CARDIOVASCULAR: Nasogastric tube extends to left upper abdomen. Right central venous infusion port. Normal heart size. No congestive change peer OSSEOUS STRUCTURES: No significant abnormalities. VISUALIZED UPPER ABDOMEN: Normal. OTHER FINDINGS: None. IMPRESSION: Nasogastric tube appropriately positioned. No pulmonary infiltrate.
[2017-08-07] MEDS: DiphenhydrAMINE 50 mg/ml Inj IVP PRN ×4 (01:58→20:38)
[2017-08-07] MEDS: Potassium Chloride 20 MEQ in Dextrose 5%/0.45% NS 1,000 ML IV SCH ×4 (02:00→14:28)
--- NOTE | 2017-08-07 09:07 | CP.PCM.PN ---
Subjective - Date & Time of Evaluation Date of Evaluation: 08/07/17 Time of Evaluation: 08:59 - Subjective Subjective: PGY-[address] Ellison's service: Pt seen and examined at bedside. Nursing reports no acute events overnight, with pt remaining afebrile overnight. Patient reports the NGT is scratching her throat, and admits continued LUQ abdominal pain. She describes the pain as a burning sensation in her LUQ she rates as a 6/10, but is improved with dilaudid. Last episode of vomiting was last night but patient denies blood in vomit. She denies passing gas or stool. She further denies chest pain, palpitations, SOB, fever, chills. Objective - Vital Signs/Intake and Output Vital Signs (last 24 hours): Temp Pulse Resp BP Pulse Ox 98.2 F 79 20 124/69 97 08/07/17 07:44 08/07/17 07:44 08/07/17 07:44 08/07/17 07:44 08/07/17 07:44 Intake and Output: 08/07/17 08/07/17 06:59 18:59 Intake Total 800 Output Total 900 Balance -100 - Medications Medications: Current Medications Diphenhydramine HCl (Benadryl) 25 mg IVP Q4H PRN PRN Reason: GI distress Last Admin: 08/07/17 08:13 Dose: 25 mg Enoxaparin Sodium (Lovenox) 40 mg SC DAILY [facility] Last Admin: 08/06/17 09:34 Dose: 40 mg Hydromorphone HCl (Dilaudid) 2 mg IVP Q3 PRN PRN Reason: Pain, severe (8-10) Last Admin: 08/07/17 08:10 Dose: 2 mg Potassium Chloride 20 meq/ (Dextrose/Sodium Chloride) 1,010 mls @ 100 mls/hr IV .Q10H6M [facility] Last Admin: 08/07/17 04:00 Dose: 100 mls/hr Ondansetron HCl (Zofran Inj) 4 mg IVP Q8 PRN PRN Reason: Nausea/Vomiting Last Admin: 08/07/17 01:57 Dose: 4 mg Pantoprazole Sodium (Protonix Inj) 40 mg IVP DAILY [facility] Last Admin: 08/06/17 09:33 Dose: 40 mg - Labs Labs: 08/06/17 06:40 08/06/17 06:40 - Constitutional Appears: Non-toxic, No Acute Distress - Head Exam Head Exam: ATRAUMATIC, NORMAL INSPECTION - Eye Exam Eye Exam: EOMI, Normal appearance. absent: Scleral icterus Pupil Exam: PERRL - ENT Exam ENT Exam: Mucous Membranes Moist Additional comments: NGT placed: 450 cc yellow, bile drainage - Respiratory Exam Respiratory Exam: Clear to Ausculation Bilateral, NORMAL BREATHING PATTERN. absent: Chest Wall Tenderness, Rales, Rhonchi, Wheezes - Cardiovascular Exam Cardiovascular Exam: REGULAR RHYTHM, +S1, +S2 - GI/Abdominal Exam GI & Abdominal Exam: Soft, Tenderness (LUQ), Normal Bowel Sounds. absent: Guarding, Rigid - Extremities Exam Extremities Exam: Normal Inspection - Back Exam Back Exam: absent: CVA tenderness (L), CVA tenderness (R) - Neurological Exam Neurological Exam: Alert, Awake, Oriented x3 Assessment and Plan - Assessment and Plan (Free Text) Plan: SBO Etiology: most likely adhesions from prior surgery - most recent S/P Ventral hernia repair on 07/07/17 Admit to med/surg NPO Diet NGT placed w. 450 cc of yellow Lipase 333 on admission, 216 on follow up the next day GI automotive service consultant, Dr. Walls - f/u reccs From last admission: CT A/P (07/27/17) Unremarkable pancreas. 2.2x2.2x4.4 cm focal collection within anterior soft tissues of bowel with surrounding mild inflamm changes. Cannot exclude abscess. Refer to complete report. Patient has had 3 CT scans within the last 8 days. The most recent results reported above. Refer to hospital record for the other reports. AFP 3.7, CEA 2.2, Ca19-9 <1.4, Ca 125 <5.5 - all negative Diluadid 2mg IV Q3H PRN Benadryl 25 MG Q4H PRN Intractable vomiting Assessment & Plan: Zofran Q4H PRN Status: Acute Hypertension Assessment & Plan: Well-controlled Hold: Norvasc 10 mg PO daily Status: Chronic Hypercholesteremia Assessment & Plan: Hold:Crestor 10 mg PO HS Status: Chronic Asthma Assessment & Plan: Duonebs PRN Controlled, patient denies shortness of breath Status: Chronic Anxiety Assessment & Plan: Hold: Xanax 5 mg PO PRN Ambien 5 mg PO HS Status: Chronic Transaminitis Assessment & Plan: Resolved Hepatitis panel negative. Liver enzymes have normalized and remained stable Status: Chronic Prophylactic measure Assessment & Plan: Protonix 40 IV Daily S[facility] Lovenox 40 mg SC daily Ki Nina PGY-2 Discussed with attending. All management and planning per Dr. Ellison.
[2017-08-07] MEDS: Enoxaparin 40 mg Syringe SC SCH (10:02)
[2017-08-08] MEDS: DiphenhydrAMINE 50 mg/ml Inj IVP PRN ×5 (00:38→22:01)
[2017-08-08] MEDS: Potassium Chloride 20 MEQ in Dextrose 5%/0.45% NS 1,000 ML IV SCH ×4 (00:38→18:12)
[2017-08-08] MEDS: Enoxaparin 40 mg Syringe SC SCH (09:06)
[2017-08-08] MEDS ORDERED: Midazolam 2 MG/2 ML VIAL ONE (11:15)
[2017-08-08] MEDS ORDERED: Propofol 10 mg/ml Inj (20 ML) ONE ×2 (11:15→11:34)
[2017-08-08] MEDS ORDERED: Albuterol 0.083% Inhal Sol (2.5 mg/3 mL) UD INH PRN (11:41)
[2017-08-08] MEDS: HYDROmorphone 0.5 mg/0.5 ml ISec IVP PRN ×2 (11:50→12:19)
--- NOTE | 2017-08-08 12:12 | CP.PCM.PN ---
Subjective - Date & Time of Evaluation Date of Evaluation: 08/08/17 Time of Evaluation: 08:20 - Subjective Subjective: PGY 2 Medicine Note- Dr. Ellison's service Patient seen in no acute distress. Patient with NG tube in place with approx 600 cc of output. Patient admits to vomiting despite having NG tube placed. She states that she has been asked not to eat at this time as well. Objective - Vital Signs/Intake and Output Vital Signs (last 24 hours): Temp Pulse Resp BP Pulse Ox 98.3 F 77 20 127/83 99 08/08/17 11:21 08/08/17 11:21 08/08/17 11:21 08/08/17 11:21 08/08/17 11:21 Intake and Output: 08/08/17 08/08/17 06:59 18:59 Intake Total 1600 200 Output Total 500 Balance 1100 200 - Medications Medications: Current Medications Albuterol Sulfate (Albuterol 0.083% Inhal Chrissie (2.5 Mg/3 Ml) Ud) 2.5 mg INH ONCE PRN PRN Reason: Wheezing Albuterol/Ipratropium (Duoneb 3 Mg/0.5 Mg (3 Ml) Ud) 3 ml INH RQ6 PRN PRN Reason: Shortness of Breath Benzocaine/Menthol (Cepacol Sore Throat) 1 jay MT Q4 PRN PRN Reason: Sore Throat Diphenhydramine HCl (Benadryl) 25 mg IVP Q4H PRN PRN Reason: GI distress Last Admin: 08/08/17 05:42 Dose: 25 mg Enoxaparin Sodium (Lovenox) 40 mg SC DAILY [facility] Last Admin: 08/08/17 09:06 Dose: Not Given Hydromorphone HCl (Dilaudid) 2 mg IVP Q3 PRN PRN Reason: Pain, severe (8-10) Last Admin: 08/08/17 09:07 Dose: 2 mg Hydromorphone HCl (Dilaudid) 0.5 mg IVP Q5M PRN PRN Reason: Pain, moderate (4-7) Stop: 08/08/17 13:41 Potassium Chloride 20 meq/ (Dextrose/Sodium Chloride) 1,010 mls @ 100 mls/hr IV .Q10H6M [facility] Last Admin: 08/08/17 09:07 Dose: Not Given Ondansetron HCl (Zofran Inj) 4 mg IVP Q8 PRN PRN Reason: Nausea/Vomiting Last Admin: 08/07/17 20:42 Dose: 4 mg Ondansetron HCl (Zofran Inj) 4 mg IVP ONCE PRN PRN Reason: Nausea/Vomiting Stop: 08/08/17 13:42 Pantoprazole Sodium (Protonix Inj) 40 mg IVP DAILY [facility] Last Admin: 08/08/17 09:06 Dose: 40 mg - Labs Labs: 08/06/17 06:40 08/06/17 06:40 - Constitutional Appears: Non-toxic, No Acute Distress - Head Exam Head Exam: ATRAUMATIC, NORMAL INSPECTION - Eye Exam Eye Exam: EOMI, Normal appearance, PERRL - ENT Exam ENT Exam: Mucous Membranes Moist Additional comments: ng tube in place with approx 600 cc output - Neck Exam Neck Exam: Full ROM - Respiratory Exam Respiratory Exam: NORMAL BREATHING PATTERN. absent: Wheezes - Cardiovascular Exam Cardiovascular Exam: +S1, +S2 - GI/Abdominal Exam GI & Abdominal Exam: Guarding, Soft, Tenderness (diffusely ). absent: Rigid Additional comments: midline incision abdominal incision scars noted - Extremities Exam Extremities Exam: Full ROM - Back Exam Back Exam: Full ROM - Neurological Exam Neurological Exam: Alert, Awake, Oriented x3 - Psychiatric Exam Psychiatric exam: Normal Affect, Normal Mood - Skin Skin Exam: Normal Color, Warm Assessment and Plan - Assessment and Plan (Free Text) Assessment: SBO Assessment & Plan: Etiology: most likely secondary to adhesions from multiple surgeries -Most recent procedure : Ventral hernia repair on 07/07/17 NPO Diet NGT placed w. ~600 cc of yellow ouptut Lipase 216 checked on 08/06/17 GI loan consultant, Dr. Walls- endoscopy today- F/U complete report. Patient's NG tube removed for procedure and will need to be reinserted. From last admission: CT A/P (07/27/17) Unremarkable pancreas. 2.2x2.2x4.4 cm focal collection within anterior soft tissues of bowel with surrounding mild inflamm changes. Cannot exclude abscess. Refer to complete report. Patient has had 3 CT scans within the last 8 days. The most recent results reported above. Refer to hospital record for the other reports. AFP 3.7, CEA 2.2, Ca19-9 <1.4, Ca 125 <5.5 - all negative Dilaudid 2mg IV Q4H PRN Benadryl 25 MG Q4H PRN Status: Acute Intractable vomiting Assessment & Plan: Zofran Q4H PRN Status: Acute Hypertension Assessment & Plan: Cont to monitor Hold: Norvasc 10 mg PO daily Status: Chronic Hypercholesteremia Assessment & Plan: Hold Crestor 10 mg PO HS due to earlier presentations of elevated LFTs Status: Chronic Asthma Assessment & Plan: Duonebs PRN Advair daily Controlled, patient denies shortness of breath Status: Chronic Anxiety Assessment & Plan: Xanax 1 mg PO PRN Ambien 5 mg PO HS Status: Chronic Transaminitis Assessment & Plan: Resolved Hepatitis panel negative. Liver enzymes have normalized and remained stable Status: Chronic Prophylactic measure Assessment & Plan: Protonix 40 IV Daily [facility] Lovenox 40 mg SC daily Discussed with attending. All management and planning per Dr. Ellison.
[2017-08-08] MEDS: Albuterol-Ipratrop 3 mg / 0.5 (3 ml) UD INH PRN (15:00)
[2017-08-08] MEDS: Fluticasone-Salmeterol 250-50mcg Diskus INH SCH (19:18)
[2017-08-09] MEDS: DiphenhydrAMINE 50 mg/ml Inj IVP PRN ×6 (02:00→22:28)
[2017-08-09] MEDS: Potassium Chloride 20 MEQ in Dextrose 5%/0.45% NS 1,000 ML IV SCH ×5 (02:11→23:59)
[2017-08-09 07:26] LABS: BASO % 0.6 % (0.0-2.0); EOS # 0.4 K/uL (0.0-0.7); EOS % 7.5 % (0.0-4.0); HEMOGLOBIN 10.7 g/dL (11.0-16.0); LYMPH # 1.3 K/uL (1.0-4.3); LYMPH % 24.1 % (20.0-40.0); MEAN CELL VOLUME 88.6 fL (81.0-99.0); MEAN CORPUSCULAR HEMOGLOBIN 29.3 pg (27.0-31.0); MEAN CORPUSCULAR HGB CONC 33.1 g/dL (33.0-37.0); MEAN PLATELET VOLUME 7.9 fL (7.2-11.7); MONO # 0.7 K/uL (0.0-0.8); NEUT # 3.1 K/uL (1.8-7.0); NEUT % 55.8 % (50.0-75.0); NRBC % 0.1 % (0.0-2.0); RBC 3.66 Mil/uL (3.80-5.20); RED CELL DISTRIBUTION WIDTH 13.7 % (11.5-14.5); WHITE BLOOD COUNT 5.5 K/uL (4.8-10.8)
[2017-08-09 08:17] LABS: ALB/GLOB RATIO 1.1 (1.0-2.1); ALBUMIN 3.7 g/dL (3.5-5.0); ALT/SGPT 32 U/L (9-52); AST/SGOT 35 U/L (14-36); BLOOD UREA NITROGEN 7 mg/dL (7-17); CALCIUM 8.9 mg/dl (8.6-10.4); GFR AFRICAN-AMERICAN > 60; GFR NON-AFRICAN AMERICAN > 60; MAGNESIUM 1.7 mg/dL (1.6-2.3)
--- NOTE | 2017-08-09 09:02 | RAD ---
HISTORY: NG tube placement COMPARISON: Chest radiograph dated 08/05/2017. FINDINGS: LUNGS: No active pulmonary disease. PLEURA: No significant pleural effusion identified, no pneumothorax apparent. CARDIOVASCULAR: Cardiomediastinal silhouette stably prominent. OSSEOUS STRUCTURES: Unchanged. VISUALIZED UPPER ABDOMEN: Normal. OTHER FINDINGS: Right internal jugular access central venous catheter, unchanged. Enteric tube, unchanged. IMPRESSION: No active disease.
--- NOTE | 2017-08-09 10:07 | CP.PCM.PN ---
Subjective - Date & Time of Evaluation Date of Evaluation: 08/09/17 Time of Evaluation: 07:00 - Subjective Subjective: PGY 2 medicine progress note for Dr. Ellison: Patient seen in no acute distress. Patient with NG tube in place with approx 200cc of output. Patient admits to vomiting all night despite having NG tube placed. She states that she has been asked not to eat at this time as well. She continues to report abdominal pain that has not changed. Per GI the patient is to have an upper GI series done but they patient refused this study. She states "maybe tomorrow due to the vomiting and pain." Objective - Vital Signs/Intake and Output Vital Signs (last 24 hours): Temp Pulse Resp BP Pulse Ox 98.3 F 73 20 111/80 96 08/09/17 07:36 08/09/17 07:36 08/09/17 07:36 08/09/17 07:36 08/09/17 07:36 Intake and Output: 08/09/17 08/09/17 06:59 18:59 Intake Total 800 800 Output Total 100 200 Balance 700 600 - Medications Medications: Current Medications Albuterol Sulfate (Albuterol 0.083% Inhal Chrissie (2.5 Mg/3 Ml) Ud) 2.5 mg INH ONCE PRN PRN Reason: Wheezing Albuterol/Ipratropium (Duoneb 3 Mg/0.5 Mg (3 Ml) Ud) 3 ml INH RQ6 PRN PRN Reason: Shortness of Breath Last Admin: 08/08/17 15:00 Dose: 3 ml Alprazolam (Xanax) 1 mg PO DAILY PRN PRN Reason: Anxiety Benzocaine/Menthol (Cepacol Sore Throat) 1 jay MT Q4 PRN PRN Reason: Sore Throat Diphenhydramine HCl (Benadryl) 25 mg IVP Q4H PRN PRN Reason: GI distress Last Admin: 08/09/17 06:00 Dose: 25 mg Enoxaparin Sodium (Lovenox) 40 mg SC DAILY [facility] Last Admin: 08/08/17 09:06 Dose: Not Given Hydromorphone HCl (Dilaudid) 2 mg IVP Q4H PRN PRN Reason: Pain, severe (8-10) Potassium Chloride 20 meq/ (Dextrose/Sodium Chloride) 1,010 mls @ 100 mls/hr IV .Q10H6M [facility] Last Admin: 08/09/17 04:19 Dose: Not Given Ondansetron HCl (Zofran Inj) 4 mg IVP Q8 PRN PRN Reason: Nausea/Vomiting Last Admin: 08/08/17 14:31 Dose: 4 mg Pantoprazole Sodium (Protonix Inj) 40 mg IVP DAILY [facility] Last Admin: 08/08/17 09:06 Dose: 40 mg Fluticasone/Salmeterol (Advair Diskus 250/50) 1 puff INH RBID [facility] Last Admin: 08/08/17 19:18 Dose: Not Given Zolpidem Tartrate (Ambien) 5 mg PO HS PRN PRN Reason: Insomnia - Labs Labs: 08/09/17 07:16 08/09/17 07:16 - Constitutional Appears: Non-toxic, No Acute Distress - Head Exam Head Exam: NORMAL INSPECTION - Eye Exam Eye Exam: EOMI - ENT Exam ENT Exam: Mucous Membranes Moist Additional comments: ng tube in place with approx 200 cc bilious output - Neck Exam Neck Exam: Full ROM - Respiratory Exam Respiratory Exam: Clear to Ausculation Bilateral, NORMAL BREATHING PATTERN. absent: Respiratory Distress - Cardiovascular Exam Cardiovascular Exam: REGULAR RHYTHM, +S1, +S2 - GI/Abdominal Exam GI & Abdominal Exam: Soft, Tenderness, Normal Bowel Sounds. absent: Distended, Firm, Guarding Additional comments: midline incision abdominal incision scars noted - Extremities Exam Extremities Exam: Normal Inspection. absent: Calf Tenderness - Back Exam Back Exam: NORMAL INSPECTION - Neurological Exam Neurological Exam: Alert, Awake, CN II-XII Intact, Normal Gait, Oriented x3 Neuro motor strength exam: Left Upper Extremity: 5, Right Upper Extremity: 5, Left Lower Extremity: 5 - Psychiatric Exam Psychiatric exam: Anxious, Normal Affect, Normal Mood - Skin Skin Exam: Dry, Normal Color, Warm Assessment and Plan - Assessment and Plan (Free Text) Assessment: SBO Assessment & Plan: Etiology: most likely secondary to adhesions from multiple surgeries -Most recent procedure : Ventral hernia repair on 07/07/17 NPO Diet NGT placed w. ~200 cc of yellow oupput today Lipase 216 checked on 08/06/17 GI [employer] consultant, Dr. Walls: Endoscopy 08/09/16: refluz esophagitis, gastritis, medium hiatal hernia, biopsies taken Suggest Upper GI series with small bowel follow up - patient refused this today F/U obstructive series Surgery consulted, Dr. Mcguire, help appreciated From last admission: CT A/P (07/27/17) Unremarkable pancreas. 2.2x2.2x4.4 cm focal collection within anterior soft tissues of bowel with surrounding mild inflamm changes. Cannot exclude abscess. Refer to complete report. Patient has had 3 CT scans within the last 8 days. The most recent results reported above. Refer to hospital record for the other reports. AFP 3.7, CEA 2.2, Ca19-9 <1.4, Ca 125 <5.5 - all negative Dilaudid 2mg IV Q4H PRN Benadryl 25 MG Q4H PRN Status: Acute Intractable vomiting Assessment & Plan: Zofran Q4H PRN Status: Acute Hypertension Assessment & Plan: Cont to monitor Hold: Norvasc 10 mg PO daily Status: Chronic Hypercholesteremia Assessment & Plan: Hold Crestor 10 mg PO HS due to earlier presentations of elevated LFTs. Will resume outpatient Status: Chronic Asthma Assessment & Plan: Duonebs PRN Advair daily Controlled, patient denies shortness of breath Status: Chronic Anxiety Assessment & Plan: Xanax 1 mg PO PRN Ambien 5 mg PO HS Status: Chronic Transaminitis Assessment & Plan: Resolved Hepatitis panel negative. Liver enzymes have normalized and remained stable Status: Chronic Prophylactic measure Assessment & Plan: Protonix 40 IV Daily SCDs Lovenox 40 mg SC daily Discussed with attending. All management and planning per Dr. Ellison.
[2017-08-09] MEDS: Enoxaparin 40 mg Syringe SC SCH (10:19)
[2017-08-09] MEDS: Fluticasone-Salmeterol 250-50mcg Diskus INH SCH ×2 (10:32→19:21)
--- NOTE | 2017-08-09 12:17 | RAD ---
PROCEDURE: Radiographs of the chest and abdomen (obstructive series) HISTORY: r/o bowel obx COMPARISON: No prior. TECHNIQUE: AP radiograph of the chest, with upright and supine radiographs of the abdomen. FINDINGS: CHEST: Lungs: Clear. Cardiovascular: Normal size heart. No pulmonary vascular congestion. Pleura: No pleural fluid. No pneumothorax. Other findings: Right internal jugular access chest port, unchanged. ABDOMEN AND PELVIS: Bowel: Unremarkable bowel gas pattern. No evidence of mechanical obstruction. Free air: None. Bones: Unremarkable. Other findings: Enteric to with tip in the stomach. Right upper quadrant surgical clips. IMPRESSION: Unremarkable radiographs of chest and abdomen. No evidence of mechanical bowel obstruction.
[2017-08-09] MEDS: Benzocaine/Menthol (Cepacol) Lozenge MT PRN (12:19)
--- NOTE | 2017-08-09 13:14 | PN ---
DATE: LOCATION: [facility], bed B. SUBJECTIVE: This 52-year-old female is seen and examined this morning. Case discussed at length with Dr. Ellison as well as the medical staff in the floor. The entire chart is reviewed including, but not limited to the most recent lab and radiology study results, current and the previous medication list, current and the previous medical events. Patient refused upper GI series with small bowel follow-through. Patient still has intermittent period of abdominal pain and she claimed that she had nausea and vomiting, asking for more Dilaudid. No chest pain, palpitation, or reported significant shortness of breath or active bleeding. Had nausea and vomiting despite the NG tube is in place, this is unwitnessed. Today's lab showed hemoglobin drop to 10.7, hematocrit 33.5, but normal white blood cells and normal platelet count while the alkaline phosphatase is 128 with lipase is normal at 216 with normal amylase 100. PHYSICAL EXAMINATION GENERAL: A 52-year-old female. VITAL SIGNS: Afebrile with pulse of 76, respiratory rate 20 to 22, blood pressure 118/82. HEENT: Showed mildly pale, dry mucoid membrane. Nonicteric sclerae. LUNGS: Few scattered crepitation. Decreased air entry at bases. HEART: Positive S1 and S2. ABDOMEN: Soft. Bowel sounds are present with slight distention with mild generalized tenderness and G-tube was then placed. RECTAL: The patient refused. EXTREMITIES: Without edema, clubbing, or cyanosis. NEUROLOGIC: No reported new neurological deficits, sensory or motor. IMPRESSION 1. Re-exacerbation of peptic ulcer disease. 2. Possible intermittent partial bowel obstruction secondary to adhesions. 3. Multiple past medical history including but not limited to severe anxiety syndrome, osteoarthritis, chronic obstructive pulmonary disease, chronic lower back pain syndrome, hypertension with hyperlipidemia, and hypothyroidism. 4. Recurrent episodes of acute pancreatitis, subsided. SUGGESTIONS: 1. Agree with your plan. 2. Flat and upright abdominal . 3. Surgical reevaluation. 4. This case again discussed at length with Dr. Ellison and Dr. Belcher. Hecotr Belcher MD [facility] # [id number]
[2017-08-10] MEDS: DiphenhydrAMINE 50 mg/ml Inj IVP PRN ×6 (02:32→23:12)
--- NOTE | 2017-08-10 07:23 | CP.PCM.PN ---
Subjective - Date & Time of Evaluation Date of Evaluation: 08/10/17 Time of Evaluation: 07:00 - Subjective Subjective: PGY 2 medicine progress note for Dr. Ellison: Patient seen in no acute distress. Patient with NG tube in place with approx 800cc of output. She continues to report abdominal pain that has not changed reports vomiting even with an NG tube. Patient states that she has not yet been seen by surgery. She denies chest pain, shortness of breath, or palpitations. She states she is starting to have a non productive cough. Recent chest X ray was negative. Denies fever/chills. No other complaints. Patient is requesting more benadryl and pain medications. Objective - Vital Signs/Intake and Output Vital Signs (last 24 hours): Temp Pulse Resp BP Pulse Ox 98.3 F 73 20 111/80 96 08/09/17 07:36 08/09/17 07:36 08/09/17 07:36 08/09/17 07:36 08/09/17 07:36 Intake and Output: 08/10/17 08/10/17 06:59 18:59 Intake Total 1520 0 Output Total 600 Balance 1520 -600 - Medications Medications: Current Medications Albuterol Sulfate (Albuterol 0.083% Inhal Chrissie (2.5 Mg/3 Ml) Ud) 2.5 mg INH ONCE PRN PRN Reason: Wheezing Albuterol/Ipratropium (Duoneb 3 Mg/0.5 Mg (3 Ml) Ud) 3 ml INH RQ6 PRN PRN Reason: Shortness of Breath Last Admin: 08/08/17 15:00 Dose: 3 ml Alprazolam (Xanax) 1 mg PO DAILY PRN PRN Reason: Anxiety Benzocaine/Menthol (Cepacol Sore Throat) 1 jay MT Q4 PRN PRN Reason: Sore Throat Last Admin: 08/09/17 12:19 Dose: 1 jay Diphenhydramine HCl (Benadryl) 25 mg IVP Q4H PRN PRN Reason: GI distress Last Admin: 08/10/17 06:43 Dose: 25 mg Enoxaparin Sodium (Lovenox) 40 mg SC DAILY [facility] Last Admin: 08/09/17 10:19 Dose: 40 mg Hydromorphone HCl (Dilaudid) 2 mg IVP Q4H PRN PRN Reason: Pain, severe (8-10) Last Admin: 08/10/17 06:44 Dose: 2 mg Potassium Chloride 20 meq/ (Dextrose/Sodium Chloride) 1,010 mls @ 100 mls/hr IV .Q10H6M [facility] Last Admin: 08/09/17 23:59 Dose: 100 mls/hr Ondansetron HCl (Zofran Inj) 4 mg IVP Q8 PRN PRN Reason: Nausea/Vomiting Last Admin: 08/08/17 14:31 Dose: 4 mg Pantoprazole Sodium (Protonix Inj) 40 mg IVP DAILY [facility] Last Admin: 08/09/17 10:18 Dose: 40 mg Fluticasone/Salmeterol (Advair Diskus 250/50) 1 puff INH RBID [facility] Last Admin: 08/09/17 19:21 Dose: Not Given Zolpidem Tartrate (Ambien) 5 mg PO HS PRN PRN Reason: Insomnia - Labs Labs: 08/09/17 07:16 08/09/17 07:16 - Constitutional Appears: Non-toxic, No Acute Distress - Head Exam Head Exam: ATRAUMATIC, NORMAL INSPECTION - Eye Exam Eye Exam: EOMI - ENT Exam ENT Exam: Mucous Membranes Moist - Respiratory Exam Respiratory Exam: Clear to Ausculation Bilateral, NORMAL BREATHING PATTERN. absent: Accessory Muscle Use, Rales, Wheezes, Respiratory Distress - Cardiovascular Exam Cardiovascular Exam: REGULAR RHYTHM, +S1, +S2 - GI/Abdominal Exam GI & Abdominal Exam: Soft, Tenderness, Normal Bowel Sounds. absent: Distended, Firm, Guarding Additional comments: ng tube in place with approx 200 cc bilious output - Extremities Exam Extremities Exam: Normal Inspection. absent: Calf Tenderness, Pedal Edema - Back Exam Back Exam: NORMAL INSPECTION. absent: CVA tenderness (L), CVA tenderness (R), paraspinal tenderness - Neurological Exam Neurological Exam: Alert, Awake, CN II-XII Intact, Normal Gait, Oriented x3 Neuro motor strength exam: Left Upper Extremity: 5, Right Upper Extremity: 5, Left Lower Extremity: 5, Right Lower Extremity: 5 - Psychiatric Exam Psychiatric exam: Normal Affect, Normal Mood - Skin Skin Exam: Dry, Intact, Normal Color, Warm Assessment and Plan - Assessment and Plan (Free Text) Assessment: Intractable Nausea and Vomiting Assessment & Plan: KUB 07/30 - no evidence of obstruction Etiology: most likely secondary to adhesions from multiple surgeries -Most recent procedure : Ventral hernia repair on 07/07/17 NPO Diet NGT placed w. ~800 cc of yellow output today Lipase 216 checked on 08/06/17 GI [employer] consultant, Dr. Walls: Endoscopy 08/09/16: reflux esophagitis, gastritis, medium hiatal hernia, biopsies taken Suggest Upper GI series with small bowel follow up - patient still refusing Surgery consulted, Dr. Mcguire, help appreciated - f/u recommendations From last admission: CT A/P (07/27/17) Unremarkable pancreas. 2.2x2.2x4.4 cm focal collection within anterior soft tissues of bowel with surrounding mild inflammatory changes. Cannot exclude abscess. Refer to complete report. Patient has had 3 CT scans within the last 8 days. The most recent results reported above. Refer to hospital record for the other reports. AFP 3.7, CEA 2.2, Ca19-9 <1.4, Ca 125 <5.5 - all negative Dilaudid 1mg IV Q4H PRN Benadryl 50 MG TID PRN Status: Acute Intractable vomiting Assessment & Plan: Zofran Q4H PRN Status: Acute Hypertension Assessment & Plan: Cont to monitor Hold: Norvasc 10 mg PO daily Status: Chronic Hypercholesteremia Assessment & Plan: Hold Crestor 10 mg PO HS due to earlier presentations of elevated LFTs. Will resume outpatient Status: Chronic Asthma Assessment & Plan: Duonebs PRN Advair daily Controlled, patient denies shortness of breath Status: Chronic Anxiety Assessment & Plan: Xanax 1 mg PO PRN Ambien 5 mg PO HS Status: Chronic Transaminitis Assessment & Plan: Resolved Hepatitis panel negative. Liver enzymes have normalized and remained stable Status: Chronic Prophylactic measure Assessment & Plan: Protonix 40 IV Daily SCDs Lovenox 40 mg SC daily Physical Therapy Will start PPN Discussed with attending. All management and planning per Dr. Ellison.
[2017-08-10 07:57] LABS: BASO % 0.5 % (0.0-2.0); EOS # 0.4 K/uL (0.0-0.7); EOS % 7.2 % (0.0-4.0); HEMOGLOBIN 10.3 g/dL (11.0-16.0); LYMPH # 1.3 K/uL (1.0-4.3); LYMPH % 26.7 % (20.0-40.0); MEAN CELL VOLUME 89.2 fL (81.0-99.0); MEAN CORPUSCULAR HEMOGLOBIN 29.9 pg (27.0-31.0); MEAN CORPUSCULAR HGB CONC 33.5 g/dL (33.0-37.0); MONO # 0.6 K/uL (0.0-0.8); MONO % 12.2 % (0.0-10.0); NEUT # 2.6 K/uL (1.8-7.0); NEUT % 53.4 % (50.0-75.0); RBC 3.46 Mil/uL (3.80-5.20); RED CELL DISTRIBUTION WIDTH 13.6 % (11.5-14.5); WHITE BLOOD COUNT 4.9 K/uL (4.8-10.8)
[2017-08-10 08:39] LABS: ALB/GLOB RATIO 1.1 (1.0-2.1); ALBUMIN 3.5 g/dL (3.5-5.0); ALT/SGPT 35 U/L (9-52); AST/SGOT 22 U/L (14-36); BLOOD UREA NITROGEN 11 mg/dL (7-17); GFR AFRICAN-AMERICAN > 60; GFR NON-AFRICAN AMERICAN > 60; MAGNESIUM 1.7 mg/dL (1.6-2.3)
[2017-08-10] MEDS: Enoxaparin 40 mg Syringe SC SCH (11:00)
[2017-08-10] MEDS ORDERED: DiphenhydrAMINE 50 mg/ml Inj IVP PRN (11:11)
--- NOTE | 2017-08-10 11:23 | PN ---
DATE: LOCATION: [facility], bed B. SUBJECTIVE: This is a 52-year-old female seen and examined in rounds post upper endoscopy before, still complaining of some abdominal pain and previously refused upper GI with small bowel follow through. I instructed the team to obtain abdominal obstructive series, x-ray, which was done yesterday, unremarkable with no evidence of mechanical bowel obstruction. The entire chart is reviewed including but not limited to the most recent lab and radiology study results, current and the previous medication list, current and the previous medical events. Case discussed with the staff at length. The patient denied any actual chest pain, palpitation, active bleeding. Today's labs showed low hemoglobin of 10.3, hematocrit 30.8 with normal white blood cells and normal platelet count with blood glucose level 108, but normal liver function tests. PHYSICAL EXAMINATION: GENERAL: A 52-year-old female. Awake, alert, oriented. VITAL SIGNS: Afebrile with heart rate of 78, respiratory rate 20 to 22, blood pressure 118/78. HEENT: Showed mildly pale dry oral mucous membrane. Nonicteric sclerae. LUNGS: Few scattered crepitation. Breathing sounds are present bilaterally. HEART: Positive S1 and S2. ABDOMEN: Soft. Bowel sounds are present. No mass or organomegaly. No rebound tenderness or guarding. EXTREMITIES: Without significant edema, clubbing or cyanosis. IMPRESSION: 1. Re-exacerbation of peptic ulcer disease. 2. Mild anemia, most likely secondary to chronic disease. No evidence of active bleeding. 3. Intermittent partial bowel obstruction by history. 4. Recent history of acute pancreatitis, subsided. 5. Past medical history of but not limited to chronic obstructive pulmonary disease, osteoarthritis, severe anxiety syndrome, hypertension with hyperlipidemia, hypothyroidism as well as chronic lower back pain syndrome. SUGGESTION: 1. Continue current management. 2. Advance diet. 3. Consider surgical reevaluation. If reported to be normal, then may discharge home if okay with the primary MD. Hector Belcher MD
[2017-08-10] MEDS: Potassium Chloride 20 MEQ in Dextrose 5%/0.45% NS 1,000 ML IV SCH (11:25)
[2017-08-10] MEDS: Benzocaine/Menthol (Cepacol) Lozenge MT PRN (17:03)
[2017-08-10] MEDS: Fat Emulsion 20% IV 500 ML IV SCH (17:54)
[2017-08-10] MEDS ORDERED: PPN#1 IV ONE (18:00)
[2017-08-10] MEDS: Fluticasone-Salmeterol 250-50mcg Diskus INH SCH (19:47)
[2017-08-11] MEDS: Benzocaine/Menthol (Cepacol) Lozenge MT PRN ×3 (00:16→16:47)
[2017-08-11] MEDS: DiphenhydrAMINE 50 mg/ml Inj IVP PRN ×5 (03:26→19:54)
--- NOTE | 2017-08-11 07:04 | CP.PCM.PN ---
Subjective - Date & Time of Evaluation Date of Evaluation: 08/11/17 Time of Evaluation: 07:00 - Subjective Subjective: PGY-[address] Ellison's Service: Pt seen and examined at bedside. Nursing reports no acute events overnight. Patient found lying comfortably in bed. Patient states her abdominal pain persists in her LUQ but is better than admission. She describes the pain as a "dull, burning sensation" that rates 8-9/10 pain. Pt denies gas or bowel movement. Patient asking for the NGT to be removed, but relented. She understands she is at high risk of adhesion due to multiple abdominal surgeries for obstruction. She admits nausea but denies episode of vomiting overnight. Objective - Vital Signs/Intake and Output Vital Signs (last 24 hours): Temp Pulse Resp BP Pulse Ox 98.6 F 83 20 141/91 H 96 08/11/17 00:00 08/11/17 00:00 08/11/17 00:00 08/11/17 00:00 08/11/17 00:00 Intake and Output: 08/10/17 08/11/17 18:59 06:59 Intake Total 800 838 Output Total 800 1200 Balance 0 -362 - Medications Medications: Current Medications Albuterol Sulfate (Albuterol 0.083% Inhal Chrissie (2.5 Mg/3 Ml) Ud) 2.5 mg INH ONCE PRN PRN Reason: Wheezing Albuterol/Ipratropium (Duoneb 3 Mg/0.5 Mg (3 Ml) Ud) 3 ml INH RQ6 PRN PRN Reason: Shortness of Breath Last Admin: 08/08/17 15:00 Dose: 3 ml Alprazolam (Xanax) 1 mg PO DAILY PRN PRN Reason: Anxiety Benzocaine/Menthol (Cepacol Sore Throat) 1 jay MT Q4 PRN PRN Reason: Sore Throat Last Admin: 08/11/17 00:16 Dose: 1 jay Diphenhydramine HCl (Benadryl) 25 mg IVP Q4H PRN PRN Reason: GI distress Last Admin: 08/11/17 03:26 Dose: 25 mg Diphenhydramine HCl (Benadryl) 25 mg IVP Q4 PRN PRN Reason: Itching / Pruritus Enoxaparin Sodium (Lovenox) 40 mg SC DAILY [facility] Last Admin: 08/10/17 11:00 Dose: 40 mg Hydromorphone HCl (Dilaudid) 2 mg IVP Q4H PRN PRN Reason: Pain, severe (8-10) Last Admin: 08/11/17 03:34 Dose: 2 mg Multivitamins/Vitamin C 10 ml/ (Amino Acids) 1,010 mls @ 42 mls/hr IV .Q24H ONE Stop: 08/11/17 17:59 Last Admin: 08/10/17 17:50 Dose: 42 mls/hr Fat Emulsion Intravenous (Intralipid 20%) 500 mls @ 42 mls/hr IV TuThSa [facility] Last Admin: 08/10/17 17:54 Dose: 42 mls/hr Ondansetron HCl (Zofran Inj) 4 mg IVP Q8 PRN PRN Reason: Nausea/Vomiting Last Admin: 08/08/17 14:31 Dose: 4 mg Pantoprazole Sodium (Protonix Inj) 40 mg IVP DAILY [facility] Last Admin: 08/10/17 11:00 Dose: 40 mg Promethazine HCl (Phenergan Syrup) 12.5 mg PO Q6 PRN PRN Reason: Cough Fluticasone/Salmeterol (Advair Diskus 250/50) 1 puff INH RBID [facility] Last Admin: 08/10/17 19:47 Dose: Not Given Zolpidem Tartrate (Ambien) 5 mg PO HS PRN PRN Reason: Insomnia - Labs Labs: 08/10/17 07:42 08/10/17 07:42 - Constitutional Appears: Non-toxic, No Acute Distress - Head Exam Head Exam: ATRAUMATIC, NORMAL INSPECTION - Eye Exam Eye Exam: EOMI, Normal appearance Pupil Exam: PERRL - ENT Exam ENT Exam: Mucous Membranes Moist - Neck Exam Neck Exam: Full ROM - Respiratory Exam Respiratory Exam: Clear to Ausculation Bilateral, NORMAL BREATHING PATTERN - Cardiovascular Exam Cardiovascular Exam: REGULAR RHYTHM, +S1, +S2 - GI/Abdominal Exam GI & Abdominal Exam: Soft, Tenderness (LUQ ), Normal Bowel Sounds. absent: Distended, Guarding, Rigid Additional comments: NGT with 350cc drainage - bilious, no blood - Extremities Exam Extremities Exam: Normal Inspection - Back Exam Back Exam: absent: CVA tenderness (L), CVA tenderness (R) - Neurological Exam Neurological Exam: Alert, Awake, Oriented x3 - Psychiatric Exam Psychiatric exam: Normal Affect, Normal Mood - Skin Skin Exam: Dry, Normal Color, Warm Assessment and Plan - Assessment and Plan (Free Text) Plan: Intractable Nausea and Vomiting Assessment & Plan: KUB 07/30 - no evidence of obstruction Etiology: most likely secondary to adhesions from multiple surgeries -Most recent procedure : Ventral hernia repair on 07/07/17 NPO Diet NGT placed w. ~350cc output Lipase 216 - checked on 08/06/17 GI [employer] consultant, Dr. Walls: - Endoscopy 08/09/16: reflux esophagitis, gastritis, medium hiatal hernia, biopsies taken - suggest MRCP, new amylase/lipase Surgery consulted, Dr. Mcguire, help appreciated - no surgical intervention at this time, per Dr. Ellison's conversation From last admission: CT A/P (07/27/17) Unremarkable pancreas. 2.2x2.2x4.4 cm focal collection within anterior soft tissues of bowel with surrounding mild inflammatory changes. Cannot exclude abscess. Refer to complete report. Patient has had 3 CT scans within the last 8 days. The most recent results reported above. Refer to hospital record for the other reports. AFP 3.7, CEA 2.2, Ca19-9 <1.4, Ca 125 <5.5 - all negative Decreased Dilaudid to 1mg IV Q4H PRN Benadryl 25 MG TID PRN Status: Acute Intractable vomiting Assessment & Plan: Zofran Q4H PRN Status: Acute Hypertension Assessment & Plan: Cont to monitor Hold: Norvasc 10 mg PO daily Status: Chronic Hypercholesteremia Assessment & Plan: Hold Crestor 10 mg PO HS due to earlier presentations of elevated LFTs. Will resume outpatient Status: Chronic Asthma Assessment & Plan: Duonebs PRN Advair daily Controlled, patient denies shortness of breath Status: Chronic Anxiety Assessment & Plan: Xanax 1 mg PO PRN Ambien 5 mg PO HS Status: Chronic Transaminitis Assessment & Plan: Resolved Hepatitis panel negative. Liver enzymes have normalized and remained stable Status: Chronic Prophylactic measure Assessment & Plan: Protonix 40 IV Daily SCDs Lovenox 40 mg SC daily Physical Therapy Will start PPN Discussed with attending. All management and planning per Dr. Ellison.
[2017-08-11] MEDS: Fluticasone-Salmeterol 250-50mcg Diskus INH SCH ×3 (09:05→21:11)
[2017-08-11] MEDS: Albuterol-Ipratrop 3 mg / 0.5 (3 ml) UD INH PRN (09:08)
[2017-08-11] MEDS: Enoxaparin 40 mg Syringe SC SCH (10:47)
--- NOTE | 2017-08-11 12:22 | PN ---
DATE: LOCATION: [facility]. SUBJECTIVE: This is a 52-year-old female seen and examined in rounds today with NG tube in place, draining some gastric contents. The patient is still complaining of abdominal pain with nausea and dyspepsia. No reported chest pain, palpitation, chills, fever, or actual shortness of breath. No reported active bleeding. The entire chart is reviewed including but not limited to the most recent lab and radiology study results, current and the previous medication list, current and the previous medical events and the patient still has low hemoglobin and hematocrit, but mildly elevated blood glucose level with normal liver function test. PHYSICAL EXAMINATION GENERAL: A 52-year-old female, awake, alert, oriented with a complaint of intermittent period of abdominal pain. VITAL SIGNS: Afebrile with heart rate of 80, respiratory rate 20-22, blood pressure of 150/86. HEENT: Showed mildly pale dry oral mucoid membrane. Nonicteric sclerae. NG tube is in place. LUNGS: Few scattered crepitation. Decreased air entry at bases. HEART: Positive S1 and S2. ABDOMEN: Soft. Bowel sounds are present with slight distention. NG tube is in place. No mass or organomegaly. No rebound tenderness or guarding, but with mild distention, mildly obese. EXTREMITIES: Without edema, clubbing or cyanosis. NEUROLOGIC: No reported new neurological deficits, sensory or motor. IMPRESSION: 1. Re-exacerbation of peptic ulcer disease. 2. Intermittent periods of partial bowel obstruction, most likely. 3. Known history of, but not limited to hyperlipidemia, hypertension, bronchial asthma. 4. Known history of severe anxiety syndrome. 5. Anemia, most likely secondary to above. No evidence of active bleeding so far. 6. Recent history of acute pancreatitis, subsided. 7. Known history of chronic obstructive pulmonary disease, osteoarthritis with hypothyroidism and chronic lower back pain syndrome. SUGGESTIONS: 1. Continue current management. 2. MRCP. 3. Further recommendation to follow and repeat serum lipase and amylase level. Hector Belcher MD
[2017-08-11] MEDS ORDERED: PPN#2 IV ONE (18:00)
[2017-08-12] MEDS: DiphenhydrAMINE 50 mg/ml Inj IVP PRN ×6 (00:05→21:28)
[2017-08-12] MEDS: Fluticasone-Salmeterol 250-50mcg Diskus INH SCH ×2 (08:44→20:49)
[2017-08-12] MEDS: Albuterol-Ipratrop 3 mg / 0.5 (3 ml) UD INH PRN (08:44)
--- NOTE | 2017-08-12 08:44 | PN ---
DATE: LOCATION: [facility], bed B. SUBJECTIVE: This is a 52-year-old female, seen and examined early in rounds, still with the NG tube is in place, draining a small amount of gastric content, but was complaining of nausea and dyspepsia as well as abdominal pain, persists especially in the left upper quadrant and midabdominal line. No reported active bleeding, chest pain, palpitation or significant complaint of chills or fever. No reported shortness of breath. The entire chart is reviewed including but not limited to the most recent lab and radiology study results, current and the previous medication list, current and the previous medical events and today's labs still pending, but latest blood workup showed low hemoglobin of 10.3, low hematocrit 30.8 with mildly increased blood glucose level. PHYSICAL EXAMINATION: GENERAL: A 52-year-old female. Awake, alert, oriented. VITAL SIGNS: Afebrile with pulse of 88, respiratory rate 20 to 22, blood pressure 134/86. HEENT: Showed mildly pale dry oral mucous membrane. Nonicteric sclerae. LUNGS: Few scattered mild crepitation. Decreased air entry at bases. HEART: Positive S1 and S2. ABDOMEN: Soft. Bowel sounds are present. No mass or organomegaly. No rebound tenderness or guarding. An NG tube is still in place. EXTREMITIES: With lower extremities mild edematous changes. No clubbing or cyanosis. NEUROLOGIC: No reported new neurological deficits, sensory or motor. No focal deficit reported. VASCULAR: Peripheral pulses are present bilaterally. IMPRESSION: 1. Re-exacerbation of peptic ulcer disease. 2. Intermittent period partial bowel obstruction, most likely secondary to adhesion. 3. Known history of hypertension, hyperlipidemia, bronchial asthma as well as severe anxiety syndrome. 4. Anemia, most likely secondary to above. 5. Recent history of acute pancreatitis, improved. 6. Known history of osteoarthritis, hypothyroidism, chronic obstructive pulmonary disease, chronic lower back pain syndrome. SUGGESTION: 1. Continue current management. 2. Scheduled for MRCP with evaluation of the pancreatic area. 3. Repeat serum lipase, amylase levels. 4. Peripheral hyperalimentation. Hector Belcher MD [facility] # [id number]
[2017-08-12] MEDS: Enoxaparin 40 mg Syringe SC SCH (10:13)
[2017-08-12] MEDS: Benzocaine/Menthol (Cepacol) Lozenge MT PRN (15:21)
[2017-08-12] MEDS: Fat Emulsion 20% IV 500 ML IV SCH (17:13)
[2017-08-12] MEDS ORDERED: PPN #3 IV ONE (18:00)
[2017-08-13] MEDS: DiphenhydrAMINE 50 mg/ml Inj IVP PRN ×6 (01:23→21:28)
[2017-08-13] MEDS: Fluticasone-Salmeterol 250-50mcg Diskus INH SCH ×2 (08:12→20:13)
--- NOTE | 2017-08-13 08:33 | PN ---
DATE: LOCATION: [facility], bed B. SUBJECTIVE: This is a 52-year-old female, seen and examined in round without significant clinical changes, is still complaining unfortunately of abdominal pain with nausea. NG tube had been in place. The entire chart is reviewed including but not limited to the most recent lab and radiology study results, current and the previous medication list, current and the previous medical events. Case discussed at length with the staff in the floor. It has to be mentioned that the patient somewhat had been passing gas, but no reported bowel movement this employment program representative. PHYSICAL EXAMINATION: GENERAL: A 52-year-old female. Awake, alert, oriented. Complaining again of abdominal pain. VITAL SIGNS: Afebrile with pulse of 86, respiratory rate 20 to 22, blood pressure 124/72. HEENT: Showed mildly pale dry mucous membrane. Nonicteric sclerae. LUNGS: Few scattered crepitation. Decreased air entry at bases. HEART: Positive S1 and S2. ABDOMEN: Soft with mild distention with generalized tenderness. No mass or organomegaly. No rebound tenderness or guarding. RECTAL: The patient refused. EXTREMITIES: Slightly lower extremities edematous changes. No clubbing or cyanosis. NEUROLOGIC: No reported new neurological deficits, sensory or motor. VASCULAR: Peripheral pulses are present bilaterally. IMPRESSION: 1. Re-exacerbation of peptic ulcer disease. 2. Intermittent periods of partial bowel obstruction, most likely secondary to adhesions. 3. Known history of bronchial asthma, hypertension, hyperlipidemia and severe anxiety syndrome. 4. Anemia, most likely secondary to above. 5. Recent history of recurrent pancreatitis, subsided. 6. Known history of hypothyroidism, chronic obstructive pulmonary disease, chronic lower back pain syndrome and osteoarthritis. SUGGESTION: 1. Continue current management. 2. The patient may benefit from upper GI with small bowel follow through, could be done through her NG tube. 3. Further recommendation to follow. Hector Belcher MD
[2017-08-13] MEDS: Enoxaparin 40 mg Syringe SC SCH (09:20)
[2017-08-13] MEDS: Benzocaine/Menthol (Cepacol) Lozenge MT PRN (12:20)
[2017-08-13] MEDS: Promethazine 12.5 mg/10 ml Syrup PO PRN (12:21)
[2017-08-13] MEDS ORDERED: PPN #4 IV ONE (18:00)
[2017-08-14] MEDS: DiphenhydrAMINE 50 mg/ml Inj IVP PRN ×6 (01:27→22:02)
[2017-08-14] MEDS: Benzocaine/Menthol (Cepacol) Lozenge MT PRN (07:25)
[2017-08-14 08:27] VITALS: RESP 20
--- NOTE | 2017-08-14 09:38 | PN ---
DATE: SUBJECTIVE: The patient is complaining of abdominal pain. Getting supportive care. IV fluids. Pain medication. Oleg Ellison MD
[2017-08-14] MEDS: Fluticasone-Salmeterol 250-50mcg Diskus INH SCH ×2 (10:30→19:04)
--- NOTE | 2017-08-14 11:35 | CP.PCM.PN ---
Subjective - Date & Time of Evaluation Date of Evaluation: 08/14/17 Time of Evaluation: 07:00 - Subjective Subjective: PGY 2 medicine progress note for Dr. Ellison: Patient seen in no acute distress. Patient with NG tube in place with approx 200cc of output. She continues to report abdominal pain that has not changed reports vomiting even with an NG tube. She feels very sad a frustrated being in the hospital. Denies fever/chills. No other complaints. Objective - Vital Signs/Intake and Output Vital Signs (last 24 hours): Temp Pulse Resp BP Pulse Ox 98.2 F 81 20 124/76 98 08/14/17 08:22 08/14/17 08:22 08/14/17 08:22 08/14/17 08:22 08/14/17 08:22 Intake and Output: 08/14/17 08/14/17 06:59 18:59 Intake Total 336 336 Output Total 900 1000 Balance -564 -664 - Medications Medications: Current Medications Alprazolam (Xanax) 1 mg PO DAILY PRN PRN Reason: Anxiety Benzocaine/Menthol (Cepacol Sore Throat) 1 jay MT Q4 PRN PRN Reason: Sore Throat Last Admin: 08/14/17 07:25 Dose: 1 jay Diphenhydramine HCl (Benadryl) 25 mg IVP Q4 PRN PRN Reason: Itching / Pruritus Last Admin: 08/14/17 09:36 Dose: 25 mg Hydromorphone HCl (Dilaudid) 2 mg IVP Q4H PRN PRN Reason: pain Last Admin: 08/14/17 09:35 Dose: 2 mg Multivitamins/Vitamin C 10 ml/ (Amino Acids) 1,010 mls @ 42 mls/hr IV .Q24H ONE Stop: 08/15/17 17:59 Ondansetron HCl (Zofran Inj) 4 mg IVP Q8 PRN PRN Reason: Nausea/Vomiting Last Admin: 08/11/17 18:03 Dose: 4 mg Pantoprazole Sodium (Protonix Inj) 40 mg IVP DAILY GERRY Last Admin: 08/14/17 10:04 Dose: 40 mg Promethazine HCl (Phenergan Syrup) 12.5 mg PO Q6 PRN PRN Reason: Cough Last Admin: 08/13/17 12:21 Dose: 12.5 mg Fluticasone/Salmeterol (Advair Diskus 250/50) 1 puff INH RBID GERRY Last Admin: 08/14/17 10:30 Dose: Not Given Zolpidem Tartrate (Ambien) 5 mg PO HS PRN PRN Reason: Insomnia - Labs Labs: 08/10/17 07:42 08/10/17 07:42 - Constitutional Appears: Non-toxic, No Acute Distress - Head Exam Head Exam: ATRAUMATIC, NORMAL INSPECTION - Eye Exam Eye Exam: EOMI Pupil Exam: NORMAL ACCOMODATION - ENT Exam ENT Exam: Mucous Membranes Moist - Respiratory Exam Respiratory Exam: Clear to Ausculation Bilateral, NORMAL BREATHING PATTERN. absent: Rales, Wheezes, Respiratory Distress - Cardiovascular Exam Cardiovascular Exam: REGULAR RHYTHM, +S1, +S2 - GI/Abdominal Exam GI & Abdominal Exam: Soft, Normal Bowel Sounds. absent: Distended, Firm, Guarding, Tenderness Additional comments: NG tube in place - Extremities Exam Extremities Exam: Normal Inspection - Back Exam Back Exam: NORMAL INSPECTION. absent: CVA tenderness (L), CVA tenderness (R), paraspinal tenderness - Neurological Exam Neurological Exam: Alert, Awake, CN II-XII Intact, Oriented x3 Neuro motor strength exam: Left Upper Extremity: 5, Right Upper Extremity: 5, Left Lower Extremity: 5, Right Lower Extremity: 5 - Psychiatric Exam Psychiatric exam: Normal Affect, Normal Mood - Skin Skin Exam: Dry, Intact, Normal Color, Warm Assessment and Plan - Assessment and Plan (Free Text) Assessment: Intractable Nausea and Vomiting Assessment & Plan: KUB 07/30 - no evidence of obstruction Etiology: most likely secondary to adhesions from multiple surgeries -Most recent procedure : Ventral hernia repair on 07/07/17 NPO Diet NGT placed w. ~350cc output Lipase 216 - checked on 08/06/17 GI customer service sales consultant, Dr. Walls: - Endoscopy 08/09/16: reflux esophagitis, gastritis, medium hiatal hernia, biopsies taken - suggest MRCP, new amylase/lipase Surgery consulted, Dr. Mcguire, help appreciated - no surgical intervention at this time, per Dr. Ellison's conversation From last admission: CT A/P (07/27/17) Unremarkable pancreas. 2.2x2.2x4.4 cm focal collection within anterior soft tissues of bowel with surrounding mild inflammatory changes. Cannot exclude abscess. Refer to complete report. Patient has had 3 CT scans within the last 8 days. The most recent results reported above. Refer to hospital record for the other reports. AFP 3.7, CEA 2.2, Ca19-9 <1.4, Ca 125 <5.5 - all negative Decreased Dilaudid to 1mg IV Q4H PRN Benadryl 25 MG TID PRN Status: Acute Intractable vomiting Assessment & Plan: Zofran Q4H PRN Status: Acute Hypertension Assessment & Plan: Cont to monitor Hold: Norvasc 10 mg PO daily Status: Chronic Hypercholesteremia Assessment & Plan: Hold Crestor 10 mg PO HS due to earlier presentations of elevated LFTs. Will resume outpatient Status: Chronic Asthma Assessment & Plan: Duonebs PRN Advair daily Controlled, patient denies shortness of breath Status: Chronic Anxiety Assessment & Plan: Xanax 1 mg PO PRN Ambien 5 mg PO HS Status: Chronic Transaminitis Assessment & Plan: Resolved Hepatitis panel negative. Liver enzymes have normalized and remained stable Status: Chronic Depression Assessment & Plan: f/u psych consult with -appreciate recommendations Prophylactic measure Assessment & Plan: Protonix 40 IV Daily SCDs Lovenox 40 mg SC daily Physical Therapy Will start PPN Discussed with attending. All management and planning per Dr. Ellison.
--- NOTE | 2017-08-14 13:35 | PN ---
DATE: LOCATION: [address] [place] [address] B. SUBJECTIVE: This is a 52-year-old female, seen and examined in rounds with the staff in the floor with intermittent period of abdominal pain. The entire chart is reviewed including but not limited to the most recent lab and radiology study results, current and the previous medication list, current and the previous medical events. The patient denied any actual chest pain, significant shortness of breath or palpitation. No reported active bleeding. Still has NG tube in place with reported about 200 mL of gastric contents as output. Today's lab is still pending and the patient has been refusing upper GI with small bowel follow through. PHYSICAL EXAMINATION: GENERAL: A 52-year-old female. Awake, alert, oriented. VITAL SIGNS: Afebrile with pulse of 84, respiratory rate 20 to 22, blood pressure 120/74. HEENT: Showed pale dry oral mucous membrane. Nonicteric sclerae. LUNGS: Few scattered crepitation with decreased air entry at bases bilaterally. HEART: Positive S1 and S2. ABDOMEN: Soft with mild distention. NG tube is still in place. No mass or organomegaly, but with generalized tenderness. EXTREMITIES: No clubbing, cyanosis or edema. NEUROLOGIC: No reported neurological deficits, sensory or motor. VASCULAR: Peripheral pulses are present bilaterally. IMPRESSION: 1. Peptic ulcer disease. 2. Intermittent period of most likely partial small bowel obstruction, most likely secondary to adhesions. 3. Known history of but not limited to hyperlipidemia, bronchial asthma, hypertension and severe anxiety syndrome. 4. Recent history of pancreatitis. 5. Anemia secondary to above. 6. Known history of chronic obstructive pulmonary disease, hypothyroidism and chronic lower back pain syndrome. SUGGESTION: 1. Continue current management. 2. Antireflux measures. 3. Surgical reevaluation. Hector Belcher MD
[2017-08-14] MEDS: Promethazine 12.5 mg/10 ml Syrup PO PRN (14:00)
[2017-08-14] MEDS ORDERED: PPN # 5 IV ONE (18:00)
[2017-08-14] MEDS ORDERED: PPN #5 IV ONE (18:00)
[2017-08-15] MEDS: DiphenhydrAMINE 50 mg/ml Inj IVP PRN ×6 (02:10→22:22)
[2017-08-15] MEDS: Fluticasone-Salmeterol 250-50mcg Diskus INH SCH (09:28)
--- NOTE | 2017-08-15 09:48 | CP.PCM.PN ---
Subjective - Date & Time of Evaluation Date of Evaluation: 08/15/17 Time of Evaluation: 09:30 - Subjective Subjective: PGY 2 Medicine Note- Dr. Ellison's service Patient seen and examined in no apparent distress. Patient is down. She does not know what to do about her condition. She states that she vomited once yesterday. She is still having output from the NG tube. She admits to abdominal pain, nausea, vomiting, generalized discomfort at this time. She denies chest pain, palpitations at this time. Objective - Vital Signs/Intake and Output Vital Signs (last 24 hours): Temp Pulse Resp BP Pulse Ox 98.2 F 75 20 118/78 95 08/15/17 08:00 08/15/17 08:00 08/15/17 08:00 08/15/17 08:00 08/15/17 08:00 Intake and Output: 08/15/17 08/15/17 06:59 18:59 Intake Total 336 336 Output Total 1000 500 Balance -664 -164 - Medications Medications: Current Medications Alprazolam (Xanax) 1 mg PO DAILY PRN PRN Reason: Anxiety Benzocaine/Menthol (Cepacol Sore Throat) 1 jay MT Q4 PRN PRN Reason: Sore Throat Last Admin: 08/14/17 07:25 Dose: 1 jay Diphenhydramine HCl (Benadryl) 25 mg IVP Q4 PRN PRN Reason: Itching / Pruritus Last Admin: 08/15/17 06:04 Dose: 25 mg Escitalopram Oxalate (Lexapro) 5 mg PO DAILY GERRY Last Admin: 08/14/17 13:51 Dose: 5 mg Hydromorphone HCl (Dilaudid) 2 mg IVP Q4H PRN PRN Reason: pain Last Admin: 08/15/17 06:02 Dose: 2 mg Multivitamins/Vitamin C 10 ml/ (Amino Acids) 1,010 mls @ 42 mls/hr IV .Q24H ONE Stop: 08/15/17 17:59 Last Admin: 08/14/17 17:57 Dose: 42 mls/hr Ondansetron HCl (Zofran Inj) 4 mg IVP Q8 PRN PRN Reason: Nausea/Vomiting Last Admin: 08/11/17 18:03 Dose: 4 mg Pantoprazole Sodium (Protonix Inj) 40 mg IVP DAILY [facility] Last Admin: 08/14/17 10:04 Dose: 40 mg Promethazine HCl (Phenergan Syrup) 12.5 mg PO Q6 PRN PRN Reason: Cough Last Admin: 08/14/17 14:00 Dose: 12.5 mg Fluticasone/Salmeterol (Advair Diskus 250/50) 1 puff INH RBID GERRY Last Admin: 08/15/17 09:28 Dose: 1 puff Zolpidem Tartrate (Ambien) 5 mg PO HS PRN PRN Reason: Insomnia Last Admin: 08/14/17 21:48 Dose: 5 mg - Labs Labs: 08/10/17 07:42 08/10/17 07:42 - Constitutional Appears: Non-toxic, No Acute Distress - Head Exam Head Exam: ATRAUMATIC, NORMAL INSPECTION - Eye Exam Eye Exam: EOMI, Normal appearance - ENT Exam ENT Exam: Mucous Membranes Moist Additional comments: NG tube in place with approx 700 cc output - Neck Exam Neck Exam: Full ROM - Respiratory Exam Respiratory Exam: NORMAL BREATHING PATTERN. absent: Wheezes - Cardiovascular Exam Cardiovascular Exam: +S1, +S2 - GI/Abdominal Exam GI & Abdominal Exam: Soft, Tenderness, Normal Bowel Sounds Additional comments: incisions scars noted - Extremities Exam Extremities Exam: Full ROM, Normal Capillary Refill - Back Exam Back Exam: Full ROM - Neurological Exam Neurological Exam: Alert, Awake, Oriented x3 - Psychiatric Exam Psychiatric exam: Depressed, Flat Affect - Skin Skin Exam: Dry, Normal Color, Warm Assessment and Plan - Assessment and Plan (Free Text) Assessment: Intractable Nausea and Vomiting Assessment & Plan: KUB 07/30 - no evidence of obstruction Etiology: most likely secondary to adhesions from multiple surgeries -Most recent procedure : Ventral hernia repair on 07/07/17 NPO Diet NGT placed w. ~350cc output Lipase 216 - checked on 08/06/17 GI art consultant, Dr. Walls: - Endoscopy 08/09/16: reflux esophagitis, gastritis, medium hiatal hernia, biopsies taken - suggest MRCP, new amylase/lipase Will reach out to Dr. Mcguire for additional recommendations. Pending discussion, will decide how to proceed in terms of management. It is likely that patient may need another procedure, however she is hesitant. From last admission: CT A/P (07/27/17) Unremarkable pancreas. 2.2x2.2x4.4 cm focal collection within anterior soft tissues of bowel with surrounding mild inflammatory changes. Cannot exclude abscess. Refer to complete report. Patient had 3 CT scans within the last 8 days. The most recent results reported above. Refer to hospital record for the other reports. AFP 3.7, CEA 2.2, Ca19-9 <1.4, Ca 125 <5.5 - all negative Dilaudid to 2mg IV Q4H PRN Benadryl 25 MG TID PRN Status: Acute Port-a-cath Malfunctioning Assessment & Plan: Will administer cath-flow and reassess so that blood work can be obtained. Status: Acute Intractable vomiting Assessment & Plan: Zofran Q4H PRN Monitor electrolytes after re-assessing port-a-cath Status: Acute Hypertension Assessment & Plan: Cont to monitor Hold: Norvasc 10 mg PO daily Status: Chronic Hypercholesteremia Assessment & Plan: Hold Crestor 10 mg PO HS due to earlier presentations of elevated LFTs. Will resume outpatient. Status: Chronic Asthma Assessment & Plan: Duonebs PRN Advair daily Controlled, patient denies shortness of breath Status: Chronic Anxiety Assessment & Plan: Xanax 1 mg PO PRN Ambien 5 mg PO HS Status: Chronic Transaminitis Assessment & Plan: Resolved Hepatitis panel negative. Liver enzymes have normalized and remained stable Status: Chronic Depression Assessment & Plan: Psych consult with -F/U recommendations Status: Acute Prophylactic measure Assessment & Plan: Protonix 40 IV Daily SCDs Lovenox 40 mg SC daily Physical Therapy Continue PPN Discussed with attending. All management and planning per Dr. Ellison.
--- NOTE | 2017-08-15 11:50 | PCM.PSYCH ---
Initial Psychiatric Evaluation - Initial Psychiatric Evaluation Type of Admission: Voluntary Legal Status: Capacity Chief Complaint (in patient's own words): "Anxious" History of Present Illness and Precipitating Events: This is a 52 y/o LF with one daughter and three GC, unemployed, lives with She is here again with adhesions-related GI problems. She was NOT depressed or as anxious when she was home she says. She is however depressed now and very anxious. NO SI or plan, and no psychosis, sandra or delirium elicited. Sleep is "so so" No drugs, alcohol Stressor is "getting worse" medical condition Past psych hx: Denies Family psych hx: Denies Medical hx: GI issues Current Medications: Active Medications Generic Name Dose Route Start Last Admin Trade Name Freq PRN Reason Stop Dose Admin Alprazolam 1 mg 08/08/17 18:00 Xanax PO DAILY PRN Anxiety Benzocaine/Menthol 1 jay 08/07/17 17:38 08/14/17 07:25 Cepacol Sore Throat MT 1 jay Q4 PRN Administration Sore Throat Diphenhydramine HCl 25 mg 08/10/17 11:37 08/15/17 10:02 Benadryl IVP 25 mg Q4 PRN Administration Itching / Pruritus Escitalopram Oxalate 5 mg 08/14/17 13:15 08/15/17 10:02 Lexapro PO 5 mg DAILY GERRY Administration Hydromorphone HCl 2 mg 08/12/17 15:50 08/15/17 10:03 Dilaudid IVP 2 mg Q4H PRN Administration pain Multivitamins/Vitamin C 10 ml/ 1,010 mls @ 42 mls/hr 08/14/17 18:00 08/14/17 17:57 Amino Acids IV 08/15/17 17:59 42 mls/hr .Q24H ONE Administration Multivitamins/Vitamin C 10 ml/ 1,010 mls @ 42 mls/hr 08/15/17 18:00 Amino Acids IV 08/16/17 17:59 .Q24H ONE Ondansetron HCl 4 mg 08/05/17 16:11 08/11/17 18:03 Zofran Inj IVP 4 mg Q8 PRN Administration Nausea/Vomiting Pantoprazole Sodium 40 mg 08/06/17 10:00 08/15/17 10:04 Protonix Inj IVP 40 mg DAILY GERRY Administration Promethazine HCl 12.5 mg 08/10/17 12:00 08/14/17 14:00 Phenergan Syrup PO 12.5 mg Q6 PRN Administration Cough Fluticasone/Salmeterol 1 puff 08/08/17 20:00 08/15/17 09:28 Advair Diskus 250/50 INH 1 puff RBID GERRY Administration Zolpidem Tartrate 5 mg 08/08/17 22:00 08/14/17 21:48 Ambien PO 5 mg HS PRN Administration Insomnia Past Psychiatric History - Past Psychiatric History Previous Treatment History: None Pertinent Medical Hx (Current Medical&Sleep Prob, Allergies): Allergies Allergy/AdvReac Type Severity Reaction Status Date / Time iodine Allergy Severe ANAPHYLAXIS Verified 08/05/17 11:19 Iodine and Iodide Containing Allergy Severe RASH Verified 08/05/17 15:45 Produc ceftriaxone Allergy Mild RASH Verified 08/05/17 15:45 ketorolac tromethamine Allergy Mild SHORTNESS Verified 08/05/17 15:44 [From Toradol] OF BREATH morphine Allergy Mild RASH Verified 08/05/17 15:45 seafood Allergy Severe ANAPHYLAXIS Uncoded 08/05/17 11:19 iv contrast Allergy Intermediate ITCHING Uncoded 08/05/17 15:45 Ondansetron [Zofran Odt] 4 mg PO Q6 PRN #14 odt 07/03/14 Pantoprazole Sodium [Protonix] 40 mg PO DAILY #30 ect 09/30/14 Fluticasone/Salmeterol 250/50 [Advair Diskus 250/50] 2 puff IH BID 05/20/15 amLODIPine [Norvasc] 10 mg PO DAILY 05/20/15 oxyCODONE/Acetaminophen [Percocet 5/325 mg Tab] 1 ea PO Q6H #28 tab 06/03/16 Famotidine [Pepcid] 20 mg PO BID #28 tab 04/07/17 Polyethylene Glycol 3350 [Miralax] 17 gm PO DAILY 14 Days ml 04/07/17 Sucralfate [Carafate] 1 gm PO TID #42 tablet 04/07/17 Doxycycline Hyclate 100 mg PO BID #14 capsule 07/27/17 Polyethylene Glycol 3350 [Miralax] 17 gm PO DAILY #270 ml 07/27/17 traMADol [Ultram] 50 mg PO TID PRN #15 tab 07/27/17 Pravastatin Sodium [Pravachol] 40 mg PO DAILY 08/05/17 Zolpidem [Ambien] 5 mg PO HS 08/05/17 Review of Systems - Psychiatric Psychiatric: Abnormal Sleep Pattern, Anxiety, Difficulty Concentrating, Irritability. absent: Hallucinations, Homicidal Ideation, Suicidal Ideation Mental Status Examination - Personal Presentation Personal Presentation: Looks stated age - Affect Affect: Constricted - Motor Activity Motor Activity: Calm - Reliability in Providing Information Reliability in Providing Information: Good - Speech Speech: Organized - Mood Mood: Depressed, Anxious - Formal Thought Process Formal Thought Process: No Impairment - Cognitive Functions Orientation: Person, Place, Time Sensorium: Alert Attention/Concentration: Easily distracted Estimate of Intelligence: Average Judgement: Intact, as evidence by: Insight regarding need for hospitalization Memory: Recent intact, as evidence by: Ability to recall events of the day, Remote intact, as evidenced by: Ability to recall historical events - Risk Risk: Withdrawal, Diminished functioning - Strength & Assets Inventory Strength & Assets Inventory: Cooperative DSM 5 DX - DSM 5 DSM 5 Diagnosis: 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
--- NOTE | 2017-08-15 12:20 | PN ---
DATE: LOCATION: [address] [place] [address] B. SUBJECTIVE: This is a 52-year-old female, seen again in rounds with intermittent period of abdominal pain, but reported active bleeding with dyspepsia. NG tube had been in place before. The entire chart is reviewed including but not limited to the most recent lab and radiology study results, current and the previous medication list, current and the previous medical events, and today's labs still pending. Case discussed with the staff at length. PHYSICAL EXAMINATION: GENERAL: A 52-year-old female, appeared to be awake, alert, oriented. VITAL SIGNS: Afebrile with pulse of 78, respiratory rate 20 to 22, blood pressure 110/74. HEENT: Showed mildly pale dry oral mucous membrane. Nonicteric sclerae. LUNGS: Few scattered crepitation. Decreased air entry at bases. HEART: Positive S1 and S2. ABDOMEN: Soft with mild generalized tenderness. No masses or organomegaly. No rebound tenderness or guarding. NG tube is in place with generalized tenderness. EXTREMITIES: Without edema, clubbing or cyanosis. NEUROLOGIC: No reported new neurological deficits, sensory or motor. IMPRESSION: 1. Re-exacerbation of peptic ulcer disease. Patient had recently upper endoscopy. Biopsy report is still pending. 2. Intermittent partial bowel obstruction, most likely secondary to adhesions. 3. Anemia secondary to above. 4. Known history of, but not limited to hyperlipidemia, bronchial asthma, severe anxiety syndrome as well as history of hypertension. 5. Recent history of acute pancreatitis, subsided. 6. Known history of chronic obstructive pulmonary disease, hypothyroidism as well as chronic lower back pain syndrome with osteoarthritis. SUGGESTION: 1. Agree with your plan. 2. Repeat abdominal and pelvic CAT scan. 3. Surgical reevaluation. 4. Further recommendation to follow. Hector Belcher MD
[2017-08-15] MEDS ORDERED: PPN #6 IV ONE (18:00)
[2017-08-15] MEDS: Benzocaine/Menthol (Cepacol) Lozenge MT PRN (22:34)
[2017-08-16] MEDS: DiphenhydrAMINE 50 mg/ml Inj IVP PRN ×6 (02:25→22:23)
--- NOTE | 2017-08-16 07:11 | CP.PCM.PN ---
Subjective - Date & Time of Evaluation Date of Evaluation: 08/16/17 Time of Evaluation: 07:00 - Subjective Subjective: PGY 2 Medicine Note- Dr. Ellison's service Patient seen and examined in no apparent distress. Patient is upset but is happy the NG tube will be removed today. She admits to abdominal pain, nausea, vomiting, generalized discomfort at this time. She denies chest pain, palpitations at this time. Per nursing the patient's family has been bringing her pitchers of water to drink which may be contributing to the large amount of NG output. Objective - Vital Signs/Intake and Output Vital Signs (last 24 hours): Temp Pulse Resp BP Pulse Ox 98.4 F 87 20 100/67 96 08/16/17 00:00 08/16/17 00:00 08/16/17 00:00 08/16/17 00:00 08/16/17 00:00 Intake and Output: 08/16/17 08/16/17 06:59 18:59 Intake Total 396 Output Total 600 Balance -204 - Medications Medications: Current Medications Benzocaine/Menthol (Cepacol Sore Throat) 1 jay MT Q4H PRN PRN Reason: Sore Throat Last Admin: 08/15/17 22:34 Dose: 1 jay Clonazepam (Klonopin) 0.5 mg PO BID [facility] Last Admin: 08/15/17 18:04 Dose: 0.5 mg Diphenhydramine HCl (Benadryl) 25 mg IVP Q4 PRN PRN Reason: Itching / Pruritus Last Admin: 08/16/17 06:30 Dose: 25 mg Escitalopram Oxalate (Lexapro) 5 mg PO DAILY [facility] Last Admin: 08/15/17 10:02 Dose: 5 mg Hydromorphone HCl (Dilaudid) 2 mg IVP Q4H PRN PRN Reason: pain Last Admin: 08/16/17 06:30 Dose: 2 mg Multivitamins/Vitamin C 10 ml/ (Amino Acids) 1,010 mls @ 42 mls/hr IV .Q24H ONE Stop: 08/16/17 17:59 Last Admin: 08/15/17 18:07 Dose: 42 mls/hr Ondansetron HCl (Zofran Inj) 4 mg IVP Q8 PRN PRN Reason: Nausea/Vomiting Last Admin: 08/11/17 18:03 Dose: 4 mg Pantoprazole Sodium (Protonix Inj) 40 mg IVP DAILY [facility] Last Admin: 08/15/17 10:04 Dose: 40 mg Promethazine HCl (Phenergan Syrup) 12.5 mg PO Q6 PRN PRN Reason: Cough Last Admin: 08/14/17 14:00 Dose: 12.5 mg Fluticasone/Salmeterol (Advair Diskus 250/50) 1 puff INH RBID [facility] Last Admin: 08/15/17 09:28 Dose: 1 puff Zolpidem Tartrate (Ambien) 5 mg PO HS PRN PRN Reason: Insomnia Last Admin: 08/15/17 22:29 Dose: 5 mg - Labs Labs: 08/10/17 07:42 08/10/17 07:42 - Constitutional Appears: Non-toxic, No Acute Distress - Head Exam Head Exam: ATRAUMATIC, NORMAL INSPECTION - Eye Exam Eye Exam: EOMI Pupil Exam: NORMAL ACCOMODATION Additional comments: NG tube in place with approx 700 cc output - ENT Exam ENT Exam: Mucous Membranes Moist - Respiratory Exam Respiratory Exam: Clear to Ausculation Bilateral, NORMAL BREATHING PATTERN. absent: Accessory Muscle Use, Rales, Rhonchi, Wheezes, Respiratory Distress - Cardiovascular Exam Cardiovascular Exam: REGULAR RHYTHM, +S1, +S2 - GI/Abdominal Exam GI & Abdominal Exam: Soft, Tenderness, Normal Bowel Sounds. absent: Distended, Firm, Guarding - Extremities Exam Extremities Exam: absent: Calf Tenderness, Normal Inspection, Pedal Edema - Back Exam Back Exam: absent: CVA tenderness (L), CVA tenderness (R), NORMAL INSPECTION, paraspinal tenderness - Neurological Exam Neurological Exam: Alert, Awake, CN II-XII Intact, Normal Gait, Oriented x3 Neuro motor strength exam: Left Upper Extremity: 5, Right Upper Extremity: 5, Left Lower Extremity: 5, Right Lower Extremity: 5 - Psychiatric Exam Psychiatric exam: Normal Affect, Normal Mood - Skin Skin Exam: Dry, Intact, Normal Color, Warm Assessment and Plan - Assessment and Plan (Free Text) Assessment: Intractable Nausea and Vomiting Assessment & Plan: Will remove NG tube today and start clear liwuid diet KUB 07/30 - no evidence of obstruction Etiology: most likely secondary to adhesions from multiple surgeries -Most recent procedure : Ventral hernia repair on 07/07/17 NPO Diet NGT placed w. ~350cc output Lipase 216 - checked on 08/06/17 GI direct response consultant, Dr. Walls: - Endoscopy 08/09/16: reflux esophagitis, gastritis, medium hiatal hernia, biopsies taken - suggest MRCP, new amylase/lipase Will reach out to Dr. Mcguire for additional recommendations. Pending discussion, will decide how to proceed in terms of management. It is likely that patient may need another procedure, however she is hesitant. From last admission: CT A/P (07/27/17) Unremarkable pancreas. 2.2x2.2x4.4 cm focal collection within anterior soft tissues of bowel with surrounding mild inflammatory changes. Cannot exclude abscess. Refer to complete report. Patient had 3 CT scans within the last 8 days. The most recent results reported above. Refer to hospital record for the other reports. AFP 3.7, CEA 2.2, Ca19-9 <1.4, Ca 125 <5.5 - all negative Dilaudid to 2mg IV Q4H PRN Benadryl 25 MG TID PRN Status: Acute Port-a-cath Malfunctioning Assessment & Plan: Will administer cath-flow and reassess so that blood work can be obtained. Status: Acute Intractable vomiting Assessment & Plan: Zofran Q4H PRN Monitor electrolytes after re-assessing port-a-cath Status: Acute Hypertension Assessment & Plan: Cont to monitor Hold: Norvasc 10 mg PO daily Status: Chronic Hypercholesteremia Assessment & Plan: Hold Crestor 10 mg PO HS due to earlier presentations of elevated LFTs. Will resume outpatient. Status: Chronic Asthma Assessment & Plan: Duonebs PRN Advair daily Controlled, patient denies shortness of breath Status: Chronic Anxiety Assessment & Plan: Xanax 1 mg PO PRN Ambien 5 mg PO HS Status: Chronic Transaminitis Assessment & Plan: Resolved Hepatitis panel negative. Liver enzymes have normalized and remained stable Status: Chronic Depression Assessment & Plan: Psych consult with -F/U recommendations Lexapro 5mg PO daily Status: Acute Prophylactic measure Assessment & Plan: Protonix 40 IV Daily SCDs Lovenox 40 mg SC daily Physical Therapy Continue PPN Discussed with attending. All management and planning per Dr. Ellison.
[2017-08-16] MEDS: Fluticasone-Salmeterol 250-50mcg Diskus INH SCH ×2 (09:46→19:17)
[2017-08-16 11:25] LABS: BASO % 0.7 % (0.0-2.0); EOS # 0.2 K/uL (0.0-0.7); EOS % 3.3 % (0.0-4.0); HEMOGLOBIN 11.2 g/dL (11.0-16.0); LYMPH # 1.1 K/uL (1.0-4.3); LYMPH % 16.9 % (20.0-40.0); MEAN CELL VOLUME 87.6 fL (81.0-99.0); MEAN CORPUSCULAR HEMOGLOBIN 29.6 pg (27.0-31.0); MEAN CORPUSCULAR HGB CONC 33.8 g/dL (33.0-37.0); MONO # 0.5 K/uL (0.0-0.8); MONO % 7.6 % (0.0-10.0); NEUT # 4.8 K/uL (1.8-7.0); NEUT % 71.5 % (50.0-75.0); NRBC % 0.1 % (0.0-2.0); RBC 3.8 Mil/uL (3.80-5.20); RED CELL DISTRIBUTION WIDTH 13.6 % (11.5-14.5); WHITE BLOOD COUNT 6.7 K/uL (4.8-10.8)
[2017-08-16 12:12] LABS: ALB/GLOB RATIO 1.1 (1.0-2.1); ALBUMIN 4.1 g/dL (3.5-5.0); ALT/SGPT 27 U/L (9-52); AST/SGOT 27 U/L (14-36); BLOOD UREA NITROGEN 19 mg/dL (7-17); CALCIUM 9.3 mg/dl (8.6-10.4); GFR AFRICAN-AMERICAN > 60; GFR NON-AFRICAN AMERICAN > 60; MAGNESIUM 1.8 mg/dL (1.6-2.3)
--- NOTE | 2017-08-16 13:26 | PN ---
DATE: LOCATION: [facility], bed B. SUBJECTIVE: This is a 52-year-old female, seen and examined in rounds without significant clinical changes, with intermittent period of abdominal pain. No reported nausea or vomiting. No reported chest pain or palpitation. NG tube is still in place with less drainage. The entire chart is reviewed including but not limited to most recent lab and radiology study results, current and the previous medication list, current and the previous medical events. Case discussed with the staff at length. Today's labs showed normal CBC with mild increased BUN of 19, but normal creatinine. Blood glucose level 109 with increased phosphorus to 5.0, but normal liver function test. PHYSICAL EXAMINATION: GENERAL: A 52-year-old female. VITAL SIGNS: Afebrile with pulse of 82, respiratory rate 20 to 22, blood pressure 110/74. HEENT: Showed mildly pale dry oral mucous membrane. Nonicteric sclerae. NG tube is in place. LUNGS: Scattered crepitation. Decreased air entry at bases. HEART: Positive S1 and S2. ABDOMEN: Mildly obese with slight generalized tenderness. No mass or organomegaly. No rebound tenderness or guarding. RECTAL: The patient refused. EXTREMITIES: Without significant clubbing, cyanosis or edema. NEUROLOGIC: No reported new neurological deficits, sensory or motor. IMPRESSION: 1. Intermittent period of partial bowel obstruction associated with nausea and vomiting on the floor. 2. Re-exacerbation of peptic ulcer disease. 3. Anemia, most likely secondary to above. 4. Known history of hyperlipidemia, hypertension, bronchial asthma, severe anxiety syndrome. 5. Acute pancreatitis, subsided. 6. Known history of chronic obstructive pulmonary disease, hypothyroidism, chronic lower back pain syndrome with osteoarthritis. SUGGESTION: 1. Agree with your plan. 2. Repeat abdominal and pelvic CAT scan. 3. Surgical reevaluation. 4. Further recommendations to follow. Hector Belcher MD
--- NOTE | 2017-08-16 13:58 | PCM.PYCHPN ---
Psychiatric Progress Note - Psychiatric Progress Note Patient seen today, length of contact: 15 min Patient Chief Complaint: "I am anxious but much better" Problems Identified/Issues Discussed: The pt is seen, chart reviewed, case discussed with staff. The pt is compliant with medications and reports no side-effects. Symptoms are improving.Patient reported that she is feeling much better after removal of her NG tube. She reports that she is looking forward to trying to eat liquid foods today. She reports feeling more hopeful as she can see that progress is being made with her health. She reports sleeping well last night and denies any current complaints. After care discussed, support and psychoeducation given. Medication Change: Yes Medical Record Reviewed: Yes Mental Status Examination - Cognitive Function Orientation: Person, Place, Situation, Time Memory: Intact Attention: WNL Concentration: WNL Association: WNL Fund of Knowledge: WNL - Mood Mood: Anxious - Affect Affect: Broad - Speech Speech: Appropriate - Formal Thought Process Formal Thought Process: No Impairment - Suicidal Ideation Suicidal Ideation: No - Homicidal Ideation Homicidal Ideation: No Goal/Treatment Plan - Goal/Treatment Plan Progress Toward Problem(s) and Goals/Treatment Plan: Continue medications Support and psychoeducation daily Attend groups and activities daily After care planning by Psychiatry will sign off.
[2017-08-16] MEDS ORDERED: PPN #7 IV ONE (18:00)
[2017-08-17] MEDS: DiphenhydrAMINE 50 mg/ml Inj IVP PRN ×6 (02:30→22:45)
--- NOTE | 2017-08-17 07:32 | CP.PCM.PN ---
Subjective - Date & Time of Evaluation Date of Evaluation: 08/17/17 Time of Evaluation: 07:00 - Subjective Subjective: PGY 2 Medicine Note- Dr. Ellison's service Patient seen and examined in no apparent distress. She is in better spirits today and is happy that the NG tube has been removed. She denies vomiting with clear liquid diet but still reports mild abdominal pain. She is asking to do the GI study that she refused last week due to persistent vomiting. She denies chest pain, palpitations or SOB at this time. Patient was ambulating well yesterday and walking through the hallways frequently. Objective - Vital Signs/Intake and Output Vital Signs (last 24 hours): Temp Pulse Resp BP Pulse Ox 98.5 F 87 20 115/59 L 96 08/17/17 00:00 08/17/17 00:00 08/17/17 00:00 08/17/17 00:00 08/17/17 00:00 Intake and Output: 08/17/17 08/17/17 06:59 18:59 Intake Total 1512 Balance 1512 - Medications Medications: Current Medications Benzocaine/Menthol (Cepacol Sore Throat) 1 jay MT Q4H PRN PRN Reason: Sore Throat Last Admin: 08/15/17 22:34 Dose: 1 jay Clonazepam (Klonopin) 0.5 mg PO BID [facility] Last Admin: 08/16/17 18:09 Dose: 0.5 mg Diphenhydramine HCl (Benadryl) 25 mg IVP Q4 PRN PRN Reason: Itching / Pruritus Last Admin: 08/17/17 06:40 Dose: 25 mg Enoxaparin Sodium (Lovenox) 40 mg SC DAILY [facility] Escitalopram Oxalate (Lexapro) 5 mg PO DAILY [facility] Last Admin: 08/16/17 10:30 Dose: 5 mg Hydromorphone HCl (Dilaudid) 2 mg IVP Q4H PRN PRN Reason: pain Last Admin: 08/17/17 06:40 Dose: 2 mg Multivitamins/Vitamin C 10 ml/ (Amino Acids) 1,010 mls @ 42 mls/hr IV .Q24H ONE Stop: 08/17/17 17:59 Last Admin: 08/16/17 18:09 Dose: 42 mls/hr Ondansetron HCl (Zofran Inj) 4 mg IVP Q8 PRN PRN Reason: Nausea/Vomiting Last Admin: 08/11/17 18:03 Dose: 4 mg Pantoprazole Sodium (Protonix Inj) 40 mg IVP DAILY [facility] Last Admin: 08/16/17 10:32 Dose: 40 mg Promethazine HCl (Phenergan Syrup) 12.5 mg PO Q6 PRN PRN Reason: Cough Last Admin: 08/14/17 14:00 Dose: 12.5 mg Fluticasone/Salmeterol (Advair Diskus 250/50) 1 puff INH RBID [facility] Last Admin: 08/16/17 19:17 Dose: 1 puff Zolpidem Tartrate (Ambien) 5 mg PO HS PRN PRN Reason: Insomnia Last Admin: 08/16/17 22:28 Dose: 5 mg - Labs Labs: 08/16/17 11:01 08/16/17 11:01 - Constitutional Appears: Non-toxic, No Acute Distress - Head Exam Head Exam: ATRAUMATIC, NORMAL INSPECTION - Eye Exam Eye Exam: EOMI Pupil Exam: NORMAL ACCOMODATION - ENT Exam ENT Exam: Mucous Membranes Moist - Respiratory Exam Respiratory Exam: Clear to Ausculation Bilateral, NORMAL BREATHING PATTERN. absent: Respiratory Distress - Cardiovascular Exam Cardiovascular Exam: REGULAR RHYTHM, +S1, +S2 - GI/Abdominal Exam GI & Abdominal Exam: Soft, Normal Bowel Sounds. absent: Distended, Firm, Guarding, Tenderness Additional comments: obese - Extremities Exam Extremities Exam: Normal Inspection. absent: Calf Tenderness - Back Exam Back Exam: NORMAL INSPECTION. absent: CVA tenderness (L), CVA tenderness (R), paraspinal tenderness - Neurological Exam Neurological Exam: Alert, Awake, Oriented x3 Neuro motor strength exam: Left Upper Extremity: 5, Right Upper Extremity: 5, Left Lower Extremity: 5, Right Lower Extremity: 5 - Psychiatric Exam Psychiatric exam: Normal Affect, Normal Mood - Skin Skin Exam: Dry, Intact, Normal Color, Warm Assessment and Plan - Assessment and Plan (Free Text) Assessment: Intractable Nausea and Vomiting Assessment & Plan: Full liquid diet +flatus, no BM reported NG tube removed 08/16 KUB 07/30 - no evidence of obstruction Etiology: most likely secondary to adhesions from multiple surgeries -Most recent procedure : Ventral hernia repair on 12/22/17 Dilaudid to 2mg IV Q4H PRN Benadryl 25 MG TID PRN NGT placed on admission Lipase 216 - checked on 08/06/17 GI documentum consultant, Dr. Walls: - Endoscopy 08/09/16: reflux esophagitis, gastritis, medium hiatal hernia, biopsies taken - suggest MRCP, new amylase/lipase Will reach out to Dr. Mcguire for additional recommendations. Pending discussion, will decide how to proceed in terms of management. It is likely that patient may need another procedure, however she is hesitant. From last admission: CT A/P (07/27/17) Unremarkable pancreas. 2.2x2.2x4.4 cm focal collection within anterior soft tissues of bowel with surrounding mild inflammatory changes. Cannot exclude abscess. Refer to complete report. Patient had 3 CT scans within the last 8 days. The most recent results reported above. Refer to hospital record for the other reports. AFP 3.7, CEA 2.2, Ca19-9 <1.4, Ca 125 <5.5 - all negative Status: Acute Port-a-cath Malfunctioning Assessment & Plan: was flushed 08/16. Now is working Status: Acute Intractable vomiting Assessment & Plan: Zofran Q4H PRN Status: Acute Hypertension Assessment & Plan: Cont to monitor BP controlled without medication Hold: Norvasc 10 mg PO daily Status: Chronic Hypercholesteremia Assessment & Plan: Hold Crestor 10 mg PO HS due to earlier presentations of elevated LFTs. Will resume outpatient. Status: Chronic Asthma Assessment & Plan: Duonebs PRN Advair daily Controlled, patient denies shortness of breath Status: Chronic Anxiety Assessment & Plan: Xanax 1 mg PO PRN Ambien 5 mg PO HS Status: Chronic Transaminitis Assessment & Plan: Resolved Hepatitis panel negative. Liver enzymes have normalized and remained stable Status: Chronic Depression Assessment & Plan: Psych consult with -F/U recommendations Lexapro 5mg PO daily Status: Acute Prophylactic measure Assessment & Plan: Protonix 40 IV Daily SCDs Lovenox 40 mg SC daily Physical Therapy Continue PPN Discussed with attending. All management and planning per Dr. Ellison.
[2017-08-17] MEDS: Fluticasone-Salmeterol 250-50mcg Diskus INH SCH ×2 (10:20→19:26)
[2017-08-17] MEDS: Enoxaparin 40 mg Syringe SC SCH (10:43)
--- NOTE | 2017-08-17 15:24 | PN ---
DATE: LOCATION: [address] [place] [address] B. SUBJECTIVE: This 52-year-old female seen and examined in rounds without significant clinical changes, but reported active bleeding with intermittent periods still of some abdominal pain with mild abdominal distention. The patient was opposed to upper GI small bowel follow through, still refusing. The entire chart is reviewed including but not limited to the most recent lab and radiology study results, current and previous medication list, current and previous medical events, and today's lab is still pending. PHYSICAL EXAMINATION: GENERAL: A 52-year-old female, afebrile, awake, alert, and oriented. VITAL SIGNS: Heart rate of 80, respiratory rate of 20-22, blood pressure 118/76. HEENT: Showed mildly pale dry oral mucous membrane. Nonicteric sclerae. LUNGS: Few scattered mild crepitations. Breathing sounds are present bilaterally. HEART: Positive S1 and S2. ABDOMEN: Soft with slight generalized tenderness. No masses or organomegaly. No rebound tenderness or guarding. NG tube has been held. EXTREMITIES: Without edema, clubbing or cyanosis. NEUROLOGIC: No reported new neurological deficits, sensory or motor. IMPRESSION: 1. Re-exacerbation of peptic ulcer disease. 2. Bronchial asthma. 3. Severe anxiety syndrome. 4. Known history of hypertension. 5. Known history of hyperlipidemia. 6. Recent history of acute pancreatitis. 7. Known history of hypothyroidism. 8. Chronic lower back pain syndrome with osteoarthritis. SUGGESTIONS: 1. Agree with your plan. 2. The patient will need upright GI tract with small bowel follow through. 3. Further recommendations to follow. Hector Belcher MD
[2017-08-17] MEDS ORDERED: PPN #8 IV ONE (18:00)
[2017-08-18] MEDS: DiphenhydrAMINE 50 mg/ml Inj IVP PRN ×6 (02:45→22:44)
--- NOTE | 2017-08-18 07:21 | CP.PCM.PN ---
Subjective - Date & Time of Evaluation Date of Evaluation: 08/18/17 Time of Evaluation: 07:40 - Subjective Subjective: PGY 2 Medicine Note- Dr. Ellison's service Patient seen and examined in no acute distress. No noteworthy events overnight per nursing. Patient is tolerating a liquid diet. She admits to flatus. She denies formed bowel movements. She admits to generalized diffuse LUQ/epigastric pain. Patient states that her would like her to come home however she wants to make sure that she feels completely better before considering going home. Objective - Vital Signs/Intake and Output Vital Signs (last 24 hours): Temp Pulse Resp BP Pulse Ox 99 F 96 H 20 112/78 96 08/18/17 00:00 08/18/17 00:00 08/18/17 00:00 08/18/17 00:00 08/18/17 00:00 Intake and Output: 08/18/17 08/18/17 06:59 18:59 Intake Total 1136 Balance 1136 - Medications Medications: Current Medications Benzocaine/Menthol (Cepacol Sore Throat) 1 jay MT Q4H PRN PRN Reason: Sore Throat Last Admin: 08/15/17 22:34 Dose: 1 jay Clonazepam (Klonopin) 0.5 mg PO BID [facility] Last Admin: 08/17/17 17:51 Dose: 0.5 mg Diphenhydramine HCl (Benadryl) 25 mg IVP Q4 PRN PRN Reason: Itching / Pruritus Last Admin: 08/18/17 07:03 Dose: 25 mg Enoxaparin Sodium (Lovenox) 40 mg SC DAILY [facility] Last Admin: 08/17/17 10:43 Dose: 40 mg Escitalopram Oxalate (Lexapro) 5 mg PO DAILY [facility] Last Admin: 08/17/17 10:43 Dose: 5 mg Hydromorphone HCl (Dilaudid) 2 mg IVP Q4H PRN PRN Reason: pain Last Admin: 08/18/17 06:45 Dose: 2 mg Multivitamins/Vitamin C 10 ml/ (Amino Acids) 1,010 mls @ 42 mls/hr IV .Q24H ONE Stop: 08/18/17 17:59 Last Admin: 08/17/17 17:52 Dose: 42 mls/hr Ondansetron HCl (Zofran Inj) 4 mg IVP Q8 PRN PRN Reason: Nausea/Vomiting Last Admin: 08/11/17 18:03 Dose: 4 mg Pantoprazole Sodium (Protonix Inj) 40 mg IVP DAILY [facility] Last Admin: 08/17/17 10:44 Dose: 40 mg Promethazine HCl (Phenergan Syrup) 12.5 mg PO Q6 PRN PRN Reason: Cough Last Admin: 08/14/17 14:00 Dose: 12.5 mg Fluticasone/Salmeterol (Advair Diskus 250/50) 1 puff INH RBID [facility] Last Admin: 08/17/17 19:26 Dose: 1 puff Zolpidem Tartrate (Ambien) 5 mg PO HS PRN PRN Reason: Insomnia Last Admin: 08/17/17 22:51 Dose: 5 mg - Labs Labs: 08/16/17 11:01 08/16/17 11:01 - Constitutional Appears: Non-toxic, No Acute Distress - Head Exam Head Exam: ATRAUMATIC, NORMAL INSPECTION - Eye Exam Eye Exam: EOMI, Normal appearance, PERRL Pupil Exam: NORMAL ACCOMODATION - ENT Exam ENT Exam: Mucous Membranes Moist - Neck Exam Neck Exam: Full ROM - Respiratory Exam Respiratory Exam: NORMAL BREATHING PATTERN - Cardiovascular Exam Cardiovascular Exam: +S1, +S2 - GI/Abdominal Exam GI & Abdominal Exam: Guarding, Soft, Tenderness, Normal Bowel Sounds. absent: Rigid Additional comments: midline healed abdominal scars noted. - Extremities Exam Extremities Exam: Full ROM, Normal Capillary Refill - Back Exam Back Exam: Full ROM - Neurological Exam Neurological Exam: Alert, Awake, Oriented x3 - Psychiatric Exam Psychiatric exam: Normal Affect, Normal Mood - Skin Skin Exam: Dry, Intact, Normal Color, Warm Assessment and Plan - Assessment and Plan (Free Text) Assessment: Intractable Nausea and Vomiting Assessment & Plan: Full liquid diet- Patient advised to eat slowly NG tube removed 08/16 KUB 07/30 - no evidence of obstruction Etiology: most likely secondary to adhesions from multiple surgeries -Most recent procedure : Ventral hernia repair on 07/07/17 Dilaudid to 2mg IV Q4H PRN Benadryl 25 MG TID PRN Will reach out to Dr. Mcguire for additional recommendations. Pending discussion, will decide how to proceed in terms of management. It is likely that patient may need another procedure, however she is hesitant. From last admission: CT A/P (07/27/17) Unremarkable pancreas. 2.2x2.2x4.4 cm focal collection within anterior soft tissues of bowel with surrounding mild inflammatory changes. Cannot exclude abscess. Refer to complete report. Patient had 3 CT scans within the last 8 days. The most recent results reported above. Refer to hospital record for the other reports. AFP 3.7, CEA 2.2, Ca19-9 <1.4, Ca 125 <5.5 - all negative Status: Acute Port-a-cath Malfunctioning Assessment & Plan: Was flushed 08/16. Now is working Status: Acute Intractable vomiting Assessment & Plan: Zofran Q4H PRN Status: Acute Hypertension Assessment & Plan: Cont to monitor BP controlled without medication Hold: Norvasc 10 mg PO daily Status: Chronic Hypercholesteremia Assessment & Plan: Hold Crestor 10 mg PO HS due to earlier presentations of elevated LFTs. Will resume outpatient. Status: Chronic Asthma Assessment & Plan: Duonebs PRN Advair daily Controlled, patient denies shortness of breath Status: Chronic Anxiety Assessment & Plan: Xanax 1 mg PO PRN Ambien 5 mg PO HS Status: Chronic Transaminitis Assessment & Plan: Resolved Hepatitis panel negative. Liver enzymes have normalized and remained stable Status: Chronic Depression Assessment & Plan: Psych consult with -F/U recommendations Lexapro 5mg PO daily Status: Acute Prophylactic measure Assessment & Plan: Protonix 40 IV Daily SCDs Lovenox 40 mg SC daily Physical Therapy Continue PPN Discussed with attending. All management and planning per Dr. Ellison.
[2017-08-18] MEDS: Fluticasone-Salmeterol 250-50mcg Diskus INH SCH ×2 (07:32→19:21)
[2017-08-18] MEDS: Enoxaparin 40 mg Syringe SC SCH (10:47)
--- NOTE | 2017-08-18 14:43 | PN ---
DATE: LOCATION: [address] [place] [address] B. SUBJECTIVE: This is a 52-year-old female, seen and examined in rounds, again with intermittent period of abdominal pain with nausea, but no reported chest pain or palpitation. The entire chart is reviewed including, but not limited to, the most recent lab and radiology study results, current and the previous medication list, current and the previous medical events. The patient tolerating oral intake of liquid diet well, passing gas but no bowel movement. Her abdominal pain is intermittent, epigastric, and left upper quadrant and left lower quadrant area, diffuse, but less than before in general. No lab result reported today yet. PHYSICAL EXAMINATION: GENERAL: A 52-year-old female, awake, alert, oriented. VITAL SIGNS: Afebrile with pulse of 90, respiratory rate 20 to 22, and blood pressure 124/72. HEENT: Showed pale, dry oral mucous membranes. Nonicteric sclerae. LUNGS: Few scattered crepitation with decreased air entry at bases. HEART: Positive S1 and S2. ABDOMEN: Soft with mild distention with somewhat mild diffuse tenderness. No mass or organomegaly. Bowel sounds are present. RECTAL: The patient refused. EXTREMITIES: Without significant clubbing, cyanosis, or edema. NEUROLOGIC: No reported new neurological deficits, sensory or motor. Peripheral pulses are present bilaterally. IMPRESSION: 1. Peptic ulcer disease. 2. Intermittent partial bowel obstruction, most likely secondary to adhesions, resolving. 3. Known history of severe anxiety syndrome, hypertension, with hyperlipidemia. 4. Recent history of acute pancreatitis, resolving. 5. Known history of hypothyroidism, chronic lower back pain syndrome with osteoarthritis. SUGGESTIONS: 1. Continue current management. 2. Antireflux measures. 3. The patient will need again upper GI with small bowel follow through, refused before. 4. Further recommendation to follow. Hector Belcher MD
[2017-08-18] MEDS ORDERED: PPN#9 IV SCH (18:00)
[2017-08-19] MEDS: DiphenhydrAMINE 50 mg/ml Inj IVP PRN ×6 (02:35→23:21)
[2017-08-19] MEDS: Enoxaparin 40 mg Syringe SC SCH (10:01)
[2017-08-19] MEDS: Fluticasone-Salmeterol 250-50mcg Diskus INH SCH (10:52)
[2017-08-19] MEDS ORDERED: PPN#9 IV SCH (11:15)
[2017-08-19] MEDS ORDERED: PPN#10 IV ONE (18:00)
[2017-08-20] MEDS: DiphenhydrAMINE 50 mg/ml Inj IVP PRN ×6 (03:11→23:39)
[2017-08-20] MEDS: Fluticasone-Salmeterol 250-50mcg Diskus INH SCH ×2 (07:33→19:44)
[2017-08-20] MEDS: Enoxaparin 40 mg Syringe SC SCH (10:30)
[2017-08-20] MEDS ORDERED: PPN#11 IV SCH (18:00)
[2017-08-21] MEDS: DiphenhydrAMINE 50 mg/ml Inj IVP PRN ×4 (03:38→15:22)
--- NOTE | 2017-08-21 09:11 | CP.PCM.PN ---
Subjective - Date & Time of Evaluation Date of Evaluation: 08/21/17 Time of Evaluation: 08:00 - Subjective Subjective: PGY 2 Medicine Note- Dr. Ellison's service Patient seen and examined in no acute distress. No noteworthy events overnight per nursing. Patient is tolerating a liquid diet. She admits to multiple episodes of liquid bowel movements x4. She admits to generalized diffuse LUQ/ epigastric pain which she has had during this whole admission. Patient states she would like to be home but many tomorrow. She is also starting that the port is not working again. Objective - Vital Signs/Intake and Output Vital Signs (last 24 hours): Temp Pulse Resp BP Pulse Ox 98.5 F 87 20 114/80 96 08/21/17 07:49 08/21/17 07:49 08/21/17 07:49 08/21/17 07:49 08/21/17 07:49 Intake and Output: 08/21/17 08/21/17 06:59 18:59 Intake Total 836 636 Balance 836 636 - Medications Medications: Current Medications Benzocaine/Menthol (Cepacol Sore Throat) 1 jay MT Q4H PRN PRN Reason: Sore Throat Last Admin: 08/15/17 22:34 Dose: 1 jay Clonazepam (Klonopin) 0.5 mg PO BID [facility] Last Admin: 08/20/17 17:51 Dose: 0.5 mg Diphenhydramine HCl (Benadryl) 25 mg IVP Q4 PRN PRN Reason: Itching / Pruritus Last Admin: 08/21/17 07:40 Dose: 25 mg Enoxaparin Sodium (Lovenox) 40 mg SC DAILY [facility] Last Admin: 08/20/17 10:30 Dose: 40 mg Escitalopram Oxalate (Lexapro) 5 mg PO DAILY [facility] Last Admin: 08/20/17 10:30 Dose: 5 mg Hydromorphone HCl (Dilaudid) 2 mg IVP Q4H PRN PRN Reason: pain Last Admin: 08/21/17 07:41 Dose: 2 mg Amino Acids (Clinimix 4.25/5 % (1000 Ml)) 1,000 mls @ 42 mls/hr IV .[id number] [facility] Last Admin: 08/20/17 17:48 Dose: 42 mls/hr Ondansetron HCl (Zofran Inj) 4 mg IVP Q8 PRN PRN Reason: Nausea/Vomiting Last Admin: 08/11/17 18:03 Dose: 4 mg Pantoprazole Sodium (Protonix Inj) 40 mg IVP DAILY [facility] Last Admin: 08/20/17 10:31 Dose: 40 mg Promethazine HCl (Phenergan Syrup) 12.5 mg PO Q6 PRN PRN Reason: Cough Last Admin: 08/14/17 14:00 Dose: 12.5 mg Fluticasone/Salmeterol (Advair Diskus 250/50) 1 puff INH RBID [facility] Last Admin: 08/20/17 19:44 Dose: Not Given Zolpidem Tartrate (Ambien) 5 mg PO HS PRN PRN Reason: Insomnia Last Admin: 08/21/17 00:04 Dose: 5 mg - Labs Labs: 08/16/17 11:01 08/16/17 11:01 - Constitutional Appears: Non-toxic, No Acute Distress - Head Exam Head Exam: ATRAUMATIC, NORMAL INSPECTION - Eye Exam Eye Exam: EOMI - ENT Exam ENT Exam: Mucous Membranes Moist - Respiratory Exam Respiratory Exam: Clear to Ausculation Bilateral, NORMAL BREATHING PATTERN. absent: Accessory Muscle Use, Rales, Wheezes, Respiratory Distress - Cardiovascular Exam Cardiovascular Exam: REGULAR RHYTHM, +S1, +S2 - GI/Abdominal Exam GI & Abdominal Exam: Soft, Tenderness, Hypoactive Bowel Sounds, Normal Bowel Sounds. absent: Distended, Firm, Guarding - Extremities Exam Extremities Exam: Normal Inspection. absent: Calf Tenderness - Back Exam Back Exam: NORMAL INSPECTION. absent: CVA tenderness (L), CVA tenderness (R), paraspinal tenderness - Neurological Exam Neurological Exam: Alert, Awake, CN II-XII Intact, Normal Gait, Oriented x3 Neuro motor strength exam: Left Upper Extremity: 5, Right Upper Extremity: 5, Left Lower Extremity: 5, Right Lower Extremity: 5 - Psychiatric Exam Psychiatric exam: Normal Affect, Normal Mood - Skin Skin Exam: Dry, Intact, Normal Color, Warm Assessment and Plan - Assessment and Plan (Free Text) Assessment: Intractable Nausea and Vomiting Assessment & Plan: Patient tolerating soft diet. Patient to be discharged today. NG tube removed 08/16 KUB 07/30 - no evidence of obstruction Etiology: most likely secondary to adhesions from multiple surgeries -Most recent procedure : Ventral hernia repair on 07/07/17 Dilaudid to 2mg IV Q4H PRN Benadryl 25 MG TID PRN Will reach out to Dr. Mcguire for additional recommendations. Pending discussion, will decide how to proceed in terms of management. It is likely that patient may need another procedure, however she is hesitant. From last admission: CT A/P (07/27/17) Unremarkable pancreas. 2.2x2.2x4.4 cm focal collection within anterior soft tissues of bowel with surrounding mild inflammatory changes. Cannot exclude abscess. Refer to complete report. Patient had 3 CT scans within the last 8 days. The most recent results reported above. Refer to hospital record for the other reports. AFP 3.7, CEA 2.2, Ca19-9 <1.4, Ca 125 <5.5 - all negative Status: Acute Diarrhea Assessment & Plan: f/u stool studies to r/o C.Diff Status: Acute Port-a-cath Malfunctioning Assessment & Plan: Was flushed 08/16. Now is working Status: Acute Intractable vomiting Assessment & Plan: Zofran Q4H PRN Status: Acute Hypertension Assessment & Plan: Cont to monitor BP controlled without medication Hold: Norvasc 10 mg PO daily Status: Chronic Hypercholesteremia Assessment & Plan: Hold Crestor 10 mg PO HS due to earlier presentations of elevated LFTs. Will resume outpatient. Status: Chronic Asthma Assessment & Plan: Duonebs PRN Advair daily Controlled, patient denies shortness of breath Status: Chronic Anxiety Assessment & Plan: Xanax 1 mg PO PRN Ambien 5 mg PO HS Status: Chronic Transaminitis Assessment & Plan: Resolved Hepatitis panel negative. Liver enzymes have normalized and remained stable Status: Chronic Depression Assessment & Plan: Psych consult with -F/U recommendations Lexapro 5mg PO daily Status: Acute Prophylactic measure Assessment & Plan: Protonix 40 IV Daily SCDs Lovenox 40 mg SC daily Physical Therapy PPN - discontinue Discussed with attending. All management and planning per Dr. Ellison.
[2017-08-21] MEDS: Fluticasone-Salmeterol 250-50mcg Diskus INH SCH (10:18)
[2017-08-21] MEDS: Benzocaine/Menthol (Cepacol) Lozenge MT PRN (10:51)
[2017-08-21] MEDS: Enoxaparin 40 mg Syringe SC SCH (10:53)
--- NOTE | 2017-08-21 15:59 | PN ---
DATE: 08/21/2017 LOCATION: 350, bed B. SUBJECTIVE: This is a 52 years old female seen and examined in rounds without significant clinical changes or reported active bleeding with intermittent period of complaint of abdominal pain, but less than before somewhat tolerating oral intake. The entire chart is reviewed including, but not limited to the most recent lab and the radiology study results, current and the previous medication list, current and previous medical events. Case discussed with the staff at length. Today's labs still pending and the patient is to plan upper GI small bowel follow through which she refused before. PHYSICAL EXAMINATION: GENERAL: A 52 years old female appeared to be awake, alert, and oriented. VITAL SIGNS: Afebrile with pulse of 84, respiratory 20 to 22, blood pressure 118/78. HEENT: Showed pale dry oral mucoid membrane, nonicteric sclerae. LUNGS: Few scattered crepitation, decreased air entry at the bases. HEART: Positive S1 and S2. ABDOMEN: Soft with slight distention. No mass or organomegaly. No rebound tenderness or guarding. The patient still has some generalized abdominal tenderness with slight distention. EXTREMITIES: Without edema, clubbing, or cyanosis. NEUROLOGIC: No reported new neurological deficits, sensory or motor. IMPRESSION: 1. Intermittent partial small bowel obstruction most likely secondary to adhesions, resolved. 2. Peptic ulcer disease. 3. Acute pancreatitis per recent history, improved. 4. Known history of hypertension, hyperlipidemia with severe anxiety syndrome. 5. No history of hypothyroidism, chronic lower back pain syndrome and osteoarthritis. SUGGESTIONS: 1. Continue current management. 2. Small bowel follow through with upper GI series. 3. No further aggressive GI workup and surgical follow up to be considered. Hector Belcher MD
[2017-08-21 17:21] VITALS: BP 100/68; PULSE 86; TEMP 98.6; O2SAT 98
== END 2017-08-21 18:12 | disposition home or self-care (01) | DRG 182 ==
LOC: C.ER 10:39 → C.9E 13:02 → C.6T 14:58 → C.9E 15:10 → C.3T 17:47
PROVIDERS: ADMIT Internal Medicine Pulmonary Disease; ATTEND Internal Medicine Pulmonary Disease
PROC: 0DD68ZX Extraction of Stomach, Via Natural or Artificial Opening Endoscopic, Diagnostic (ICD-10-PCS; principal; 2017-08-08 11:20)
DX: K29.70 Gastritis, unspecified, without bleeding (principal); J44.9 Chronic obstructive pulmonary disease, unspecified; K86.1 Other chronic pancreatitis; D63.8 Anemia in other chronic diseases classified elsewhere; E03.9 Hypothyroidism, unspecified; E78.5 Hyperlipidemia, unspecified; F32.9 Major depressive disorder, single episode, unspecified; F41.9 Anxiety disorder, unspecified; G89.29 Other chronic pain; I10 Essential (primary) hypertension; Z87.11 Personal history of peptic ulcer disease; K44.9 Diaphragmatic hernia without obstruction or gangrene; K20.8 Other esophagitis; Z68.36 Body mass index [BMI] 36.0-36.9, adult

== ENCOUNTER 2017-08-24 10:28 | Inpatient (IN) | payer MEDICAID ==
[2017-08-24 10:28] VITALS: BMI 36.8
[2017-08-24] MEDS ORDERED: Sodium Chloride 0.9% 1,000 ML IV ONE (12:09)
[2017-08-24] MEDS ORDERED: Sodium Chloride 0.9% 1,000 ML ONE ×2 (12:17→14:40)
[2017-08-24 12:40] LABS: BASO # 0.1 K/uL (0.0-0.2); BASO % 0.5 % (0.0-2.0); EOS # 0.1 K/uL (0.0-0.7); EOS % 0.7 % (0.0-4.0); HEMOGLOBIN 11.5 g/dL (11.0-16.0); LYMPH # 1.6 K/uL (1.0-4.3); LYMPH % 12.6 % (20.0-40.0); MEAN CELL VOLUME 87.2 fL (81.0-99.0); MEAN CORPUSCULAR HEMOGLOBIN 29.1 pg (27.0-31.0); MEAN CORPUSCULAR HGB CONC 33.3 g/dL (33.0-37.0); MEAN PLATELET VOLUME 7.9 fL (7.2-11.7); MONO # 0.5 K/uL (0.0-0.8); MONO % 3.7 % (0.0-10.0); NEUT # 10.4 K/uL (1.8-7.0); NEUT % 82.5 % (50.0-75.0); RBC 3.96 Mil/uL (3.80-5.20); RED CELL DISTRIBUTION WIDTH 13.9 % (11.5-14.5)
[2017-08-24 12:42] LABS: WHITE BLOOD COUNT 12.6 K/uL (4.8-10.8)
[2017-08-24] MEDS ORDERED: HYDROmorphone 1 mg/ml ISec IVP STA (12:52)
[2017-08-24 13:02] LABS: ALBUMIN 4.4 g/dL (3.5-5.0); ALT/SGPT 119 U/L (9-52); AST/SGOT 62 U/L (14-36); BLOOD UREA NITROGEN 16 mg/dL (7-17); CALCIUM 9.3 mg/dl (8.6-10.4); GFR AFRICAN-AMERICAN > 60; GFR NON-AFRICAN AMERICAN > 60; LIPASE 246 U/L (23-300)
[2017-08-24] MEDS ORDERED: HYDROmorphone 0.5 mg/0.5 ml ISec ONE (13:08)
[2017-08-24] MEDS ORDERED: DiphenhydrAMINE 50 mg/ml Inj IVP STA (13:54)
[2017-08-24] MEDS ORDERED: DiphenhydrAMINE 50 mg/ml Inj ONE (14:04)
[2017-08-24] MEDS ORDERED: HYDROmorphone 0.5 mg/0.5 ml ISec IVP PRN ×2 (14:22→18:00)
[2017-08-24] MEDS ORDERED: DiphenhydrAMINE 50 mg/ml Inj IVP PRN (14:23)
--- NOTE | 2017-08-24 14:24 | CP.PCM.PN ---
Subjective - Date & Time of Evaluation Date of Evaluation: 08/24/17 Time of Evaluation: 14:30 - Subjective Subjective: CC - "Nausea and vomiting" HPI - 52 year old female with recent admission for intractable abdominal pain and vomiting x 2 and mild episode of pancreatitis presents with complaints of continued abdominal pain since discharge on Monday with non stop vomiting. Patient states that she is unable to keep anything down at this time. She admits to diffuse abdominal discomfort exacerbated by attempting to vomit. She was crying and loudly screaming that she was in pain in the emergency room. She was a code durand many times per nursing for abrasively asking the nurses and attendings for pain medications. When I saw the patient I inserted and NG and she was demanding that we give her Dilaudid and Benadryl together IV. Patient did not want to answer my questions but was able to speak in full sentences continuously asking for pain medications. PMHx: Hypertension, hyperlipidemia, diverticulosis, anemia, asthma, Prepyloric clean-based ulcer 12/04/15, LA Grade B esophagitis 10/2015, hiatal hernia, herniated disks, gastritis and small bowel obstruction PSHx: ventral hernia repair 07/07/17, (3 other ventral hernia repairs) lysis of adhesions 10/2015, appendectomy, cholecystectomy, surgery of the colon ( unclear) Fam Hx: Father of an IL at the age of 51; Mother of lung cancer at the age of 63; both of whom were smokers; HTN and asthma also runsin the family Social Hx: Denies smoking, illicit drug use or alcohol use Allergies: IV iodine (anaphylaxis), NSAIDS, Morphine (hives and swelling) Medications: Norvasc 10 mg PO daily, Ambien 10 mg HS, Zofran sublingual tabs, Xanax mg PO PRN, Percocet 10- 325 PRN, Avdair daily, and Pravastatin 40 mg HS PMD: Dr. Ellison Objective - Vital Signs/Intake and Output Vital Signs (last 24 hours): Temp Pulse Resp BP Pulse Ox 99.3 F 106 H 20 163/100 H 98 08/24/17 10:41 08/24/17 10:41 08/24/17 10:41 08/24/17 10:41 08/24/17 10:41 - Medications Medications: Current Medications Enoxaparin Sodium (Lovenox) 40 mg SC DAILY GERRY Sodium Chloride (Sodium Chloride 0.9%) 1,000 mls @ 250 mls/hr IV .Q4H ONE Stop: 08/24/17 16:08 Last Admin: 08/24/17 12:36 Dose: 250 mls/hr Sodium Chloride (Sodium Chloride 0.9%) 1,000 mls @ 100 mls/hr IV .Q10H GERRY Ondansetron HCl (Zofran Inj) 4 mg IVP Q6 PRN PRN Reason: Nausea/Vomiting - Labs Labs: 08/24/17 12:36 08/24/17 12:36 - Constitutional Appears: Non-toxic, In Acute Distress - Head Exam Head Exam: ATRAUMATIC, NORMAL INSPECTION - Eye Exam Eye Exam: PERRL - ENT Exam ENT Exam: Mucous Membranes Moist, Normal Exam - Respiratory Exam Respiratory Exam: Clear to Ausculation Bilateral, NORMAL BREATHING PATTERN. absent: Respiratory Distress - Cardiovascular Exam Cardiovascular Exam: REGULAR RHYTHM, +S1, +S2 - GI/Abdominal Exam GI & Abdominal Exam: Soft, Hypoactive Bowel Sounds. absent: Distended, Firm, Guarding, Tenderness - Extremities Exam Extremities Exam: Normal Inspection. absent: Calf Tenderness, Pedal Edema - Back Exam Back Exam: NORMAL INSPECTION. absent: CVA tenderness (L), CVA tenderness (R), paraspinal tenderness - Neurological Exam Neurological Exam: Alert, Awake, CN II-XII Intact, Normal Gait, Oriented x3 Neuro motor strength exam: Left Upper Extremity: 5, Right Upper Extremity: 5, Left Lower Extremity: 5, Right Lower Extremity: 5 - Psychiatric Exam Psychiatric exam: Anxious, Depressed - Skin Skin Exam: Dry Assessment and Plan - Assessment and Plan (Free Text) Assessment: Intractable Nausea and Vomiting Assessment & Plan: Ng tube placed 2/8 - f/u Xray for proper placement KUB 2/8 - f/u Zofran 4mg IVP prn N/V Etiology: most likely secondary to adhesions from multiple surgeries -Most recent procedure : Ventral hernia repair on 07/07/17 Dilaudid to 1mg IV Q4H PRN Benadryl 25 MG TID PRN Lipase 246 wnl From last admission: PAtient was recently admitted for similar complaints CT A/P (07/27/17) Unremarkable pancreas. 2.2x2.2x4.4 cm focal collection within anterior soft tissues of bowel with surrounding mild inflammatory changes. Cannot exclude abscess. Refer to complete report. Patient had 3 CT scans within the last 8 days. The most recent results reported above. Refer to hospital record for the other reports. AFP 3.7, CEA 2.2, Ca19-9 <1.4, Ca 125 <5.5 - all negative Status: Acute Transaminitis Assessment & Plan: AST/ALT 62/119 Hepatitis panel negative. f/u in am Status: Chronic Hypertension Assessment & Plan: Cont to monitor BP controlled without medication Hold: Norvasc 10 mg PO daily Status: Chronic Hypercholesteremia Assessment & Plan: Hold Crestor 10 mg PO HS due to earlier presentations of elevated LFTs. Will resume outpatient. Status: Chronic Asthma Assessment & Plan: Duonebs PRN Advair daily Controlled, patient denies shortness of breath Status: Chronic Anxiety Assessment & Plan: Xanax 1 mg PO PRN Ambien 5 mg PO HS Status: Chronic Depression Assessment & Plan: Lexapro 5mg PO daily Status: Acute Prophylactic measure Assessment & Plan: Protonix 40 IVP Daily SCDs Lovenox 40 mg SC daily Physical Therapy NS at 200 cc/hour Discussed with Dr. Ellison All management and planning per Dr. Ellison.
[2017-08-24] MEDS: Sodium Chloride 0.9% 1,000 ML IV SCH ×2 (14:50→23:12)
[2017-08-24] MEDS: HYDROmorphone 1 mg/ml ISec IVP ONE ×2 (15:10→16:25)
[2017-08-24] MEDS ORDERED: HYDROmorphone 0.5 mg/0.5 ml ISec IVP ONE (15:15)
--- NOTE | 2017-08-24 17:06 | RAD ---
HISTORY: NG tube placement COMPARISON: 08/08/2017 FINDINGS: LUNGS: No active pulmonary disease. PLEURA: No significant pleural effusion identified, no pneumothorax apparent. CARDIOVASCULAR: Mild cardiomegaly. Minimal central pulmonary venous congestion suspect and similar-appearing OSSEOUS STRUCTURES: Thoracic spondylosis. VISUALIZED UPPER ABDOMEN: Normal. OTHER FINDINGS: Right Port-A-Cath tip in superior vena cava -unchanged. Enteric tube coursing in stomach IMPRESSION: No active disease. Catheter and tubes as above
--- NOTE | 2017-08-24 17:24 | C.PDOC ---
History Of Present Illness 52 year old female presents to the ED for evaluation of intractable nausea and vomiting. Patient is unable to tolerate PO. She has had multiple ED visits for same complaint. She denies fever, chills, blood in urine and/or stool. Time Seen by Provider: 08/24/17 11:59 Chief Complaint (Nursing): Abdominal Pain History Per: Patient History/Exam Limitations: no limitations Onset/Duration Of Symptoms: Hrs Current Symptoms Are (Timing): Still Present Associated Symptoms: Nausea, Vomiting. denies: Fever, Chills, Urinary Symptoms Additional History Per: Patient Abnormal Vaginal Bleeding: No Past Medical History Reviewed: Historical Data, Nursing Documentation, Vital Signs Vital Signs: Last Vital Signs Temp 99.3 F 08/24/17 14:50 Pulse 85 08/24/17 17: Resp 18 08/24/17 17: BP 155/90 H 08/24/17 17: Pulse Ox 100 08/24/17 17:25 - Medical History PMH: Anemia, Anxiety, Arthritis, Asthma, Back Problems (herniated discs), Bronchitis, COPD, Diverticulitis, Gastritis, Gastrointestinal Ulcer, HTN, Hypercholesterolemia, Hypothyroidism, Pancreatitis Denies: Alzheimer's Disease, Chronic Kidney Disease Surgical History: Appendectomy, Cholecystectomy, Endoscopy, Hernia Repair ( ventral x3, last 10/27/15) - [facility] Procedures (08/05/17) CENTRAL VENOUS CATHETER PLACEMENT WITH GUIDANCE (06/13/14) CLOSED ENDOSCOPIC BIOPSY OF LARGE INTESTINE (05/19/14) COLONOSCOPY (01/23/14) DILATION OF RIGHT AXILLARY ARTERY, PERCUTANEOUS APPROACH (11/03/15) ESOPHAGOGASTRODUODENOSCOPY [EGD] W/CLOSED BIOPSY (10/22/14) EXCISION OF DESCENDING COLON, ENDO, DIAGN (04/09/17) EXCISION OF SIGMOID COLON, ENDO, DIAGN (12/05/15) EXCISION OF SMALL INTESTINE, ENDO, DIAGN (06/10/16) EXCISION OF STOMACH, ENDO, DIAGN (04/04/17) FLUOROSCOPY OF SUP VENA CAVA USING L OSM CONTRAST, GUIDANCE (07/05/17) FLUOROSCOPY OF SUPERIOR VENA CAVA, GUIDANCE (12/05/15) INFLUENZA VACCINATION (05/08/14) INJECT/INFUSE NEC (08/22/14) INSERTION OF INFUSION DEV INTO L BRACH VEIN, PERC APPROACH (05/22/17) INSERTION OF INFUSION DEV INTO SUP VENA CAVA, PERC APPROACH (07/05/17) INSERTION OF VAD INTO CHEST SUBCU/FASCIA, OPEN APPROACH (07/05/17) INSPECTION OF GASTROINTESTINAL TRACT, PERC ENDO APPROACH (10/26/15) MRI OF OTHER AND UNSPECIFIED SITES (04/25/14) NEBULIZER THERAPY (11/30/13) RELEASE CECUM, OPEN APPROACH (10/26/15) REPAIR ABDOMINAL WALL, OPEN APPROACH (07/05/17) ULTRASONOGRAPHY OF LEFT UPPER EXTREMITY VEINS, GUIDANCE (05/22/17) ULTRASONOGRAPHY OF SUPERIOR VENA CAVA, GUIDANCE (10/26/15) VENOUS CATHETERIZATION NEC (02/14/14) Family History: States: Unknown Family Hx - Social History Hx Tobacco Use: No Hx Alcohol Use: No Hx Substance Use: No - Immunization History Hx Tetanus Toxoid Vaccination: Yes Hx Influenza Vaccination: Yes (2016) Hx Pneumococcal Vaccination: Yes (2014) Review Of Systems Constitutional: Negative for: Fever, Chills Gastrointestinal: Positive for: Nausea, Vomiting Physical Exam - Physical Exam Appears: Non-toxic, Other (uncomfortable, actively vomiting ) Skin: Normal Color, Warm, Dry Head: Atraumatic, Normacephalic Eye(s): bilateral: Normal Inspection Oral Mucosa: Moist Neck: Supple Chest: Symmetrical, No Deformity, No Tenderness Cardiovascular: Rhythm Regular, No Murmur Respiratory: Normal Breath Sounds, No Rales, No Rhonchi, No Wheezing Gastrointestinal/Abdominal: Soft, Tenderness (diffuse ), No Guarding, No Rebound Extremity: Normal ROM, Capillary Refill (less than 2 seconds ) Neurological/Psych: Oriented x3, Normal Speech, Normal Cognition Gait: Steady ED Course And Treatment - Laboratory Results Result Diagrams: 08/24/17 12:36 08/24/17 12:36 O2 Sat by Pulse Oximetry: 100 (on RA) Pulse Ox Interpretation: Normal Medical Decision Making Medical Decision Making: Progress: Benadryl IVP, Pepcid IVP, Dilaudid IVP, Zofran IVP and IV Fluids administered. Disposition - Disposition Disposition: HOSPITALIZED Disposition Time: 14:00 Condition: FAIR - Clinical Impression Clinical Impression: Abdominal pain, Intractable vomiting - Scribe Statement The provider has reviewed the documentation as recorded by the Scribe (Lilliana Ley) Provider Attestation: All medical record entries made by the Scribe were at my direction and personally dictated by me. I have reviewed the chart and agree that the record accurately reflects my personal performance of the history, physical exam, medical decision making, and the department course for this patient. I have also personally directed, reviewed, and agree with the discharge instructions and disposition.
--- NOTE | 2017-08-24 17:36 | RAD ---
PROCEDURE: Radiographs of the chest and abdomen (obstructive series) HISTORY: r/o obstruction COMPARISON: 08/09/2017 TECHNIQUE: AP radiograph of the chest, with upright and supine radiographs of the abdomen. FINDINGS: CHEST: Lungs: Clear. Right central line insertion tip superior vena cava. No pneumothorax Cardiovascular: Mild cardiomegaly. Possible minimal pulmonary vascular congestion. Pleura: No pleural fluid. No pneumothorax. Other findings: None. ABDOMEN AND PELVIS: Bowel: Stool retention. No evidence of mechanical obstruction. Free air: None. Bones: Unremarkable. Other findings: Metallic course compatible with right ventral hernia repair. Right upper quadrant cholecystectomy clips. IMPRESSION: No interval pulmonary infiltrate. No evidence of mechanical bowel obstruction. Interval removal of prior NG tube
[2017-08-24] MEDS: DiphenhydrAMINE 50 mg/ml Inj IVP PRN (21:28)
[2017-08-25] MEDS: DiphenhydrAMINE 50 mg/ml Inj IVP PRN ×8 (00:48→21:55)
[2017-08-25 07:37] LABS: BASO % 0.4 % (0.0-2.0); EOS % 0.3 % (0.0-4.0); HEMOGLOBIN 10.3 g/dL (11.0-16.0); LYMPH # 1.3 K/uL (1.0-4.3); LYMPH % 11.4 % (20.0-40.0); MEAN CELL VOLUME 87.8 fL (81.0-99.0); MEAN CORPUSCULAR HEMOGLOBIN 29.3 pg (27.0-31.0); MEAN CORPUSCULAR HGB CONC 33.4 g/dL (33.0-37.0); MEAN PLATELET VOLUME 8.1 fL (7.2-11.7); MONO % 9.4 % (0.0-10.0); NEUT # 8.8 K/uL (1.8-7.0); NEUT % 78.5 % (50.0-75.0); NRBC % 0.1 % (0.0-2.0); RBC 3.53 Mil/uL (3.80-5.20); WHITE BLOOD COUNT 11.2 K/uL (4.8-10.8)
[2017-08-25 08:08] LABS: ALB/GLOB RATIO 1.1 (1.0-2.1); ALBUMIN 3.9 g/dL (3.5-5.0); ALT/SGPT 85 U/L (9-52); AST/SGOT 32 U/L (14-36); BLOOD UREA NITROGEN 11 mg/dL (7-17); CALCIUM 8.7 mg/dl (8.6-10.4); GFR AFRICAN-AMERICAN > 60; GFR NON-AFRICAN AMERICAN > 60; MAGNESIUM 1.7 mg/dL (1.6-2.3)
[2017-08-25] MEDS: Sodium Chloride 0.9% 1,000 ML IV SCH ×2 (09:37→18:56)
[2017-08-25] MEDS: Enoxaparin 40 mg Syringe SC SCH (10:14)
[2017-08-25] MEDS: Benzocaine/Menthol (Cepacol) Lozenge MT PRN (12:29)
[2017-08-25 13:49] LABS: INR 1.2; PROTHROMBIN TIME 13.1 SECONDS (9.7-12.2)
[2017-08-25] MEDS ORDERED: Potassium Chloride 20 mEq/15 ml LIQ UD PO ONE (15:15)
--- NOTE | 2017-08-25 16:25 | PN ---
DATE: LOCATION: [facility], bed A. SUBJECTIVE: This is a 52-year-old female seen and examined in rounds, still complaining of crampy abdominal pain. NG tube is still in place. Had been on Dilaudid IV on and off. The entire chart is reviewed including, but not limited to the most recent lab and the radiology study results, current and the previous medication list, current and the previous medical events. Case discussed with the staff. Today's lab showed white blood cells of 11.2, with low hemoglobin 10.3, low hematocrit of 31.0, with blood glucose level at 103, with normal AST, but elevated ALT to 85, with alkaline phosphatase of 182, total bilirubin normal 0.6. The patient had abdominal obstructive series yesterday, indicative of no evidence of mechanical bowel obstruction. PHYSICAL EXAMINATION GENERAL: A 52-year-old female. VITAL SIGNS: Afebrile with pulse of 86, respiratory rate 20 to 22, blood pressure 114/76. HEENT: Showed mildly pale dry mucoid membrane. Nonicteric sclerae. LUNGS: Few scattered mild crepitation. Breathing sounds are present bilaterally. HEART: Positive S1 and S2. ABDOMEN: Soft, with slight mild distention, no mass or organomegaly. No rebound tenderness or guarding. Abdomen is mildly distended and obese. RECTAL: The patient refused. EXTREMITIES: Without significant clubbing, cyanosis, or edema. NEUROLOGIC: No reported new neurological deficits, sensory or motor. IMPRESSION: 1. Re-exacerbation of peptic ulcer disease. 2. Known history of chronic obstructive pulmonary disease, hypertension, hyperlipidemia, and hypothyroidism. 3. Known history of diverticulosis, intermittent periods of diverticulitis, has chronic lower back pain syndrome due to herniated disk. 4. Anemia. 5. Status post cholecystectomy and appendectomy. SUGGESTIONS: 1. Agree with your plan. 2. Again, the patient will need upper GI series with small bowel follow-through, which she refused unfortunately before. 3. Reglan IV. 4. Proton pump inhibitors. 5. Cancer markers. 6. Further recommendations to follow. Hector Belcher MD
--- NOTE | 2017-08-25 19:39 | CP.PCM.PN ---
Subjective - Date & Time of Evaluation Date of Evaluation: 08/26/17 Time of Evaluation: 10:44 - Subjective Subjective: Medicine Progress Note - Dr. Ellison's service Patient seen and examined in no apparent acute distress. Patient tearful and states that she is tired of coming in and out of the hospital without having answers. Patient is frustrated. She admits to nausea . She denies subjective fevers or chills, nausea, vomiting or diarrhea at this time. Objective - Vital Signs/Intake and Output Vital Signs (last 24 hours): Temp Pulse Resp BP Pulse Ox 98.5 F 96 H 20 114/81 81 L 08/25/17 16:00 08/25/17 16:00 08/25/17 16:00 08/25/17 16:00 08/25/17 16:00 Intake and Output: 08/25/17 08/26/17 18:59 06:59 Intake Total 1000 Output Total 400 Balance 600 - Medications Medications: Current Medications Albuterol/Ipratropium (Duoneb 3 Mg/0.5 Mg (3 Ml) Ud) 3 ml INH RQ6 PRN PRN Reason: Shortness of Breath Amlodipine Besylate (Norvasc) [address] [facility] Last Admin: 08/25/17 10:15 Dose: 10 mg Benzocaine/Menthol (Cepacol Sore Throat) 1 jay MT Q4 PRN PRN Reason: Sore Throat Last Admin: 08/25/17 12:29 Dose: 1 jay Diphenhydramine HCl (Benadryl) 25 mg IVP Q3 PRN PRN Reason: Itching / Pruritus Last Admin: 08/25/17 18:52 Dose: 25 mg Enoxaparin Sodium (Lovenox) [address] [facility] Last Admin: 08/25/17 10:14 Dose: 40 mg Escitalopram Oxalate (Lexapro) [address] [facility] Last Admin: 08/25/17 11:11 Dose: 5 mg Famotidine (Pepcid) [address] [facility] Last Admin: 08/25/17 17:15 Dose: 20 mg Hydromorphone HCl (Dilaudid) 2 mg IVP Q3H PRN PRN Reason: Pain, moderate (4-7) Last Admin: 08/25/17 18:52 Dose: 2 mg Sodium Chloride (Sodium Chloride 0.9%) 1,000 mls @ 100 mls/hr IV .Q10H [facility] Last Admin: 08/25/17 18:56 Dose: 100 mls/hr Ondansetron HCl (Zofran Inj) 4 mg IVP Q6 PRN PRN Reason: Nausea/Vomiting Last Admin: 08/24/17 16:31 Dose: 4 mg Fluticasone/Salmeterol (Advair Diskus 250/50) [address] [facility] Sucralfate (Carafate Tab) [address] [facility] Last Admin: 08/25/17 17:15 Dose: 1 gm Zolpidem Tartrate (Ambien) [address] [facility] Last Admin: 08/24/17 23:12 Dose: 5 mg - Labs Labs: 08/25/17 07:16 08/25/17 07:16 PT 13.1 SECONDS (9.7-12.2) H 08/25/17 13:34 INR 1.2 08/25/17 13:34 APTT 29 SECONDS (21-34) 08/25/17 13:34 - Constitutional Appears: Non-toxic, No Acute Distress - Head Exam Head Exam: ATRAUMATIC, NORMAL INSPECTION - Eye Exam Eye Exam: EOMI, Normal appearance Pupil Exam: NORMAL ACCOMODATION - ENT Exam ENT Exam: Mucous Membranes Moist - Neck Exam Neck Exam: Full ROM - Respiratory Exam Respiratory Exam: NORMAL BREATHING PATTERN - Cardiovascular Exam Cardiovascular Exam: +S1, +S2 - GI/Abdominal Exam GI & Abdominal Exam: Guarding, Soft, Tenderness, Normal Bowel Sounds - Extremities Exam Extremities Exam: Full ROM - Neurological Exam Neurological Exam: Alert, Awake, Oriented x3 - Psychiatric Exam Psychiatric exam: Normal Affect, Normal Mood - Skin Skin Exam: Dry, Normal Color Assessment and Plan - Assessment and Plan (Free Text) Assessment: Intractable Nausea and Vomiting Assessment & Plan: Ng tube placed 8 KUB 2/8 - f/u report Zofran 4mg IVP prn N/V Etiology: most likely secondary to adhesions from multiple surgeries -Most recent procedure : Ventral hernia repair on 07/07/17 Dilaudid to 1mg IV Q4H PRN Benadryl 25 MG TID PRN Lipase 246 wnl From last admission: Patient was recently admitted for similar complaints CT A/P (07/27/17) Unremarkable pancreas. 2.2x2.2x4.4 cm focal collection within anterior soft tissues of bowel with surrounding mild inflammatory changes. Cannot exclude abscess. Refer to complete report. Patient had 3 CT scans within the last 8 days. The most recent results reported above. Refer to hospital record for the other reports. AFP 3.7, CEA 2.2, Ca19-9 <1.4, Ca 125 <5.5 - all negative Will have to assess whether surgical intervention is warranted at this time. Status: Acute Transaminitis Assessment & Plan: Downtrending Hepatitis panel negative. Avoid hepato-toxic meds Status: Chronic Hypertension Assessment & Plan: Cont to monitor BP controlled without medication Hold: Norvasc 10 mg PO daily Status: Chronic Hypercholesteremia Assessment & Plan: Hold Crestor 10 mg PO HS due to earlier presentations of elevated LFTs. Will resume outpatient. Status: Chronic Asthma Assessment & Plan: Duonebs PRN Advair daily Controlled, patient denies shortness of breath Status: Chronic Anxiety Assessment & Plan: Xanax 1 mg PO PRN Ambien 5 mg PO HS Status: Chronic Depression Assessment & Plan: Lexapro 5mg PO daily Status: Acute Prophylactic measure Assessment & Plan: Protonix 40 IVP Daily SCDs Lovenox 40 mg SC daily Physical Therapy NS at 200 cc/hour Discussed with Dr. Ellison All management and planning per Dr. Ellison.
[2017-08-25] MEDS: Fluticasone-Salmeterol 250-50mcg Diskus INH SCH ×2 (21:14→21:54)
[2017-08-26] MEDS: DiphenhydrAMINE 50 mg/ml Inj IVP PRN ×8 (00:53→21:45)
[2017-08-26] MEDS: Sodium Chloride 0.9% 1,000 ML IV SCH ×3 (05:09→16:29)
--- NOTE | 2017-08-26 05:52 | CON ---
DATE: 08/24/2017 HISTORY OF PRESENT ILLNESS: LOCATION: [address] [facility] was called for GI consultation by the admitting medical team as well as admitting staff, the patient was seen and fully examined on 08/18/[address] Ellison. The entire chart is reviewed including but not limited to the most recent lab and radiology study results, current and the previous medication list, current and previous medical events, allergies to medication list, as well as all the available current and the previous medical records. Case discussed with the staff at length. This is a 52-year-old female, known case to me from previous recent admission, was admitted to the hospital through the emergency room, with recurrent episodes of nausea and vomiting, with severe crampy abdominal pain, unable to keep any food in, for which she lost her appetite. The patient denied any chest pain, significant palpitations, or significant shortness of breath. No chills or fever reported or active bleeding. The patient recently had an upper endoscopy indicative of gastritis but no obstructive phenomena. PAST MEDICAL HISTORY: Including but not limited to 1. COPD with bronchitis. 2. Peptic ulcer disease with history of gastric ulcer before. 3. Known history of hypertension, hyperlipidemia, hypothyroidism, recurrent pancreatitis with severe anxiety syndrome as well as osteoarthritis. 4. Known history of chronic lower back pain syndrome with herniated disk. 5. Questionable past medical history, intermittent partial polyp selection. SOCIAL HISTORY: No known history of cigarette smoking or alcohol intake recently. FAMILY HISTORY: Unknown. CURRENT MEDICATIONS: Medication lists are reviewed. Initial blood workup post admission showed white blood cells elevated to 12.6 but normal hemoglobin and hematocrit with elevated blood glucose level at 147. PHYSICAL EXAMINATION GENERAL: A 52-year-old female with low-grade temperature of 99.3, pulse 82, respiratory rate 20 to 22, blood pressure 150/82. HEENT: Showed the dry oral mucous membrane, nonicteric sclerae. LYMPH NODES: No lymphadenitis or lymphadenopathy. LUNGS: Few scattered palpitations with decreased air entry at bases. HEART: Positive S1 and S2. ABDOMEN: Soft with generalized diffuse tenderness. Bowel sounds are hypoactive, with mild abdominal distention. No masses or organomegaly. No rebound tenderness or guarding. RECTAL: The patient refused. EXTREMITIES: Without significant clubbing, cyanosis, or edema. NEUROLOGIC: No reported new neurological deficits, sensory or motor. No reported new focal deficits. Peripheral pulses are present bilaterally. IMPRESSION: 1. Re-exacerbation of peptic ulcer disease. 2. To rule out a new and a current episode of acute pancreatitis. 3. Intermittent partial bowel obstruction by history. 4. To rule out occult gastrointestinal malignancy. 5. Multiple past medical history as mentioned above. SUGGESTIONS: 1. Agree with your plan. 2. Surgical reevaluation. 3. Keep n.p.o., IV Protonix, Reglan, Flagyl IV due to the patient . 4. Again, the patient will need upper GI with small bowel followthrough testing. 5. It has to be mentioned that the patient refused test before and no aggressive GI workup to be planned at this point given the patient's clinical presentation. 6. The patient may need a CAT scan of the head. 7. Repeat cancer markers including CA 19-9 and CA-125 as well as CEA. 8. Further recommendation to follow. Hector Belcher MD
[2017-08-26] MEDS: Albuterol-Ipratrop 3 mg / 0.5 (3 ml) UD INH PRN ×2 (07:45→19:43)
[2017-08-26] MEDS: Fluticasone-Salmeterol 250-50mcg Diskus INH SCH ×2 (07:45→19:42)
[2017-08-26 07:46] LABS: HCG,QUALITATIVE URINE NEGATIVE (NEGATIVE)
[2017-08-26 07:48] LABS: SQUAMOUS EPITHIAL 28 /hpf (0-5); URINE BACTERIA OCC (<OCC); URINE BILIRUBIN NEGATIVE (NEGATIVE); URINE BLOOD 2+ (NEGATIVE); URINE CLARITY Hazy (Clear); URINE COLOR Yellow (YELLOW); URINE GLUCOSE (UA) NORMAL (Normal); URINE LEUKOCYTE ESTERASE NEG Leu/uL (Negative); URINE NITRATE NEGATIVE (NEGATIVE); URINE PROTEIN 1+ mg/dL (NEGATIVE); URINE UROBILINOGEN NORMAL mg/dL (0.2-1.0)
[2017-08-26] MEDS: Benzocaine/Menthol (Cepacol) Lozenge MT PRN ×2 (09:48→16:30)
[2017-08-26] MEDS: Enoxaparin 40 mg Syringe SC SCH (09:49)
--- NOTE | 2017-08-26 12:19 | PN ---
LOCATION: [facility], bed A. SUBJECTIVE: This is a 52-year-old female seen early in rounds today with NG tube still in place, draining minimum amount of greenish gastric contents. The patient is still complaining of abdominal pain and she reported today that she had more than one bloody bowel movement at home as well as after being admitted to the hospital late last night according to the patient's statement. She is still complaining of nausea, but no vomiting with mild dyspepsia. No chest pain, palpitation, shortness of breath, chills or fever reported. The entire chart is reviewed including, but not limited to the most recent lab and the radiology study results, current and the previous medication list, current and the previous medical events and today's blood glucose level reported to be 86. The patient had subsequent drop of H and H since admission with reported low potassium 3.4, but increased AST and ALT as well as increased alkaline phosphatase, but normal total bilirubin. PHYSICAL EXAMINATION: GENERAL: A 52-year-old female, awake, alert, and oriented. VITAL SIGNS: Afebrile with heart rate of 84, respiratory rate 20 to 22, blood pressure 120/86. HEENT: Showed pale dry oral mucoid membrane. Nonicteric sclerae. LUNGS: Few scattered crepitation, decreased air entry at bases. HEART: Positive S1 and S2. ABDOMEN: Soft, bowel sounds are present, but excessively hypoactive. The patient still has NG tube in place with mild abdominal distention. EXTREMITIES: Without edema, clubbing, or cyanosis. NEUROLOGIC: No reported new neurological deficits, sensory or motor. IMPRESSION: 1. Re-exacerbation of peptic ulcer disease. 2. Intermittent partial bowel obstruction, most likely inducing the patient's symptoms. 3. Recently reported rectal bleeding with anemia of unclear etiology. 4. Known history of chronic obstructive pulmonary disease, hypertension, hypothyroidism, with hyperlipidemia as well as diverticulosis with diverticulitis in the past. 4. Anemia secondary to above. 5. Known history of status post appendectomy and cholecystectomy. SUGGESTIONS: 1. Continue current management. 2. Again, the patient will need upper GI series with small bowel follow-through for full evaluation of the small bowel. If this test is negative, then colonoscopy to be kept in mind. 3. Cancer markers including CEA, CA-125. 4. Further recommendation to follow. Hector Belcher MD [facility] # [id number]
[2017-08-27] MEDS: DiphenhydrAMINE 50 mg/ml Inj IVP PRN ×8 (00:45→22:06)
[2017-08-27] MEDS: Sodium Chloride 0.9% 1,000 ML IV SCH ×3 (00:45→21:29)
[2017-08-27] MEDS: Benzocaine/Menthol (Cepacol) Lozenge MT PRN ×2 (03:55→09:56)
[2017-08-27 07:11] LABS: BASO % 0.3 % (0.0-2.0); EOS # 0.3 K/uL (0.0-0.7); EOS % 4.8 % (0.0-4.0); HEMOGLOBIN 9.9 g/dL (11.0-16.0); LYMPH # 1.1 K/uL (1.0-4.3); MEAN CELL VOLUME 87.4 fL (81.0-99.0); MEAN CORPUSCULAR HEMOGLOBIN 29.2 pg (27.0-31.0); MEAN CORPUSCULAR HGB CONC 33.5 g/dL (33.0-37.0); MEAN PLATELET VOLUME 7.9 fL (7.2-11.7); MONO # 0.6 K/uL (0.0-0.8); NEUT # 4.2 K/uL (1.8-7.0); NEUT % 67.9 % (50.0-75.0); NRBC % 0.1 % (0.0-2.0); RBC 3.4 Mil/uL (3.80-5.20); RED CELL DISTRIBUTION WIDTH 14.3 % (11.5-14.5); WHITE BLOOD COUNT 6.2 K/uL (4.8-10.8)
[2017-08-27 07:50] LABS: ALB/GLOB RATIO 1.3 (1.0-2.1); ALBUMIN 3.7 g/dL (3.5-5.0); ALT/SGPT 58 U/L (9-52); AST/SGOT 22 U/L (14-36); BLOOD UREA NITROGEN 6 mg/dL (7-17); CALCIUM 8.1 mg/dl (8.6-10.4); GFR AFRICAN-AMERICAN > 60; GFR NON-AFRICAN AMERICAN > 60; MAGNESIUM 1.7 mg/dL (1.6-2.3)
[2017-08-27] MEDS: Albuterol-Ipratrop 3 mg / 0.5 (3 ml) UD INH PRN (08:15)
[2017-08-27] MEDS: Fluticasone-Salmeterol 250-50mcg Diskus INH SCH ×2 (08:30→20:58)
[2017-08-27] MEDS: Enoxaparin 40 mg Syringe SC SCH (10:41)
--- NOTE | 2017-08-27 13:34 | PN ---
LOCATION: 368. SUBJECTIVE: This is a 52-year-old female seen and examined in rounds with intermittent period of severe abdominal pain as per her statement. The patient removed the NG tube. The entire chart is reviewed including but not limited to the most recent lab and the radiology study results, current and the previous medication list, current and the previous medical events. Case discussed with the staff at length. Today's lab showed hemoglobin 9.9, hematocrit 29.7 with low potassium 3.1 and low calcium 8.1 with increased AST 258 but normal the rest of liver function tests that could be secondary to alcohol induced mildly elevated liver function tests. The patient denied any chest pain, shortness of breath or palpitation. No reported chills or fever or active bleeding. PHYSICAL EXAMINATION: GENERAL: A 52-year-old female. VITAL SIGNS: Afebrile with pulse of 82, respiratory rate 20 to 22, blood pressure 120/80. HEENT: Showed pale, dry oral mucous membrane. Nonicteric sclerae. LUNGS: A few scattered crepitation, decreased air entry at bases. HEART: Positive S1 and S2. ABDOMEN: Soft, bowel sounds are hypoactive with mild abdominal distention. No mass or organomegaly. EXTREMITIES: Without edema, clubbing, or cyanosis. RECTAL: The patient refused. NEUROLOGIC: No reported new neurological deficits, sensory or motor. No focal deficits. Peripheral pulses are present. IMPRESSION: 1. Peptic ulcer disease. 2. To rule out intermittent partial bowel obstruction. 3. Anemia. 4. Known history of but not limited to chronic obstructive pulmonary disease, hypothyroidism, hypertension, with hyperlipidemia. 5. Known history of diverticulosis with attacks of diverticulitis before. SUGGESTIONS: 1. Continue current management. 2. Again, the patient will need upper GI with small-bowel follow-through. 3. Surgical re-evaluation. Hector Belcher MD
[2017-08-27 16:13] VITALS: RESP 20
[2017-08-28] MEDS: DiphenhydrAMINE 50 mg/ml Inj IVP PRN ×9 (01:12→23:07)
[2017-08-28 07:07] LABS: ALB/GLOB RATIO 1.2 (1.0-2.1); ALBUMIN 3.8 g/dL (3.5-5.0); ALT/SGPT 48 U/L (9-52); AST/SGOT 18 U/L (14-36); BLOOD UREA NITROGEN 7 mg/dL (7-17); CALCIUM 8.3 mg/dl (8.6-10.4); GFR AFRICAN-AMERICAN > 60; GFR NON-AFRICAN AMERICAN > 60; MAGNESIUM 1.5 mg/dL (1.6-2.3)
[2017-08-28 07:24] LABS: BASO % 0.3 % (0.0-2.0); EOS # 0.3 K/uL (0.0-0.7); EOS % 4.5 % (0.0-4.0); LYMPH # 1.2 K/uL (1.0-4.3); LYMPH % 17.2 % (20.0-40.0); MEAN CELL VOLUME 88.3 fL (81.0-99.0); MEAN CORPUSCULAR HEMOGLOBIN 29.1 pg (27.0-31.0); MEAN CORPUSCULAR HGB CONC 32.9 g/dL (33.0-37.0); MONO # 0.5 K/uL (0.0-0.8); MONO % 7.5 % (0.0-10.0); NEUT # 4.8 K/uL (1.8-7.0); NEUT % 70.5 % (50.0-75.0); RBC 3.43 Mil/uL (3.80-5.20); WHITE BLOOD COUNT 6.8 K/uL (4.8-10.8)
[2017-08-28] MEDS: Magnesium Sulfate 1 gm in D5W 1 GM/100 ML BAG IVPB SCH ×2 (09:07→10:15)
[2017-08-28] MEDS: Enoxaparin 40 mg Syringe SC SCH (09:12)
[2017-08-28] MEDS: Benzocaine/Menthol (Cepacol) Lozenge MT PRN (09:14)
--- NOTE | 2017-08-28 11:24 | CP.PCM.PN ---
Subjective - Date & Time of Evaluation Date of Evaluation: 08/28/17 Time of Evaluation: 07:25 - Subjective Subjective: Medicine Progress Note - Dr. Ellison's service Patient seen and examined in no apparent acute distress. Patient continues to feel nausea however denies vomit. NG tube is in place. Dr. Mcguire will be consulted as he previously operated on her. She denies subjective fevers or chills, diarrhea or constipation at this time. Objective - Vital Signs/Intake and Output Vital Signs (last 24 hours): Temp Pulse Resp BP Pulse Ox 98.6 F 87 20 128/86 98 08/28/17 08:00 08/28/17 08:00 08/28/17 08:00 08/28/17 08:00 08/28/17 08:00 Intake and Output: 08/28/17 08/28/17 06:59 18:59 Intake Total 800 Output Total 50 Balance 750 - Medications Medications: Current Medications Albuterol/Ipratropium (Duoneb 3 Mg/0.5 Mg (3 Ml) Ud) 3 ml INH RQ6 PRN PRN Reason: Shortness of Breath Last Admin: 08/27/17 08:15 Dose: 3 ml Amlodipine Besylate (Norvasc) 10 mg PO DAILY [facility] Last Admin: 08/28/17 09:13 Dose: 10 mg Benzocaine/Menthol (Cepacol Sore Throat) 1 jay MT Q4 PRN PRN Reason: Sore Throat Last Admin: 08/28/17 09:14 Dose: 1 jay Diphenhydramine HCl (Benadryl) 25 mg IVP Q3 PRN PRN Reason: Itching / Pruritus Last Admin: 08/28/17 10:21 Dose: 25 mg Enoxaparin Sodium (Lovenox) 40 mg SC DAILY [facility] Last Admin: 08/28/17 09:12 Dose: 40 mg Escitalopram Oxalate (Lexapro) 5 mg PO DAILY [facility] Last Admin: 08/28/17 09:12 Dose: 5 mg Famotidine (Pepcid) 20 mg PO BID [facility] Last Admin: 08/28/17 09:14 Dose: 20 mg Hydromorphone HCl (Dilaudid) 2 mg IVP Q3H PRN PRN Reason: Pain, moderate (4-7) Last Admin: 08/28/17 10:23 Dose: 2 mg Potassium Chloride (Potassium Chloride 10 Meq/100 Ml) 10 meq in 100 mls @ 100 mls/hr IVPB Q3H [facility] Stop: 08/28/17 15:44 Ondansetron HCl (Zofran Inj) 4 mg IVP Q6 PRN PRN Reason: Nausea/Vomiting Last Admin: 08/24/17 16:31 Dose: 4 mg Fluticasone/Salmeterol (Advair Diskus 250/50) 1 puff INH RQ12 [facility] Last Admin: 08/27/17 20:58 Dose: 1 puff Sucralfate (Carafate Tab) 1 gm PO TIDAC [facility] Last Admin: 08/28/17 08:05 Dose: 1 gm Zolpidem Tartrate (Ambien) 5 mg PO HS [facility] Last Admin: 08/27/17 21:27 Dose: 5 mg - Labs Labs: 08/28/17 06:20 08/28/17 06:20 PT 13.1 SECONDS (9.7-12.2) H 08/25/17 13:34 INR 1.2 08/25/17 13:34 APTT 29 SECONDS (21-34) 08/25/17 13:34 - Additional Findings Additional findings: - Constitutional Appears: Non-toxic, No Acute Distress - Head Exam Head Exam: ATRAUMATIC, NORMAL INSPECTION - Eye Exam Eye Exam: EOMI, Normal appearance Pupil Exam: NORMAL ACCOMODATION - ENT Exam ENT Exam: Mucous Membranes Moist - Neck Exam Neck Exam: Full ROM - Respiratory Exam Respiratory Exam: NORMAL BREATHING PATTERN - Cardiovascular Exam Cardiovascular Exam: +S1, +S2 - GI/Abdominal Exam GI & Abdominal Exam: Guarding, Soft, Tenderness, Normal Bowel Sounds, Distended NG tube in place. - Extremities Exam Extremities Exam: Full ROM - Neurological Exam Neurological Exam: Alert, Awake, Oriented x3 - Psychiatric Exam Psychiatric exam: Normal Affect, Normal Mood - Skin Skin Exam: Dry, Normal Color Assessment and Plan - Assessment and Plan (Free Text) Assessment: Intractable Nausea and Vomiting Assessment & Plan: 08/28: Ng tube placed 08/24. GI will order upper GI series with small bowel follow through. Surgical consult placed to Dr. Mcguire, who previously operated on this patient. Followup recs. KUB 08/24 - f/u report Zofran 4mg IVP prn N/V Etiology: most likely secondary to adhesions from multiple surgeries -Most recent procedure : Ventral hernia repair on 07/07/17 Dilaudid to 1mg IV Q4H PRN Benadryl 25 MG TID PRN Lipase 246 wnl From last admission: Patient was recently admitted for similar complaints CT A/P (07/27/17) Unremarkable pancreas. 2.2x2.2x4.4 cm focal collection within anterior soft tissues of bowel with surrounding mild inflammatory changes. Cannot exclude abscess. Refer to complete report. Patient had 3 CT scans within the last 8 days. The most recent results reported above. Refer to hospital record for the other reports. AFP 3.7, CEA 2.2, Ca19-9 <1.4, Ca 125 <5.5 - all negative Will have to assess whether surgical intervention is warranted at this time. Status: Acute Transaminitis Assessment & Plan: 08/28: AST/ALT WNL Downtrending Hepatitis panel negative. Avoid hepato-toxic meds Status: Chronic Hypertension Assessment & Plan: Cont to monitor BP controlled without medication Hold: Norvasc 10 mg PO daily Status: Chronic Hypercholesteremia Assessment & Plan: Hold Crestor 10 mg PO HS due to earlier presentations of elevated LFTs. Will resume outpatient. Status: Chronic Asthma Assessment & Plan: Duonebs PRN Advair daily Controlled, patient denies shortness of breath Status: Chronic Anxiety Assessment & Plan: Xanax 1 mg PO PRN Ambien 5 mg PO HS Status: Chronic Depression Assessment & Plan: Lexapro 5mg PO daily Status: Acute Electrolyte Abnormality - Hypokalemia, K 3.0 - KCL 10 IVPB x3, f/u labs - Hypomagnesemia, Mg 1.5 - Magsulfate x2bags Prophylactic measure Assessment & Plan: Protonix 40 IVP Daily SCDs Lovenox 40 mg SC daily Physical Therapy NS at 200 cc/hour Discussed with Dr. Ellison All management and planning per Dr. Ellison.
--- NOTE | 2017-08-28 14:35 | PN ---
DATE: LOCATION: [facility], bed A. SUBJECTIVE: This is a 52-year-old female seen and examined in rounds. The entire chart is reviewed including, but not limited to, the most recent lab and radiology study results, current and the previous medication list, current and the previous medical events, and today's lab showed hemoglobin low of 10.0 with hematocrit 30.2, but normal platelet count, with low potassium of 3, blood glucose 1194, calcium 8.3, with low magnesium 1.5. Still awaiting for upper GI with small bowel follow through to be performed. PHYSICAL EXAMINATION: GENERAL: A 52-year-old female, awake, alert, and oriented. VITAL SIGNS: Afebrile with pulse of 90, respiratory rate 20 to 22, blood pressure 124/78. HEENT: Showed pale, dry oral mucoid membrane. Nonicteric sclerae. LUNGS: Few scattered crepitation. Decreased air entry at bases. HEART: Positive S1 and S2 with increased rate. ABDOMEN: Soft with slight distention. No mass or organomegaly. No rebound tenderness or guarding. EXTREMITIES: There is no significant clubbing, cyanosis, or edema. NEUROLOGIC: No reported new neurological deficits. IMPRESSION: 1. Intermittent partial bowel obstruction by history. 2. Re-exacerbation of peptic ulcer disease. 3. Known history of bronchial asthma, severe anxiety syndrome with depression. 4. Anemia most likely secondary to above. 5. Known history of hypertension. SUGGESTIONS: 1. Continue current management. 2. Surgical re-evaluation. Hector Belcher MD
[2017-08-28] MEDS: Fluticasone-Salmeterol 250-50mcg Diskus INH SCH (19:43)
[2017-08-28] MEDS: Albuterol-Ipratrop 3 mg / 0.5 (3 ml) UD INH PRN (19:44)
--- NOTE | 2017-08-29 01:23 | CON ---
DATE: 08/28/2017. HISTORY OF PRESENT ILLNESS: This is a 52-year-old female, well known to me. She is 5 weeks status post an upper abdominal laparotomy for possible incarcerated hernia. Finding at the time includes a previously placed mesh which had "mushroomed" but was not causing an obstruction. The mesh was opened to inspect the bowel. The bowel was found to be decompressed, although with multiple and heavy adhesions. She tolerated the surgery well. Subsequently, she has been hospitalized several times with persistent nausea and vomiting. She was last discharged 1 week ago; however, returned 3 days later after being "unable to hold anything down" at home, with persistent nausea and vomiting. She was readmitted 4 days ago and is now seen in surgical reconsultation for a possible bowel obstruction. PAST MEDICAL HISTORY: Significant for hypertension. PAST SURGICAL HISTORY: Significant for 3 operations for lysis of adhesions for small bowel obstruction. FAMILY HISTORY: Noncontributory. REVIEW OF SYSTEMS: Noncontributory. PHYSICAL EXAMINATION: GENERAL: She is a well-developed female in no acute distress. ABDOMEN: Pertinent physical findings includes the abdomen. There was mild midline abdominal tenderness. It is nondistended. Bowel sounds are normal and active. There were no palpable masses. The previous upper midline incision is well healed. There were no other abnormal findings. LABORATORY DATA: Reveal a white blood cell count of 6000. Electrolytes reveal a low potassium of 3.0. Otherwise normal. Studies included a obstructive series which revealed no evidence of mechanical obstruction. ASSESSMENT: The patient continues to show no evidence of mechanical bowel obstruction. This was too on her previous admission with none of the CAT scans performed revealed any evidence of obstruction. To complete her abdominal workup, I feel an upper GI series and a small bowel follow through was warranted. Any subacute pathology including partial intussusception with partial obstruction on a temporary basis would be ruled out by this test. If this test is negative, other causes of her nausea, vomiting, including psychological causes must be entertained. Once again, thank you for this referral. We will follow with the patient while hospitalized. Adelso Mcguire MD
[2017-08-29] MEDS: DiphenhydrAMINE 50 mg/ml Inj IVP PRN ×7 (02:20→20:53)
[2017-08-29] MEDS: Albuterol-Ipratrop 3 mg / 0.5 (3 ml) UD INH PRN (07:38)
[2017-08-29] MEDS: Fluticasone-Salmeterol 250-50mcg Diskus INH SCH ×2 (07:38→20:48)
[2017-08-29 08:18] LABS: BASO % 0.4 % (0.0-2.0); EOS # 0.3 K/uL (0.0-0.7); EOS % 5.1 % (0.0-4.0); HEMOGLOBIN 10.6 g/dL (11.0-16.0); LYMPH # 1.3 K/uL (1.0-4.3); LYMPH % 19.9 % (20.0-40.0); MEAN CELL VOLUME 88.9 fL (81.0-99.0); MEAN CORPUSCULAR HEMOGLOBIN 30.2 pg (27.0-31.0); MEAN CORPUSCULAR HGB CONC 33.9 g/dL (33.0-37.0); MEAN PLATELET VOLUME 8.2 fL (7.2-11.7); MONO # 0.5 K/uL (0.0-0.8); MONO % 8.3 % (0.0-10.0); NEUT # 4.3 K/uL (1.8-7.0); NEUT % 66.3 % (50.0-75.0); NRBC % 0.1 % (0.0-2.0); RBC 3.51 Mil/uL (3.80-5.20); RED CELL DISTRIBUTION WIDTH 14.1 % (11.5-14.5); WHITE BLOOD COUNT 6.6 K/uL (4.8-10.8)
[2017-08-29 08:48] LABS: ALB/GLOB RATIO 1.3 (1.0-2.1); ALBUMIN 3.9 g/dL (3.5-5.0); ALT/SGPT 40 U/L (9-52); AST/SGOT 24 U/L (14-36); BLOOD UREA NITROGEN 13 mg/dL (7-17); CALCIUM 8.8 mg/dl (8.6-10.4); GFR AFRICAN-AMERICAN > 60; GFR NON-AFRICAN AMERICAN > 60
[2017-08-29] MEDS ORDERED: Barium Sulfate for Susp 98% w/w 340g Bottle ONE (09:25)
[2017-08-29] MEDS ORDERED: Barium Sulfate for Susp 96% w/w 176g Bottle PR ONE ×2 (09:25)
[2017-08-29] MEDS: Enoxaparin 40 mg Syringe SC SCH (10:42)
[2017-08-29] MEDS: Sodium Chloride 0.9% 1,000 ML IV SCH ×2 (10:44)
--- NOTE | 2017-08-29 12:28 | CP.PCM.PN ---
Subjective - Date & Time of Evaluation Date of Evaluation: 08/29/17 Time of Evaluation: 07:25 - Subjective Subjective: Medicine Progress Note - Dr. Ellison's service Patient seen and examined in no apparent acute distress. Patient continues to feel nausea, and vomited twice last night (bilious). NG tube is in place. She will be going for an upper GI series today. She has not passed any gas. She denies subjective fevers/chills, chest pain, SOB, or overt abdominal pain at this time. Objective - Vital Signs/Intake and Output Vital Signs (last 24 hours): Temp Pulse Resp BP Pulse Ox 98.1 F 75 20 111/79 97 08/29/17 08:36 08/29/17 08:36 08/29/17 08:36 08/29/17 08:36 08/29/17 08:36 Intake and Output: 08/29/17 08/29/17 06:59 18:59 Intake Total 1760 Output Total 200 Balance 1560 - Medications Medications: Current Medications Albuterol/Ipratropium (Duoneb 3 Mg/0.5 Mg (3 Ml) Ud) 3 ml INH RQ6 PRN PRN Reason: Shortness of Breath Last Admin: 08/29/17 07:38 Dose: 3 ml Amlodipine Besylate (Norvasc) 10 mg PO DAILY [facility] Last Admin: 08/29/17 10:43 Dose: 10 mg Benzocaine/Menthol (Cepacol Sore Throat) 1 jay MT Q4 PRN PRN Reason: Sore Throat Last Admin: 08/28/17 09:14 Dose: 1 jay Diphenhydramine HCl (Benadryl) 25 mg IVP Q3 PRN PRN Reason: Itching / Pruritus Last Admin: 08/29/17 11:45 Dose: 25 mg Enoxaparin Sodium (Lovenox) 40 mg SC DAILY [facility] Last Admin: 08/29/17 10:42 Dose: 40 mg Escitalopram Oxalate (Lexapro) 5 mg PO DAILY [facility] Last Admin: 08/29/17 10:43 Dose: 5 mg Famotidine (Pepcid) 20 mg PO BID [facility] Last Admin: 08/29/17 10:42 Dose: 20 mg Hydromorphone HCl (Dilaudid) 2 mg IVP Q3H PRN PRN Reason: Pain, moderate (4-7) Last Admin: 08/29/17 11:45 Dose: 2 mg Sodium Acetate 35 meq/Potassium Chloride 30 meq/Potassium Phosphate 15 mmole/ Magnesium Sulfate 6 meq/Calcium Gluconate 4.65 meq/Multivitamins/Vitamin C 10 ml /Chromium/Copper/Manganese/Zinc 1 ml/ Amino Acids 1,059.9778 mls @ 42 mls/hr IV .Q24H [facility] Ondansetron HCl (Zofran Inj) 4 mg IVP Q6 PRN PRN Reason: Nausea/Vomiting Last Admin: 08/24/17 16:31 Dose: 4 mg Fluticasone/Salmeterol (Advair Diskus 250/50) 1 puff INH RQ12 [facility] Last Admin: 08/29/17 07:38 Dose: 1 puff Sucralfate (Carafate Tab) 1 gm PO TIDAC [facility] Last Admin: 08/29/17 11:44 Dose: 1 gm Zolpidem Tartrate (Ambien) 5 mg PO HS [facility] Last Admin: 08/28/17 21:58 Dose: 5 mg - Labs Labs: 08/29/17 07:59 08/29/17 07:59 PT 13.1 SECONDS (9.7-12.2) H 08/25/17 13:34 INR 1.2 08/25/17 13:34 APTT 29 SECONDS (21-34) 08/25/17 13:34 - Additional Findings Additional findings: - Constitutional Appears: Non-toxic, No Acute Distress - Head Exam Head Exam: ATRAUMATIC, NORMAL INSPECTION - Eye Exam Eye Exam: EOMI, Normal appearance Pupil Exam: NORMAL ACCOMODATION - ENT Exam ENT Exam: Mucous Membranes Moist - Neck Exam Neck Exam: Full ROM - Respiratory Exam Respiratory Exam: NORMAL BREATHING PATTERN - Cardiovascular Exam Cardiovascular Exam: +S1, +S2 - GI/Abdominal Exam GI & Abdominal Exam: Guarding, Soft, Tenderness, Normal Bowel Sounds, Distended NG tube in place - 100cc yellow/bilious output - Extremities Exam Extremities Exam: Full ROM - Neurological Exam Neurological Exam: Alert, Awake, Oriented x3 - Psychiatric Exam Psychiatric exam: Normal Affect, Normal Mood - Skin Skin Exam: Dry, Normal Color Assessment and Plan - Assessment and Plan (Free Text) Assessment: Intractable Nausea and Vomiting Assessment & Plan: 08/29: patient going for upper GI series today. f/u results. Surgery team and GI will determine next steps based on these results. Start PPN at 42cc/hr. Nutrition consult placed. Patient seen by Dr. Mcguire. Likely partial SBO. workup in progress. 08/28: Ng tube placed 08/24. GI will order upper GI series with small bowel follow through. Surgical consult placed to Dr. Mcguire, who previously operated on this patient. Followup recs. KUB 08/24 - f/u report Zofran 4mg IVP prn N/V Etiology: most likely secondary to adhesions from multiple surgeries -Most recent procedure : Ventral hernia repair on 07/07/17 Dilaudid to 1mg IV Q4H PRN Benadryl 25 MG TID PRN Lipase 246 wnl From last admission: Patient was recently admitted for similar complaints CT A/P (07/27/17) Unremarkable pancreas. 2.2x2.2x4.4 cm focal collection within anterior soft tissues of bowel with surrounding mild inflammatory changes. Cannot exclude abscess. Refer to complete report. Patient had 3 CT scans within the last 8 days. The most recent results reported above. Refer to hospital record for the other reports. AFP 3.7, CEA 2.2, Ca19-9 <1.4, Ca 125 <5.5 - all negative Will have to assess whether surgical intervention is warranted at this time. Status: Acute Transaminitis Assessment & Plan: 08/29: AST/ALT WNL. Alk Phosph elevated at 139. Downtrending Hepatitis panel negative. Avoid hepato-toxic meds Status: Chronic Hypertension Assessment & Plan: Cont to monitor BP controlled without medication Hold: Norvasc 10 mg PO daily Status: Chronic Hypercholesteremia Assessment & Plan: Hold Crestor 10 mg PO HS due to earlier presentations of elevated LFTs. Will resume outpatient. Status: Chronic Asthma Assessment & Plan: Duonebs PRN Advair daily Controlled, patient denies shortness of breath Status: Chronic Anxiety Assessment & Plan: Xanax 1 mg PO PRN Ambien 5 mg PO HS Status: Chronic Depression Assessment & Plan: Lexapro 5mg PO daily Status: Acute Electrolyte Abnormality - Hypokalemia, K 3.0 - KCL 10 IVPB x3, f/u labs - Hypomagnesemia, Mg 1.5 - Magsulfate x2bags Prophylactic measure Assessment & Plan: Protonix 40 IVP Daily SCDs Lovenox 40 mg SC daily Physical Therapy NS at 200 cc/hour Discussed with Dr. Ellison All management and planning per Dr. Ellison.
[2017-08-29] MEDS ORDERED: PPN #1 IV SCH (18:00)
[2017-08-30] MEDS: DiphenhydrAMINE 50 mg/ml Inj IVP PRN ×8 (00:15→22:13)
[2017-08-30] MEDS: Fluticasone-Salmeterol 250-50mcg Diskus INH SCH ×2 (07:40→20:01)
[2017-08-30 07:47] LABS: BASO % 0.3 % (0.0-2.0); EOS # 0.4 K/uL (0.0-0.7); EOS % 5.5 % (0.0-4.0); HEMOGLOBIN 10.2 g/dL (11.0-16.0); LYMPH # 1.3 K/uL (1.0-4.3); MEAN CELL VOLUME 88.8 fL (81.0-99.0); MEAN CORPUSCULAR HEMOGLOBIN 29.9 pg (27.0-31.0); MEAN CORPUSCULAR HGB CONC 33.7 g/dL (33.0-37.0); MONO # 0.5 K/uL (0.0-0.8); MONO % 8.3 % (0.0-10.0); NEUT # 4.3 K/uL (1.8-7.0); NEUT % 65.9 % (50.0-75.0); RBC 3.42 Mil/uL (3.80-5.20); RED CELL DISTRIBUTION WIDTH 14.3 % (11.5-14.5); WHITE BLOOD COUNT 6.5 K/uL (4.8-10.8)
[2017-08-30 08:44] LABS: ALB/GLOB RATIO 1.2 (1.0-2.1); ALBUMIN 3.8 g/dL (3.5-5.0); ALT/SGPT 38 U/L (9-52); AST/SGOT 19 U/L (14-36); BLOOD UREA NITROGEN 12 mg/dL (7-17); GFR AFRICAN-AMERICAN > 60; GFR NON-AFRICAN AMERICAN > 60; MAGNESIUM 1.9 mg/dL (1.6-2.3)
--- NOTE | 2017-08-30 09:06 | CP.PCM.PN ---
Subjective - Date & Time of Evaluation Date of Evaluation: 08/30/17 Time of Evaluation: 09:06 - Subjective Subjective: PGY2 Medicine Note for Dr. Ellison; all management as per Dr. Ellison This patient was seen and examined at bedside this AM; she is still complaining of abdominal pain that is reportedly improved from admission but still extremly painful in the epigastric region, shooting pain associated with nausea and no vomiting. The patient denies all other symptoms; denies fevers/chills, CHEW, CP, SOB, dysuria/freq/urg or lower extremity pain/swelling. Objective - Vital Signs/Intake and Output Vital Signs (last 24 hours): Temp Pulse Resp BP Pulse Ox 98.6 F 76 20 107/73 97 08/30/17 07:46 08/30/17 07:46 08/30/17 07:46 08/30/17 07:46 08/30/17 07:46 Intake and Output: 08/30/17 08/30/17 06:59 18:59 Intake Total 2176 Output Total 700 Balance 1476 - Medications Medications: Current Medications Amlodipine Besylate (Norvasc) 10 mg PO DAILY [facility] Last Admin: 08/29/17 10:43 Dose: 10 mg Benzocaine/Menthol (Cepacol Sore Throat) 1 jay MT Q4 PRN PRN Reason: Sore Throat Last Admin: 08/28/17 09:14 Dose: 1 jay Diphenhydramine HCl (Benadryl) 25 mg IVP Q3 PRN PRN Reason: Itching / Pruritus Last Admin: 08/30/17 06:31 Dose: 25 mg Enoxaparin Sodium (Lovenox) 40 mg SC DAILY [facility] Last Admin: 08/29/17 10:42 Dose: 40 mg Escitalopram Oxalate (Lexapro) 5 mg PO DAILY [facility] Last Admin: 08/29/17 10:43 Dose: 5 mg Famotidine (Pepcid) 20 mg PO BID [facility] Last Admin: 08/29/17 17:58 Dose: 20 mg Hydromorphone HCl (Dilaudid) 2 mg IVP Q3H PRN PRN Reason: Pain, moderate (4-7) Last Admin: 08/30/17 06:29 Dose: 2 mg Sodium Acetate 35 meq/Potassium Chloride 30 meq/Potassium Phosphate 15 mmole/ Magnesium Sulfate 6 meq/Calcium Gluconate 4.65 meq/Multivitamins/Vitamin C 10 ml /Chromium/Copper/Manganese/Zinc 1 ml/ Amino Acids 1,059.9778 mls @ 42 mls/hr IV .Q24H [facility] Last Admin: 08/29/17 18:00 Dose: 42 mls/hr Ondansetron HCl (Zofran Inj) 4 mg IVP Q6 PRN PRN Reason: Nausea/Vomiting Last Admin: 08/24/17 16:31 Dose: 4 mg Fluticasone/Salmeterol (Advair Diskus 250/50) 1 puff INH RQ12 [facility] Last Admin: 08/30/17 07:40 Dose: 1 puff Sucralfate (Carafate Tab) 1 gm PO TIDAC [facility] Last Admin: 08/30/17 08:23 Dose: 1 gm Zolpidem Tartrate (Ambien) 5 mg PO HS [facility] Last Admin: 08/29/17 22:26 Dose: 5 mg - Labs Labs: 08/30/17 07:11 08/30/17 07:11 PT 13.1 SECONDS (9.7-12.2) H 08/25/17 13:34 INR 1.2 08/25/17 13:34 APTT 29 SECONDS (21-34) 08/25/17 13:34 - Constitutional Appears: Non-toxic - Head Exam Head Exam: ATRAUMATIC Additional comments: NG tube in place no acute distress speaking in full sentences pleasant - Eye Exam Eye Exam: EOMI, Normal appearance Pupil Exam: NORMAL ACCOMODATION - ENT Exam ENT Exam: Mucous Membranes Moist - Neck Exam Neck Exam: Full ROM - Respiratory Exam Respiratory Exam: Clear to Ausculation Bilateral, NORMAL BREATHING PATTERN. absent: Rales, Rhonchi, Wheezes - Cardiovascular Exam Cardiovascular Exam: REGULAR RHYTHM, +S1, +S2 - GI/Abdominal Exam GI & Abdominal Exam: Soft, Tenderness (in the epigasttric region, many scars from previous open procedures), Normal Bowel Sounds - Extremities Exam Extremities Exam: Full ROM. absent: Calf Tenderness - Back Exam Back Exam: NORMAL INSPECTION. absent: CVA tenderness (L), CVA tenderness (R) - Neurological Exam Neurological Exam: Alert, Awake, CN II-XII Intact, Oriented x3 - Psychiatric Exam Psychiatric exam: Anxious - Skin Skin Exam: Warm Assessment and Plan - Assessment and Plan (Free Text) Assessment: Intractable Nausea and Vomiting 08/30: GI series will happen today; will f/u results -surgery has no intervention planned for this time unless GI series is forthcoming -GI is awaiting upper GI series as well; will f/u 08/29: patient going for upper GI series today. f/u results. Surgery team and GI will determine next steps based on these results. Start PPN at 42cc/hr. Nutrition consult placed. Patient seen by Dr. Mcguire. Likely partial SBO. workup in progress. 08/28: Ng tube placed 08/24. GI will order upper GI series with small bowel follow through. Surgical consult placed to Dr. Mcguire, who previously operated on this patient. Followup recs. KUB 08/24 - f/u report Zofran 4mg IVP prn N/V Etiology: most likely secondary to adhesions from multiple surgeries -Most recent procedure : Ventral hernia repair on 07/07/17 Dilaudid to 1mg IV Q4H PRN Benadryl 25 MG TID PRN Lipase 246 wnl From last admission: Patient was recently admitted for similar complaints CT A/P (07/27/17) Unremarkable pancreas. 2.2x2.2x4.4 cm focal collection within anterior soft tissues of bowel with surrounding mild inflammatory changes. Cannot exclude abscess. Refer to complete report. Patient had 3 CT scans within the last 8 days. The most recent results reported above. Refer to hospital record for the other reports. AFP 3.7, CEA 2.2, Ca19-9 <1.4, Ca 125 <5.5 - all negative Will have to assess whether surgical intervention is warranted at this time. Transaminitis; resolved 08/29: AST/ALT WNL. Alk Phosph elevated at 139. Downtrending Hepatitis panel negative. Avoid hepato-toxic meds Hypertension;chronic Cont to monitor BP controlled without medication Hold: Norvasc 10 mg PO daily Hypercholesteremia Hold Crestor 10 mg PO HS due to earlier presentations of elevated LFTs. Will resume outpatient. Asthma Duonebs PRN Advair daily Controlled, patient denies shortness of breath Anxiety Xanax 1 mg PO PRN Ambien 5 mg PO HS Depression/Anxiety: Chronic Lexapro 5mg PO daily Could have some impact on patients presentation as well Electrolyte Abnormality; will monitor - Hypokalemia, K 3.0 - KCL 10 IVPB x3, f/u labs - Hypomagnesemia, Mg 1.5 - Magsulfate x2bags Prophylactic measure Protonix 40 IVP Daily SCDs Lovenox 40 mg SC daily Physical Therapy NS at 200 cc/hour Discussed with Dr. Ellison All management and planning per Dr. Ellison.
[2017-08-30] MEDS: Enoxaparin 40 mg Syringe SC SCH (10:55)
[2017-08-30] MEDS: Albuterol-Ipratrop 3 mg / 0.5 (3 ml) UD INH PRN (13:21)
--- NOTE | 2017-08-30 17:13 | RAD ---
PROCEDURE: Upper GI series/ small bowel follow-through. HISTORY: Rule out bowel pathology, intussusception obstruction etc. COMPARISON: No prior study available for comparison however correlation made with CT scan abdomen pelvis 07/27/2017. TECHNIQUE: Prisoner Classification Interviewer film of the abdomen demonstrates metallic clips right upper quadrant of the abdomen. Multiple small spring like densities overlying the right mid to lower abdomen consistent with prior hernia repair. Single contrast a GI series performed through in situ NGT. . Multiple fluoroscopic and overhead radiographic images of the abdomen obtained. FINDINGS: Patient was unable to tolerate the exam and complained of pain shortly after administration of oral contrast material through the NGT. . Patient request pain medication and therefore with the back to the floor. ESOPHAGUS: Esophagus not visualized on this exam. STOMACH: The gastric mucosa are poorly delineated due to incomplete distention and the lack of gas as patient terminated the administration of oral contrast material through the NGT. The stomach was relatively collapsed during the procedure which may in part account for exaggerated rugal folds. No obvious persistent intraluminal or extraluminal filling defects. No obvious gastric ulcerations. The duodenal bulb was not adequately delineated during this procedure. . Contrast material extended into the small bowel in normal fashion which also exhibit normal contour caliber and mucosal fold pattern. Patient was unable to tolerate the procedure which was then terminated. Patient was brought back for delayed films of to assess passage of contrast material. . No evidence of small bowel obstruction. . These large bowel was initially demonstrated at 2 hours 20 minutes following the beginning of this procedure. Spot films were not obtained due to patient's status. IMPRESSION: Limited single-contrast upper GI series and small-bowel follow-through performed in situ NGT. Patient complained of pain shortly after oral contrast injected through the NGT and oral contrast administration was therefore terminated. . No evidence of gastric ulcerations. Rugal fold pattern prominent likely in part due to incomplete distention. The duodenal bulb never adequately visualized during this procedure. No evidence of small bowel obstruction.
[2017-08-30] MEDS ORDERED: PPN #2 IV SCH (18:00)
[2017-08-31] MEDS: DiphenhydrAMINE 50 mg/ml Inj IVP PRN ×8 (01:26→23:42)
[2017-08-31] MEDS: Benzocaine/Menthol (Cepacol) Lozenge MT PRN (04:26)
[2017-08-31 08:26] LABS: BASO % 0.4 % (0.0-2.0); EOS # 0.3 K/uL (0.0-0.7); EOS % 4.7 % (0.0-4.0); HEMOGLOBIN 10.6 g/dL (11.0-16.0); LYMPH # 1.3 K/uL (1.0-4.3); LYMPH % 18.3 % (20.0-40.0); MEAN CELL VOLUME 88.7 fL (81.0-99.0); MEAN CORPUSCULAR HEMOGLOBIN 29.1 pg (27.0-31.0); MEAN CORPUSCULAR HGB CONC 32.8 g/dL (33.0-37.0); MEAN PLATELET VOLUME 8.1 fL (7.2-11.7); MONO # 0.6 K/uL (0.0-0.8); MONO % 8.7 % (0.0-10.0); NEUT # 4.7 K/uL (1.8-7.0); NEUT % 67.9 % (50.0-75.0); NRBC % 0.1 % (0.0-2.0); RBC 3.65 Mil/uL (3.80-5.20); RED CELL DISTRIBUTION WIDTH 14.5 % (11.5-14.5)
[2017-08-31 08:41] LABS: ALB/GLOB RATIO 1.2 (1.0-2.1); ALT/SGPT 39 U/L (9-52); AST/SGOT 21 U/L (14-36); BLOOD UREA NITROGEN 16 mg/dL (7-17); CALCIUM 8.5 mg/dl (8.6-10.4); GFR AFRICAN-AMERICAN > 60; GFR NON-AFRICAN AMERICAN > 60; MAGNESIUM 1.9 mg/dL (1.6-2.3)
[2017-08-31] MEDS: Fluticasone-Salmeterol 250-50mcg Diskus INH SCH ×2 (08:53→21:04)
[2017-08-31] MEDS: Enoxaparin 40 mg Syringe SC SCH (10:12)
--- NOTE | 2017-08-31 11:45 | CP.PCM.PN ---
Subjective - Date & Time of Evaluation Date of Evaluation: 08/31/17 Time of Evaluation: 11:44 - Subjective Subjective: PGY2 Note for Dr. Ellison; all management as per Dr. Ellison Pt seen and examined at bedside this AM; denies any symptoms or worsening of abdominal pain/vomiting. Patient denies fevers/chills, CHEW, CP, abdominal pain, N ?V/D, dysuria/freq/urg or lower extremity pain swelling. Patient is very anxious about trying to start eating. Objective - Vital Signs/Intake and Output Vital Signs (last 24 hours): Temp Pulse Resp BP Pulse Ox 98.6 F 84 20 128/84 95 08/31/17 07:37 08/31/17 07:37 08/31/17 07:37 08/31/17 07:37 08/31/17 07:37 Intake and Output: 08/31/17 08/31/17 06:59 18:59 Intake Total 96 336 Output Total 100 100 Balance -4 236 - Medications Medications: Current Medications Amlodipine Besylate (Norvasc) 10 mg PO DAILY [facility] Last Admin: 08/31/17 10:13 Dose: 10 mg Benzocaine/Menthol (Cepacol Sore Throat) 1 jay MT Q4 PRN PRN Reason: Sore Throat Last Admin: 08/31/17 04:26 Dose: 1 jay Diphenhydramine HCl (Benadryl) 25 mg IVP Q3 PRN PRN Reason: Itching / Pruritus Last Admin: 08/31/17 10:16 Dose: 25 mg Enoxaparin Sodium (Lovenox) 40 mg SC DAILY [facility] Last Admin: 08/31/17 10:12 Dose: 40 mg Escitalopram Oxalate (Lexapro) 5 mg PO DAILY [facility] Last Admin: 08/31/17 10:13 Dose: 5 mg Famotidine (Pepcid) 20 mg PO BID [facility] Last Admin: 08/31/17 10:13 Dose: 20 mg Hydromorphone HCl (Dilaudid) 2 mg IVP Q3H PRN PRN Reason: Pain, moderate (4-7) Last Admin: 08/31/17 10:15 Dose: 2 mg Sodium Acetate 35 meq/Potassium Chloride 30 meq/Potassium Phosphate 15 mmole/ Magnesium Sulfate 6 meq/Calcium Gluconate 4.65 meq/Multivitamins/Vitamin C 10 ml /Chromium/Copper/Manganese/Zinc 1 ml/ Amino Acids 1,059.9778 mls @ 42 mls/hr IV .Q24H [facility] Stop: 08/31/17 17:59 Last Admin: 08/30/17 18:03 Dose: 42 mls/hr Sodium Acetate 35 meq/Potassium Chloride 30 meq/Potassium Phosphate 15 mmole/ Magnesium Sulfate 6 meq/Calcium Gluconate 4.65 meq/Multivitamins/Vitamin C 10 ml /Chromium/Copper/Manganese/Zinc 1 ml/ Amino Acids 1,059.9778 mls @ 42 mls/hr IV .Q24H [facility] Stop: 09/01/17 17:59 Ondansetron HCl (Zofran Inj) 4 mg IVP Q6 PRN PRN Reason: Nausea/Vomiting Last Admin: 08/24/17 16:31 Dose: 4 mg Fluticasone/Salmeterol (Advair Diskus 250/50) 1 puff INH RQ12 [facility] Last Admin: 08/31/17 08:53 Dose: Not Given Sucralfate (Carafate Tab) 1 gm PO TIDAC [facility] Last Admin: 08/31/17 08:30 Dose: 1 gm Zolpidem Tartrate (Ambien) 5 mg PO HS [facility] Last Admin: 08/30/17 21:59 Dose: 5 mg - Labs Labs: 08/31/17 08:11 08/31/17 08:11 PT 13.1 SECONDS (9.7-12.2) H 08/25/17 13:34 INR 1.2 08/25/17 13:34 APTT 29 SECONDS (21-34) 08/25/17 13:34 Assessment and Plan - Assessment and Plan (Free Text) Assessment: - Constitutional Appears: Non-toxic - Head Exam Head Exam: ATRAUMATIC Additional comments: NG tube in place no acute distress speaking in full sentences pleasant - Eye Exam Eye Exam: EOMI, Normal appearance Pupil Exam: NORMAL ACCOMODATION - ENT Exam ENT Exam: Mucous Membranes Moist - Neck Exam Neck Exam: Full ROM - Respiratory Exam Respiratory Exam: Clear to Ausculation Bilateral, NORMAL BREATHING PATTERN. absent: Rales, Rhonchi, Wheezes - Cardiovascular Exam Cardiovascular Exam: REGULAR RHYTHM, +S1, +S2 - GI/Abdominal Exam GI & Abdominal Exam: Soft, Tenderness (in the epigasttric region, many scars from previous open procedures), Normal Bowel Sounds - Extremities Exam Extremities Exam: Full ROM. absent: Calf Tenderness - Back Exam Back Exam: NORMAL INSPECTION. absent: CVA tenderness (L), CVA tenderness (R) - Neurological Exam Neurological Exam: Alert, Awake, CN II-XII Intact, Oriented x3 - Psychiatric Exam Psychiatric exam: Anxious - Skin Skin Exam: Warm Assessment: Intractable Nausea and Vomiting 08/31: upper GI series showed no NGT; will do CLD for lunch with tube still in place, if tolerates OK to remove tube and try CLD for dinner; possible d/c tomorrow if tolerates 08/30: GI series will happen today; will f/u results -surgery has no intervention planned for this time unless GI series is forthcoming -GI is awaiting upper GI series as well; will f/u 08/29: patient going for upper GI series today. f/u results. Surgery team and GI will determine next steps based on these results. Start PPN at 42cc/hr. Nutrition consult placed. Patient seen by Dr. Mcguire. Likely partial SBO. workup in progress. 08/28: Ng tube placed 08/24. GI will order upper GI series with small bowel follow through. Surgical consult placed to Dr. Mcguire, who previously operated on this patient. Followup recs. KUB 08/24 - f/u report Zofran 4mg IVP prn N/V Etiology: most likely secondary to adhesions from multiple surgeries -Most recent procedure : Ventral hernia repair on 07/07/17 Dilaudid to 1mg IV Q4H PRN Benadryl 25 MG TID PRN Lipase 246 wnl From last admission: Patient was recently admitted for similar complaints CT A/P (07/27/17) Unremarkable pancreas. 2.2x2.2x4.4 cm focal collection within anterior soft tissues of bowel with surrounding mild inflammatory changes. Cannot exclude abscess. Refer to complete report. Patient had 3 CT scans within the last 8 days. The most recent results reported above. Refer to hospital record for the other reports. AFP 3.7, CEA 2.2, Ca19-9 <1.4, Ca 125 <5.5 - all negative Will have to assess whether surgical intervention is warranted at this time. Transaminitis; resolved 08/29: AST/ALT WNL. Alk Phosph elevated at 139. Downtrending Hepatitis panel negative. Avoid hepato-toxic meds Hypertension;chronic Cont to monitor BP controlled without medication Hold: Norvasc 10 mg PO daily Hypercholesteremia Hold Crestor 10 mg PO HS due to earlier presentations of elevated LFTs. Will resume outpatient. Asthma Duonebs PRN Advair daily Controlled, patient denies shortness of breath Anxiety Xanax 1 mg PO PRN Ambien 5 mg PO HS Depression/Anxiety: Chronic Lexapro 5mg PO daily Could have some impact on patients presentation as well Electrolyte Abnormality; will monitor - Hypokalemia, K 3.0 - KCL 10 IVPB x3, f/u labs - Hypomagnesemia, Mg 1.5 - Magsulfate x2bags Prophylactic measure Protonix 40 IVP Daily SCDs Lovenox 40 mg SC daily Physical Therapy Discussed with Dr. Ellison All management and planning per Dr. Ellison.
--- NOTE | 2017-08-31 14:51 | PN ---
DATE: 08/31/2017. LOCATION: [facility], bed A. SUBJECTIVE: This is a 52-year-old female seen and examined in rounds with recurrent episode of again abdominal pain with mild nausea and dyspepsia, but no reported vomiting. No reported active bleeding. LABORATORY DATA: Today's lab showed hemoglobin stable at 10.6 with hematocrit 32.4 with normal platelet count and low calcium 8.5, but increased phosphorus 5.1, alkaline phosphatase 131. Official report of upper GI small bowel follow through is seen without evidence of gastric ulceration with reported no evidence of small bowel obstruction. PHYSICAL EXAMINATION: GENERAL: A 52 years old female. VITAL SIGNS: Afebrile with pulse of 80, respiratory rate 20 to 22, blood pressure 124/78. HEENT: Showed pale, dry oral mucous membrane. Nonicteric sclerae. LUNGS: Few scattered crepitation with decreased air entry at bases. HEART: Positive S1 and S2. ABDOMEN: Soft. Bowel sounds are present with mild generalized tenderness. No mass or organomegaly. No rebound tenderness or guarding. RECTAL: The patient refused. EXTREMITIES: Without significant edema, clubbing or cyanosis. NEUROLOGIC: No reported new significant neurological deficits, sensory or motor. IMPRESSION: 1. Reexacerbation of peptic ulcer disease. 2. Known history of, but not limited to hypertension, hyperlipidemia with bronchial asthma. 3. Known history of severe anxiety syndrome with depression. 4. Anemia most likely secondary to above. SUGGESTIONS: 1. Agree with your plan. 2. The patient is to be scheduled for MRCP to rule out possible small pancreatic lesion. If it is negative, then we will start feeding process with solid food. 3. It has to be mentioned that the patient will need psychiatric reevaluation also due to her known depression. Hector Belcher MD
[2017-08-31] MEDS ORDERED: PPN #3 IV SCH (18:00)
[2017-08-31] MEDS ORDERED: HYDROmorphone 1 mg/5ml IVP PRN (19:45)
[2017-08-31] MEDS ORDERED: Morphine 4 MG/ML VIAL IV PRN (23:04)
[2017-08-31] MEDS: Oxycodone/Acetaminophen 5/325 mg Tab PO PRN (23:41)
[2017-09-01] MEDS: DiphenhydrAMINE 50 mg/ml Inj IVP PRN ×2 (05:24→09:41)
[2017-09-01] MEDS: Oxycodone/Acetaminophen 5/325 mg Tab PO PRN ×2 (05:24→09:39)
[2017-09-01] MEDS: Fluticasone-Salmeterol 250-50mcg Diskus INH SCH (07:14)
[2017-09-01 08:23] VITALS: BP 114/80; PULSE 88; TEMP 98.2; O2SAT 98
[2017-09-01 08:39] LABS: BASO % 0.4 % (0.0-2.0); EOS # 0.3 K/uL (0.0-0.7); EOS % 4.3 % (0.0-4.0); HEMOGLOBIN 10.9 g/dL (11.0-16.0); LYMPH # 1.1 K/uL (1.0-4.3); LYMPH % 14.4 % (20.0-40.0); MEAN CELL VOLUME 88.2 fL (81.0-99.0); MEAN CORPUSCULAR HEMOGLOBIN 30.4 pg (27.0-31.0); MEAN CORPUSCULAR HGB CONC 34.5 g/dL (33.0-37.0); MONO # 0.8 K/uL (0.0-0.8); MONO % 10.4 % (0.0-10.0); NEUT # 5.4 K/uL (1.8-7.0); NEUT % 70.5 % (50.0-75.0); NRBC % 0.1 % (0.0-2.0); RBC 3.58 Mil/uL (3.80-5.20); RED CELL DISTRIBUTION WIDTH 14.2 % (11.5-14.5); WHITE BLOOD COUNT 7.6 K/uL (4.8-10.8)
[2017-09-01 08:44] LABS: ALB/GLOB RATIO 1.1 (1.0-2.1); ALBUMIN 3.8 g/dL (3.5-5.0); ALT/SGPT 33 U/L (9-52); AST/SGOT 21 U/L (14-36); BLOOD UREA NITROGEN 13 mg/dL (7-17); GFR AFRICAN-AMERICAN > 60; GFR NON-AFRICAN AMERICAN > 60; MAGNESIUM 2.1 mg/dL (1.6-2.3)
[2017-09-01] MEDS: Enoxaparin 40 mg Syringe SC SCH (09:39)
--- NOTE | 2017-09-01 10:03 | CP.PCM.PN ---
Subjective - Date & Time of Evaluation Date of Evaluation: 09/01/17 Time of Evaluation: 11:49 - Subjective Subjective: PGY2 Medicine Note for Dr. Ellison, all management as per Dr. Ellison patient seen and examined at bedside; is looking forward to going home; patient has no complaints today denies fevers/chills, CHEW, CP, Sob, abdominal pain, N/V/D , dyusira/freq/urg or lower extremity pain/swelling. Objective - Vital Signs/Intake and Output Vital Signs (last 24 hours): Temp Pulse Resp BP Pulse Ox 98.2 F 88 20 114/80 98 09/01/17 08:00 09/01/17 08:00 09/01/17 08:00 09/01/17 08:00 09/01/17 08:00 Intake and Output: 09/01/17 09/01/17 06:59 18:59 Intake Total 576 Balance 576 - Medications Medications: Current Medications Amlodipine Besylate (Norvasc) 10 mg PO DAILY [facility] Last Admin: 09/01/17 09:41 Dose: 10 mg Benzocaine/Menthol (Cepacol Sore Throat) 1 jay MT Q4 PRN PRN Reason: Sore Throat Last Admin: 08/31/17 04:26 Dose: 1 jay Diphenhydramine HCl (Benadryl) 25 mg IVP Q3 PRN PRN Reason: Itching / Pruritus Last Admin: 09/01/17 09:41 Dose: 25 mg Dronabinol (Marinol) 5 mg PO BID [facility] Last Admin: 09/01/17 09:41 Dose: 5 mg Enoxaparin Sodium (Lovenox) 40 mg SC DAILY [facility] Last Admin: 09/01/17 09:39 Dose: 40 mg Escitalopram Oxalate (Lexapro) 5 mg PO DAILY [facility] Last Admin: 09/01/17 09:41 Dose: 5 mg Famotidine (Pepcid) 20 mg PO BID [facility] Last Admin: 09/01/17 09:41 Dose: 20 mg Hydromorphone HCl (Dilaudid) 2 mg IVP Q3H PRN PRN Reason: Pain, moderate (4-7) Last Admin: 08/31/17 20:02 Dose: 2 mg Sodium Acetate 35 meq/Potassium Chloride 30 meq/Potassium Phosphate 15 mmole/ Magnesium Sulfate 6 meq/Calcium Gluconate 4.65 meq/Multivitamins/Vitamin C 10 ml /Chromium/Copper/Manganese/Zinc 1 ml/ Amino Acids 1,059.9778 mls @ 42 mls/hr IV .Q24H [facility] Stop: 09/01/17 17:59 Last Admin: 08/31/17 18:09 Dose: 42 mls/hr Sodium Acetate 35 meq/Potassium Chloride 30 meq/Potassium Phosphate 15 mmole/ Magnesium Sulfate 6 meq/Calcium Gluconate 4.65 meq/Multivitamins/Vitamin C 10 ml /Chromium/Copper/Manganese/Zinc 1 ml/ Amino Acids 1,059.9778 mls @ 42 mls/hr IV .Q24H [facility] Stop: 09/02/17 17:59 Ondansetron HCl (Zofran Inj) 4 mg IVP Q6 PRN PRN Reason: Nausea/Vomiting Last Admin: 08/24/17 16:31 Dose: 4 mg Oxycodone/Acetaminophen (Percocet 5/325 Mg Tab) 2 tab PO Q4H PRN PRN Reason: Pain, moderate (4-7) Stop: 09/03/17 23:24 Last Admin: 09/01/17 09:39 Dose: 2 tab Fluticasone/Salmeterol (Advair Diskus 250/50) 1 puff INH RQ12 [facility] Last Admin: 09/01/17 07:14 Dose: Not Given Sucralfate (Carafate Tab) 1 gm PO TIDAC [facility] Last Admin: 09/01/17 08:05 Dose: 1 gm Zolpidem Tartrate (Ambien) 5 mg PO HS [facility] Last Admin: 08/31/17 21:19 Dose: 5 mg - Labs Labs: 09/01/17 08:24 09/01/17 08:24 PT 13.1 SECONDS (9.7-12.2) H 08/25/17 13:34 INR 1.2 08/25/17 13:34 APTT 29 SECONDS (21-34) 08/25/17 13:34 - Constitutional Appears: Non-toxic - Head Exam Head Exam: ATRAUMATIC - Eye Exam Eye Exam: EOMI - ENT Exam ENT Exam: Mucous Membranes Moist - Neck Exam Neck Exam: Full ROM - Respiratory Exam Respiratory Exam: Clear to Ausculation Bilateral. absent: Rales - Cardiovascular Exam Cardiovascular Exam: REGULAR RHYTHM - GI/Abdominal Exam GI & Abdominal Exam: Soft, Normal Bowel Sounds. absent: Tenderness - Extremities Exam Extremities Exam: absent: Calf Tenderness - Back Exam Back Exam: absent: CVA tenderness (L), CVA tenderness (R) - Neurological Exam Neurological Exam: Awake, Oriented x3 - Psychiatric Exam Psychiatric exam: Normal Affect - Skin Skin Exam: Warm Assessment and Plan - Assessment and Plan (Free Text) Assessment: Intractable Nausea and Vomiting;resolved 09/01: patient tolerating PO; patient has also been sneaking food when staff is not looking (food products found in NGT). Added marinol for appetite/nausea 08/31: upper GI series showed no NGT; will do CLD for lunch with tube still in place, if tolerates OK to remove tube and try CLD for dinner; possible d/c tomorrow if tolerates 08/30: GI series will happen today; will f/u results -surgery has no intervention planned for this time unless GI series is forthcoming -GI is awaiting upper GI series as well; will f/u 08/29: patient going for upper GI series today. f/u results. Surgery team and GI will determine next steps based on these results. Start PPN at 42cc/hr. Nutrition consult placed. Patient seen by Dr. Mcguire. Likely partial SBO. workup in progress. 08/28: Ng tube placed 08/24. GI will order upper GI series with small bowel follow through. Surgical consult placed to Dr. Mcguire, who previously operated on this patient. Followup recs. KUB 08/24 - f/u report Zofran 4mg IVP prn N/V Etiology: most likely secondary to adhesions from multiple surgeries -Most recent procedure : Ventral hernia repair on 07/07/17 Dilaudid to 1mg IV Q4H PRN Benadryl 25 MG TID PRN Lipase 246 wnl From last admission: Patient was recently admitted for similar complaints CT A/P (07/27/17) Unremarkable pancreas. 2.2x2.2x4.4 cm focal collection within anterior soft tissues of bowel with surrounding mild inflammatory changes. Cannot exclude abscess. Refer to complete report. Patient had 3 CT scans within the last 8 days. The most recent results reported above. Refer to hospital record for the other reports. AFP 3.7, CEA 2.2, Ca19-9 <1.4, Ca 125 <5.5 - all negative Transaminitis; resolved 08/29: AST/ALT WNL. Alk Phosph elevated at 139. Downtrending Hepatitis panel negative. Avoid hepato-toxic meds Hypertension;chronic Cont to monitor BP controlled without medication Hold: Norvasc 10 mg PO daily Hypercholesteremia Hold Crestor 10 mg PO HS due to earlier presentations of elevated LFTs. Will resume outpatient. Asthma Duonebs PRN Advair daily Controlled, patient denies shortness of breath Anxiety Xanax 1 mg PO PRN Ambien 5 mg PO HS Depression/Anxiety: Chronic Lexapro 5mg PO daily Could have some impact on patients presentation as well Electrolyte Abnormality; will monitor - Hypokalemia, K 3.0 - KCL 10 IVPB x3, f/u labs - Hypomagnesemia, Mg 1.5 - Magsulfate x2bags Prophylactic measure Protonix 40 IVP Daily SCDs Lovenox 40 mg SC daily Physical Therapy The patient is stable for d/c as per Dr. Ellison She is requesting omega three fatty acids for d/c which shara be given the patient should have clear liquids only until re-evaluation with her GI doctor she does not need any other medications Discussed with Dr. Ellison All management and planning per Dr. Ellison.
[2017-09-01] MEDS ORDERED: PPN #4 IV SCH (18:00)
--- NOTE | 2017-09-07 09:53 | DS ---
HOSPITAL COURSE: Chief complained of abdominal pain, nausea and vomiting. The patient came to the ER, placed in bed rest, IV fluids n.p.o. had a long course in the hospital. The patient improved eventually clear liquid then advanced to full liquid, the patient tolerated. The patient discharged to be followed outpatient. DIAGNOSES: Intestinal obstruction, intestinal adhesions, gastritis. Oleg Ellison MD
== END 2017-09-01 13:52 | disposition home or self-care (01) | DRG 552 ==
LOC: C.ER 10:28 → C.9E 14:09 → C.3T 16:14
PROVIDERS: ADMIT Internal Medicine Pulmonary Disease; ATTEND Internal Medicine Pulmonary Disease
PROC: 3E0336Z Introduction of Nutritional Substance into Peripheral Vein, Percutaneous Approach (ICD-10-PCS; principal; 2017-08-29)
DX: K56.51 Intestinal adhesions [bands], with partial obstruction (principal); E87.6 Hypokalemia; K86.1 Other chronic pancreatitis; E83.42 Hypomagnesemia; J44.9 Chronic obstructive pulmonary disease, unspecified; K27.9 Peptic ulcer, site unspecified, unspecified as acute or chronic, without hemorrhage or perforation; I10 Essential (primary) hypertension; D64.9 Anemia, unspecified; E03.9 Hypothyroidism, unspecified; E78.00 Pure hypercholesterolemia, unspecified; E78.5 Hyperlipidemia, unspecified; F32.9 Major depressive disorder, single episode, unspecified; F41.9 Anxiety disorder, unspecified; Z79.899 Other long term (current) drug therapy; Z90.49 Acquired absence of other specified parts of digestive tract

== ENCOUNTER 2018-07-03 15:13 | Inpatient (IN) | payer MEDICAID ==
[2018-07-03 15:14] VITALS: BMI 36.8
--- NOTE | 2018-07-03 15:42 | C.PDOC ---
History Of Present Illness 53 year old woman with PMHx of chronic back pain, herniated disc, HTN, and asthma presents to the ED complaining right leg weakness and swelling for two weeks associated with 3 weeks of worsening back pain. Reports two episodes of incontinent urine for the last 2 days. States she noticed the bed was wet despite not feeling like she needed to go to the bathroom. Also complains of decreased sensation in perianal area ongoing for 2 days. Denies any bowel incontinence or acute trauma. Reports compliance with medications. States she is currently doing physical therapy for back pain. She was seen by PMD last week concerning right leg and was told to get an ultrasound to rule out clot. Notes she is starting rheumatoid arthritis work-up for increased right knee joint swelling. PMD: Dr. Ellsion Time Seen by Provider: 07/03/18 15:37 Chief Complaint (Nursing): Lower Extremity Problem/Injury History Per: Patient History/Exam Limitations: no limitations Onset/Duration Of Symptoms: Days Current Symptoms Are (Timing): Still Present Past Medical History Reviewed: Historical Data, Nursing Documentation, Vital Signs Vital Signs: Last Vital Signs Temp 98.8 F 07/03/18 15:27 Pulse 110 H 07/03/18 15:27 Resp 18 07/03/18 15:27 BP 204/110 H 07/03/18 15:27 Pulse Ox 97 07/03/18 15:27 - Medical History PMH: Anemia, Anxiety, Arthritis, Asthma, Back Problems (herniated discs), Bronchitis, COPD, Diverticulitis, Gastritis, Gastrointestinal Ulcer, HTN, Hypercholesterolemia, Hypothyroidism, Pancreatitis Denies: Alzheimer's Disease, Chronic Kidney Disease Surgical History: Appendectomy, Cholecystectomy, Endoscopy, Hernia Repair (ventral x3, last 10/27/15) - [facility] Procedures (08/05/17) CENTRAL VENOUS CATHETER PLACEMENT WITH GUIDANCE (06/13/14) CLOSED ENDOSCOPIC BIOPSY OF LARGE INTESTINE (05/19/14) COLONOSCOPY (01/23/14) DILATION OF RIGHT AXILLARY ARTERY, PERCUTANEOUS APPROACH (11/03/15) ESOPHAGOGASTRODUODENOSCOPY [EGD] W/CLOSED BIOPSY (10/22/14) EXCISION OF DESCENDING COLON, ENDO, DIAGN (04/09/17) EXCISION OF SIGMOID COLON, ENDO, DIAGN (12/05/15) EXCISION OF SMALL INTESTINE, ENDO, DIAGN (11/25/16) EXCISION OF STOMACH, ENDO, DIAGN (04/04/17) FLUOROSCOPY OF SUP VENA CAVA USING L OSM CONTRAST, GUIDANCE (07/05/17) FLUOROSCOPY OF SUPERIOR VENA CAVA, GUIDANCE (12/05/15) INFLUENZA VACCINATION (05/08/14) INJECT/INFUSE NEC (08/22/14) INSERTION OF INFUSION DEV INTO L BRACH VEIN, PERC APPROACH (05/22/17) INSERTION OF INFUSION DEV INTO SUP VENA CAVA, PERC APPROACH (07/05/17) INSERTION OF VAD INTO CHEST SUBCU/FASCIA, OPEN APPROACH (07/05/17) INSPECTION OF GASTROINTESTINAL TRACT, PERC ENDO APPROACH (10/26/15) INTRODUCTION OF NUTRITIONAL INTO PERIPH VEIN, PERC APPROACH (08/24/17) MRI OF OTHER AND UNSPECIFIED SITES (04/25/14) NEBULIZER THERAPY (11/30/13) RELEASE CECUM, OPEN APPROACH (10/26/15) REPAIR ABDOMINAL WALL, OPEN APPROACH (07/05/17) ULTRASONOGRAPHY OF LEFT UPPER EXTREMITY VEINS, GUIDANCE (05/22/17) ULTRASONOGRAPHY OF SUPERIOR VENA CAVA, GUIDANCE (10/26/15) VENOUS CATHETERIZATION NEC (02/14/14) Family History: States: No Known Family Hx - Social History Hx Tobacco Use: No Hx Alcohol Use: No Hx Substance Use: No - Immunization History Hx Tetanus Toxoid Vaccination: Yes Hx Influenza Vaccination: Yes (2016) Hx Pneumococcal Vaccination: Yes (2014) Review Of Systems Except As Marked, All Systems Reviewed And Found Negative. Genitourinary: Positive for: Incontinence (urinary ) Musculoskeletal: Positive for: Back Pain, Leg Pain (right leg weakness and swelling ) Physical Exam - Physical Exam Appears: In Acute Distress, Other (acute painful distress ) Skin: Warm, Dry Head: Atraumatic, Normacephalic Eye(s): bilateral: PERRL, EOMI Oral Mucosa: Moist Lips: Normal Appearing Neck: Normal ROM, Trachea Midline Lymphatic: No Adenopathy Chest: Symmetrical, No Tenderness Cardiovascular: Rhythm Regular, No Murmur Respiratory: Normal Breath Sounds, No Accessory Muscle Use Gastrointestinal/Abdominal: Soft, No Tenderness, Other (morbidly obese) Back: Other (diffused tenderness of lumbar spine with no step-off ) Extremity: Tenderness (tenderness to palpation at left posterior distal thigh and calf ), Other (4/5 dorsal flexion, knee flexion and extension, increased gurth to the right upper thigh compared to left thigh) Neurological/Psych: Oriented x3, No Normal Sensation (subjective decreased sensation at posterior right proximal thigh and buttock, subjective decreased sensation to perianal area but normal rectal tone. ) Pain Response: Withdraws With Pain Gait: Other (limp to the left side, right foot drop and leg drag) ED Course And Treatment - Laboratory Results Result Diagrams: 07/03/18 17:07 O2 Sat by Pulse Oximetry: 97 (RA) Pulse Ox Interpretation: Normal Medical Decision Making Medical Decision Making: Impression: acute chronic back pain and right leg weakness and swelling Differential include but not limited to: Cauda aquina syndrome, DVT, worsening herniated disc, knee strain, urinary incontinence Plan - UA - Duplex Scan - Spinal Canal Lumbar MRI - Bloodwork 17:50 Patient unable to have MRI. Reports she did not fit. CT scan ordered. Patient understands that CT scan is less reliable for cord compression. 18:56 CT Lumbar Spine resulted: Accession No. : [id number] Patient Name / ID : ROULA GUERRERO / [id number] Exam Date : 07/03/2018 18:14:58 ( Approved ) Study Comment : Sex / Age : F / 53Y Creator : Jessica Whittaker MD Dictator : Jessica Whittaker MD Dish Machine Operator : Steno Pool Supervisor : Jessica Whittaker MD Approver2 : Report Date : 07/03/2018 18:39:11 My Comment : Date of service: 07/03/2018 CT lumbar spine without IV contrast Indication: urinary retention and saddle anesthesia Comparison: None available Technique: Noncontrast axial images of the lumbar spine were provided. Sagittal and coronal reformatted images were generated and reviewed. This CT exam was performed using 1 or more of the following dose reduction techniques: Automated exposure control, adjustment of the MAA and/or kV according to patient size, and/or use of iterative reconstruction technique. Total exam DLP: 1526.23 MGy-cm Findings: Vertebral body heights appear within normal limits. Alignment appears sati sfactory. No acute fracture or subluxation identified. Paraspinal soft tissues appear unremarkable. Cholecystectomy clips. Limited visualization of the intra-abdominal and intrapelvic contents appear otherwise unremarkable. Impression: No acute fracture or subluxation identified. Pt reports persistent pain, but appears more comfortable. PJ pt findings. PJ Ellison PMD. Disposition Counseled Patient/Family Regarding: Studies Performed, Diagnosis - Disposition Disposition: HOSPITALIZED Disposition Time: 18:00 Condition: FAIR - POA Present On Arrival: Falls Or Trauma (risk) - Clinical Impression Clinical Impression: Exacerbation of chronic back pain, Urine incontinence - Scribe Statement The provider has reviewed the documentation as recorded by the Scribe Zora Savage All medical record entries made by the Scribe were at my direction and personally dictated by me. I have reviewed the chart and agree that the record accurately reflects my personal performance of the history, physical exam, medical decision making, and the department course for this patient. I have also personally directed, reviewed, and agree with the discharge instructions and disposition.
[2018-07-03] MEDS ORDERED: DiphenhydrAMINE 50 mg/ml Inj IVP STA (16:24)
[2018-07-03] MEDS ORDERED: DiphenhydrAMINE 50 mg/ml Inj ONE (16:29)
[2018-07-03] MEDS ORDERED: Morphine 4 MG/ML VIAL ONE (16:29)
[2018-07-03 17:47] LABS: ALB/GLOB RATIO 1.2 (1.0-2.1); ALBUMIN 4.5 g/dL (3.5-5.0); BLOOD UREA NITROGEN 20 mg/dL (7-17); CALCIUM 9.2 mg/dl (8.6-10.4); GFR NON-AFRICAN AMERICAN 52
[2018-07-03 17:54] LABS: ALT/SGPT 47 U/L (9-52); AST/SGOT 49 U/L (14-36)
--- NOTE | 2018-07-03 18:42 | CT ---
Date of service: 07/03/2018 CT lumbar spine without IV contrast Indication: urinary retention and saddle anesthesia Comparison: None available Technique: Noncontrast axial images of the lumbar spine were provided. Sagittal and coronal reformatted images were generated and reviewed. This CT exam was performed using 1 or more of the following dose reduction techniques: Automated exposure control, adjustment of the MAA and/or kV according to patient size, and/or use of iterative reconstruction technique. Total exam DLP: 1526.23 MGy-cm Findings: Vertebral body heights appear within normal limits. Alignment appears satisfactory. No acute fracture or subluxation identified. Paraspinal soft tissues appear unremarkable. Cholecystectomy clips. Limited visualization of the intra-abdominal and intrapelvic contents appear otherwise unremarkable. Impression: No acute fracture or subluxation identified.
[2018-07-03 19:48] VITALS: RESP 20
[2018-07-04] MEDS ORDERED: DiphenhydrAMINE 50 mg/ml Inj IVP STA ×2 (00:59→21:35)
[2018-07-04 06:46] LABS: BASO # 0.1 K/uL (0.0-0.2); BASO % 0.9 % (0.0-2.0); EOS # 0.4 K/uL (0.0-0.7); EOS % 5.1 % (0.0-4.0); LYMPH # 1.6 K/uL (1.0-4.3); MEAN CELL VOLUME 92.3 fL (81.0-99.0); MEAN CORPUSCULAR HEMOGLOBIN 30.4 pg (27.0-31.0); MEAN CORPUSCULAR HGB CONC 32.9 g/dL (33.0-37.0); MEAN PLATELET VOLUME 8.3 fL (7.2-11.7); MONO # 0.7 K/uL (0.0-0.8); MONO % 8.2 % (0.0-10.0); NEUT # 5.5 K/uL (1.8-7.0); NEUT % 66.8 % (50.0-75.0); RBC 3.62 Mil/uL (3.80-5.20); RED CELL DISTRIBUTION WIDTH 13.5 % (11.5-14.5); WHITE BLOOD COUNT 8.2 K/uL (4.8-10.8)
[2018-07-04 06:53] LABS: INR 1.1; PROTHROMBIN TIME 11.9 SECONDS (9.7-12.2)
[2018-07-04 06:57] LABS: BLOOD UREA NITROGEN 24 mg/dL (7-17); CALCIUM 8.9 mg/dl (8.6-10.4); GFR NON-AFRICAN AMERICAN > 60
--- NOTE | 2018-07-04 07:00 | CP.PCM.PN ---
Subjective - Date & Time of Evaluation Date of Evaluation: 07/04/18 Time of Evaluation: 07:00 - Subjective Subjective: Medicine Progress Note - Dr Ellison Patient is a 53 year old female with past medical history of chronic low back pain, herniated discs, hypertension, hyperlipidemia who presented to the emergency department for intractable low back pain and urinary incontinence. Patient reports having worsening low back pain for the past 5 days, denies any inciting events. For the past two days she has been having episodes of urinary incontinence. She also reports having right leg pain that started a few weeks ago that has been getting worse with numbness of medial aspect of right leg and perineal area. She reports not having no sensation when wiping. For back pain she has tried taking percocet with no relief in symptoms. Currently rates the pain a 9/10 on pain scale. Denies fevers, chills, headaches, dizziness, cp, palpitations, sob, constipation, diarrhea, bowel incontinence. Admits to having occasional abdominal pain. PMD: Dr Ellison Allergies: Ceftriaxone, Iodine Medical History: Chronic low back pain, herniated discs, hypertension, hyperlipidemia, asthma Surgical History: Ventral hernia repair, appendectomy, cholecystectomy, bowel resection Social History: Denies alcohol, tobacco, drug use; ambulates with a cane Family History: Mother - from colon cancer; Father - from [place] in his 50s Objective - Vital Signs/Intake and Output Vital Signs (last 24 hours): Temp Pulse Resp BP Pulse Ox 98.3 F 83 20 102/69 97 07/03/18 23:30 07/03/18 23:30 07/03/18 23:30 07/03/18 23:30 07/03/18 23:47 - Medications Medications: Current Medications Diphenhydramine HCl (Benadryl) 25 mg IVP STAT ST[facility] Stop: 07/04/18 01:00 Hydromorphone HCl (Dilaudid) 2 mg IVP Q4H PRN PRN Reason: BACK PAIN Last Admin: 07/04/18 05:11 Dose: 2 mg Pantoprazole Sodium (Protonix Ec Tab) 40 mg PO DAILY [facility] - Labs Labs: 07/04/18 06:35 07/04/18 06:35 PT 11.9 SECONDS (9.7-12.2) 07/04/18 06:38 INR 1.1 07/04/18 06:38 APTT 26 SECONDS (21-34) 07/04/18 06:38 - Constitutional Appears: Non-toxic, No Acute Distress - Head Exam Head Exam: ATRAUMATIC, NORMAL INSPECTION, NORMOCEPHALIC - Eye Exam Eye Exam: EOMI, Normal appearance Pupil Exam: NORMAL ACCOMODATION - ENT Exam ENT Exam: Mucous Membranes Moist - Neck Exam Neck Exam: Full ROM - Respiratory Exam Respiratory Exam: Clear to Ausculation Bilateral, NORMAL BREATHING PATTERN. absent: Rales, Rhonchi, Wheezes - Cardiovascular Exam Cardiovascular Exam: REGULAR RHYTHM, +S1, +S2 - GI/Abdominal Exam GI & Abdominal Exam: Soft, Tenderness (mild tenderness to upper abdomen), Hernia. absent: Firm, Guarding, Rigid - Extremities Exam Additional comments: Decreased sensation to medical aspect of right thigh, lower leg and foot Pedal pulses intact bilaterally - Neurological Exam Neurological Exam: Alert, Awake, Oriented x3 - Psychiatric Exam Psychiatric exam: Anxious - Skin Skin Exam: Dry, Normal Color, Warm Assessment and Plan - Assessment and Plan (Free Text) Assessment: Intractable Back Pain -Afebrile -Pain control - Dilaudid 2mg Q4H prn -CT lumbar: No acute fracture or subluxation identified -Lumber MRI ordered -Will premedicate with Ativan 2mg x 1 dose prior to MRI -Neurosurgery on consult, Dr Haney, help appreciated -Physical Therapy Right Lower Leg pain -Venous dopplers: negative for DVT (preliminary read) Gastritis -Continue Protonix 40mg PO daily Hypertension -BP controlled at this time -Will continue to monitor off anti-HTN medications -Norvasc 10mg PO daily, held Asthma -Duonebs Q4H prn shortness of breath -Continue Advair GI/DVT ppx: -Protonix 40mg PO daily -Heparin 5000 Q12H Plan discussed with Dr Scot Verma DO PGY-2
[2018-07-04] MEDS: Pantoprazole 40 mg EC Tab PO SCH (09:21)
[2018-07-04] MEDS ORDERED: Albuterol-Ipratrop 3 mg / 0.5 (3 ml) UD INH PRN (09:29)
[2018-07-04] MEDS ORDERED: Fluticasone-Vilanterol 100/25mcg Diskus INH SCH (10:00)
--- NOTE | 2018-07-04 12:35 | CP.PCM.PN ---
Subjective - Date & Time of Evaluation Date of Evaluation: 07/04/18 Time of Evaluation: 12:32 - Subjective Subjective: SPINE Asked to see pt. Awaiting MRI study as CT did not show any signif pathology at L4-5 which would be most likely level if urinary incontinence spinal related. Pt claustrophic so unable to do study yesterday after pre-med w morphine/valium. Spoke to Dr. Verma who will recall once study done. Pt reportedly able to amb to bathroom. Objective - Vital Signs/Intake and Output Vital Signs (last 24 hours): Temp Pulse Resp BP Pulse Ox 98.4 F 79 20 116/78 96 07/04/18 09:00 07/04/18 09:00 07/04/18 09:00 07/04/18 09:00 07/04/18 09:00 - Medications Medications: Current Medications Albuterol/Ipratropium (Duoneb 3 Mg/0.5 Mg (3 Ml) Ud) 3 ml INH RQ4 PRN PRN Reason: Shortness of Breath Amlodipine Besylate (Norvasc) 10 mg PO DAILY [facility] Last Admin: 07/04/18 09:21 Dose: 10 mg Fluticasone/Vilanterol (Breo Ellipta 100-25 Mcg Inh) 1 puff INH RQD [facility] Heparin Sodium (Porcine) (Heparin) 5,000 units SC Q12 [facility] Last Admin: 07/04/18 09:21 Dose: 5,000 units Hydromorphone HCl (Dilaudid) 2 mg IVP Q4H PRN PRN Reason: BACK PAIN Last Admin: 07/04/18 09:22 Dose: 2 mg Influenza Virus Vaccine (Fluzone Quad [id number]) 60 mcg IM .ONCE ONE Stop: 07/06/18 10:01 Lorazepam (Ativan) 2 mg IVP PRN PRN PRN Reason: Anxiety Stop: 07/04/18 22:00 Pantoprazole Sodium (Protonix Ec Tab) 40 mg PO DAILY [facility] Last Admin: 07/04/18 09:21 Dose: 40 mg - Labs Labs: 07/04/18 06:35 07/04/18 06:35 PT 11.9 SECONDS (9.7-12.2) 07/04/18 06:38 INR 1.1 07/04/18 06:38 APTT 26 SECONDS (21-34) 07/04/18 06:38
--- NOTE | 2018-07-04 13:19 | VASCLAB ---
Date of service: 07/03/2018 PROCEDURE: Right Lower Extremity Venous Duplex Exam. HISTORY: RIGHT leg swelling PRIORS: None. TECHNIQUE: Right common femoral, femoral, popliteal and posterior tibial, peroneal and great saphenous veins were evaluated. Flow was assessed with color Doppler, compressibility, assessment of phasic flow and augmentation response. Report prepared by KISHA Duong, RVT FINDINGS: RIGHT: 1. Common Femoral Vein: 1.1. Compressibility - Fully compressible: Thrombus - None: Flow - Phasic: Augmentation -Normal: Reflux - None. 2. Femoral Vein: 2.1. Compressibility - Fully compressible: Thrombus - None: Flow - Phasic: Augmentation -Normal: Reflux - None. 3. Popliteal Vein: 3.1. Compressibility - Fully compressible: Thrombus - None: Flow - Phasic: Augmentation -Normal: Reflux - None. 4. Posterior Tibial Vein: 4.1. Compressibility - Fully compressible: Thrombus - None: Flow - Phasic: Augmentation -Normal: Reflux - None. 5. Peroneal Vein: 5.1. Compressibility - Fully compressible: Thrombus - None: Flow - Phasic: Augmentation -Normal: Reflux - None. 6. Great Saphenous Vein: 6.1. Compressibility - Fully compressible: Thrombus -None: Flow - Phasic: Augmentation - Normal: Reflux - None. OTHER FINDINGS: IMPRESSION: No evidence of deep or superficial vein thrombosis of the right lower extremity with excellent venous flow. Normal valve function noted of the right side. Normal venous flow noted in the left common femoral vein.
--- NOTE | 2018-07-04 14:47 | CP.PCM.CON ---
History of Present Illness - History of Present Illness History of Present Illness: Neurology consult for a 53 year old female w/ PMHx of chronic back pain 2/2 herniated lumbar discs, HTN, SBO and asthma, admitted with complaints of 3 months of progressive low back/right leg weakness and right knee swelling; 3 weeks of right leg paresthesias and pain. Pt also reports 3 days of urinary incontinence. Pt reports that she started noticing low back and right leg weakness in addition to right knee swelling approximately 3 months ago, requiring pt to use a cane in order to ambulate as she could not lift her leg and foot and felt it was dragging. Symptoms persisted and progressed until 3 weeks ago when pt started noticed numbness/pain to right LE. 3 days ago pt experienced urinary incontinence daily. Pt denies any inciting trauma or injury, recent infections or illness. Review of Systems - Constitutional Constitutional: Weakness (RLE) - Cardiovascular Cardiovascular: absent: Chest Pain, Lightheadedness - Respiratory Respiratory: absent: Dyspnea - Gastrointestinal Gastrointestinal: absent: Abdominal Pain - Genitourinary Genitourinary: Urinary Incontinence - Musculoskeletal Musculoskeletal: Back Pain - Neurological Neurological: Abnormal Gait, Numbness (RLE), Paresthesias (RLE), Radicular Pain (RLE), Weakness (RLE). absent: Dizziness Past Patient History - Infectious Disease Hx of Infectious Diseases: None - Tetanus Immunizations Tetanus Immunization: Unknown - Past Medical History & Family History Past Medical History?: Yes - Past Social History Smoking Status: Never Smoked - CARDIAC Hx Hypercholesterolemia: Yes Hx Hypertension: Yes - PULMONARY Hx Asthma: Yes Hx Bronchitis: Yes Hx Chronic Obstructive Pulmonary Disease (COPD): Yes - NEUROLOGICAL Hx Alzheimer's Disease: No - HEENT Hx HEENT Problems: No - RENAL Hx Chronic Kidney Disease: No - ENDOCRINE/METABOLIC Hx Hypothyroidism: Yes - HEMATOLOGICAL/ONCOLOGICAL Hx Anemia: Yes - INTEGUMENTARY Hx Dermatological Problems: No Hx Basil Cell: No Hx Sahu: No Hx Cellulitis: No Hx Eczema: No Hx Melanoma: No Hx Psoriasis: No Hx Squamous Cell: No - MUSCULOSKELETAL/RHEUMATOLOGICAL Hx Arthritis: Yes - GASTROINTESTINAL Hx Diverticulitis: Yes Hx Gastritis: Yes Hx Pancreatitis: Yes - PSYCHIATRIC Hx Anxiety: Yes Hx Substance Use: No - SURGICAL HISTORY Hx Appendectomy: Yes Hx Cholecystectomy: Yes - ANESTHESIA Hx Anesthesia: Yes Hx Anesthesia Reactions: No Hx Malignant Hyperthermia: No Meds Allergies/Adverse Reactions: Allergies Allergy/AdvReac Type Severity Reaction Status Date / Time iodine Allergy Severe ANAPHYLAXIS Verified 08/24/17 10:42 Iodine and Iodide Containing Allergy Severe RASH Verified 08/24/17 10:42 Produc ceftriaxone Allergy Mild RASH Verified 08/24/17 10:42 ketorolac tromethamine Allergy Mild SHORTNESS Verified 08/24/17 10:42 [From Toradol] OF BREATH morphine Allergy Mild RASH Verified 08/24/17 10:42 seafood Allergy Severe ANAPHYLAXIS Uncoded 08/24/17 10:42 iv contrast Allergy Intermediate ITCHING Uncoded 08/24/17 10:42 - Medications Medications: Current Medications Albuterol/Ipratropium (Duoneb 3 Mg/0.5 Mg (3 Ml) Ud) 3 ml INH RQ4 PRN PRN Reason: Shortness of Breath Amlodipine Besylate (Norvasc) 10 mg PO DAILY [facility] Last Admin: 07/04/18 09:21 Dose: 10 mg Fluticasone/Vilanterol (Breo Ellipta 100-25 Mcg Inh) 1 puff INH RQD [facility] Heparin Sodium (Porcine) (Heparin) 5,000 units SC Q12 [facility] Last Admin: 07/04/18 09:21 Dose: 5,000 units Hydromorphone HCl (Dilaudid) 2 mg IVP Q4H PRN PRN Reason: BACK PAIN Last Admin: 07/04/18 13:35 Dose: 2 mg Influenza Virus Vaccine (Fluzone Quad [id number]) 60 mcg IM .ONCE ONE Stop: 07/06/18 10:01 Lorazepam (Ativan) 2 mg IVP ONCE PRN PRN Reason: Anxiety Stop: 07/04/18 22:00 Pantoprazole Sodium (Protonix Ec Tab) 40 mg PO DAILY [facility] Last Admin: 07/04/18 09:21 Dose: 40 mg Physical Exam - Constitutional Appears: Non-toxic, No Acute Distress - Head Exam Head Exam: ATRAUMATIC, NORMAL INSPECTION, NORMOCEPHALIC - Eye Exam Eye Exam: EOMI, Normal appearance - ENT Exam ENT Exam: Mucous Membranes Moist, Normal Exam - Neck Exam Neck exam: Positive for: Normal Inspection - Respiratory Exam Respiratory Exam: Clear to Auscultation Bilateral, NORMAL BREATHING PATTERN - Cardiovascular Exam Cardiovascular Exam: REGULAR RHYTHM, +S1, +S2 - GI/Abdominal Exam GI & Abdominal Exam: Soft. absent: Tenderness - Rectal Exam Additional comments: decreased rectal tone to digital exam - Extremities Exam Extremities exam: Positive for: joint swelling (right knee). Negative for: pedal edema - Neurological Exam Neurological exam: Alert, Oriented x3 Additional comments: Unable to assess patellar reflex on right, too edematous.; reflex LLE WNL RLE hypersensitive to touch in distal RLE, loss of sensation in proximal RLE decreased motor strength, hip flexion, dorsiflexion RLE posterior thigh lipoma - Psychiatric Exam Psychiatric exam: Anxious - Skin Skin Exam: Dry, Intact, Normal Color, Warm Results - Vital Signs Recent Vital Signs: Last Vital Signs Temp 98.4 F 07/04/18 09:00 Pulse 79 07/04/18 09:00 Resp 20 07/04/18 09:00 BP 116/78 07/04/18 09:00 Pulse Ox 96 07/04/18 09:00 - Labs Result Diagrams: 07/04/18 06:35 07/04/18 06:35 Labs: Laboratory Results - last 24 hr 07/03/18 07/04/18 07/04/18 17:07 06:35 06:35 WBC 8.2 RBC 3.62 L Hgb 11.0 Hct 33.4 L MCV 92.3 D MCH 30.4 MCHC 32.9 L RDW 13.5 Plt Count 248 D MPV 8.3 Neut % (Auto) 66.8 Lymph % (Auto) 19.0 L Stewart % (Auto) 8.2 Eos % (Auto) 5.1 H Baso % (Auto) 0.9 Neut # (Auto) 5.5 Lymph # (Auto) 1.6 Stewart # (Auto) 0.7 Eos # (Auto) 0.4 Baso # (Auto) 0.1 PT INR APTT Sodium 137 135 Potassium 4.6 4.3 Chloride 103 101 Carbon Dioxide 23 25 Anion Gap 16 13 BUN 20 H 24 H Creatinine 1.1 0.9 Est GFR ( Amer) > 60 > 60 Est GFR (Non-Af Amer) 52 > 60 Random Glucose 107 H 104 Calcium 9.2 8.9 Total Bilirubin 0.6 AST 49 H D ALT 47 Alkaline Phosphatase 149 H Total Protein 8.2 Albumin 4.5 Globulin 3.6 Albumin/Globulin Ratio 1.2 07/04/18 06:38 WBC RBC Hgb Hct MCV MCH MCHC RDW Plt Count MPV Neut % (Auto) Lymph % (Auto) Stewart % (Auto) Eos % (Auto) Baso % (Auto) Neut # (Auto) Lymph # (Auto) Stewart # (Auto) Eos # (Auto) Baso # (Auto) PT 11.9 INR 1.1 APTT 26 Sodium Potassium Chloride Carbon Dioxide Anion Gap BUN Creatinine Est GFR ( Amer) Est GFR (Non-Af Amer) Random Glucose Calcium Total Bilirubin AST ALT Alkaline Phosphatase Total Protein Albumin Globulin Albumin/Globulin Ratio Assessment & Plan - Assessment and Plan (Free Text) Assessment: 53 year old female w/ PMHx of herniated lumbar discs admitted for evaluation of low back,/right leg pain, weakness, numbness, paresthesias and new onset urinary incontinence. Plan: -MRI w/ and w/o contrast of lumbar spine and right lower extremity/knee -morphine/ativan to be given pre MRI as pt is claustrophobic and was unable to tolerate yesterday -hgb a1c, B12, heavy metal panel -neuro sx consulted, Dr. Proctor -PT jefferson Discussed w/ Dr. Arshad -Ann Johnston, PGY-1
--- NOTE | 2018-07-05 06:05 | CON ---
DATE: 07/04/2018 REASON FOR CONSULTATION: Difficulty moving right leg with urinary incontinence. HISTORY OF PRESENT ILLNESS: The patient is a 53-year-old young lady who states that she has noted difficulties with urinary incontinence over the past couple of months that is slowly getting worse. She also states that her right leg has been progressively getting weaker over the past few months as well. About three weeks ago, she started to get lower back pain. She denies any specific trauma leading to its onset. No problems whatsoever with the left leg. She has had difficulty doing much of anything with the leg and was admitted for workup and evaluation. An MRI of lumbar spine was attempted yesterday but due to her claustrophobia, they were unable to complete it. PAST MEDICAL HISTORY: Significant for a multitude of problems including anemia, anxiety, asthma, bronchitis, COPD, diverticulitis, gastritis, gastrointestinal ulcer, hypertension, hypercholesterolemia, hypothyroidism and pancreatitis. PAST SURGICAL HISTORY: Significant for appendectomy, cholecystectomy, endoscopy and ventral hernia repairs three times, last one being two and half years ago. MEDICATIONS: As listed on the chart. ALLERGIES: SHE STATES SHE IS ALLERGIC TO CEFTRIAXONE AND IODINE. PRIMARY MEDICAL DOCTOR: Dr. Ellison SOCIAL HISTORY: She denies smoking or alcohol use. She is complaining lot of pain now on the left leg as it is bearing all the way, and she is using a cane now to ambulate because of the weakness of the right leg. PHYSICAL EXAMINATION: On examination, she is unable to lift her right leg actively off the bed which she is able to easily on the left side. If I lift the leg off the bed and asked her to keep the heel up, she is able to maintain that some though it starts to droop. She has a straight leg raising sign on the left side at about 60 degrees which time she complains of pain in the middle to right side of her lower back. On the right side, straight leg raising is at about 40 degrees or so which time she complains of back and leg pain. She has decreased sensation to touch in the right leg compared to the left. This is primarily in the medial ankle on the top of the foot in the first webspace which she says on the right side feels like electricity. Left side is fine. The lateral ankle line each is intact and symmetrical. No clonus is noted. She is very ticklish on the left foot and difficult to evaluate Babinski but on the right foot, there is no real reaction at all. Distal pulses are fair. IMAGING DATA: She had a CAT scan done which does not show any gross abnormalities, but again is very difficult to interpret for soft tissue pathology. As mentioned above, she was unable to tolerate getting the MRI done yesterday, but her medication regimen has been changed and another attempt is going to be made this afternoon. IMPRESSION: Certainly, it would sound associated some involvement of the 4 and 5 levels that would give the electrical shock by feelings in the medial ankle and the top of the foot along with the weakness of her quads, anterior tibia, and extensor hallucis longus on the right side. Also, pressure there could be leading to the urinary incontinence. However, an MRI is truly needed to completely evaluate this. I explained this to her to try and do her best to get through the MRI this afternoon. Once the study is done, we will review it and then make recommendations. Thank you for allowing me to participate in the care of your patient. Vitaly Proctor MD
--- NOTE | 2018-07-05 07:50 | CP.PCM.PN ---
Subjective - Date & Time of Evaluation Date of Evaluation: 07/05/18 Time of Evaluation: 11:07 - Subjective Subjective: PGY3 Progress note Patient was unable to be seen or examined yesterday secondary to being transferred to [place] for MRI. Objective - Vital Signs/Intake and Output Vital Signs (last 24 hours): Temp Pulse Resp BP Pulse Ox 98.3 F 83 20 145/81 98 07/05/18 06:58 07/05/18 06:58 07/05/18 06:58 07/05/18 06:58 07/05/18 06:58 Intake and Output: 07/05/18 07/05/18 06:59 18:59 Intake Total 400 240 Balance 400 240 - Medications Medications: Current Medications Albuterol/Ipratropium (Duoneb 3 Mg/0.5 Mg (3 Ml) Ud) 3 ml INH RQ4 PRN PRN Reason: Shortness of Breath Amlodipine Besylate (Norvasc) 10 mg PO DAILY [facility] Last Admin: 07/04/18 09:21 Dose: 10 mg Fluticasone/Vilanterol (Breo Ellipta 100-25 Mcg Inh) 1 puff INH RQD [facility] Heparin Sodium (Porcine) (Heparin) 5,000 units SC Q12 [facility] Last Admin: 07/04/18 21:37 Dose: 5,000 units Hydromorphone HCl (Dilaudid) 2 mg IVP Q4H PRN PRN Reason: BACK PAIN Last Admin: 07/05/18 05:41 Dose: 2 mg Influenza Virus Vaccine (Fluzone Quad [id number]) 60 mcg IM .ONCE ONE Stop: 07/06/18 10:01 Pantoprazole Sodium (Protonix Ec Tab) 40 mg PO DAILY [facility] Last Admin: 07/04/18 09:21 Dose: 40 mg - Labs Labs: 07/04/18 06:35 07/04/18 06:35 PT 11.9 SECONDS (9.7-12.2) 07/04/18 06:38 INR 1.1 07/04/18 06:38 APTT 26 SECONDS (21-34) 07/04/18 06:38 Assessment and Plan - Assessment and Plan (Free Text) Assessment: 53yo F admitted for intractable back pain accompanied by 2 episodes of urinary incontinence and saddle anesthesia Intractable Back Pain; concerning for possible cauda equina -Afebrile -Pain control - Dilaudid 2mg Q4H prn -CT lumbar: No acute fracture or subluxation identified -Lumber MRI ordered -patient unable to tolerate conscious MRI; transferred to [place] 07/05 at 7AM for MRI with sedation -pt needed hand written script for MRI at [place]; filled out and given to patients nurse -R20.2 and F40.240, MRI of RT knee and Lumbar Spine w/ and w/o contrast -Neurosurgery on consult, Dr Haney, help appreciated -Physical Therapy Right Lower Leg pain -Venous dopplers: negative for DVT Gastritis -Continue Protonix 40mg PO daily Hypertension -BP controlled at this time -Will continue to monitor off anti-HTN medications -Norvasc 10mg PO daily, held Asthma -Duonebs Q4H prn shortness of breath -Continue Advair GI/DVT ppx: -Protonix 40mg PO daily -Heparin 5000 Q12H Plan discussed with Dr Ellison
[2018-07-05] MEDS ORDERED: Fluticasone-Vilanterol 100/25mcg Diskus INH SCH (08:00)
[2018-07-05] MEDS: Pantoprazole 40 mg EC Tab PO SCH (11:05)
--- NOTE | 2018-07-05 11:26 | CP.PCM.HP ---
History of Present Illness - History of Present Illness History of Present Illness: PGY3 Medicine note for Dr. Ellison; done so that the patient can get an MRI @ [place] Patient is a 53 year old female with past medical history of chronic low back pain, herniated discs, hypertension, hyperlipidemia who presented to the emergency department for intractable low back pain and urinary incontinence. Patient reports having worsening low back pain for the past 5 days, denies any inciting events. For the past two days she has been having episodes of urinary incontinence. She also reports having right leg pain that started a few weeks ago that has been getting worse with numbness of medial aspect of right leg and perineal area. She reports not having no sensation when wiping. For back pain she has tried taking percocet with no relief in symptoms. Currently rates the pain a 9/10 on pain scale. Denies fevers, chills, headaches, dizziness, cp, palpitations, sob, constipation, diarrhea, bowel incontinence. Admits to having occasional abdominal pain. PMD: Dr Ellison Allergies: Ceftriaxone, Iodine Medical History: Chronic low back pain, herniated discs, hypertension, hyperlipidemia, asthma Surgical History: Ventral hernia repair, appendectomy, cholecystectomy, bowel resection Social History: Denies alcohol, tobacco, drug use; ambulates with a cane Family History: Mother - from colon cancer; Father - from MS in his 50s Present on Admission - Present on Admission Any Indicators Present on Admission: Yes History of DVT/PE: No History of Uncontrolled Diabetes: No Urinary Catheter: No Decubitus Ulcer Present: No Past Patient History - Infectious Disease Hx of Infectious Diseases: None - Tetanus Immunizations Tetanus Immunization: Unknown - Past Medical History & Family History Past Medical History?: Yes - Past Social History Smoking Status: Never Smoked - CARDIAC Hx Hypercholesterolemia: Yes Hx Hypertension: Yes - PULMONARY Hx Asthma: Yes Hx Bronchitis: Yes Hx Chronic Obstructive Pulmonary Disease (COPD): Yes - NEUROLOGICAL Hx Alzheimer's Disease: No - HEENT Hx HEENT Problems: No - RENAL Hx Chronic Kidney Disease: No - ENDOCRINE/METABOLIC Hx Hypothyroidism: Yes - HEMATOLOGICAL/ONCOLOGICAL Hx Anemia: Yes - INTEGUMENTARY Hx Dermatological Problems: No Hx Basil Cell: No Hx Sahu: No Hx Cellulitis: No Hx Eczema: No Hx Melanoma: No Hx Psoriasis: No Hx Squamous Cell: No - MUSCULOSKELETAL/RHEUMATOLOGICAL Hx Arthritis: Yes - GASTROINTESTINAL Hx Diverticulitis: Yes Hx Gastritis: Yes Hx Pancreatitis: Yes - PSYCHIATRIC Hx Anxiety: Yes Hx Substance Use: No - SURGICAL HISTORY Hx Appendectomy: Yes Hx Cholecystectomy: Yes - ANESTHESIA Hx Anesthesia: Yes Hx Anesthesia Reactions: No Hx Malignant Hyperthermia: No Meds Allergies/Adverse Reactions: Allergies Allergy/AdvReac Type Severity Reaction Status Date / Time iodine Allergy Severe ANAPHYLAXIS Verified 08/24/17 10:42 Iodine and Iodide Containing Allergy Severe RASH Verified 08/24/17 10:42 Produc ceftriaxone Allergy Mild RASH Verified 08/24/17 10:42 ketorolac tromethamine Allergy Mild SHORTNESS Verified 08/24/17 10:42 [From Toradol] OF BREATH morphine Allergy Mild RASH Verified 08/24/17 10:42 seafood Allergy Severe ANAPHYLAXIS Uncoded 08/24/17 10:42 iv contrast Allergy Intermediate ITCHING Uncoded 08/24/17 10:42 Physical Exam - Constitutional Additional comments: Non-toxic, No Acute Distress - Head Exam Head Exam: ATRAUMATIC, NORMAL INSPECTION, NORMOCEPHALIC - Eye Exam Eye Exam: EOMI, Normal appearance Pupil Exam: NORMAL ACCOMODATION - ENT Exam ENT Exam: Mucous Membranes Moist - Neck Exam Neck Exam: Full ROM - Respiratory Exam Respiratory Exam: Clear to Ausculation Bilateral, NORMAL BREATHING PATTERN. absent: Rales, Rhonchi, Wheezes - Cardiovascular Exam Cardiovascular Exam: REGULAR RHYTHM, +S1, +S2 - GI/Abdominal Exam GI & Abdominal Exam: Soft, Tenderness (mild tenderness to upper abdomen), Hernia. absent: Firm, Guarding, Rigid - Extremities Exam Additional comments: Decreased sensation to medical aspect of right thigh, lower leg and foot Pedal pulses intact bilaterally - Neurological Exam Neurological Exam: Alert, Awake, Oriented x3 - Psychiatric Exam Psychiatric exam: Anxious - Skin Skin Exam: Dry, Normal Color, Warm Results - Vital Signs Recent Vital Signs: Last Vital Signs Temp 98.3 F 07/05/18 06:58 Pulse 83 07/05/18 06:58 Resp 20 07/05/18 06:58 BP 145/81 07/05/18 06:58 Pulse Ox 98 07/05/18 06:58 - Labs Result Diagrams: 07/04/18 06:35 07/04/18 06:35 Assessment & Plan - Assessment and Plan (Free Text) Assessment: 53yo F admitted for intractable back pain accompanied by 2 episodes of urinary incontinence and saddle anesthesia Intractable Back Pain; concerning for possible cauda equina -Afebrile -Pain control - Dilaudid 2mg Q4H prn -CT lumbar: No acute fracture or subluxation identified -Lumber MRI ordered -patient unable to tolerate conscious MRI; transferred to [place] 07/05 at 7AM for MRI with sedation -pt needed hand written script for MRI at [place]; filled out and given to patients nurse -R20.2 and F40.240, MRI of RT knee and Lumbar Spine w/ and w/o contrast -Neurosurgery on consult, Dr Haney, help appreciated -Physical Therapy Right Lower Leg pain -Venous dopplers: negative for DVT Gastritis -Continue Protonix 40mg PO daily Hypertension -BP controlled at this time -Will continue to monitor off anti-HTN medications -Norvasc 10mg PO daily, held Asthma -Duonebs Q4H prn shortness of breath -Continue Advair GI/DVT ppx: -Protonix 40mg PO daily -Heparin 5000 Q12H Decision To Admit - Pt Status Changed To: Hospital Disposition Of: Inpatient - Admit Certification Admit to Inpatient:: After my assessment, the patient will require hospitalization for at least two midnights. This is because of the severity of symptoms shown, intensity of services needed, and/or the medical risk in this patient being treated as an outpatient. - InPatient: Physician Admission Certification:: will need more than 2 midnights - . Bed Request Type: Regular Admitting Physician: Oleg Ellison
--- NOTE | 2018-07-05 14:03 | PCM.SURG1 ---
Surgeon's Initial Post Op Note - Surgeon's Notes Surgeon: Joseph Matthews MD Mold Tooling Technician: NONE Type of Anesthesia: Local Pre-Operative Diagnosis: Poor venous access Operative Findings: US showed a patent right basilic vein Post-Operative Diagnosis: Poor venous access Operation Performed: Midline picc placement, 20 cm. Tip in subclavian vein. Specimen/Specimens Removed: NONE Estimated Blood Loss: EBL {In ML}: 2 Blood Products Given: N/A Drains Used: No Drains Post-Op Condition: Fair Date of Surgery/Procedure: 07/05/18 Time of Surgery/Procedure: 14:00
--- NOTE | 2018-07-05 14:20 | CP.PCM.PN ---
Subjective - Date & Time of Evaluation Date of Evaluation: 07/05/18 Time of Evaluation: 14:20 - Subjective Subjective: Neurology Follow-Up Note: Objective - Vital Signs/Intake and Output Vital Signs (last 24 hours): Temp Pulse Resp BP Pulse Ox 98.3 F 83 20 145/81 98 07/05/18 06:58 07/05/18 06:58 07/05/18 06:58 07/05/18 06:58 07/05/18 06:58 Intake and Output: 07/05/18 07/05/18 06:59 18:59 Intake Total 400 240 Balance 400 240 - Medications Medications: Current Medications Albuterol/Ipratropium (Duoneb 3 Mg/0.5 Mg (3 Ml) Ud) 3 ml INH RQ4 PRN PRN Reason: Shortness of Breath Amlodipine Besylate (Norvasc) 10 mg PO DAILY [facility] Last Admin: 07/04/18 09:21 Dose: 10 mg Fluticasone/Vilanterol (Breo Ellipta 100-25 Mcg Inh) 1 puff INH RQD [facility] Heparin Sodium (Porcine) (Heparin) 5,000 units SC Q12 [facility] Last Admin: 07/05/18 11:05 Dose: Not Given Hydromorphone HCl (Dilaudid) 2 mg IVP Q4H PRN PRN Reason: BACK PAIN Last Admin: 07/05/18 05:41 Dose: 2 mg Influenza Virus Vaccine (Fluzone Quad [id number]) 60 mcg IM .ONCE ONE Stop: 07/06/18 10:01 Pantoprazole Sodium (Protonix Ec Tab) 40 mg PO DAILY [facility] Last Admin: 07/05/18 11:05 Dose: Not Given - Labs Labs: 07/04/18 06:35 07/04/18 06:35 PT 11.9 SECONDS (9.7-12.2) 07/04/18 06:38 INR 1.1 07/04/18 06:38 APTT 26 SECONDS (21-34) 07/04/18 06:38 Assessment and Plan (1) Intractable back pain Assessment & Plan: Intractable back pain associated with RLE weakness, paresthesias, and right knee swelling. -MRI's of L-Spine and Left Lower Limb done at [facility] today---results pending. -Hgb A1c, B12, heavy metal panel still pending---ordered 07/04/18 -Continue current medications and treatment. -Continue PT -Neurosurgery on board -Please notify neuro for acute changes Case discussed with Dr. Arshad Status: Acute
[2018-07-05] MEDS ORDERED: HYDROmorphone 0.5 mg/0.5 ml ISec IVP PRN (16:03)
[2018-07-06 08:20] LABS: NRBC % 0.1 % (0.0-2.0)
[2018-07-06 08:30] LABS: BASO # 0.1 K/uL (0.0-0.2); BASO % 0.6 % (0.0-2.0); HEMOGLOBIN 11.3 g/dL (11.0-16.0); LYMPH # 1.6 K/uL (1.0-4.3); RBC 3.7 Mil/uL (3.80-5.20)
[2018-07-06 08:46] LABS: EOS # 0.7 K/uL (0.0-0.7); EOS % 6.6 % (0.0-4.0); LYMPH % 15.5 % (20.0-40.0); MEAN CELL VOLUME 92.2 fL (81.0-99.0); MEAN CORPUSCULAR HEMOGLOBIN 30.4 pg (27.0-31.0); MONO # 0.9 K/uL (0.0-0.8); MONO % 8.2 % (0.0-10.0); NEUT # 7.2 K/uL (1.8-7.0); NEUT % 69.1 % (50.0-75.0); RED CELL DISTRIBUTION WIDTH 13.6 % (11.5-14.5); WHITE BLOOD COUNT 10.4 K/uL (4.8-10.8)
--- NOTE | 2018-07-06 09:06 | CP.PCM.PN ---
Subjective - Date & Time of Evaluation Date of Evaluation: 07/06/18 Time of Evaluation: 09:05 - Subjective Subjective: PGY3 Note for Dr. Ellison; Medicine Patient seen and examined at bedside this AM; states that she was not fed or given any of her medications yesterday while she was at [facility] for her MRI; left at 7am and came back to [facility] around 7:30 with no meals; states she is anxious/upset about the whole situation; denies any fevers/chills, CHEW, CP, SOB, abdominal pain, N/V/D, dysuria/freq/urg still complaining of right knee pain, 10/10 back pain and saddle parasthesia Objective - Vital Signs/Intake and Output Vital Signs (last 24 hours): Temp Pulse Resp BP Pulse Ox 98.2 F 91 H 20 108/79 96 07/06/18 07:36 07/06/18 07:36 07/06/18 07:36 07/06/18 07:36 07/06/18 07:36 Intake and Output: 07/06/18 07/06/18 06:59 18:59 Intake Total 660 Output Total 3 Balance 657 - Medications Medications: Current Medications Albuterol/Ipratropium (Duoneb 3 Mg/0.5 Mg (3 Ml) Ud) 3 ml INH RQ4 PRN PRN Reason: Shortness of Breath Amlodipine Besylate (Norvasc) 10 mg PO DAILY COUNTS INCLUDE 234 BEDS AT THE [facility] Last Admin: 07/04/18 09:21 Dose: 10 mg Fluticasone/Vilanterol (Breo Ellipta 100-25 Mcg Inh) 1 puff INH RQD COUNTS INCLUDE 234 BEDS AT THE [facility] Heparin Sodium (Porcine) (Heparin) 5,000 units SC Q12 COUNTS INCLUDE 234 BEDS AT THE [facility] Last Admin: 07/05/18 21:29 Dose: 5,000 units Hydromorphone HCl (Dilaudid) 2 mg IVP Q4H PRN PRN Reason: BACK PAIN Last Admin: 07/06/18 08:09 Dose: 2 mg Influenza Virus Vaccine (Fluzone Quad [id number]) 60 mcg IM .ONCE ONE Stop: 07/06/18 10:01 Pantoprazole Sodium (Protonix Ec Tab) 40 mg PO DAILY COUNTS INCLUDE 234 BEDS AT THE [facility] Last Admin: 07/05/18 11:05 Dose: Not Given - Labs Labs: 07/06/18 08:12 07/04/18 06:35 PT 11.9 SECONDS (9.7-12.2) 07/04/18 06:38 INR 1.1 07/04/18 06:38 APTT 26 SECONDS (21-34) 07/04/18 06:38 - Constitutional Appears: Well, Non-toxic - Head Exam Head Exam: ATRAUMATIC - Eye Exam Eye Exam: EOMI Pupil Exam: PERRL - ENT Exam ENT Exam: Mucous Membranes Moist - Neck Exam Neck Exam: Full ROM. absent: Lymphadenopathy - Respiratory Exam Respiratory Exam: Clear to Ausculation Bilateral, NORMAL BREATHING PATTERN. absent: Rales, Wheezes - Cardiovascular Exam Cardiovascular Exam: REGULAR RHYTHM, +S1, +S2 - GI/Abdominal Exam GI & Abdominal Exam: Soft, Normal Bowel Sounds. absent: Tenderness (large hernia midline reducible ) - Rectal Exam Additional comments: saddle parasthesia + - Extremities Exam Extremities Exam: Full ROM. absent: Calf Tenderness - Back Exam Back Exam: absent: CVA tenderness (L), CVA tenderness (R) - Neurological Exam Neurological Exam: Alert, Awake, Oriented x3. absent: Normal Gait (somehwat limp to the walik, but able to ambulate ) - Psychiatric Exam Psychiatric exam: Anxious. absent: Normal Affect - Skin Skin Exam: Warm Assessment and Plan - Assessment and Plan (Free Text) Assessment: 53yo F admitted for intractable back pain accompanied by 2 episodes of urinary incontinence and saddle anesthesia Intractable Back Pain; concerning for possible cauda equina -Afebrile -Pain control - Dilaudid 2mg Q4H prn -CT lumbar: No acute fracture or subluxation identified -Lumber MRI ordered -patient unable to tolerate conscious MRI; transferred to [facility] 07/05 at 7AM for MRI with sedation -pt needed hand written script for MRI at [facility]; filled out and given to patients nurse -R20.2 and F40.240, MRI of RT knee and Lumbar Spine w/ and w/o contrast -pt unable to tolerate MRI 07/05/18-->will be transferred to [facility] for Myelogram with CT w/o contrast of lumbar spinal canal -Dr. Haney would like to do surgery at [facility] -still pending b12/hemoglobin a1c/heavy metal panel; patient had midline inserted yesterday -B12 WNL -HbA1C 6.4; IGT -still pending heavy metals -Neurosurgery on consult, Dr Haney, help appreciated -Physical Therapy Right Lower Leg pain -Venous dopplers: negative for DVT Gastritis -Continue Protonix 40mg PO daily Hypertension -BP controlled at this time -Will continue to monitor off anti-HTN medications -Norvasc 10mg PO daily, held Asthma -Duonebs Q4H prn shortness of breath -Continue Advair GI/DVT ppx: -Protonix 40mg PO daily -Heparin 5000 Q12H Dispo: Pt has IGT 6.4 with morbid obesity, HTN; would recommend daily metformin therapy Plan discussed with Dr Ellison
[2018-07-06] MEDS: Fluticasone-Vilanterol 100/25mcg Diskus INH SCH (11:23)
--- NOTE | 2018-07-06 11:40 | CP.PCM.PN ---
<Ann Johnston - Last Filed: 07/06/18 16:12> Subjective - Date & Time of Evaluation Date of Evaluation: 07/06/18 Time of Evaluation: 11:30 - Subjective Subjective: Patient not in room. Per nursing, patient went to [facility] this morning and returned as she was anxious waiting for CT myelogram. Pt returned once again for imaging, awaiting return. Unable to assess pt. Per nursing, no acute events overnight. Objective - Vital Signs/Intake and Output Vital Signs (last 24 hours): Temp Pulse Resp BP Pulse Ox 98.2 F 91 H 20 108/79 96 07/06/18 07:36 07/06/18 07:36 07/06/18 07:36 07/06/18 07:36 07/06/18 07:36 Intake and Output: 07/06/18 07/06/18 06:59 18:59 Intake Total 660 Output Total 3 Balance 657 - Medications Medications: Current Medications Albuterol/Ipratropium (Duoneb 3 Mg/0.5 Mg (3 Ml) Ud) 3 ml INH RQ4 PRN PRN Reason: Shortness of Breath Amlodipine Besylate (Norvasc) 10 mg PO DAILY [facility] Last Admin: 07/04/18 09:21 Dose: 10 mg Fluticasone/Vilanterol (Breo Ellipta 100-25 Mcg Inh) 1 puff INH RQD [facility] Last Admin: 07/06/18 11:23 Dose: Not Given Heparin Sodium (Porcine) (Heparin) 5,000 units SC Q12 [facility] Last Admin: 07/05/18 21:29 Dose: 5,000 units Hydromorphone HCl (Dilaudid) 2 mg IVP Q4H PRN PRN Reason: BACK PAIN Last Admin: 07/06/18 08:09 Dose: 2 mg Pantoprazole Sodium (Protonix Ec Tab) 40 mg PO DAILY [facility] Last Admin: 07/05/18 11:05 Dose: Not Given - Labs Labs: 07/06/18 08:12 07/04/18 06:35 PT 11.9 SECONDS (9.7-12.2) 07/04/18 06:38 INR 1.1 07/04/18 06:38 APTT 26 SECONDS (21-34) 07/04/18 06:38 - Additional Findings Additional findings: Unable to assess as patient has been at [facility] for imaging today Assessment and Plan - Assessment and Plan (Free Text) Assessment: 53 year old female w/ PMHx of herniated lumbar discs admitted for evaluation of low back,/right leg pain, weakness, numbness, paresthesias and new onset urinary incontinence. Plan: -f/u CT myelo(07/06) -MRI unobtainable as pt refused -hgb a1c and B12, WNL -f/u heavy metal panel -neuro sx consulted, Dr. Proctor -PT [facility] Discussed w/ Dr. Arshad -Ann Johnston, PGY-1 <Silvio Arshad - Last Filed: 07/08/18 14:51> Objective - Vital Signs/Intake and Output Vital Signs (last 24 hours): Temp Pulse Resp BP Pulse Ox 98.0 F 88 20 118/76 97 07/08/18 07:42 07/08/18 11:43 07/08/18 07:42 07/08/18 07:42 07/08/18 11:43 Intake and Output: 07/08/18 07/08/18 06:59 18:59 Intake Total 1000 1950 Balance 1000 1950 - Medications Medications: Current Medications Albuterol/Ipratropium (Duoneb 3 Mg/0.5 Mg (3 Ml) Ud) 3 ml INH RQ4 PRN PRN Reason: Shortness of Breath Amlodipine Besylate (Norvasc) 10 mg PO DAILY [facility] Last Admin: 07/04/18 09:21 Dose: 10 mg Diphenhydramine HCl (Benadryl) 25 mg PO Q8H PRN PRN Reason: itchiness Fluticasone/Vilanterol (Breo Ellipta 100-25 Mcg Inh) 1 puff INH RQD [facility] Last Admin: 07/08/18 11:33 Dose: 1 puff Fluticasone/Vilanterol (Breo Ellipta 100-25 Mcg Inh) 1 puff INH RQ24 [facility] Last Admin: 07/08/18 11:33 Dose: Not Given Heparin Sodium (Porcine) (Heparin) 5,000 units SC Q12 [facility] Last Admin: 07/08/18 10:23 Dose: 5,000 units Hydromorphone HCl (Dilaudid) 2 mg IVP Q4H PRN PRN Reason: BACK PAIN Last Admin: 07/08/18 14:50 Dose: 2 mg Lactated Ringer's (Lactated Ringer's) 1,000 mls @ 75 mls/hr IV .[id number] [facility] Last Admin: 07/08/18 07:59 Dose: Not Given Pantoprazole Sodium (Protonix Ec Tab) 40 mg PO DAILY [facility] Last Admin: 07/08/18 10:21 Dose: 40 mg Zolpidem Tartrate (Ambien) 5 mg PO HS PRN PRN Reason: Insomnia Last Admin: 07/07/18 22:38 Dose: 5 mg - Labs Labs: 07/08/18 08:29 07/08/18 08:29 PT 11.9 SECONDS (9.7-12.2) 07/04/18 06:38 INR 1.1 07/04/18 06:38 APTT 26 SECONDS (21-34) 07/04/18 06:38 Attending/Attestation - Attestation I have personally seen and examined this patient.: Yes I have fully participated in the care of the patient.: Yes I have reviewed all pertinent clinical information, including history, physical exam and plan: Yes Notes (Text): I agree with the assessment and plan. Will continue current management as documented above.
[2018-07-06] MEDS: Influenza Vaccine 60 MCG/0.5 ML SYR (3 yr & up) IM ONE ×2 (13:52→14:54)
[2018-07-06] MEDS: Pantoprazole 40 mg EC Tab PO SCH (13:54)
[2018-07-06] MEDS ORDERED: HYDROmorphone 0.5 mg/0.5 ml ISec IVP PRN (14:56)
--- NOTE | 2018-07-06 15:54 | CP.PCM.PN ---
Subjective - Date & Time of Evaluation Date of Evaluation: 07/06/18 Time of Evaluation: 15:46 - Subjective Subjective: SPINE Pt attempted to have MRI Monday with Morphine/Valium, Monday with Dilaudid/Ativan, and at [facility] with IV sedation administered by anesthesia. Each time she said she couldn't tolerate going into the machine. Therefore, we scheduled a myelo/CT to be done today at [place] by Dr. Fuchs, the neuroradiologist. This was just completed and Dr. Fuchs's reading is that it is one of the most normal studies he's ever done. While there the pt reportedly was asking anesthesia if they could increase her pain med dosage. Don't know what is giving pt sx's she is complaining of, but certainly not spinal in origin. Would recommend stopping narcotics as you see fit. Will no longer be seeing patient. Thank you. (spoke with Dr. Vitor Moreno to convey this as well.) Objective - Vital Signs/Intake and Output Vital Signs (last 24 hours): Temp Pulse Resp BP Pulse Ox 98.2 F 91 H 20 108/79 96 07/06/18 07:36 07/06/18 07:36 07/06/18 07:36 07/06/18 07:36 07/06/18 07:36 Intake and Output: 07/06/18 07/06/18 06:59 18:59 Intake Total 660 Output Total 3 Balance 657 - Medications Medications: Current Medications Albuterol/Ipratropium (Duoneb 3 Mg/0.5 Mg (3 Ml) Ud) 3 ml INH RQ4 PRN PRN Reason: Shortness of Breath Amlodipine Besylate (Norvasc) 10 mg PO DAILY [facility] Last Admin: 07/04/18 09:21 Dose: 10 mg Fluticasone/Vilanterol (Breo Ellipta 100-25 Mcg Inh) 1 puff INH RQD [facility] Last Admin: 07/06/18 11:23 Dose: Not Given Fluticasone/Vilanterol (Breo Ellipta 100-25 Mcg Inh) 1 puff INH RQ24 [facility] Heparin Sodium (Porcine) (Heparin) 5,000 units SC Q12 [facility] Last Admin: 07/06/18 13:53 Dose: Not Given Hydromorphone HCl (Dilaudid) 2 mg IVP Q4H PRN PRN Reason: BACK PAIN Last Admin: 07/06/18 08:09 Dose: 2 mg Hydromorphone HCl (Dilaudid) 0.5 mg IVP Q5M PRN PRN Reason: Pain, severe (8-10) Stop: 07/06/18 16:57 Lactated Ringer's (Lactated Ringer's) 1,000 mls @ 75 mls/hr IV .[id number] [facility] Influenza Virus Vaccine (Fluzone Quad [id number]) 60 mcg IM .ONCE ONE Stop: 07/07/18 15:01 Pantoprazole Sodium (Protonix Ec Tab) 40 mg PO DAILY [facility] Last Admin: 07/06/18 13:54 Dose: Not Given Zolpidem Tartrate (Ambien) 5 mg PO HS PRN PRN Reason: Insomnia - Labs Labs: 07/06/18 08:12 07/04/18 06:35 PT 11.9 SECONDS (9.7-12.2) 07/04/18 06:38 INR 1.1 07/04/18 06:38 APTT 26 SECONDS (21-34) 07/04/18 06:38
[2018-07-06] MEDS: Lactated Ringer's 1,000 ML IV SCH (18:00)
[2018-07-07] MEDS: Lactated Ringer's 1,000 ML IV SCH ×2 (04:00→17:45)
[2018-07-07 08:36] LABS: BASO % 0.6 % (0.0-2.0); EOS # 0.5 K/uL (0.0-0.7); EOS % 6.3 % (0.0-4.0); HEMOGLOBIN 10.6 g/dL (11.0-16.0); LYMPH # 1.3 K/uL (1.0-4.3); LYMPH % 17.7 % (20.0-40.0); MEAN CELL VOLUME 93.3 fL (81.0-99.0); MEAN CORPUSCULAR HEMOGLOBIN 30.6 pg (27.0-31.0); MEAN CORPUSCULAR HGB CONC 32.8 g/dL (33.0-37.0); MEAN PLATELET VOLUME 8.4 fL (7.2-11.7); MONO # 0.7 K/uL (0.0-0.8); MONO % 9.8 % (0.0-10.0); NEUT # 4.8 K/uL (1.8-7.0); NEUT % 65.6 % (50.0-75.0); NRBC % 0.1 % (0.0-2.0); RBC 3.48 Mil/uL (3.80-5.20); RED CELL DISTRIBUTION WIDTH 13.5 % (11.5-14.5); WHITE BLOOD COUNT 7.3 K/uL (4.8-10.8)
[2018-07-07 08:53] LABS: ALB/GLOB RATIO 1.3 (1.0-2.1); ALBUMIN 4.2 g/dL (3.5-5.0); ALT/SGPT 50 U/L (9-52); AST/SGOT 49 U/L (14-36); BLOOD UREA NITROGEN 21 mg/dL (7-17); CALCIUM 9.4 mg/dl (8.6-10.4); GFR NON-AFRICAN AMERICAN > 60
[2018-07-07] MEDS: Pantoprazole 40 mg EC Tab PO SCH (10:47)
[2018-07-07] MEDS: Fluticasone-Vilanterol 100/25mcg Diskus INH SCH ×2 (11:39→11:40)
--- NOTE | 2018-07-07 12:11 | CP.PCM.PN ---
Subjective - Date & Time of Evaluation Date of Evaluation: 07/07/18 Time of Evaluation: 14:38 - Subjective Subjective: PGY [address] Ellison; Dr. Amin Covering Pt seen and examined at bedside today; patient is upset and anxoius and is demanding more pain medicine as well as benadryl for a rash that does not exist; patient is very tearful and labile on exam; states she has intractable back pain and that she keeps "peeing on herself" although she has been witnessed to get up and walk around without issue by staff as well as toilet herself without problem. She admits heavily to anxious symptoms. All other symptoms she denies. Objective - Vital Signs/Intake and Output Vital Signs (last 24 hours): Temp Pulse Resp BP Pulse Ox 98.4 F 88 20 128/79 98 07/07/18 00:00 07/07/18 00:00 07/07/18 00:00 07/07/18 00:00 07/07/18 00:00 Intake and Output: 07/07/18 07/07/18 06:59 18:59 Intake Total 800 720 Output Total 400 Balance 400 720 - Medications Medications: Current Medications Albuterol/Ipratropium (Duoneb 3 Mg/0.5 Mg (3 Ml) Ud) 3 ml INH RQ4 PRN PRN Reason: Shortness of Breath Amlodipine Besylate (Norvasc) 10 mg PO DAILY [facility] Last Admin: 07/04/18 09:21 Dose: 10 mg Diphenhydramine HCl (Benadryl) 25 mg PO Q8H PRN PRN Reason: itchiness Fluticasone/Vilanterol (Breo Ellipta 100-25 Mcg Inh) 1 puff INH RQD [facility] Last Admin: 07/07/18 11:39 Dose: Not Given Fluticasone/Vilanterol (Breo Ellipta 100-25 Mcg Inh) 1 puff INH RQ24 [facility] Last Admin: 07/07/18 11:40 Dose: Not Given Heparin Sodium (Porcine) (Heparin) 5,000 units SC Q12 [facility] Last Admin: 07/07/18 10:52 Dose: 5,000 units Hydromorphone HCl (Dilaudid) 2 mg IVP Q4H PRN PRN Reason: BACK PAIN Last Admin: 07/07/18 10:43 Dose: 2 mg Lactated Ringer's (Lactated Ringer's) 1,000 mls @ 75 mls/hr IV .[id number] [facility] Last Admin: 07/07/18 04:00 Dose: Not Given Influenza Virus Vaccine (Fluzone Quad [id number]) 60 mcg IM .ONCE ONE Stop: 07/07/18 15:01 Pantoprazole Sodium (Protonix Ec Tab) 40 mg PO DAILY [facility] Last Admin: 07/07/18 10:47 Dose: 40 mg Zolpidem Tartrate (Ambien) 5 mg PO HS PRN PRN Reason: Insomnia Last Admin: 07/06/18 21:23 Dose: 5 mg - Labs Labs: 07/07/18 08:31 07/07/18 08:31 PT 11.9 SECONDS (9.7-12.2) 07/04/18 06:38 INR 1.1 07/04/18 06:38 APTT 26 SECONDS (21-34) 07/04/18 06:38 - Constitutional Appears: Non-toxic, No Acute Distress - Head Exam Head Exam: ATRAUMATIC, NORMAL INSPECTION - Eye Exam Eye Exam: EOMI, Normal appearance - ENT Exam ENT Exam: Mucous Membranes Moist - Neck Exam Neck Exam: Full ROM. absent: Lymphadenopathy - Respiratory Exam Respiratory Exam: Clear to Ausculation Bilateral, NORMAL BREATHING PATTERN. absent: Rales, Rhonchi, Wheezes - GI/Abdominal Exam GI & Abdominal Exam: Soft, Normal Bowel Sounds (morbidly obese). absent: Tenderness - Extremities Exam Extremities Exam: Full ROM. absent: Calf Tenderness - Back Exam Back Exam: NORMAL INSPECTION. absent: CVA tenderness (L), CVA tenderness (R) - Neurological Exam Neurological Exam: Alert, Awake, Normal Gait, Oriented x3 - Psychiatric Exam Psychiatric exam: Normal Affect - Skin Skin Exam: Warm Assessment and Plan - Assessment and Plan (Free Text) Assessment: 53yo F admitted for intractable back pain accompanied by 2 episodes of urinary incontinence and saddle anesthesia Intractable Back Pain; concerning for possible cauda equina; resolved and ruled out -Afebrile -Pain control - Dilaudid 2mg Q4H prn -CT lumbar: No acute fracture or subluxation identified -Lumber MRI ordered -patient unable to tolerate conscious MRI; transferred to [facility] 07/05 at 7AM for MRI with sedation -pt needed hand written script for MRI at [place]; filled out and given to patients nurse -R20.2 and F40.240, MRI of RT knee and Lumbar Spine w/ and w/o contrast -pt unable to tolerate MRI 07/05/18-->will be transferred to [facility] for Myelogram with CT w/o contrast of lumbar spinal canal -myelogram stated as "the most normal exam I have ever reviewed" as per Dr. Fuchs -Dr. Haney would like to do surgery at [facility] -still pending b12/hemoglobin a1c/heavy metal panel; patient had midline inserted yesterday -B12 WNL -HbA1C 6.4; IGT -still pending heavy metals -Neurosurgery on consult, Dr Haney, help appreciated -Physical Therapy patient would benefit from outpatient workup for incontinence; patient is morbidly obese; borderline diabetic, had one child in past Right Lower Leg pain; resolved -Venous dopplers: negative for DVT Gastritis -Continue Protonix 40mg PO daily Hypertension -BP controlled at this time -Will continue to monitor off anti-HTN medications -Norvasc 10mg PO daily, held Asthma -Duonebs Q4H prn shortness of breath -Continue Advair GI/DVT ppx: -Protonix 40mg PO daily -Heparin 5000 Q12H Dispo: Pt has IGT 6.4 with morbid obesity, HTN; would recommend daily metformin therapy -patient does not have cauda equina; "most normal" myelogram as per Dr. Fuchs; neurosurgery signed off -patient might benefit from outpatient urology and bladder training as she is incontinent per history taking -patient is ambulatory without problem Plan discussed with Dr Brennan Rodríguez PGY3
[2018-07-07] MEDS ORDERED: Influenza Vaccine 60 MCG/0.5 ML SYR (3 yr & up) IM ONE (15:00)
[2018-07-08] MEDS: Lactated Ringer's 1,000 ML IV SCH (07:59)
[2018-07-08 08:38] LABS: BASO % 0.6 % (0.0-2.0); EOS # 0.5 K/uL (0.0-0.7); EOS % 5.9 % (0.0-4.0); HEMOGLOBIN 10.7 g/dL (11.0-16.0); LYMPH # 1.1 K/uL (1.0-4.3); LYMPH % 14.6 % (20.0-40.0); MEAN CELL VOLUME 92.8 fL (81.0-99.0); MEAN CORPUSCULAR HEMOGLOBIN 31.5 pg (27.0-31.0); MEAN CORPUSCULAR HGB CONC 33.9 g/dL (33.0-37.0); MEAN PLATELET VOLUME 7.9 fL (7.2-11.7); MONO # 0.6 K/uL (0.0-0.8); MONO % 8.3 % (0.0-10.0); NEUT # 5.4 K/uL (1.8-7.0); NEUT % 70.6 % (50.0-75.0); RBC 3.4 Mil/uL (3.80-5.20); RED CELL DISTRIBUTION WIDTH 13.7 % (11.5-14.5); WHITE BLOOD COUNT 7.7 K/uL (4.8-10.8)
[2018-07-08 09:11] LABS: ALB/GLOB RATIO 1.2 (1.0-2.1); ALT/SGPT 48 U/L (9-52); AST/SGOT 36 U/L (14-36); BLOOD UREA NITROGEN 19 mg/dL (7-17); CALCIUM 9.2 mg/dl (8.6-10.4); GFR NON-AFRICAN AMERICAN > 60
[2018-07-08] MEDS: Pantoprazole 40 mg EC Tab PO SCH (10:21)
[2018-07-08] MEDS: Fluticasone-Vilanterol 100/25mcg Diskus INH SCH ×2 (11:33)
--- NOTE | 2018-07-08 15:48 | CP.PCM.DIS ---
<Jaylan Rodríguez - Last Filed: 07/08/18 15:46> Provider - Provider Date of Admission: 07/03/18 19:01 Attending physician: Aziza Amin MD Primary care physician: Dr Ellison Consults: 07/03/18 19:01 Physician Consult Stat Comment: Consulting Provider: Kris Haney Consulting Physician: Kris Haney Reason for Consult: intractable back pain, saddle anesthesia 07/04/18 08:00 Neurology Consult Routine Comment: R Consulting Provider: Kris Haney Consulting Physician: Kris Haney Reason for Consult: INTRACTABLE BACK PAIN 07/04/18 10:59 Physician Consult Routine Comment: Consulting Provider: Silvio Arshad Consulting Physician: Silvio Arshad Reason for Consult: Intractable back pain, saddle anesthesia, urinary incontinence Time Spent in preparation of Discharge (in minutes): 45 Hospital Course - Lab Results Lab Results: Most Recent Lab Values WBC 7.7 K/uL (4.8-10.8) 07/08/18 08:29 RBC 3.40 Mil/uL (3.80-5.20) L 07/08/18 08:29 Hgb 10.7 g/dL (11.0-16.0) L 07/08/18 08:29 Hct 31.5 % (34.0-47.0) L 07/08/18 08:29 MCV 92.8 fL (81.0-99.0) 07/08/18 08:29 MCH 31.5 pg (27.0-31.0) H 07/08/18 08:29 MCHC 33.9 g/dL (33.0-37.0) 07/08/18 08:29 RDW 13.7 % (11.5-14.5) 07/08/18 08:29 Plt Count 255 K/uL (130-400) 07/08/18 08:29 MPV 7.9 fL (7.2-11.7) 07/08/18 08:29 Neut % (Auto) 70.6 % (50.0-75.0) 07/08/18 08:29 Lymph % (Auto) 14.6 % (20.0-40.0) L 07/08/18 08:29 Sullivan % (Auto) 8.3 % (0.0-10.0) 07/08/18 08:29 Eos % (Auto) 5.9 % (0.0-4.0) H 07/08/18 08:29 Baso % (Auto) 0.6 % (0.0-2.0) 07/08/18 08:29 Neut # (Auto) 5.4 K/uL (1.8-7.0) 07/08/18 08:29 Lymph # (Auto) 1.1 K/uL (1.0-4.3) 07/08/18 08:29 Sullivan # (Auto) 0.6 K/uL (0.0-0.8) 07/08/18 08:29 Eos # (Auto) 0.5 K/uL (0.0-0.7) 07/08/18 08:29 Baso # (Auto) 0.0 K/uL (0.0-0.2) 07/08/18 08:29 PT 11.9 SECONDS (9.7-12.2) 07/04/18 06:38 INR 1.1 07/04/18 06:38 APTT 26 SECONDS (21-34) 07/04/18 06:38 Sodium 139 mmol/L (132-148) 07/08/18 08:29 Potassium 4.3 mmol/L (3.6-5.2) 07/08/18 08:29 Chloride 102 mmol/L (98-107) 07/08/18 08:29 Carbon Dioxide 25 mmol/L (22-30) 07/08/18 08:29 Anion Gap 16 (10-20) 07/08/18 08:29 BUN 19 mg/dL (7-17) H 07/08/18 08:29 Creatinine 0.7 mg/dL (0.7-1.2) 07/08/18 08:29 Est GFR ( Amer) > 60 07/08/18 08:29 Est GFR (Non-Af Amer) > 60 07/08/18 08:29 Random Glucose 144 mg/dL (65-105) H D 07/08/18 08:29 Hemoglobin A1c 6.4 % (4.2-6.5) 07/06/18 08:12 Calcium 9.2 mg/dl (8.6-10.4) 07/08/18 08:29 Total Bilirubin 0.3 mg/dL (0.2-1.3) 07/08/18 08:29 AST 36 U/L (14-36) D 07/08/18 08:29 ALT 48 U/L (9-52) 07/08/18 08:29 Alkaline Phosphatase 141 U/L (38-126) H D 07/08/18 08:29 Total Protein 7.3 g/dL (6.3-8.3) 07/08/18 08:29 Albumin 4.0 g/dL (3.5-5.0) 07/08/18 08:29 Globulin 3.3 gm/dL (2.2-3.9) 07/08/18 08:29 Albumin/Globulin Ratio 1.2 (1.0-2.1) 07/08/18 08:29 Vitamin B12 485 pg/mL (239-931) 07/06/18 08:12 - Hospital Course Hospital Course: Intractable Back Pain; concerning for possible cauda equina; resolved and ruled out Cauda Equina ruled ou neurosurgery signed off patient would benefit from outpatient workup for incontinence; patient is morbidly obese; borderline diabetic, had one child in past and is extremely overweight Dispo: Pt has IGT 6.4 with morbid obesity, HTN; would recommend daily metformin therapy -patient does not have cauda equina; "most normal" myelogram as per Dr. Fuchs; neurosurgery signed off -patient might benefit from outpatient urology/obgyn and bladder training as she is incontinent per history taking -patient is ambulatory without problem as per nursing and myself Plan discussed with Dr Leila Rodríguez PGY3 Discharge Exam - Head Exam Head Exam: ATRAUMATIC, NORMAL INSPECTION - Eye Exam Eye Exam: EOMI, Normal appearance, PERRL Pupil Exam: PERRL - ENT Exam ENT Exam: Mucous Membranes Moist - Neck Exam Neck exam: Full Rom - Respiratory Exam Respiratory Exam: Clear to PA & Lateral, UNREMARKABLE. absent: Rales, Rhonchi, Wheezes - Cardiovascular Exam Cardiovascular Exam: REGULAR RHYTHM, +S1, +S2 - GI/Abdominal Exam GI & Abdominal Exam: Normal Bowel Sounds, Soft. absent: Tenderness - Extremities Exam Extremities exam: full ROM - Back Exam Back exam: absent: CVA tenderness (L), CVA tenderness (R) - Neurological Exam Neurological exam: Alert, CN II-XII Intact, Normal Gait, Oriented x3, Reflexes Normal - Psychiatric Exam Psychiatric exam: Anxious, Depressed - Skin Skin Exam: Warm Discharge Plan - Follow Up Plan Condition: FAIR Disposition: HOME/ ROUTINE Patient education suggested?: No Instructions: Chronic Pain (DC), Upper Back Pain (DC), Back Pain (GEN) <DeeGregorio mcclure - Last Filed: 07/09/18 06:10> Provider - Provider Date of Admission: 07/03/18 19:01 Attending physician: Aziza Amin MD Consults: 07/03/18 19:01 Physician Consult Stat Comment: Consulting Provider: Kris Haney Consulting Physician: Kris Haney Reason for Consult: intractable back pain, saddle anesthesia 07/04/18 08:00 Neurology Consult Routine Comment: R Consulting Provider: Kris Haney Consulting Physician: Kris Haney Reason for Consult: INTRACTABLE BACK PAIN 07/04/18 10:59 Physician Consult Routine Comment: Consulting Provider: Silvio Arshad Consulting Physician: Silvio Arshad Reason for Consult: Intractable back pain, saddle anesthesia, urinary incontinence Hospital Course - Lab Results Lab Results: Most Recent Lab Values WBC 7.7 K/uL (4.8-10.8) 07/08/18 08:29 RBC 3.40 Mil/uL (3.80-5.20) L 07/08/18 08:29 Hgb 10.7 g/dL (11.0-16.0) L 07/08/18 08:29 Hct 31.5 % (34.0-47.0) L 07/08/18 08:29 MCV 92.8 fL (81.0-99.0) 07/08/18 08:29 MCH 31.5 pg (27.0-31.0) H 07/08/18 08:29 MCHC 33.9 g/dL (33.0-37.0) 07/08/18 08:29 RDW 13.7 % (11.5-14.5) 07/08/18 08:29 Plt Count 255 K/uL (130-400) 07/08/18 08:29 MPV 7.9 fL (7.2-11.7) 07/08/18 08:29 Neut % (Auto) 70.6 % (50.0-75.0) 07/08/18 08:29 Lymph % (Auto) 14.6 % (20.0-40.0) L 07/08/18 08:29 Sullivan % (Auto) 8.3 % (0.0-10.0) 07/08/18 08:29 Eos % (Auto) 5.9 % (0.0-4.0) H 07/08/18 08:29 Baso % (Auto) 0.6 % (0.0-2.0) 07/08/18 08:29 Neut # (Auto) 5.4 K/uL (1.8-7.0) 07/08/18 08:29 Lymph # (Auto) 1.1 K/uL (1.0-4.3) 07/08/18 08:29 Sullivan # (Auto) 0.6 K/uL (0.0-0.8) 07/08/18 08:29 Eos # (Auto) 0.5 K/uL (0.0-0.7) 07/08/18 08:29 Baso # (Auto) 0.0 K/uL (0.0-0.2) 07/08/18 08:29 PT 11.9 SECONDS (9.7-12.2) 07/04/18 06:38 INR 1.1 07/04/18 06:38 APTT 26 SECONDS (21-34) 07/04/18 06:38 Sodium 139 mmol/L (132-148) 07/08/18 08:29 Potassium 4.3 mmol/L (3.6-5.2) 07/08/18 08:29 Chloride 102 mmol/L (98-107) 07/08/18 08:29 Carbon Dioxide 25 mmol/L (22-30) 07/08/18 08:29 Anion Gap 16 (10-20) 07/08/18 08:29 BUN 19 mg/dL (7-17) H 07/08/18 08:29 Creatinine 0.7 mg/dL (0.7-1.2) 07/08/18 08:29 Est GFR ( Amer) > 60 07/08/18 08:29 Est GFR (Non-Af Amer) > 60 07/08/18 08:29 Random Glucose 144 mg/dL (65-105) H D 07/08/18 08:29 Hemoglobin A1c 6.4 % (4.2-6.5) 07/06/18 08:12 Calcium 9.2 mg/dl (8.6-10.4) 07/08/18 08:29 Total Bilirubin 0.3 mg/dL (0.2-1.3) 07/08/18 08:29 AST 36 U/L (14-36) D 07/08/18 08:29 ALT 48 U/L (9-52) 07/08/18 08:29 Alkaline Phosphatase 141 U/L (38-126) H D 07/08/18 08:29 Total Protein 7.3 g/dL (6.3-8.3) 07/08/18 08:29 Albumin 4.0 g/dL (3.5-5.0) 07/08/18 08:29 Globulin 3.3 gm/dL (2.2-3.9) 07/08/18 08:29 Albumin/Globulin Ratio 1.2 (1.0-2.1) 07/08/18 08:29 Vitamin B12 485 pg/mL (239-931) 07/06/18 08:12 Attending/Attestation - Attestation I have personally seen and examined this patient.: No I have fully participated in the care of the patient.: Yes I have reviewed all pertinent clinical information, including history, physical exam and plan: Yes Notes (Text): 07/09/18 06:05 Medical Hospitalist: The hospitalist service is covering Dr Ellison today. The patient had already left before I could see the patient myself, however I did review the note by the resident. The patient I have been informed was walking on her own. Also they had tried to get an MRI however this was not possible for various reasons and opted to get a myelogram which was normal. She was evaluated by neurosurgery and did not requre surgical interventions. The patient from what I understand is on a lot of Dilaudid and Benadryl - this is very concerning - however I was not able to see the patient before she left yesterday. Reguardless I hope she will follow up with her primary care physician. thank you Gregorio Dee
[2018-07-08 16:37] VITALS: BP 108/69; PULSE 86; TEMP 98.6; O2SAT 95
== END 2018-07-08 18:15 | disposition home or self-care (01) | DRG 300 ==
LOC: C.ER 15:13 → OBSVTOIN 19:01 → C.9E 19:01 → C.3T 21:15
PROVIDERS: ADMIT Internal Medicine Pulmonary Disease; ATTEND Internal Medicine
PROC: 05H533Z Insertion of Infusion Device into Right Subclavian Vein, Percutaneous Approach (ICD-10-PCS; principal; 2018-07-05)
DX: E03.9 Hypothyroidism, unspecified (principal); J44.9 Chronic obstructive pulmonary disease, unspecified; R32 Unspecified urinary incontinence; E78.5 Hyperlipidemia, unspecified; F40.240 Claustrophobia; I10 Essential (primary) hypertension; Z87.11 Personal history of peptic ulcer disease; E66.01 Morbid (severe) obesity due to excess calories; M54.5 Low back pain; R20.0 Anesthesia of skin; M79.661 Pain in right lower leg; R73.03 Prediabetes; Z68.37 Body mass index [BMI] 37.0-37.9, adult

== ENCOUNTER 2018-08-06 16:01 | Emergency (ER) | payer MEDICAID ==
[2018-08-06 16:01] VITALS: BMI 32.5
[2018-08-06 16:28] VITALS: BP 173/111; PULSE 129; RESP 20; TEMP 99.5; O2SAT 97
[2018-08-06] MEDS ORDERED: Sodium Chloride 0.9% 1,000 ML IV ONE (16:53)
[2018-08-06] MEDS ORDERED: Sodium Chloride 0.9% 1,000 ML ONE (17:08)
[2018-08-06 17:19] LABS: BASO # 0.1 K/uL (0.0-0.2); BASO % 0.4 % (0.0-2.0); EOS # 0.3 K/uL (0.0-0.7); HEMOGLOBIN 12.5 g/dL (11.0-16.0); LYMPH # 1.8 K/uL (1.0-4.3); LYMPH % 12.2 % (20.0-40.0); MEAN CORPUSCULAR HEMOGLOBIN 29.9 pg (27.0-31.0); MEAN CORPUSCULAR HGB CONC 33.1 g/dL (33.0-37.0); MONO # 1.1 K/uL (0.0-0.8); MONO % 7.3 % (0.0-10.0); NEUT # 11.7 K/uL (1.8-7.0); NEUT % 78.1 % (50.0-75.0); RBC 4.17 Mil/uL (3.80-5.20); RED CELL DISTRIBUTION WIDTH 13.9 % (11.5-14.5)
[2018-08-06 17:21] LABS: MEAN CELL VOLUME 90.4 fL (81.0-99.0); WHITE BLOOD COUNT 14.9 K/uL (4.8-10.8)
--- NOTE | 2018-08-06 17:22 | C.PDOC ---
History Of Present Illness 53 y/o female presents to the ER complaining of abdominal pain and vomiting which has been present since yesterday. Patient denies having fever, chills, dysuria, and hematuria. Of note, patient has been seen preivously for similar, a nd previously admitted. Time Seen by Provider: 08/06/18 16:24 Chief Complaint (Nursing): GI Problem History Per: Patient History/Exam Limitations: no limitations Onset/Duration Of Symptoms: Days Current Symptoms Are (Timing): Still Present Severity: Moderate Past Medical History Reviewed: Historical Data, Nursing Documentation, Vital Signs Vital Signs: Last Vital Signs Temp 99.5 F 08/06/18 16:24 Pulse 129 H 08/06/18 16:24 Resp 20 08/06/18 16:24 BP 173/111 H 08/06/18 16:24 Pulse Ox 97 08/06/18 16:24 - Medical History PMH: Anemia, Anxiety, Arthritis, Asthma, Back Problems (herniated discs), Bronchitis, COPD, Diverticulitis, Gastritis, Gastrointestinal Ulcer, HTN, Hypercholesterolemia Denies: Alzheimer's Disease, Chronic Kidney Disease Surgical History: Appendectomy, Cholecystectomy, Endoscopy, Hernia Repair (ventral x3, last 10/27/15) - [facility] Procedures (08/05/17) CENTRAL VENOUS CATHETER PLACEMENT WITH GUIDANCE (06/13/14) CLOSED ENDOSCOPIC BIOPSY OF LARGE INTESTINE (05/19/14) COLONOSCOPY (01/23/14) DILATION OF RIGHT AXILLARY ARTERY, PERCUTANEOUS APPROACH (11/03/15) ESOPHAGOGASTRODUODENOSCOPY [EGD] W/CLOSED BIOPSY (10/22/14) EXCISION OF DESCENDING COLON, ENDO, DIAGN (04/09/17) EXCISION OF SIGMOID COLON, ENDO, DIAGN (12/05/15) EXCISION OF SMALL INTESTINE, ENDO, DIAGN (06/10/16) EXCISION OF STOMACH, ENDO, DIAGN (04/04/17) FLUOROSCOPY OF SUP VENA CAVA USING L OSM CONTRAST, GUIDANCE (07/05/17) FLUOROSCOPY OF SUPERIOR VENA CAVA, GUIDANCE (12/05/15) INFLUENZA VACCINATION (05/08/14) INJECT/INFUSE NEC (08/22/14) INSERTION OF INFUSION DEV INTO L BRACH VEIN, PERC APPROACH (05/22/17) INSERTION OF INFUSION DEV INTO R SUBCLAV VEIN, PERC APPROACH (07/03/18) INSERTION OF INFUSION DEV INTO SUP VENA CAVA, PERC APPROACH (07/05/17) INSERTION OF VAD INTO CHEST SUBCU/FASCIA, OPEN APPROACH (07/05/17) INSPECTION OF GASTROINTESTINAL TRACT, PERC ENDO APPROACH (10/26/15) INTRODUCTION OF NUTRITIONAL INTO PERIPH VEIN, PERC APPROACH (08/24/17) MRI OF OTHER AND UNSPECIFIED SITES (04/25/14) NEBULIZER THERAPY (11/30/13) RELEASE CECUM, OPEN APPROACH (10/26/15) REPAIR ABDOMINAL WALL, OPEN APPROACH (07/05/17) ULTRASONOGRAPHY OF LEFT UPPER EXTREMITY VEINS, GUIDANCE (05/22/17) ULTRASONOGRAPHY OF SUPERIOR VENA CAVA, GUIDANCE (10/26/15) VENOUS CATHETERIZATION NEC (02/14/14) Family History: States: No Known Family Hx - Social History Hx Tobacco Use: No Hx Alcohol Use: No Hx Substance Use: No - Immunization History Hx Tetanus Toxoid Vaccination: Yes Hx Influenza Vaccination: Yes (2016) Hx Pneumococcal Vaccination: Yes (2014) Review Of Systems Except As Marked, All Systems Reviewed And Found Negative. Constitutional: Negative for: Fever, Chills Gastrointestinal: Positive for: Vomiting, Abdominal Pain Genitourinary: Negative for: Dysuria, Hematuria Physical Exam - Physical Exam Appears: Other (anxious) Skin: Normal Color, Warm, Dry Head: Atraumatic, Normacephalic Eye(s): bilateral: Normal Inspection Neck: Supple Chest: Symmetrical Cardiovascular: Rhythm Regular Respiratory: Normal Breath Sounds, No Rales, No Rhonchi, No Wheezing Gastrointestinal/Abdominal: Soft, Tenderness (epigastric tenderness), No Guarding, No Rebound Neurological/Psych: Oriented x3, Normal Speech ED Course And Treatment - Laboratory Results Result Diagrams: 08/06/18 17:15 08/06/18 17:15 O2 Sat by Pulse Oximetry: 97 (RA) Pulse Ox Interpretation: Normal Medical Decision Making Medical Decision Making: ro gastrits pancreatits pud. nj rx reviewd, numerous narcotic rx. in er pt tearful anxious. Plan: --Labs --CXR --UA --HCG, Qual. --CT- Abd & Pelv. --IV Fluids --Zofran IV pt in er treated with antiemetic, protonix. labs mild luekocytosis. ct added to exclude abdominal pathology. in er, pt refused to go to ct until stronger pain medication, iv analgesia given. noted previous records where pt "refused imaging until she got pain meds". i advised pt will be treated with other non narcotic pain meds. became theatening to staff and RN. i came into room and advised pt to proceed with ct, to which she agreed, and we will continue to manage her. again became agitaed. ft rn informed me they eloped prior to ct scan. Disposition - Disposition Disposition: ELOPEMENT - ER ONLY Disposition Time: 18:00 Condition: UNKNOWN Forms: [employer] (Hungarian) - Clinical Impression Clinical Impression: Abdominal pain - Scribe Statement The provider has reviewed the documentation as recorded by the Justinaibe Zenaida Myers Provider Attestation: All medical record entries made by the Scribe were at my direction and personally dictated by me. I have reviewed the chart and agree that the record accurately reflects my personal performance of the history, physical exam, medical decision making, and the department course for this patient. I have also personally directed, reviewed, and agree with the discharge instructions and disposition.
[2018-08-06 17:24] LABS: SQUAMOUS EPITHIAL 1 /hpf (0-5); URINE BACTERIA RARE (<OCC); URINE BILIRUBIN NEGATIVE (NEGATIVE); URINE BLOOD 2+ (NEGATIVE); URINE CLARITY Clear (Clear); URINE COLOR Yellow (YELLOW); URINE GLUCOSE (UA) NORMAL (Normal); URINE LEUKOCYTE ESTERASE NEG Leu/uL (Negative); URINE PROTEIN NEGATIVE (NEGATIVE); URINE UROBILINOGEN NORMAL mg/dL (0.2-1.0)
[2018-08-06 17:26] LABS: PROTHROMBIN TIME 11.4 SECONDS (9.7-12.2)
[2018-08-06 17:34] LABS: ALB/GLOB RATIO 1.4 (1.0-2.1); ALBUMIN 4.9 g/dL (3.5-5.0); ALT/SGPT 66 U/L (9-52); AST/SGOT 42 U/L (14-36); BILIRUBIN,DIRECT 0.4 mg/dL (0.0-0.4); BLOOD UREA NITROGEN 15 mg/dL (7-17); CALCIUM 9.7 mg/dl (8.6-10.4); GFR NON-AFRICAN AMERICAN > 60; LIPASE 251 U/L (23-300)
== END 2018-08-06 17:47 | disposition left against medical advice (07) ==
LOC: C.ER 16:01
DX: R10.13 Epigastric pain (principal)
CPT/HCPCS: 80053; 81001; 82248; 83690; 85025; 85610; 85730; 96361; 96374; 96375; 99283; C9113; J2405; J2765; J7030

== ENCOUNTER 2018-08-31 12:50 | Outpatient (CLI) | payer MEDICAID | END 2018-08-31 12:51 | disposition home or self-care (01) | LOC: C.LAB 12:50 | DX: R68.89 Other general symptoms and signs (principal); E78.1 Pure hyperglyceridemia ==

== ENCOUNTER 2018-08-31 12:57 | Outpatient (CLI) | payer MEDICAID | END 2018-08-31 12:58 | disposition home or self-care (01) | LOC: C.LAB 12:57 | DX: M06.041 Rheumatoid arthritis without rheumatoid factor, right hand (principal) ==

== ENCOUNTER 2018-11-03 00:12 | Emergency (ER) | payer MEDICAID | END 2018-11-03 01:00 | disposition left against medical advice (07) | LOC: C.ER 00:12 ==